=== PATIENT | male | born 1955 ===

== ENCOUNTER 2017-10-30 06:02 | Day surgery (SDC) | payer MEDICARE ==
[2017-09-18 03:47] VITALS: BMI 37.3
[2017-10-30] MEDS ORDERED: Lidocaine 2% Inj (20ml) ONE (07:19)
[2017-10-30] MEDS ORDERED: Iodixanol 320 MG/ML 200 ML BOTTLE IV ONE ×2 (07:20→08:34)
[2017-10-30] MEDS ORDERED: Propofol 10 mg/ml Inj (20 ML) ONE (08:13)
[2017-10-30] MEDS ORDERED: Midazolam 2 MG/2 ML VIAL ONE ×2 (08:13→09:40)
[2017-10-30] MEDS ORDERED: DiphenhydrAMINE 50 mg/ml Inj ONE (09:15)
[2017-10-30] MEDS ORDERED: Iodixanol 320 MG/ML 100 ML BOTTLE IV ONE (10:18)
--- NOTE | 2017-10-30 10:48 | PCM.SURG1 ---
Surgeon's Initial Post Op Note - Surgeon's Notes Surgeon: rodrigo Supervisor Rough End: 0 Type of Anesthesia: IV Sedation Anesthesia Administered By: sarahy Pre-Operative Diagnosis: sever claudication both legs left greater than right Operative Findings: r sfa occluded with reconstitution above the knee and single run off via anterior tibial. left sfa diffuse disease in sfa diseased tibial vessels. peroneal major vessel into foot with distal anterior tibial Post-Operative Diagnosis: same Operation Performed: aortofemoral angiogram via right groin with selctive catherization of left femoral artery. pathway left atherectomy/ DCB balloon angioplasty of sfa. balloon angioplasty of tibial peroneal trunk. perclose right groin Specimen/Specimens Removed: 0 Estimated Blood Loss: EBL {In ML}: 100 Blood Products Given: N/A Drains Used: No Drains Post-Op Condition: Good Date of Surgery/Procedure: 10/30/17 Time of Surgery/Procedure: 10:50
--- NOTE | 2017-10-31 11:23 | VAS ---
DATE: 10/30/2017 PREOPERATIVE DIAGNOSES: Claudication of both legs. PROCEDURE CARRIED OUT: Aortofemoral angiogram via right groin with selective catheterization of left femoral artery, pathway atherectomy of the left superficial femoral artery, balloon angioplasty using a drug-coated balloon of 5 and 6 mm of left superficial femoral artery, and balloon angioplasty using a 2.5 mm balloon of the tibioperoneal trunk on the left side, Perclose closure of right groin. IDENTIFICATION: The patient is a 62-year-old man on dialysis with severe claudication. OPERATIVE FINDINGS: The aorta and renal arteries are free of any significant occlusive disease. Both common iliac, internal iliac, external iliac, and common femoral arteries are free of any significant occlusive disease. On the right side, the arteries were heavily calcified at approximately 3 inches after its origin. The superficial femoral artery occluded and reconstituted at Steven's canal, below this is one-vessel runoff via the anterior tibial artery. In the left leg, the superficial femoral arteries are patent. There are multiple areas of high grade stenosis and atheroma appeared up and down in the leg. Below this the primary runoff has been in the peroneal artery diseased posterior tibial and diseased anterior tibial artery although the anterior tibial reconstituted as the major vessel actually in the foot below the occlusion. Subsequent to the performance of the diagnostic arteriogram, a stiff-angled guidewire was advanced over the aortic bifurcation and a 7-Citizen Of [place] sheath placed into the proximal portion of the superficial femoral artery. Heparin was given. The atherectomy device of large size was then used to atherectomize the superficial femoral artery after we placed the filter wire distally. After this had been done, we then deployed 5 and 6 mm balloon and dilated this appropriately. The final results were adequate. However distally, we saw that the tibioperoneal trunk concluded in the interim. We then removed the filter wire and then we ballooned this with the 2.5 mm balloon which was satisfactory. At the completion, films showed brisk flow down here without any evidence of residual stenosis. The procedure was then terminated. Perclose device was deployed in the right groin. The operation was carried out. Aortofemoral angiogram with selective catheterization of the left femoral artery, pathway atherectomy of the left superficial femoral artery, balloon angioplasty using a drug-coated balloon of superficial femoral artery and then a balloon angioplasty of the tibioperoneal trunk. Ryan Gooden Jr., MD cc: MD Emanuel Spicer MD
== END 2017-10-30 13:10 | disposition home or self-care (01) ==
LOC: C.SPRAD 06:02
PROVIDERS: ATTEND Surgery Vascular Surgery
DX: I70.213 Atherosclerosis of native arteries of extremities with intermittent claudication, bilateral legs (principal); Z99.2 Dependence on renal dialysis
CPT/HCPCS: 36247; 37225; 37232; 75625; 75716; 75774; C1724; C1725; C1760; C1766; C1769; C1884; C1887; C1894; C2623; J1200; J1644; J2250; J2704; J3010; Q9966; Q9967

== ENCOUNTER 2017-12-04 09:55 | Day surgery (SDC) | payer MEDICARE ==
[2017-12-03 10:08] VITALS: BMI 34.4
[2017-12-04 11:36] LABS: INR 1.1; PROTHROMBIN TIME 12.2 SECONDS (9.7-12.2)
[2017-12-04 11:58] LABS: CALCIUM 9.6 mg/dl (8.6-10.4)
[2017-12-04] MEDS ORDERED: Midazolam 2 MG/2 ML VIAL ONE ×2 (12:27→12:28)
[2017-12-04] MEDS ORDERED: Iodixanol 320 MG/ML 100 ML BOTTLE IV ONE ×3 (12:40→14:42)
[2017-12-04] MEDS ORDERED: Propofol 10 mg/ml Inj (20 ML) ONE (12:50)
--- NOTE | 2017-12-04 13:32 | PCM.SURG1 ---
Surgeon's Initial Post Op Note - Surgeon's Notes Surgeon: miri Well Cleaner: 0 Type of Anesthesia: IV Sedation Anesthesia Administered By: taylor Pre-Operative Diagnosis: pvd Operative Findings: no intervention carried oout becasue patient was not able to remain still. right side sfa occlusion with single vessel runoff via nterior tibial artery. pressure closure left groin Post-Operative Diagnosis: same Operation Performed: aortofemoral angiogram via left groin with selective catherization of right femoral artery Specimen/Specimens Removed: 0 Estimated Blood Loss: EBL {In ML}: 25 Blood Products Given: N/A Drains Used: No Drains Post-Op Condition: Good Date of Surgery/Procedure: 12/04/17 Time of Surgery/Procedure: 13:33
--- NOTE | 2017-12-04 16:34 | CP.PCM.PN ---
Subjective - Date & Time of Evaluation Date of Evaluation: 12/04/17 Time of Evaluation: 16:25 - Subjective Subjective: House doctor note: I was called down to sign this patient out against medical advice. The patient wanted to leave before the appropriate time for discharge as he just had catheterization. Patient wanted to leave before medically appropriate. Risks explained, and the patient was instructed to return to the emergency room in the case of new or worsening symptoms. Dr. Gooden was notified. Objective - Labs Labs: 12/04/17 11:19 12/04/17 11:19 PT 12.2 SECONDS (9.7-12.2) 12/04/17 11:19 INR 1.1 12/04/17 11:19 APTT 33 SECONDS (21-34) 12/04/17 11:19
--- NOTE | 2017-12-05 12:53 | OP ---
DATE: 12/04/2017 PREOPERATIVE DIAGNOSES: Pain, right foot; peripheral vascular disease; known right superficial artery occlusion. PROCEDURE CARRIED OUT: Aortofemoral angiogram via left groin with selective catheterization of the right femoral artery. SURGEON: Ryan Gooden Jr., MD WATCH REPAIRER: None. ANESTHESIOLOGIST: Dr. Forte. INDICATIONS: The patient is a 62-year-old man on dialysis with previous interventions successfully on his left leg. He had a known history of restless legs. However, he was able to have his left side treated uneventfully. He now presents with increasing pain in the right leg and for this reason he planned intervention on the right leg. OPERATIVE FINDINGS: 1. The aorta and renal arteries are free of any significant occlusive disease. 2. Common femoral, profunda femoris arteries, and iliac arteries are widely patent. On the left side, there is some minor atherosclerotic changes in the distal portion of the SFA, which was previously untreated and there was runoff via the tibial vessels. The detailed pictures of the tibial vessel was now taken on the right side. The superficial femoral artery was occluded soon after surgery and reconstituted the level just above the knee joint. Below this, there was single vessel runoff to the anterior tibial, ____ adequately in the region of the foot. Below, we advanced the catheter over the aortic bifurcation, positioned the catheter in the distal portion of the SFA. We were unable to intervene because of the patient's inability. Even though he was wide awake and cooperative, he will maintain his leg in a stable position. Because of this we abandoned the procedure, applied pressure to the groin. OPERATION CARRIED OUT: Aortofemoral angiogram with selective catheterization in the right femoral artery. Ryan Gooden Jr., MD
== END 2017-12-04 16:28 | disposition home or self-care (01) ==
LOC: C.CATHLAB 09:55 → C.SPRAD 09:55 → C.CATHLAB 16:28
PROVIDERS: ATTEND Surgery Vascular Surgery
DX: I73.9 Peripheral vascular disease, unspecified (principal); I77.1 Stricture of artery; G25.81 Restless legs syndrome; E11.22 Type 2 diabetes mellitus with diabetic chronic kidney disease; I12.0 Hypertensive chronic kidney disease with stage 5 chronic kidney disease or end stage renal disease; N18.6 End stage renal disease; Z99.2 Dependence on renal dialysis
CPT/HCPCS: 36247; 36415; 80048; 85014; 85018; 85610; 85730; J1644; J2250; J2704; Q9967

== ENCOUNTER 2018-07-02 06:16 | Day surgery (SDC) | payer MEDICARE ==
[2017-12-28 23:51] VITALS: BMI 34.4
[2018-07-02] MEDS ORDERED: Midazolam 2 MG/2 ML VIAL ONE (08:10)
[2018-07-02] MEDS ORDERED: Iodixanol 320 MG/ML 200 ML BOTTLE IV ONE ×2 (08:18→08:39)
[2018-07-02] MEDS ORDERED: DiphenhydrAMINE 50 mg/ml Inj ONE (08:22)
--- NOTE | 2018-07-02 09:40 | PCM.SURG1 ---
Surgeon's Initial Post Op Note - Surgeon's Notes Surgeon: miri Carton Stapler: 0 Type of Anesthesia: IV Sedation Anesthesia Administered By: shanique Pre-Operative Diagnosis: pvd/ rest pain Operative Findings: bilateral sfa occlusion. anterior tibial run off on right. anterior tibial and peroneal on left. perclose left Post-Operative Diagnosis: same Operation Performed: aortofemoral angio via left groin with selective catherization of right Specimen/Specimens Removed: 0 Estimated Blood Loss: EBL {In ML}: 50 Blood Products Given: N/A Drains Used: No Drains Post-Op Condition: Good Date of Surgery/Procedure: 07/02/18 Time of Surgery/Procedure: 09:40
--- NOTE | 2018-07-03 06:42 | VAS ---
DATE: 07/02/2018 PREOPERATIVE DIAGNOSES: Rest pain in right foot, peripheral vascular disease, and renal failure. PROCEDURE CARRIED OUT: Aortofemoral angiogram via left groin with selective catheterization of right femoral artery, no intervention. SURGEON: Ryan Gooden Jr., MD CORPORATE STRATEGY INTERN: None. ANESTHESIOLOGIST: Ms. Rubio. ANESTHESIA: Local with sedation. INDICATIONS: The patient is a 62-year-old man, on dialysis, previous interventions on the left leg, who presents now with increasing pain in the right side. OPERATIVE FINDINGS: The aorta and renal arteries were widely patent. There were minor degrees of atherosclerotic changes throughout the aorta and iliac arteries. Both common iliac, internal iliac, and external iliac arteries were widely patent. On the left side, the left common femoral was opened, the profunda was opened, the superficial femoral arteries were occluded in its mid segment and reconstituted at the level of the knee. There were rather reconstituted segments with the major vessel into the foot came from the knee down. The anterior tibial and peroneal are opened on the left. On the right side, the superficial femoral artery was occluded soon after its origin and reconstituted at the level of Steven's canal. Below this, there was run off femoral primarily via the anterior tibial artery which was in the segment just above the foot, but reconstituted more distally. Subsequent to the performance of diagnostic arteriogram, a stiff-angled guidewire was advanced over the aortic bifurcation. A 7-[place] sheath was positioned in the common femoral artery. Initially, we were able to engage the superficial femoral artery, and despite using a variety of techniques, wires and catheters, we are unable able to be finally cross this lesion. After attempting it quite some time with every available device, we then abandoned the procedure. Perclose device was then deployed on the left. Operation carried out was aortofemoral angiogram with selective catheterization of right femoral artery, no intervention. Ryan Gooden Jr., MD
[2018-07-03 15:32] VITALS: RESP 16; O2SAT 100
== END 2018-07-02 13:13 | disposition home or self-care (01) ==
LOC: C.SPRAD 06:16
PROVIDERS: ATTEND Surgery Vascular Surgery
DX: I73.9 Peripheral vascular disease, unspecified (principal); N19 Unspecified kidney failure
CPT/HCPCS: 36247; 75625; 75716; 75774; 76937; 82948; 94770; C1760; C1766; C1769; C1887; C1894; J1644; J2250; J3010; Q9966

== ENCOUNTER 2018-08-30 17:06 | Inpatient (IN) | payer MEDICARE ==
[2018-08-30 17:06] VITALS: BMI 34.7
--- NOTE | 2018-08-30 17:33 | C.PDOC ---
History Of Present Illness 62 year old male presents was sent to the ED by PMD Dr. Kory Matos for admission for gangrene on the feet bilaterally x2 months. The patient offers no other medical complaints. Denies fever, chills, nausea, vomiting, diarrhea, and any other associated symptoms. Time Seen by Provider: 08/30/18 17:21 Chief Complaint (Nursing): Lower Extremity Problem/Injury History Per: Patient History/Exam Limitations: no limitations Onset/Duration Of Symptoms: Other (x2 months) Current Symptoms Are (Timing): Still Present Recent travel outside of the [place]: No Past Medical History Reviewed: Historical Data, Nursing Documentation, Vital Signs Vital Signs: Last Vital Signs Temp 98 F 08/30/18 17:12 Pulse 85 08/30/18 17:12 Resp 18 08/30/18 17:12 BP 111/66 08/30/18 17:12 Pulse Ox 98 08/30/18 17:12 - Medical History PMH: Anxiety, Depression, Diabetes, Fractures, HTN, Hypercholesterolemia, Hyperlipidemia, Peripheral Edema, End Stage Renal Disease, Chronic Kidney Disease Surgical History: - [facility] Procedures (08/17/18) BYPASS LEFT BRACHIAL ARTERY TO UPPER ARM VEIN, OPEN APPROACH (06/24/16) EXCISION OF LEFT KIDNEY, PERCUTANEOUS APPROACH, DIAGNOSTIC (06/24/16) FLUOROSCOPY OF AORTA, BI LE ART USING OTH CONTRAST (08/17/18) PERFORMANCE OF URINARY FILTRATION, MULTIPLE (06/24/16) SEPTOPLASTY NEC (06/05/00) TURBINECTOMY NEC (06/05/00) Family History: States: Unknown Family Hx - Social History Hx Tobacco Use: No Hx Alcohol Use: No Hx Substance Use: No - Immunization History Hx Tetanus Toxoid Vaccination: No Review Of Systems Except As Marked, All Systems Reviewed And Found Negative. Constitutional: Negative for: Fever, Chills Gastrointestinal: Negative for: Nausea, Vomiting Musculoskeletal: Positive for: Other (gangrene on the feet bilaterally. ) Physical Exam - Physical Exam Skin: Warm, Dry, Other (skin changes bilaterally to the legs.) Head: Atraumatic, Normacephalic Eye(s): bilateral: Normal Inspection Oral Mucosa: Moist Neck: Normal ROM, Supple Chest: Symmetrical Cardiovascular: Rhythm Regular, Murmur Respiratory: Normal Breath Sounds, No Rales, No Rhonchi, No Wheezing Gastrointestinal/Abdominal: Normal Exam, Soft, No Tenderness Extremity: Normal ROM (of the lower extremities bilaterally. ), No Deformity Pulses: Left Dorsalis Pedis: Absent (no palpable distal pulses. ), Right Dorsalis Pedis: Absent (no palpable distal pulses. ) Neurological/Psych: Oriented x3, Normal Speech ED Course And Treatment - Laboratory Results Result Diagrams: 08/30/18 18:32 08/30/18 18:32 O2 Sat by Pulse Oximetry: 98 (RA) Pulse Ox Interpretation: Normal Medical Decision Making Medical Decision Making: Plan: -Blood sent. -Blood culture. Spoke to Dr. Kory Matos and made aware of patient and lab results. Disposition - Disposition Disposition Time: 18:30 Condition: GUARDED Forms: gopogo (Lithuanian) - Clinical Impression Clinical Impression: PVD (peripheral vascular disease), Renal failure, Arterial, arteriole and capillary disease - Scribe Statement The provider has reviewed the documentation as recorded by the Scribe (Renetta Ball) Provider Attestation: All medical record entries made by the Scribe were at my direction and personally dictated by me. I have reviewed the chart and agree that the record accurately reflects my personal performance of the history, physical exam, medical decision making, and the department course for this patient. I have also personally directed, reviewed, and agree with the discharge instructions and disposition.
[2018-08-30 18:36] LABS: BASO # 0.1 K/uL (0.0-0.2); BASO % 0.9 % (0.0-2.0); EOS # 0.2 K/uL (0.0-0.7); EOS % 2.2 % (0.0-4.0); HEMOGLOBIN 12.6 g/dL (12.0-18.0); LYMPH # 1.6 K/uL (1.0-4.3); LYMPH % 19.2 % (20.0-40.0); MEAN CORPUSCULAR HEMOGLOBIN 32.9 pg (27.0-31.0); MEAN CORPUSCULAR HGB CONC 33.5 g/dL (33.0-37.0); MEAN PLATELET VOLUME 8.8 fL (7.2-11.7); MONO # 0.8 K/uL (0.0-0.8); MONO % 9.2 % (0.0-10.0); NEUT # 5.6 K/uL (1.8-7.0); NEUT % 68.5 % (50.0-75.0); NRBC % 0.2 % (0.0-2.0); RBC 3.82 Mil/uL (4.40-5.90); RED CELL DISTRIBUTION WIDTH 16.1 % (11.5-14.5); WHITE BLOOD COUNT 8.2 K/uL (4.8-10.8)
[2018-08-30 18:40] LABS: MEAN CELL VOLUME 98.4 fL (80.0-94.0)
[2018-08-30 18:44] LABS: INR 1.2; PROTHROMBIN TIME 13.6 SECONDS (9.7-12.2)
[2018-08-30 18:50] LABS: ALB/GLOB RATIO 1.2 (1.0-2.1); CALCIUM 8.4 mg/dl (8.6-10.4)
--- NOTE | 2018-08-30 19:35 | CP.PCM.HP ---
Past Patient History - Infectious Disease Hx of Infectious Diseases: None - Past Medical History & Family History Past Medical History?: Yes - Past Social History Smoking Status: Never Smoked - CARDIAC Hx Hypercholesterolemia: Yes Hx Hypertension: Yes Hx Peripheral Edema: Yes - PULMONARY Hx Respiratory Disorders: No - NEUROLOGICAL Hx Neurological Disorder: No - HEENT Hx HEENT Problems: Yes Hx Cataracts: Yes (RIGHT EYE) - RENAL Hx Chronic Kidney Disease: Yes - ENDOCRINE/METABOLIC Hx Endocrine Disorders: Yes Hx Diabetes Mellitus Type 2: Yes - HEMATOLOGICAL/ONCOLOGICAL Hx Blood Disorders: No - INTEGUMENTARY Hx Dermatological Problems: No - MUSCULOSKELETAL/RHEUMATOLOGICAL Hx Fractures: Yes - GASTROINTESTINAL Hx Gastrointestinal Disorders: No - GENITOURINARY/GYNECOLOGICAL Hx Genitourinary Disorders: No - PSYCHIATRIC Hx Anxiety: Yes Hx Depression: Yes Hx Substance Use: No - SURGICAL HISTORY Hx Surgeries: Yes Hx Herniorrhaphy: Yes Other/Comment: Av shunt on the left arm - ANESTHESIA Hx Anesthesia: Yes Hx Anesthesia Reactions: No Hx Malignant Hyperthermia: No Meds Allergies/Adverse Reactions: Allergies Allergy/AdvReac Type Severity Reaction Status Date / Time shellfish derived Allergy Intermediate DIZZINESS Verified 08/17/18 10:28 Physical Exam - Constitutional Appears: Well - Head Exam Head Exam: ATRAUMATIC, NORMAL INSPECTION, NORMOCEPHALIC - Eye Exam Eye Exam: EOMI, Normal appearance, PERRL Pupil Exam: NORMAL ACCOMODATION, PERRL - ENT Exam ENT Exam: Mucous Membranes Moist, Normal Exam - Neck Exam Neck exam: Positive for: Normal Inspection - Respiratory Exam Respiratory Exam: Decreased Breath Sounds - Cardiovascular Exam Cardiovascular Exam: REGULAR RHYTHM, +S1, +S2 - GI/Abdominal Exam GI & Abdominal Exam: Diminished Bowel Sounds, Soft - Rectal Exam Rectal Exam: Deferred Results - Vital Signs Recent Vital Signs: Last Vital Signs Temp 98.5 F 08/30/18 19:02 Pulse 84 08/30/18 19:02 Resp 18 08/30/18 19:02 BP 144/77 08/30/18 19:02 Pulse Ox 95 08/30/18 19:02 - Labs Result Diagrams: 08/30/18 18:32 08/30/18 18:32 Labs: Laboratory Results - last 24 hr 08/30/18 08/30/18 08/30/18 18:32 18:32 18:32 WBC 8.2 RBC 3.82 L Hgb 12.6 Hct 37.6 MCV 98.4 H D MCH 32.9 H MCHC 33.5 RDW 16.1 H Plt Count 395 D MPV 8.8 Neut % (Auto) 68.5 Lymph % (Auto) 19.2 L [place] % (Auto) 9.2 Eos % (Auto) 2.2 Baso % (Auto) 0.9 Neut # (Auto) 5.6 Lymph # (Auto) 1.6 [place] # (Auto) 0.8 Eos # (Auto) 0.2 Baso # (Auto) 0.1 PT 13.6 H INR 1.2 APTT 34 Sodium 135 Potassium 3.3 L Chloride 90 L Carbon Dioxide 35 H Anion Gap 13 BUN 28 H Creatinine 5.4 H Est GFR ( Amer) 13 Est GFR (Non-Af Amer) 11 Random Glucose 127 H Calcium 8.4 L Total Bilirubin 0.6 AST 47 ALT 116 H D Alkaline Phosphatase 98 Total Protein 7.4 Albumin 4.0 Globulin 3.3 Albumin/Globulin Ratio 1.2 Blood Type Antibody Screen 08/30/18 18:32 WBC RBC Hgb Hct MCV MCH MCHC RDW Plt Count MPV Neut % (Auto) Lymph % (Auto) [place] % (Auto) Eos % (Auto) Baso % (Auto) Neut # (Auto) Lymph # (Auto) [place] # (Auto) Eos # (Auto) Baso # (Auto) PT INR APTT Sodium Potassium Chloride Carbon Dioxide Anion Gap BUN Creatinine Est GFR ( Amer) Est GFR (Non-Af Amer) Random Glucose Calcium Total Bilirubin AST ALT Alkaline Phosphatase Total Protein Albumin Globulin Albumin/Globulin Ratio Blood Type O POSITIVE Antibody Screen Negative
[2018-08-30] MEDS ORDERED: HYDROmorphone 0.5 mg/0.5 ml ISec IVP PRN (19:50)
[2018-08-30] MEDS ORDERED: Dextrose 50% SYRINGE Inj (50 ml) IV PRN (19:53)
[2018-08-30] MEDS ORDERED: Glucagon Recombinant 1 mg Inj IM PRN (19:53)
[2018-08-30] MEDS: HYDROmorphone 0.5 mg/0.5 ml ISec IVP PRN (20:59)
[2018-08-30] MEDS: (Novolog) Insulin Aspart, Recombinant 100 u/ml 10 ml vial SC SCH (22:02)
[2018-08-31] MEDS: HYDROmorphone 0.5 mg/0.5 ml ISec IVP PRN ×5 (00:55→17:21)
--- NOTE | 2018-08-31 01:41 | CP.PCM.CON ---
History of Present Illness - History of Present Illness History of Present Illness: Vascular Surgery Consult Re: RLE ischemia HPI: 62M recently DCed from [facility], was scheduled for surgery 09/03/18 but says he was sent back by his PMD due to severe pain in both of his feet uncontrolled by meds. No other complaints. Pt has several areas of gangrene on the feet bilaterally for 2 months. PMH: PVD, HTN, ESRD on HD, DM, Cataracts, CHF PSH: L UE AV shunt SH:No tobacco, EtOH or drug use FH: noncontributory All: shellfish Meds: See MAR Review of Systems - Review of Systems All systems: reviewed and no additional remarkable complaints except (as per HPI) Past Patient History - Infectious Disease Hx of Infectious Diseases: None - Past Medical History & Family History Past Medical History?: Yes - Past Social History Smoking Status: Never Smoked - CARDIAC Hx Circulatory Problems: Yes Hx Hypercholesterolemia: Yes Hx Hypertension: Yes Hx Peripheral Edema: Yes Hx Peripheral Vascular Disease: Yes - PULMONARY Hx Respiratory Disorders: No - NEUROLOGICAL Hx Neurological Disorder: No - HEENT Hx HEENT Problems: Yes Hx Cataracts: Yes (RIGHT EYE) - RENAL Hx Chronic Kidney Disease: Yes Hx Dialysis: Yes Type of Dialysis Access: lerft av fistula Date of Last Dialysis Treatment: 08/29/18 Hx Kidney Stones: No Hx Neurogenic Bladder: No Hx Pyelonephritis: No Hx Renal (Kidney) Cancer: No Hx Renal Failure: Yes - ENDOCRINE/METABOLIC Hx Endocrine Disorders: Yes Hx Diabetes Mellitus Type 2: Yes - HEMATOLOGICAL/ONCOLOGICAL Hx Blood Disorders: No - INTEGUMENTARY Hx Dermatological Problems: No - MUSCULOSKELETAL/RHEUMATOLOGICAL Hx Falls: No Hx Fractures: Yes - GASTROINTESTINAL Hx Gastrointestinal Disorders: No - GENITOURINARY/GYNECOLOGICAL Hx Genitourinary Disorders: No - PSYCHIATRIC Hx Anxiety: Yes Hx Depression: Yes Hx Substance Use: No - SURGICAL HISTORY Hx Surgeries: Yes Hx Herniorrhaphy: Yes Other/Comment: Av shunt on the left arm - ANESTHESIA Hx Anesthesia: Yes Hx Anesthesia Reactions: No Hx Malignant Hyperthermia: No Meds Allergies/Adverse Reactions: Allergies Allergy/AdvReac Type Severity Reaction Status Date / Time shellfish derived Allergy Intermediate DIZZINESS Verified 08/17/18 10:28 - Medications Medications: Current Medications Dextrose (Dextrose 50% Inj) 0 ml IV STAT PRN; Protocol PRN Reason: Hypoglycemia Protocol Dextrose (Glutose 15) 0 gm PO ONCE PRN; Protocol PRN Reason: Hypoglycemia Protocol Glucagon (Glucagen Diagnostic Kit) 0 mg IM STAT PRN; Protocol PRN Reason: Hypoglycemia Protocol Heparin Sodium (Porcine) (Heparin) 5,000 units SC Q12 [facility] Last Admin: 08/30/18 21:35 Dose: 5,000 units Hydromorphone HCl (Dilaudid) 0.5 mg IVP Q4H PRN PRN Reason: Pain, severe (8-10) Last Admin: 08/31/18 00:55 Dose: 0.5 mg Dextrose (Dextrose 5% In Water 1000 Ml) 1,000 mls @ 0 mls/hr IV .Q0M PRN; Protocol PRN Reason: Hypoglycemia Protocol Vancomycin HCl 500 mg/ Sodium (Chloride) 100 mls @ 100 mls/hr IVPB MWF [facility]; Protocol Insulin Aspart (Novolog) 0 unit SC ACHS [facility]; Protocol Last Admin: 08/30/18 22:02 Dose: Not Given Pregabalin (Lyrica) 100 mg PO BID [facility] Rosuvastatin Calcium (Crestor) 5 mg PO HS [facility] Last Admin: 08/30/18 21:35 Dose: 5 mg Tramadol HCl (Ultram) 50 mg PO TID PRN PRN Reason: Pain, moderate (4-7) Physical Exam - Constitutional Appears: Non-toxic, No Acute Distress - Head Exam Head Exam: ATRAUMATIC, NORMOCEPHALIC - Eye Exam Eye Exam: EOMI. absent: Scleral icterus - ENT Exam ENT Exam: Mucous Membranes Moist Additional comments: trachea midline - Neck Exam Neck exam: Positive for: Full Rom. Negative for: Tenderness - Respiratory Exam Respiratory Exam: NORMAL BREATHING PATTERN. absent: Respiratory Distress - Cardiovascular Exam Cardiovascular Exam: +S1, +S2. absent: Tachycardia - GI/Abdominal Exam GI & Abdominal Exam: Soft. absent: Distended, Tenderness - Rectal Exam Rectal Exam: Deferred - Extremities Exam Additional comments: DP/PT non palpable, 1+ pitting edema to dorsal aspect of foot bilaterally. Tenderness to palpation of heels bilaterally. No palpable pulses bilaterally. very faint doppler pulses b/l. Fissures with dried serous fluid on heels bilaterally, no purulence, no malodor, no tunneling, no tracking. Mild diffuse edema appreciated to b/l heels. - Back Exam Back exam: absent: CVA tenderness (L), CVA tenderness (R) - Neurological Exam Neurological exam: Alert, Oriented x3 - Skin Skin Exam: Dry, Warm Results - Vital Signs Recent Vital Signs: Last Vital Signs Temp 98.8 F 08/31/18 00:19 Pulse 80 08/31/18 00:19 Resp 20 08/31/18 00:19 BP 125/70 08/31/18 00:19 Pulse Ox 98 08/31/18 00:19 - Labs Result Diagrams: 08/30/18 18:32 08/30/18 18:32 Labs: Laboratory Results - last 24 hr 08/30/18 08/30/18 08/30/18 18:32 18:32 18:32 WBC 8.2 RBC 3.82 L Hgb 12.6 Hct 37.6 MCV 98.4 H D MCH 32.9 H MCHC 33.5 RDW 16.1 H Plt Count 395 D MPV 8.8 Neut % (Auto) 68.5 Lymph % (Auto) 19.2 L [place] % (Auto) 9.2 Eos % (Auto) 2.2 Baso % (Auto) 0.9 Neut # (Auto) 5.6 Lymph # (Auto) 1.6 [place] # (Auto) 0.8 Eos # (Auto) 0.2 Baso # (Auto) 0.1 PT 13.6 H INR 1.2 APTT 34 Sodium 135 Potassium 3.3 L Chloride 90 L Carbon Dioxide 35 H Anion Gap 13 BUN 28 H Creatinine 5.4 H Est GFR ( Amer) 13 Est GFR (Non-Af Amer) 11 POC Glucose (mg/dL) Random Glucose 127 H Calcium 8.4 L Total Bilirubin 0.6 AST 47 ALT 116 H D Alkaline Phosphatase 98 Total Protein 7.4 Albumin 4.0 Globulin 3.3 Albumin/Globulin Ratio 1.2 Blood Type Antibody Screen 08/30/18 08/30/18 18:32 20:55 WBC RBC Hgb Hct MCV MCH MCHC RDW Plt Count MPV Neut % (Auto) Lymph % (Auto) [place] % (Auto) Eos % (Auto) Baso % (Auto) Neut # (Auto) Lymph # (Auto) [place] # (Auto) Eos # (Auto) Baso # (Auto) PT INR APTT Sodium Potassium Chloride Carbon Dioxide Anion Gap BUN Creatinine Est GFR ( Amer) Est GFR (Non-Af Amer) POC Glucose (mg/dL) 126 H Random Glucose Calcium Total Bilirubin AST ALT Alkaline Phosphatase Total Protein Albumin Globulin Albumin/Globulin Ratio Blood Type O POSITIVE Antibody Screen Negative Assessment & Plan - Assessment and Plan (Free Text) Assessment: 62M with b/l LE gangrene and ischemia R>L Plan: Planning for Bypass 09/03 Needs HD Saturday 09/02 Pain control D/W Dr. Berkley Pozo PGY4
[2018-08-31 07:03] LABS: BASO % 0.6 % (0.0-2.0); EOS # 0.2 K/uL (0.0-0.7); HEMOGLOBIN 12.1 g/dL (12.0-18.0); LYMPH # 1.8 K/uL (1.0-4.3); LYMPH % 22.1 % (20.0-40.0); MEAN CELL VOLUME 101.4 fL (80.0-94.0); MEAN CORPUSCULAR HEMOGLOBIN 32.9 pg (27.0-31.0); MEAN CORPUSCULAR HGB CONC 32.4 g/dL (33.0-37.0); MEAN PLATELET VOLUME 8.9 fL (7.2-11.7); MONO # 0.8 K/uL (0.0-0.8); MONO % 10.4 % (0.0-10.0); NEUT # 5.2 K/uL (1.8-7.0); NEUT % 63.9 % (50.0-75.0); NRBC % 0.1 % (0.0-2.0); RBC 3.68 Mil/uL (4.40-5.90); RED CELL DISTRIBUTION WIDTH 16.3 % (11.5-14.5); WHITE BLOOD COUNT 8.1 K/uL (4.8-10.8)
[2018-08-31] MEDS: (Novolog) Insulin Aspart, Recombinant 100 u/ml 10 ml vial SC SCH ×4 (07:37→21:23)
[2018-08-31 09:34] LABS: ALB/GLOB RATIO 1.3 (1.0-2.1); ALBUMIN 3.9 g/dL (3.5-5.0); CALCIUM 8.5 mg/dl (8.6-10.4)
--- NOTE | 2018-08-31 11:08 | CP.PCM.CON ---
History of Present Illness - History of Present Illness History of Present Illness: HPI: 62M recently DCd from [facility], was scheduled for surgery 09/03/18 but says he was sent back by his PMD due to severe pain in both of his feet uncontrolled by meds. No other complaints. Pt has several areas of gangrene on the feet bilaterally for 2 months. PMH: PVD, HTN, ESRD on HD, DM, Cataracts, CHF PSH: L UE AV shunt SH:No tobacco, EtOH or drug use FH: noncontributory All: shellfish Meds: See MAR Past Patient History - Infectious Disease Hx of Infectious Diseases: None - Past Medical History & Family History Past Medical History?: Yes - Past Social History Smoking Status: Never Smoked - CARDIAC Hx Circulatory Problems: Yes Hx Hypercholesterolemia: Yes Hx Hypertension: Yes Hx Peripheral Edema: Yes Hx Peripheral Vascular Disease: Yes - PULMONARY Hx Respiratory Disorders: No - NEUROLOGICAL Hx Neurological Disorder: No - HEENT Hx HEENT Problems: Yes Hx Cataracts: Yes (RIGHT EYE) - RENAL Hx Chronic Kidney Disease: Yes Hx Dialysis: Yes Type of Dialysis Access: lerft av fistula Date of Last Dialysis Treatment: 08/29/18 Hx Kidney Stones: No Hx Neurogenic Bladder: No Hx Pyelonephritis: No Hx Renal (Kidney) Cancer: No Hx Renal Failure: Yes - ENDOCRINE/METABOLIC Hx Endocrine Disorders: Yes Hx Diabetes Mellitus Type 2: Yes - HEMATOLOGICAL/ONCOLOGICAL Hx Blood Disorders: No - INTEGUMENTARY Hx Dermatological Problems: No - MUSCULOSKELETAL/RHEUMATOLOGICAL Hx Falls: No Hx Fractures: Yes - GASTROINTESTINAL Hx Gastrointestinal Disorders: No - GENITOURINARY/GYNECOLOGICAL Hx Genitourinary Disorders: No - PSYCHIATRIC Hx Anxiety: Yes Hx Depression: Yes Hx Substance Use: No - SURGICAL HISTORY Hx Surgeries: Yes Hx Herniorrhaphy: Yes Other/Comment: Av shunt on the left arm - ANESTHESIA Hx Anesthesia: Yes Hx Anesthesia Reactions: No Hx Malignant Hyperthermia: No Meds Allergies/Adverse Reactions: Allergies Allergy/AdvReac Type Severity Reaction Status Date / Time shellfish derived Allergy Intermediate DIZZINESS Verified 08/17/18 10:28 - Medications Medications: Current Medications Dextrose (Dextrose 50% Inj) 0 ml IV STAT PRN; Protocol PRN Reason: Hypoglycemia Protocol Dextrose (Glutose 15) 0 gm PO ONCE PRN; Protocol PRN Reason: Hypoglycemia Protocol Glucagon (Glucagen Diagnostic Kit) 0 mg IM STAT PRN; Protocol PRN Reason: Hypoglycemia Protocol Heparin Sodium (Porcine) (Heparin) 5,000 units SC Q12 [facility] Last Admin: 08/31/18 09:33 Dose: 5,000 units Hydromorphone HCl (Dilaudid) 0.5 mg IVP Q4H PRN PRN Reason: Pain, severe (8-10) Last Admin: 08/31/18 09:34 Dose: 0.5 mg Dextrose (Dextrose 5% In Water 1000 Ml) 1,000 mls @ 0 mls/hr IV .Q0M PRN; Protocol PRN Reason: Hypoglycemia Protocol Vancomycin HCl 500 mg/ Sodium (Chloride) 100 mls @ 100 mls/hr IVPB MWF [facility]; Protocol Last Admin: 08/31/18 09:33 Dose: 100 mls/hr Insulin Aspart (Novolog) 0 unit SC ACHS [facility]; Protocol Last Admin: 08/31/18 07:37 Dose: Not Given Pregabalin (Lyrica) 100 mg PO BID [facility] Last Admin: 08/31/18 09:33 Dose: 100 mg Rosuvastatin Calcium (Crestor) 5 mg PO HS [facility] Last Admin: 08/30/18 21:35 Dose: 5 mg Tramadol HCl (Ultram) 50 mg PO TID PRN PRN Reason: Pain, moderate (4-7) Last Admin: 08/31/18 03:09 Dose: 50 mg Physical Exam - Head Exam Head Exam: ATRAUMATIC, NORMAL INSPECTION, NORMOCEPHALIC - Eye Exam Eye Exam: EOMI, Normal appearance. absent: Scleral icterus - ENT Exam ENT Exam: Mucous Membranes Moist, Normal Oropharynx - Neck Exam Neck exam: Positive for: Full Rom, Normal Inspection. Negative for: Tenderness, Thyromegaly - Respiratory Exam Respiratory Exam: Clear to Auscultation Bilateral, NORMAL BREATHING PATTERN. absent: Rales, Rhonchi, Wheezes - Cardiovascular Exam Cardiovascular Exam: RRR, +S1, +S2, Systolic Murmur (FABRIZIO non rad, 2/6 RUSB) - GI/Abdominal Exam GI & Abdominal Exam: Normal Bowel Sounds, Soft. absent: Tenderness - Extremities Exam Extremities exam: Negative for: calf tenderness, pedal pulses present - Neurological Exam Neurological exam: Alert, Oriented x3 - Psychiatric Exam Psychiatric exam: Normal Affect, Normal Mood - Skin Skin Exam: Cyanosis (absent pulses DP, ) Results - Vital Signs Recent Vital Signs: Last Vital Signs Temp 97.8 F 08/31/18 07:37 Pulse 74 08/31/18 07:37 Resp 20 08/31/18 07:37 BP 158/80 H 08/31/18 07:37 Pulse Ox 98 08/31/18 07:37 - Labs Result Diagrams: 09/03/18 07:36 09/03/18 07:36 Labs: Laboratory Results - last 24 hr 08/30/18 08/30/18 08/30/18 18:32 18:32 18:32 WBC 8.2 RBC 3.82 L Hgb 12.6 Hct 37.6 MCV 98.4 H D MCH 32.9 H MCHC 33.5 RDW 16.1 H Plt Count 395 D MPV 8.8 Neut % (Auto) 68.5 Lymph % (Auto) 19.2 L [place] % (Auto) 9.2 Eos % (Auto) 2.2 Baso % (Auto) 0.9 Neut # (Auto) 5.6 Lymph # (Auto) 1.6 [place] # (Auto) 0.8 Eos # (Auto) 0.2 Baso # (Auto) 0.1 PT 13.6 H INR 1.2 APTT 34 Sodium 135 Potassium 3.3 L Chloride 90 L Carbon Dioxide 35 H Anion Gap 13 BUN 28 H Creatinine 5.4 H Est GFR ( Amer) 13 Est GFR (Non-Af Amer) 11 POC Glucose (mg/dL) Random Glucose 127 H Calcium 8.4 L Phosphorus Magnesium Total Bilirubin 0.6 AST 47 ALT 116 H D Alkaline Phosphatase 98 Total Protein 7.4 Albumin 4.0 Globulin 3.3 Albumin/Globulin Ratio 1.2 Blood Type Antibody Screen 08/30/18 08/30/18 08/31/18 18:32 20:55 06:58 WBC 8.1 RBC 3.68 L Hgb 12.1 Hct 37.3 MCV 101.4 H D MCH 32.9 H MCHC 32.4 L RDW 16.3 H Plt Count 392 MPV 8.9 Neut % (Auto) 63.9 Lymph % (Auto) 22.1 [place] % (Auto) 10.4 H Eos % (Auto) 3.0 Baso % (Auto) 0.6 Neut # (Auto) 5.2 Lymph # (Auto) 1.8 [place] # (Auto) 0.8 Eos # (Auto) 0.2 Baso # (Auto) 0.0 PT INR APTT Sodium Potassium Chloride Carbon Dioxide Anion Gap BUN Creatinine Est GFR ( Amer) Est GFR (Non-Af Amer) POC Glucose (mg/dL) 126 H Random Glucose Calcium Phosphorus Magnesium Total Bilirubin AST ALT Alkaline Phosphatase Total Protein Albumin Globulin Albumin/Globulin Ratio Blood Type O POSITIVE Antibody Screen Negative 08/31/18 08/31/18 06:58 07:11 WBC RBC Hgb Hct MCV MCH MCHC RDW Plt Count MPV Neut % (Auto) Lymph % (Auto) [place] % (Auto) Eos % (Auto) Baso % (Auto) Neut # (Auto) Lymph # (Auto) [place] # (Auto) Eos # (Auto) Baso # (Auto) PT INR APTT Sodium 134 Potassium 3.6 Chloride 93 L Carbon Dioxide 28 Anion Gap 17 BUN 35 H Creatinine 6.6 H Est GFR ( Amer) 10 Est GFR (Non-Af Amer) 9 POC Glucose (mg/dL) 125 H Random Glucose 112 H Calcium 8.5 L Phosphorus 6.3 H Magnesium 2.1 Total Bilirubin 0.6 AST 49 ALT 100 H Alkaline Phosphatase 95 Total Protein 7.0 Albumin 3.9 Globulin 3.1 Albumin/Globulin Ratio 1.3 Blood Type Antibody Screen Assessment & Plan - Assessment and Plan (Free Text) Assessment: 62 y/o awaiting LE bypass surgery The following images were directly viewed by me: Echo 08/21/18: Normal LVEF, Mild LVH, Normal LV wall motion, Mild-mod aortic stenosis (Dimensionless index 0.41; Vmax 3.61 m/s, mean gradient 30mmHg); mitral annular and aortic valve calcification, Grade 1 diastolic dysfunction, LAE, Normal IVC compliance. Carotid 08/20/18: B/L <50% ICA stenosis BP is controlled A1c is 7.1% Mild-mod clinically ASX Aortic stenosis: f/u echo in 1 year Cardiac cath done 08/27/18 at [facility]: Normal LM, mild LAD, [employer] of the OM2 branch of LCX, moderate LCX and RCA disease RX: medical management: NO PCI indicated Add crestor 20 add asa 81, add plavix 75 Increase atenolol to 50 Add ranexa 500 BID Consider KVNG-I or ARB for additional BP control Cont HD as ordered. Patient is acceptable risk to proceed with LE vascular bypass with adequate control of BP, monitoring of HR and BP.
--- NOTE | 2018-08-31 11:47 | CP.PCM.CON ---
History of Present Illness - History of Present Illness History of Present Illness: 62M was admitted to for severe ischemic pain and possibly infected wounds to feet He is scheduled to have to have fem-pop bypass 09/02/18 He was referred for ID eval of antibiotics his procalcitonin level was elevated but cultures all negative this far PMH: PVD, HTN, ESRD on HD, DM, Cataracts, CHF PSH: L UE AV shunt SH:No tobacco, EtOH or drug use FH: noncontributory All: shellfish Meds: See MAR Review of Systems - Review of Systems All systems: reviewed and no additional remarkable complaints except - Constitutional Constitutional: As Per HPI - EENT Eyes: absent: As Per HPI, Blind Spots, Blurred Vision, Change in Vision, Decreased Night Vision, Diplopia, Discharge, Dry Eye, Exophthalmos, Floaters, Irritation, Itchy Eyes, Loss of Peripheral Vision, Pain, Photophobia, Requires Corrective Lenses, Sees Flashes, Spots in Vision, Tunnel Vision, Other Visual Disturbances, Loss of Vision, Other Ears: absent: As Per HPI, Decreased Hearing, Ear Discharge, Ear Pain, Tinnitus, Abnormal Hearing, Disequilibrium, Dizziness, Other Nose/Mouth/Throat: absent: As Per HPI, Epistaxis, Nasal Congestion, Nasal Discharge, Nasal Obstruction, Nasal Trauma, Nose Pain, Post Nasal Drip, Sinus Pain, Sinus Pressure, Bleeding Gums, Change in Voice, Dental Pain, Dry Mouth, Dysphagia, Halitosis, Hoarsness, Lip Swelling, Mouth Lesions, Mouth Pain, Odynophagia, Sore Throat, Throat Swelling, Tongue Swelling, Facial Pain, Neck Pain, Neck Mass, Other - Cardiovascular Cardiovascular: As Per HPI - Respiratory Respiratory: absent: As Per HPI, Cough, Dyspnea, Hemoptysis, Dyspnea on Exertion, Wheezing, Snoring, Stridor, Pain on Inspiration, Chest Congestion, Exc essive Mucous Production, Change in Mucous Color, Pain with Coughing, Other - Gastrointestinal Gastrointestinal: absent: As Per HPI, Abdominal Pain, Belching, Bloating, Change in Bowel Habits, Change in Stool Character, Coffee Ground Emesis, Constipation, Cramping, Diarrhea, Dyspepsia, Dysphagia, Early Satiety, Excessive Flatus, Fecal Incontinence, Heartburn, Hematemesis, Hematochezia, Loose Stools, Melena, Nausea, Odynophagia, Temesmus, Vomiting, Other - Genitourinary Genitourinary: absent: As Per HPI, Change in Urinary Stream, Difficulty Urinating, Dysuria, Flank Pain, Hematuria, Pyuria, Nocturia, Urinary Inconti nence, Urinary Frequency, Urinary Hesitance, Urinary Urgency, Voiding Freq/Small Amts, Freq UTI, Hx Renal/Bladder Calculi, Hx /Renal Surgery, Bladder Distension, Other - Musculoskeletal Musculoskeletal: As Per HPI - Integumentary Integumentary: As Per HPI, Skin Pain, Wounds - Neurological Neurological: As Per HPI - Psychiatric Psychiatric: absent: As Per HPI, Abnormal Sleep Pattern, Anhedonia, Anxiety, Auditory Hallucinations, Behavioral Changes, Change in Appetite, Change in Libido, Confusion, Depression, Difficulty Concentrating, Hallucinations, Homicidal Ideation, Hopelessness, Irritability, Memory Loss, Mood Swings, Panic Attacks, Paranoia, Suicidal Ideation, Visual Hallucinations, Tactile Hallucinations, Other - Endocrine Endocrine: absent: As Per HPI, Change in Body Appearance, Change in Libido, Cold Intolorance, Deepening of Voice, Excessive Sweating, Fatigue, Flushing, Heat Intolorance, Increase in Ring/Shoe/Hat Size, Palpitations, Polydipsia, Polyphagia, Polyuria, Other - Hematologic/Lymphatic Hematologic: absent: As Per HPI, Easy Bleeding, Easy Bruising, Lymphadenopathy, Other Past Patient History - Infectious Disease Hx of Infectious Diseases: None - Past Medical History & Family History Past Medical History?: Yes - Past Social History Smoking Status: Never Smoked - CARDIAC Hx Circulatory Problems: Yes Hx Hypercholesterolemia: Yes Hx Hypertension: Yes Hx Peripheral Edema: Yes Hx Peripheral Vascular Disease: Yes - PULMONARY Hx Respiratory Disorders: No - NEUROLOGICAL Hx Neurological Disorder: No - HEENT Hx HEENT Problems: Yes Hx Cataracts: Yes (RIGHT EYE) - RENAL Hx Chronic Kidney Disease: Yes Hx Dialysis: Yes Type of Dialysis Access: lerft av fistula Date of Last Dialysis Treatment: 08/29/18 Hx Kidney Stones: No Hx Neurogenic Bladder: No Hx Pyelonephritis: No Hx Renal (Kidney) Cancer: No Hx Renal Failure: Yes - ENDOCRINE/METABOLIC Hx Endocrine Disorders: Yes Hx Diabetes Mellitus Type 2: Yes - HEMATOLOGICAL/ONCOLOGICAL Hx Blood Disorders: No - INTEGUMENTARY Hx Dermatological Problems: No - MUSCULOSKELETAL/RHEUMATOLOGICAL Hx Falls: No Hx Fractures: Yes - GASTROINTESTINAL Hx Gastrointestinal Disorders: No - GENITOURINARY/GYNECOLOGICAL Hx Genitourinary Disorders: No - PSYCHIATRIC Hx Anxiety: Yes Hx Depression: Yes Hx Substance Use: No - SURGICAL HISTORY Hx Surgeries: Yes Hx Herniorrhaphy: Yes Other/Comment: Av shunt on the left arm - ANESTHESIA Hx Anesthesia: Yes Hx Anesthesia Reactions: No Hx Malignant Hyperthermia: No Meds Allergies/Adverse Reactions: Allergies Allergy/AdvReac Type Severity Reaction Status Date / Time shellfish derived Allergy Intermediate DIZZINESS Verified 08/17/18 10:28 - Medications Medications: Current Medications Dextrose (Dextrose 50% Inj) 0 ml IV STAT PRN; Protocol PRN Reason: Hypoglycemia Protocol Dextrose (Glutose 15) 0 gm PO ONCE PRN; Protocol PRN Reason: Hypoglycemia Protocol Glucagon (Glucagen Diagnostic Kit) 0 mg IM STAT PRN; Protocol PRN Reason: Hypoglycemia Protocol Heparin Sodium (Porcine) (Heparin) 5,000 units SC Q12 [facility] Last Admin: 08/31/18 09:33 Dose: 5,000 units Hydromorphone HCl (Dilaudid) 0.5 mg IVP Q4H PRN PRN Reason: Pain, severe (8-10) Last Admin: 08/31/18 09:34 Dose: 0.5 mg Dextrose (Dextrose 5% In Water 1000 Ml) 1,000 mls @ 0 mls/hr IV .Q0M PRN; Protocol PRN Reason: Hypoglycemia Protocol Vancomycin HCl 500 mg/ Sodium (Chloride) 100 mls @ 100 mls/hr IVPB MWF [facility]; Protocol Last Admin: 08/31/18 09:33 Dose: 100 mls/hr Insulin Aspart (Novolog) 0 unit SC ACHS [facility]; Protocol Last Admin: 08/31/18 07:37 Dose: Not Given Pregabalin (Lyrica) 100 mg PO BID [facility] Last Admin: 08/31/18 09:33 Dose: 100 mg Rosuvastatin Calcium (Crestor) 5 mg PO HS [facility] Last Admin: 08/30/18 21:35 Dose: 5 mg Tramadol HCl (Ultram) 50 mg PO TID PRN PRN Reason: Pain, moderate (4-7) Last Admin: 08/31/18 03:09 Dose: 50 mg Physical Exam - Constitutional Appears: Chronically Ill - Head Exam Head Exam: ATRAUMATIC, NORMOCEPHALIC - Eye Exam Eye Exam: absent: Scleral icterus - ENT Exam ENT Exam: Mucous Membranes Dry - Neck Exam Neck exam: Negative for: Lymphadenopathy - Respiratory Exam Respiratory Exam: Decreased Breath Sounds, Clear to Auscultation Bilateral - Cardiovascular Exam Cardiovascular Exam: REGULAR RHYTHM - GI/Abdominal Exam GI & Abdominal Exam: Diminished Bowel Sounds, Soft - Rectal Exam Rectal Exam: Deferred - Exam Exam: NORMAL INSPECTION - Extremities Exam Extremities exam: Positive for: pedal edema, tenderness. Negative for: calf tenderness, normal capillary refill, normal inspection, pedal pulses present Additional comments: ischemic changes to feet - Back Exam Back exam: absent: CVA tenderness (L), CVA tenderness (R), paraspinal tenderness - Neurological Exam Neurological exam: Alert, CN II-XII Intact, Oriented x3, Reflexes Normal - Psychiatric Exam Psychiatric exam: Depressed - Skin Skin Exam: Dry, Intact Results - Vital Signs Recent Vital Signs: Last Vital Signs Temp 97.8 F 08/31/18 07:37 Pulse 74 08/31/18 07:37 Resp 20 08/31/18 07:37 BP 158/80 H 08/31/18 07:37 Pulse Ox 98 08/31/18 07:37 - Labs Result Diagrams: 08/31/18 06:58 08/31/18 06:58 Labs: Laboratory Results - last 24 hr 08/30/18 08/30/18 08/30/18 18:32 18:32 18:32 WBC 8.2 RBC 3.82 L Hgb 12.6 Hct 37.6 MCV 98.4 H D MCH 32.9 H MCHC 33.5 RDW 16.1 H Plt Count 395 D MPV 8.8 Neut % (Auto) 68.5 Lymph % (Auto) 19.2 L [place] % (Auto) 9.2 Eos % (Auto) 2.2 Baso % (Auto) 0.9 Neut # (Auto) 5.6 Lymph # (Auto) 1.6 [place] # (Auto) 0.8 Eos # (Auto) 0.2 Baso # (Auto) 0.1 PT 13.6 H INR 1.2 APTT 34 Sodium 135 Potassium 3.3 L Chloride 90 L Carbon Dioxide 35 H Anion Gap 13 BUN 28 H Creatinine 5.4 H Est GFR ( Amer) 13 Est GFR (Non-Af Amer) 11 POC Glucose (mg/dL) Random Glucose 127 H Calcium 8.4 L Phosphorus Magnesium Total Bilirubin 0.6 AST 47 ALT 116 H D Alkaline Phosphatase 98 Total Protein 7.4 Albumin 4.0 Globulin 3.3 Albumin/Globulin Ratio 1.2 Blood Type Antibody Screen 08/30/18 08/30/18 08/31/18 18:32 20:55 06:58 WBC 8.1 RBC 3.68 L Hgb 12.1 Hct 37.3 MCV 101.4 H D MCH 32.9 H MCHC 32.4 L RDW 16.3 H Plt Count 392 MPV 8.9 Neut % (Auto) 63.9 Lymph % (Auto) 22.1 [place] % (Auto) 10.4 H Eos % (Auto) 3.0 Baso % (Auto) 0.6 Neut # (Auto) 5.2 Lymph # (Auto) 1.8 [place] # (Auto) 0.8 Eos # (Auto) 0.2 Baso # (Auto) 0.0 PT INR APTT Sodium Potassium Chloride Carbon Dioxide Anion Gap BUN Creatinine Est GFR ( Amer) Est GFR (Non-Af Amer) POC Glucose (mg/dL) 126 H Random Glucose Calcium Phosphorus Magnesium Total Bilirubin AST ALT Alkaline Phosphatase Total Protein Albumin Globulin Albumin/Globulin Ratio Blood Type O POSITIVE Antibody Screen Negative 08/31/18 08/31/18 08/31/18 06:58 07:11 11:12 WBC RBC Hgb Hct MCV MCH MCHC RDW Plt Count MPV Neut % (Auto) Lymph % (Auto) [place] % (Auto) Eos % (Auto) Baso % (Auto) Neut # (Auto) Lymph # (Auto) [place] # (Auto) Eos # (Auto) Baso # (Auto) PT INR APTT Sodium 134 Potassium 3.6 Chloride 93 L Carbon Dioxide 28 Anion Gap 17 BUN 35 H Creatinine 6.6 H Est GFR ( Amer) 10 Est GFR (Non-Af Amer) 9 POC Glucose (mg/dL) 125 H 132 H Random Glucose 112 H Calcium 8.5 L Phosphorus 6.3 H Magnesium 2.1 Total Bilirubin 0.6 AST 49 ALT 100 H Alkaline Phosphatase 95 Total Protein 7.0 Albumin 3.9 Globulin 3.1 Albumin/Globulin Ratio 1.3 Blood Type Antibody Screen Assessment & Plan (1) Cellulitis of both feet Status: Acute (2) PVD (peripheral vascular disease) Status: Acute (3) Renal failure Status: Acute (4) CHF (congestive heart failure) Status: Acute (5) Foot pain, bilateral Status: Acute - Assessment and Plan (Free Text) Assessment: cont iv rx as oedered discussed with DR Kai Matos
--- NOTE | 2018-08-31 12:14 | CP.PCM.PN ---
Subjective - Date & Time of Evaluation Date of Evaluation: 08/31/18 Time of Evaluation: 08:30 - Subjective Subjective: clinically same Objective - Vital Signs/Intake and Output Vital Signs (last 24 hours): Temp Pulse Resp BP Pulse Ox 97.8 F 74 20 158/80 H 98 08/31/18 07:37 08/31/18 07:37 08/31/18 07:37 08/31/18 07:37 08/31/18 07:37 Intake and Output: 08/31/18 08/31/18 06:59 18:59 Intake Total 280 Balance 280 - Medications Medications: Current Medications Dextrose (Dextrose 50% Inj) 0 ml IV STAT PRN; Protocol PRN Reason: Hypoglycemia Protocol Dextrose (Glutose 15) 0 gm PO ONCE PRN; Protocol PRN Reason: Hypoglycemia Protocol Glucagon (Glucagen Diagnostic Kit) 0 mg IM STAT PRN; Protocol PRN Reason: Hypoglycemia Protocol Heparin Sodium (Porcine) (Heparin) 5,000 units SC Q12 [facility] Last Admin: 08/31/18 09:33 Dose: 5,000 units Hydromorphone HCl (Dilaudid) 0.5 mg IVP Q4H PRN PRN Reason: Pain, severe (8-10) Last Admin: 08/31/18 09:34 Dose: 0.5 mg Dextrose (Dextrose 5% In Water 1000 Ml) 1,000 mls @ 0 mls/hr IV .Q0M PRN; Protocol PRN Reason: Hypoglycemia Protocol Vancomycin HCl 500 mg/ Sodium (Chloride) 100 mls @ 100 mls/hr IVPB MWF [facility]; Protocol Last Admin: 08/31/18 09:33 Dose: 100 mls/hr Insulin Aspart (Novolog) 0 unit SC ACHS [facility]; Protocol Last Admin: 08/31/18 11:54 Dose: Not Given Pregabalin (Lyrica) 100 mg PO BID [facility] Last Admin: 08/31/18 09:33 Dose: 100 mg Rosuvastatin Calcium (Crestor) 5 mg PO HS [facility] Last Admin: 08/30/18 21:35 Dose: 5 mg Tramadol HCl (Ultram) 50 mg PO TID PRN PRN Reason: Pain, moderate (4-7) Last Admin: 08/31/18 03:09 Dose: 50 mg - Labs Labs: 08/31/18 06:58 08/31/18 06:58 PT 13.6 SECONDS (9.7-12.2) H 08/30/18 18:32 INR 1.2 08/30/18 18:32 APTT 34 SECONDS (21-34) 08/30/18 18:32
[2018-08-31] MEDS ORDERED: HYDROmorphone 1 mg/ml ISec IVP PRN (19:07)
[2018-08-31] MEDS: HYDROmorphone 1 mg/ml ISec IVP PRN (21:06)
[2018-09-01] MEDS: HYDROmorphone 1 mg/ml ISec IVP PRN ×2 (03:01→09:19)
[2018-09-01] MEDS: (Novolog) Insulin Aspart, Recombinant 100 u/ml 10 ml vial SC SCH ×4 (07:22→22:24)
--- NOTE | 2018-09-01 08:14 | CP.PCM.PN ---
Subjective - Date & Time of Evaluation Date of Evaluation: 09/01/18 Time of Evaluation: 08:13 - Subjective Subjective: Events reviewed Objective - Vital Signs/Intake and Output Vital Signs (last 24 hours): Temp Pulse Resp BP Pulse Ox 98.5 F 81 20 146/74 95 09/01/18 00:19 09/01/18 00:19 09/01/18 00:19 09/01/18 00:19 09/01/18 00:19 Intake and Output: 09/01/18 09/01/18 06:59 18:59 Intake Total 220 Balance 220 - Medications Medications: Current Medications Dextrose (Dextrose 50% Inj) 0 ml IV STAT PRN; Protocol PRN Reason: Hypoglycemia Protocol Dextrose (Glutose 15) 0 gm PO ONCE PRN; Protocol PRN Reason: Hypoglycemia Protocol Glucagon (Glucagen Diagnostic Kit) 0 mg IM STAT PRN; Protocol PRN Reason: Hypoglycemia Protocol Heparin Sodium (Porcine) (Heparin) 5,000 units SC Q12 [facility] Last Admin: 08/31/18 21:06 Dose: 5,000 units Hydromorphone HCl (Dilaudid) 1 mg IVP Q6 PRN PRN Reason: Pain, severe (8-10) Last Admin: 09/01/18 03:01 Dose: 1 mg Dextrose (Dextrose 5% In Water 1000 Ml) 1,000 mls @ 0 mls/hr IV .Q0M PRN; Protocol PRN Reason: Hypoglycemia Protocol Vancomycin HCl 500 mg/ Sodium (Chloride) 100 mls @ 100 mls/hr IVPB MWF [facility]; Protocol Last Admin: 08/31/18 09:33 Dose: 100 mls/hr Insulin Aspart (Novolog) 0 unit SC ACHS [facility]; Protocol Last Admin: 09/01/18 07:22 Dose: Not Given Pregabalin (Lyrica) 100 mg PO BID [facility] Last Admin: 08/31/18 17:21 Dose: 100 mg Rosuvastatin Calcium (Crestor) 5 mg PO HS [facility] Last Admin: 08/31/18 21:06 Dose: 5 mg Tramadol HCl (Ultram) 50 mg PO TID PRN PRN Reason: Pain, moderate (4-7) Last Admin: 08/31/18 03:09 Dose: 50 mg - Labs Labs: 08/31/18 06:58 08/31/18 06:58 PT 13.6 SECONDS (9.7-12.2) H 08/30/18 18:32 INR 1.2 08/30/18 18:32 APTT 34 SECONDS (21-34) 08/30/18 18:32 - Constitutional Appears: Well, Non-toxic - Head Exam Head Exam: ATRAUMATIC, NORMAL INSPECTION - Eye Exam Eye Exam: PERRL, Scleral icterus - ENT Exam ENT Exam: Mucous Membranes Moist, Normal External Ear Exam - Neck Exam Neck Exam: absent: Lymphadenopathy, Thyromegaly - Respiratory Exam Respiratory Exam: Clear to Ausculation Bilateral, Respiratory Distress, NORMAL BREATHING PATTERN - Cardiovascular Exam Cardiovascular Exam: REGULAR RHYTHM, RRR, +S1, +S2. absent: JVD Additional comments: Dry Gangrene - GI/Abdominal Exam GI & Abdominal Exam: Normal Bowel Sounds. absent: Organomegaly - Neurological Exam Neurological Exam: CN II-XII Intact, Oriented x3 - Psychiatric Exam Psychiatric exam: Normal Affect, Normal Mood Assessment and Plan - Assessment and Plan (Free Text) Assessment: 62 y/o awaiting LE bypass surgery The following images were directly viewed by me: Echo 08/21/18: Normal LVEF, Mild LVH, Normal LV wall motion, Mild-mod aortic stenosis (Dimensionless index 0.41; Vmax 3.61 m/s, mean gradient 30mmHg); mitral annular and aortic valve calcification, Grade 1 diastolic dysfunction, LAE, Normal IVC compliance. Carotid 08/20/18: B/L <50% ICA stenosis BP is controlled A1c is 7.1% Mild-mod clinically ASX Aortic stenosis: f/u echo in 1 year Cardiac cath done 08/27/18 at [facility] [place]: Normal LM, mild LAD, PRODUCTION ARTIST of the OM2 branch of LCX, moderate LCX and RCA disease RX: medical management: NO PCI indicated Add crestor 20 add asa 81, add plavix 75 Increase atenolol to 50 Add ranexa 500 BID Consider KVNG-I or ARB for additional BP control Cont HD as ordered. Patient is acceptable risk to proceed with LE vascular bypass with adequate control of BP, monitoring of HR and BP.
--- NOTE | 2018-09-01 15:53 | CP.PCM.PN ---
Subjective - Date & Time of Evaluation Date of Evaluation: 09/01/18 Time of Evaluation: 08:00 - Subjective Subjective: clinically same Objective - Vital Signs/Intake and Output Vital Signs (last 24 hours): Temp Pulse Resp BP Pulse Ox 96.6 F L 81 15 139/76 99 09/01/18 12:46 09/01/18 12:46 09/01/18 12:46 09/01/18 12:46 09/01/18 12:46 Intake and Output: 09/01/18 09/01/18 06:59 18:59 Intake Total 220 360 Balance 220 360 - Medications Medications: Current Medications Aspirin (Aspirin Chewable) 81 mg PO DAILY [facility] Atenolol (Tenormin) 50 mg PO DAILY [facility] Clopidogrel Bisulfate (Plavix) 75 mg PO DAILY [facility] Dextrose (Dextrose 50% Inj) 0 ml IV STAT PRN; Protocol PRN Reason: Hypoglycemia Protocol Dextrose (Glutose 15) 0 gm PO ONCE PRN; Protocol PRN Reason: Hypoglycemia Protocol Glucagon (Glucagen Diagnostic Kit) 0 mg IM STAT PRN; Protocol PRN Reason: Hypoglycemia Protocol Heparin Sodium (Porcine) (Heparin) 5,000 units SC Q12 [facility] Last Admin: 08/31/18 21:06 Dose: 5,000 units Hydromorphone HCl (Dilaudid) 2 mg IVP Q4 PRN PRN Reason: Pain, severe (8-10) Last Admin: 09/01/18 13:18 Dose: 2 mg Dextrose (Dextrose 5% In Water 1000 Ml) 1,000 mls @ 0 mls/hr IV .Q0M PRN; Pr otocol PRN Reason: Hypoglycemia Protocol Vancomycin HCl 500 mg/ Sodium (Chloride) 100 mls @ 100 mls/hr IVPB MWF [facility]; Protocol Last Admin: 08/31/18 09:33 Dose: 100 mls/hr Insulin Aspart (Novolog) 0 unit SC ACHS [facility]; Protocol Last Admin: 09/01/18 11:34 Dose: Not Given Losartan Potassium (Cozaar) 25 mg PO BID [facility] Pregabalin (Lyrica) 100 mg PO BID [facility] Last Admin: 09/01/18 11:31 Dose: Not Given Ranolazine (Ranexa) 500 mg PO BID [facility] Rosuvastatin Calcium (Crestor) 20 mg PO HS [facility] Tramadol HCl (Ultram) 50 mg PO TID PRN PRN Reason: Pain, moderate (4-7) Last Admin: 09/01/18 12:29 Dose: 50 mg - Labs Labs: 08/31/18 06:58 08/31/18 06:58 PT 13.6 SECONDS (9.7-12.2) H 08/30/18 18:32 INR 1.2 08/30/18 18:32 APTT 34 SECONDS (21-34) 08/30/18 18:32
[2018-09-01] MEDS: Ranolazine 500 mg Extended Release Tablets PO SCH (22:30)
[2018-09-02] MEDS: (Novolog) Insulin Aspart, Recombinant 100 u/ml 10 ml vial SC SCH ×4 (07:54→22:40)
[2018-09-02] MEDS: Ranolazine 500 mg Extended Release Tablets PO SCH ×2 (10:52→17:38)
--- NOTE | 2018-09-02 10:56 | CP.PCM.PN ---
Subjective - Date & Time of Evaluation Date of Evaluation: 09/02/18 Time of Evaluation: 09:55 - Subjective Subjective: Vascular surgery Pt seen and examined. For Fem pop bypass tomorrow. No new complaints. Objective - Vital Signs/Intake and Output Vital Signs (last 24 hours): Temp Pulse Resp BP Pulse Ox 97.6 F 74 20 119/70 96 09/02/18 07:29 09/02/18 07:29 09/02/18 07:29 09/02/18 07:29 09/02/18 07:29 Intake and Output: 09/02/18 09/02/18 06:59 18:59 Intake Total 550 Balance 550 - Medications Medications: Current Medications Aspirin (Aspirin Chewable) 81 mg PO DAILY [facility] Atenolol (Tenormin) 50 mg PO DAILY [facility] Clopidogrel Bisulfate (Plavix) 75 mg PO DAILY [facility] Dextrose (Dextrose 50% Inj) 0 ml IV STAT PRN; Protocol PRN Reason: Hypoglycemia Protocol Dextrose (Glutose 15) 0 gm PO ONCE PRN; Protocol PRN Reason: Hypoglycemia Protocol Glucagon (Glucagen Diagnostic Kit) 0 mg IM STAT PRN; Protocol PRN Reason: Hypoglycemia Protocol Heparin Sodium (Porcine) (Heparin) 5,000 units SC Q12 [facility] Last Admin: 09/01/18 22:33 Dose: 5,000 units Hydromorphone HCl (Dilaudid) 2 mg IVP Q4 PRN PRN Reason: Pain, severe (8-10) Last Admin: 09/02/18 06:25 Dose: 2 mg Dextrose (Dextrose 5% In Water 1000 Ml) 1,000 mls @ 0 mls/hr IV .Q0M PRN; Protocol PRN Reason: Hypoglycemia Protocol Vancomycin HCl 500 mg/ Sodium (Chloride) 100 mls @ 100 mls/hr IVPB MWF [facility]; Protocol Last Admin: 08/31/18 09:33 Dose: 100 mls/hr Insulin Aspart (Novolog) 0 unit SC ACHS [facility]; Protocol Last Admin: 09/02/18 07:54 Dose: Not Given Losartan Potassium (Cozaar) 25 mg PO BID [facility] Last Admin: 09/01/18 17:09 Dose: 25 mg Pregabalin (Lyrica) 100 mg PO BID [facility] Last Admin: 09/01/18 22:30 Dose: 100 mg Ranolazine (Ranexa) 500 mg PO BID [facility] Last Admin: 09/01/18 22:30 Dose: 500 mg Rosuvastatin Calcium (Crestor) 20 mg PO HS [facility] Tramadol HCl (Ultram) 50 mg PO TID PRN PRN Reason: Pain, moderate (4-7) Last Admin: 09/01/18 12:29 Dose: 50 mg - Labs Labs: 08/31/18 06:58 08/31/18 06:58 PT 13.6 SECONDS (9.7-12.2) H 08/30/18 18:32 INR 1.2 08/30/18 18:32 APTT 34 SECONDS (21-34) 08/30/18 18:32 - Constitutional Appears: Non-toxic, No Acute Distress - Head Exam Head Exam: ATRAUMATIC, NORMOCEPHALIC - Eye Exam Eye Exam: EOMI. absent: Scleral icterus - Respiratory Exam Respiratory Exam: NORMAL BREATHING PATTERN. absent: Respiratory Distress - GI/Abdominal Exam GI & Abdominal Exam: Soft. absent: Distended, Tenderness - Extremities Exam Additional comments: DP/PT non palpable, 1+ pitting edema to dorsal aspect of foot bilaterally. Tenderness to palpation of heels bilaterally. No palpable pulses bilaterally. ve ry faint doppler pulses b/l. Fissures with dried serous fluid on heels bilaterally, no purulence, no malodor, no tunneling, no tracking. Mild diffuse edema appreciated to b/l heels. 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 Berkley Pozo PGY4
--- NOTE | 2018-09-02 15:23 | CP.PCM.PN ---
Subjective - Date & Time of Evaluation Date of Evaluation: 09/02/18 Time of Evaluation: 09:00 - Subjective Subjective: comfortable afebrile Objective - Vital Signs/Intake and Output Vital Signs (last 24 hours): Temp Pulse Resp BP Pulse Ox 97.6 F 74 20 119/70 96 09/02/18 07:29 09/02/18 07:29 09/02/18 07:29 09/02/18 07:29 09/02/18 07:29 Intake and Output: 09/02/18 09/02/18 06:59 18:59 Intake Total 550 Balance 550 - Medications Medications: Current Medications Aspirin (Aspirin Chewable) 81 mg PO DAILY [facility] Last Admin: 09/02/18 11:00 Dose: Not Given Atenolol (Tenormin) 50 mg PO DAILY [facility] Last Admin: 09/02/18 10:50 Dose: 50 mg Clopidogrel Bisulfate (Plavix) 75 mg PO DAILY [facility] Last Admin: 09/02/18 10:52 Dose: Not Given Dextrose (Dextrose 50% Inj) 0 ml IV STAT PRN; Protocol PRN Reason: Hypoglycemia Protocol Dextrose (Glutose 15) 0 gm PO ONCE PRN; Protocol PRN Reason: Hypoglycemia Protocol Glucagon (Glucagen Diagnostic Kit) 0 mg IM STAT PRN; Protocol PRN Reason: Hypoglycemia Protocol Heparin Sodium (Porcine) (Heparin) 5,000 units SC Q12 [facility] Last Admin: 09/02/18 10:59 Dose: Not Given Hydromorphone HCl (Dilaudid) 2 mg IVP Q4 PRN PRN Reason: Pain, severe (8-10) Last Admin: 09/02/18 15:17 Dose: 2 mg Dextrose (Dextrose 5% In Water 1000 Ml) 1,000 mls @ 0 mls/hr IV .Q0M PRN; Protocol PRN Reason: Hypoglycemia Protocol Vancomycin HCl 500 mg/ Sodium (Chloride) 100 mls @ 100 mls/hr IVPB MWF [facility]; Protocol Last Admin: 09/02/18 10:54 Dose: 100 mls/hr Insulin Aspart (Novolog) 0 unit SC ACHS [facility]; Protocol Last Admin: 09/02/18 13:37 Dose: Not Given Losartan Potassium (Cozaar) 25 mg PO BID [facility] Last Admin: 09/02/18 10:59 Dose: 25 mg Pregabalin (Lyrica) 100 mg PO BID [facility] Last Admin: 09/02/18 10:55 Dose: 100 mg Ranolazine (Ranexa) 500 mg PO BID [facility] Last Admin: 09/02/18 10:52 Dose: 500 mg Rosuvastatin Calcium (Crestor) 20 mg PO [facility] Tramadol HCl (Ultram) 50 mg PO TID PRN PRN Reason: Pain, moderate (4-7) Last Admin: 09/01/18 12:29 Dose: 50 mg - Labs Labs: 08/31/18 06:58 08/31/18 06:58 PT 13.6 SECONDS (9.7-12.2) H 08/30/18 18:32 INR 1.2 08/30/18 18:32 APTT 34 SECONDS (21-34) 08/30/18 18:32 - Constitutional Appears: Non-toxic, Chronically Ill - Head Exam Head Exam: NORMOCEPHALIC - Eye Exam Eye Exam: absent: Scleral icterus - ENT Exam ENT Exam: Mucous Membranes Dry - Neck Exam Neck Exam: absent: Lymphadenopathy - Respiratory Exam Respiratory Exam: Decreased Breath Sounds - Cardiovascular Exam Cardiovascular Exam: REGULAR RHYTHM - GI/Abdominal Exam GI & Abdominal Exam: Distended, Soft - Rectal Exam Rectal Exam: Deferred - Exam Exam: NORMAL INSPECTION - Extremities Exam Extremities Exam: Pedal Edema, Tenderness. absent: Normal Inspection - Back Exam Back Exam: absent: CVA tenderness (L), CVA tenderness (R) - Neurological Exam Neurological Exam: Alert Assessment and Plan (1) Cellulitis of both feet Status: Acute (2) PVD (peripheral vascular disease) Status: Acute (3) Renal failure Status: Acute (4) CHF (congestive heart failure) Status: Acute (5) Foot pain, bilateral Status: Acute - Assessment and Plan (Free Text) Assessment: IV rx renewed for OR in am
--- NOTE | 2018-09-02 17:48 | CP.PCM.PN ---
Subjective - Date & Time of Evaluation Date of Evaluation: 09/02/18 Time of Evaluation: 17:46 - Subjective Subjective: Events reviewed Objective - Vital Signs/Intake and Output Vital Signs (last 24 hours): Temp Pulse Resp BP Pulse Ox 97.6 F 74 20 119/70 96 09/02/18 07:29 09/02/18 07:29 09/02/18 07:29 09/02/18 07:29 09/02/18 07:29 Intake and Output: 09/02/18 09/02/18 06:59 18:59 Intake Total 550 Balance 550 - Medications Medications: Current Medications Aspirin (Aspirin Chewable) 81 mg PO DAILY [facility] Last Admin: 09/02/18 11:00 Dose: Not Given Atenolol (Tenormin) 50 mg PO DAILY [facility] Last Admin: 09/02/18 10:50 Dose: 50 mg Clopidogrel Bisulfate (Plavix) 75 mg PO DAILY [facility] Last Admin: 09/02/18 10:52 Dose: Not Given Dextrose (Dextrose 50% Inj) 0 ml IV STAT PRN; Protocol PRN Reason: Hypoglycemia Protocol Dextrose (Glutose 15) 0 gm PO ONCE PRN; Protocol PRN Reason: Hypoglycemia Protocol Glucagon (Glucagen Diagnostic Kit) 0 mg IM STAT PRN; Protocol PRN Reason: Hypoglycemia Protocol Heparin Sodium (Porcine) (Heparin) 5,000 units SC Q12 [facility] Last Admin: 09/02/18 10:59 Dose: Not Given Hydromorphone HCl (Dilaudid) 2 mg IVP Q4 PRN PRN Reason: Pain, severe (8-10) Last Admin: 09/02/18 15:17 Dose: 2 mg Dextrose (Dextrose 5% In Water 1000 Ml) 1,000 mls @ 0 mls/hr IV .Q0M PRN; Protocol PRN Reason: Hypoglycemia Protocol Vancomycin HCl 500 mg/ Sodium (Chloride) 100 mls @ 100 mls/hr IVPB MWF [facility]; Protocol Last Admin: 09/02/18 10:54 Dose: 100 mls/hr Insulin Aspart (Novolog) 0 unit SC ACHS [facility]; Protocol Last Admin: 09/02/18 17:40 Dose: 1 unit Losartan Potassium (Cozaar) 25 mg PO BID [facility] Last Admin: 09/02/18 17:37 Dose: 25 mg Pregabalin (Lyrica) 100 mg PO BID [facility] Last Admin: 09/02/18 17:37 Dose: 100 mg Ranolazine (Ranexa) 500 mg PO BID [facility] Last Admin: 09/02/18 17:38 Dose: 500 mg Rosuvastatin Calcium (Crestor) 20 mg PO HS [facility] Tramadol HCl (Ultram) 50 mg PO TID PRN PRN Reason: Pain, moderate (4-7) Last Admin: 09/01/18 12:29 Dose: 50 mg - Labs Labs: 08/31/18 06:58 08/31/18 06:58 PT 13.6 SECONDS (9.7-12.2) H 08/30/18 18:32 INR 1.2 08/30/18 18:32 APTT 34 SECONDS (21-34) 08/30/18 18:32 Assessment and Plan - Assessment and Plan (Free Text) Plan: - Constitutional Appears: Well, Non-toxic - Head Exam Head Exam: ATRAUMATIC, NORMAL INSPECTION - Eye Exam Eye Exam: PERRL, Scleral icterus - ENT Exam ENT Exam: Mucous Membranes Moist, Normal External Ear Exam - Neck Exam Neck Exam: absent: Lymphadenopathy, Thyromegaly - Respiratory Exam Respiratory Exam: Clear to Ausculation Bilateral, Respiratory Distress, NORMAL BREATHING PATTERN - Cardiovascular Exam Cardiovascular Exam: REGULAR RHYTHM, RRR, +S1, +S2. absent: JVD Additional comments: Dry Gangrene - GI/Abdominal Exam GI & Abdominal Exam: Normal Bowel Sounds. absent: Organomegaly - Neurological Exam Neurological Exam: CN II-XII Intact, Oriented x3 - Psychiatric Exam Psychiatric exam: Normal Affect, Normal Mood - Assessment and Plan (Free Text) Assessment: 62 y/o awaiting LE bypass surgery The following images were directly viewed by me: Echo 08/21/18: Normal LVEF, Mild LVH, Normal LV wall motion, Mild-mod aortic stenosis (Dimensionless index 0.41; Vmax 3.61 m/s, mean gradient 30mmHg); mitral annular and aortic valve calcification, Grade 1 diastolic dysfunction, LAE, Normal IVC compliance. Carotid 08/20/18: B/L <50% ICA stenosis BP is controlled A1c is 7.1% Mild-mod clinically ASX Aortic stenosis: f/u echo in 1 year Cardiac cath done 08/27/18 at [place]: Normal LM, mild LAD, DESOLDERER of the OM2 branch of LCX, moderate LCX and RCA disease RX: medical management: NO PCI indicated Continue crestor 20 Continue dual anti platelet asa 81 & plavix 75 HTN is chronic and stable on atenolol to 50 Continue ranexa 500 BID Cont HD as ordered. Patient is acceptable risk to proceed with LE vascular bypass with adequate control of BP, monitoring of HR and BP.
--- NOTE | 2018-09-02 20:48 | CP.PCM.PN ---
Subjective - Date & Time of Evaluation Date of Evaluation: 09/02/18 Time of Evaluation: 08:00 - Subjective Subjective: clinically same Objective - Vital Signs/Intake and Output Vital Signs (last 24 hours): Temp Pulse Resp BP Pulse Ox 97.1 F L 75 20 129/76 97 09/02/18 15:30 09/02/18 15:30 09/02/18 15:30 09/02/18 15:30 09/02/18 15:30 - Medications Medications: Current Medications Aspirin (Aspirin Chewable) 81 mg PO DAILY [facility] Last Admin: 09/02/18 11:00 Dose: Not Given Atenolol (Tenormin) 50 mg PO DAILY [facility] Last Admin: 09/02/18 10:50 Dose: 50 mg Clopidogrel Bisulfate (Plavix) 75 mg PO DAILY [facility] Last Admin: 09/02/18 10:52 Dose: Not Given Dextrose (Dextrose 50% Inj) 0 ml IV STAT PRN; Protocol PRN Reason: Hypoglycemia Protocol Dextrose (Glutose 15) 0 gm PO ONCE PRN; Protocol PRN Reason: Hypoglycemia Protocol Glucagon (Glucagen Diagnostic Kit) 0 mg IM STAT PRN; Protocol PRN Reason: Hypoglycemia Protocol Heparin Sodium (Porcine) (Heparin) 5,000 units SC Q12 [facility] Last Admin: 09/02/18 10:59 Dose: Not Given Hydromorphone HCl (Dilaudid) 2 mg IVP Q4 PRN PRN Reason: Pain, severe (8-10) Last Admin: 09/02/18 19:21 Dose: 2 mg Dextrose (Dextrose 5% In Water 1000 Ml) 1,000 mls @ 0 mls/hr IV .Q0M PRN; Protocol PRN Reason: Hypoglycemia Protocol Vancomycin HCl 500 mg/ Sodium (Chloride) 100 mls @ 100 mls/hr IVPB MWF [facility]; Protocol Last Admin: 09/02/18 10:54 Dose: 100 mls/hr Insulin Aspart (Novolog) 0 unit SC ACHS [facility]; Protocol Last Admin: 09/02/18 17:40 Dose: 1 unit Losartan Potassium (Cozaar) 25 mg PO BID [facility] Last Admin: 09/02/18 17:37 Dose: 25 mg Pregabalin (Lyrica) 100 mg PO BID [facility] Last Admin: 09/02/18 17:37 Dose: 100 mg Ranolazine (Ranexa) 500 mg PO BID [facility] Last Admin: 09/02/18 17:38 Dose: 500 mg Rosuvastatin Calcium (Crestor) 20 mg PO HS [facility] Tramadol HCl (Ultram) 50 mg PO TID PRN PRN Reason: Pain, moderate (4-7) Last Admin: 09/01/18 12:29 Dose: 50 mg - Labs Labs: 08/31/18 06:58 08/31/18 06:58 PT 13.6 SECONDS (9.7-12.2) H 08/30/18 18:32 INR 1.2 08/30/18 18:32 APTT 34 SECONDS (21-34) 08/30/18 18:32
[2018-09-03 07:55] LABS: BASO # 0.1 K/uL (0.0-0.2); BASO % 0.8 % (0.0-2.0); EOS # 0.3 K/uL (0.0-0.7); EOS % 3.4 % (0.0-4.0); HEMOGLOBIN 11.4 g/dL (12.0-18.0); LYMPH % 22.3 % (20.0-40.0); MEAN CELL VOLUME 101.6 fL (80.0-94.0); MEAN CORPUSCULAR HEMOGLOBIN 33.9 pg (27.0-31.0); MEAN CORPUSCULAR HGB CONC 33.4 g/dL (33.0-37.0); MEAN PLATELET VOLUME 9.1 fL (7.2-11.7); MONO % 11.4 % (0.0-10.0); NEUT # 5.6 K/uL (1.8-7.0); NEUT % 62.1 % (50.0-75.0); NRBC % 0.1 % (0.0-2.0); RBC 3.36 Mil/uL (4.40-5.90); RED CELL DISTRIBUTION WIDTH 16.4 % (11.5-14.5); WHITE BLOOD COUNT 9.1 K/uL (4.8-10.8)
[2018-09-03] MEDS ORDERED: Nitroglycerin 50mg in D5W 50 MG/250 ML BOTTLE IV ONE (07:59)
[2018-09-03] MEDS: (Novolog) Insulin Aspart, Recombinant 100 u/ml 10 ml vial SC SCH ×4 (08:19→22:42)
[2018-09-03] MEDS ORDERED: Vancomycin 1 gm/D5W 200 ml 0 GM/0 ML BAG IVPB ONE (08:20)
[2018-09-03] MEDS ORDERED: Thrombin Topical 20,000 Intl Units Spray Kit TOP ONE (08:21)
[2018-09-03] MEDS ORDERED: Iodixanol 320 MG/ML 200 ML BOTTLE IV ONE (08:21)
[2018-09-03] MEDS ORDERED: HEPARIN-NS 5,000 UNITS/500 ML 10,000 UNIT/1,000 ML BAG IV ONE (08:21)
[2018-09-03] MEDS ORDERED: Sodium Chloride 0.9% 0 ML IV ONE (08:22)
[2018-09-03 08:23] LABS: INR 1.2; PROTHROMBIN TIME 13.6 SECONDS (9.7-12.2)
[2018-09-03] MEDS ORDERED: Midazolam 2 MG/2 ML VIAL ONE (09:06)
[2018-09-03] MEDS ORDERED: Propofol 10 mg/ml Inj (20 ML) ONE (09:06)
[2018-09-03] MEDS ORDERED: Iohexol 240 200 ML ONE (09:26)
[2018-09-03] MEDS: Ranolazine 500 mg Extended Release Tablets PO SCH ×2 (10:07→18:18)
[2018-09-03] MEDS ORDERED: Vasopressin 20 Units/ml Inj ONE (10:26)
[2018-09-03] MEDS ORDERED: Papaverine Hydrochloride 30 mg/ml (2ml) ONE (11:37)
[2018-09-03] MEDS ORDERED: Neostigmine Methylsulfate 3mg/3ml Syringe IV ONE (13:18)
[2018-09-03] MEDS ORDERED: Sodium Chloride 0.9% 1,000 ML IV ONE (13:42)
--- NOTE | 2018-09-03 13:44 | CP.PCM.PN ---
Subjective - Date & Time of Evaluation Date of Evaluation: 09/03/18 Time of Evaluation: 08:15 - Subjective Subjective: clinically same Objective - Vital Signs/Intake and Output Vital Signs (last 24 hours): Temp Pulse Resp BP Pulse Ox 98.3 F 66 20 118/67 95 09/03/18 08:23 09/03/18 08:23 09/03/18 08:23 09/03/18 08:23 09/03/18 07:00 Intake and Output: 09/03/18 09/03/18 06:59 18:59 Intake Total 300 500 Output Total 500 Balance -200 500 - Medications Medications: Current Medications Aspirin (Aspirin Chewable) 81 mg PO DAILY [facility] Last Admin: 09/03/18 10:05 Dose: Not Given Atenolol (Tenormin) 50 mg PO DAILY [facility] Last Admin: 09/03/18 10:07 Dose: Not Given Clopidogrel Bisulfate (Plavix) 75 mg PO DAILY [facility] Last Admin: 09/03/18 10:07 Dose: Not Given Dextrose (Dextrose 50% Inj) 0 ml IV STAT PRN; Protocol PRN Reason: Hypoglycemia Protocol Dextrose (Glutose 15) 0 gm PO ONCE PRN; Protocol PRN Reason: Hypoglycemia Protocol Glucagon (Glucagen Diagnostic Kit) 0 mg IM STAT PRN; Protocol PRN Reason: Hypoglycemia Protocol Hydromorphone HCl (Dilaudid) 2 mg IVP Q4 PRN PRN Reason: Pain, severe (8-10) Last Admin: 09/03/18 07:27 Dose: 2 mg Vancomycin HCl 500 mg/ Sodium (Chloride) 100 mls @ 100 mls/hr IVPB MWF [facility]; Protocol Last Admin: 09/02/18 10:54 Dose: 100 mls/hr Insulin Aspart (Novolog) 0 unit SC ACHS [facility]; Protocol Last Admin: 09/03/18 12:09 Dose: Not Given Losartan Potassium (Cozaar) 25 mg PO BID [facility] Last Admin: 09/03/18 10:06 Dose: Not Given Pregabalin (Lyrica) 100 mg PO BID [facility] Last Admin: 09/03/18 10:05 Dose: Not Given Ranolazine (Ranexa) 500 mg PO BID [facility] Last Admin: 09/03/18 10:07 Dose: Not Given Rosuvastatin Calcium (Crestor) [address] [facility] Tramadol HCl (Ultram) 50 mg PO TID PRN PRN Reason: Pain, moderate (4-7) Last Admin: 09/01/18 12:29 Dose: 50 mg - Labs Labs: 09/03/18 07:36 09/03/18 07:36 PT 13.6 SECONDS (9.7-12.2) H 09/03/18 07:36 INR 1.2 09/03/18 07:36 APTT 34 SECONDS (21-34) 09/03/18 07:36
[2018-09-03] MEDS ORDERED: HYDROmorphone 0.5 mg/0.5 ml ISec IVP PRN (13:50)
--- NOTE | 2018-09-03 14:21 | CP.PCM.CON ---
<Eliane Tomas - Last Filed: 09/03/18 15:44> History of Present Illness - History of Present Illness History of Present Illness: ICU Consult Note for Dr. Hill HPI: 63 y/o male with PMHx of PVD, DM, ESRD on HD, CHF, HTN is currently s/p R LE arterial bypass, with prior b/l LE gangrene and ischemia R>L. POD0 of Right Common Femoral to Right Anterior Tibial Artery bypass with cadaveric graft. Patient denies chest pain, SOB, nausea, vomiting, diarrhea, abdominal pain, headache, fever, chills, night sweats. All patient can think of is his leg pain R > L. ROS: as per HPI. PMHx: as stated above PSH: L UE AV shunt SH denies x 3 FH: NC Home meds: tramadol PRN, ropinirole 1 mg TID, crestor 5 mg qhs, pregabalin 100 mg PO TID Inpatient meds: crestor 20, ASA/plavix, atenolol 50 mg, ranexa 500 mg BID, losartan 25 mg PO BID, vanco MWF 500 mg began 08/31 All: shellfish Past Patient History - Infectious Disease Hx of Infectious Diseases: None - Past Medical History & Family History Past Medical History?: Yes - Past Social History Smoking Status: Never Smoked - CARDIAC Hx Circulatory Problems: Yes Hx Hypercholesterolemia: Yes Hx Hypertension: Yes Hx Peripheral Edema: Yes Hx Peripheral Vascular Disease: Yes - PULMONARY Hx Respiratory Disorders: No - NEUROLOGICAL Hx Neurological Disorder: No - HEENT Hx HEENT Problems: Yes Hx Cataracts: Yes (RIGHT EYE) - RENAL Hx Chronic Kidney Disease: Yes Hx Dialysis: Yes Type of Dialysis Access: lerft av fistula Date of Last Dialysis Treatment: 08/29/18 Hx Kidney Stones: No Hx Neurogenic Bladder: No Hx Pyelonephritis: No Hx Renal (Kidney) Cancer: No Hx Renal Failure: Yes - ENDOCRINE/METABOLIC Hx Endocrine Disorders: Yes Hx Diabetes Mellitus Type 2: Yes - HEMATOLOGICAL/ONCOLOGICAL Hx Blood Disorders: No - INTEGUMENTARY Hx Dermatological Problems: No - MUSCULOSKELETAL/RHEUMATOLOGICAL Hx Falls: No Hx Fractures: Yes - GASTROINTESTINAL Hx Gastrointestinal Disorders: No - GENITOURINARY/GYNECOLOGICAL Hx Genitourinary Disorders: No - PSYCHIATRIC Hx Anxiety: Yes Hx Depression: Yes Hx Substance Use: No - SURGICAL HISTORY Hx Surgeries: Yes Hx Herniorrhaphy: Yes Other/Comment: Av shunt on the left arm - ANESTHESIA Hx Anesthesia: Yes Hx Anesthesia Reactions: No Hx Malignant Hyperthermia: No Meds Allergies/Adverse Reactions: Allergies Allergy/AdvReac Type Severity Reaction Status Date / Time shellfish derived Allergy Intermediate DIZZINESS Verified 08/17/18 10:28 - Medications Medications: Current Medications Aspirin (Aspirin Chewable) 81 mg PO DAILY [facility] Last Admin: 09/03/18 10:05 Dose: Not Given Atenolol (Tenormin) 50 mg PO DAILY [facility] Last Admin: 09/03/18 10:07 Dose: Not Given Clopidogrel Bisulfate (Plavix) 75 mg PO DAILY [facility] Last Admin: 09/03/18 10:07 Dose: Not Given Dextrose (Dextrose 50% Inj) 0 ml IV STAT PRN; Protocol PRN Reason: Hypoglycemia Protocol Dextrose (Glutose 15) 0 gm PO ONCE PRN; Protocol PRN Reason: Hypoglycemia Protocol Glucagon (Glucagen Diagnostic Kit) 0 mg IM STAT PRN; Protocol PRN Reason: Hypoglycemia Protocol Hydromorphone HCl (Dilaudid) 2 mg IVP Q4 PRN PRN Reason: Pain, severe (8-10) Last Admin: 09/03/18 07:27 Dose: 2 mg Hydromorphone HCl (Dilaudid) 0.5 mg IVP Q5M PRN PRN Reason: Pain, severe (8-10) Stop: 09/03/18 15:51 Vancomycin HCl 500 mg/ Sodium (Chloride) 100 mls @ 100 mls/hr IVPB [facility] [place]; Protocol Last Admin: 09/02/18 10:54 Dose: 100 mls/hr Insulin Aspart (Novolog) 0 unit SC [facility]; Protocol Last Admin: 09/03/18 12:09 Dose: Not Given Losartan Potassium (Cozaar) 25 mg PO BID [facility] Last Admin: 09/03/18 10:06 Dose: Not Given Pregabalin (Lyrica) 100 mg PO BID [facility] Last Admin: 09/03/18 10:05 Dose: Not Given Ranolazine (Ranexa) 500 mg PO BID [facility] Last Admin: 09/03/18 10:07 Dose: Not Given Rosuvastatin Calcium (Crestor) 20 mg PO [facility] Tramadol HCl (Ultram) 50 mg PO TID PRN PRN Reason: Pain, moderate (4-7) Last Admin: 09/01/18 12:29 Dose: 50 mg Physical Exam - Constitutional Appears: Well - Head Exam Head Exam: ATRAUMATIC, NORMAL INSPECTION, NORMOCEPHALIC - Eye Exam Eye Exam: EOMI, Normal appearance - Neck Exam Neck exam: Positive for: Normal Inspection - Respiratory Exam Respiratory Exam: Clear to Auscultation Bilateral, NORMAL BREATHING PATTERN - Cardiovascular Exam Cardiovascular Exam: Systolic Murmur (soft crescendo decrescendo murmur on all listening posts). absent: Bradycardia, Tachycardia, Clicks - GI/Abdominal Exam GI & Abdominal Exam: Normal Bowel Sounds, Soft. absent: Distended, Firm, Guarding, Rebound - Extremities Exam Extremities exam: Positive for: normal capillary refill (right leg with bandages, left leg with SCD.). Negative for: normal inspection - Neurological Exam Neurological exam: Oriented x3 - Skin Skin Exam: Dry, Intact, Normal Color, Warm Results - Vital Signs Recent Vital Signs: Last Vital Signs Temp 98.3 F 09/03/18 08:23 Pulse 66 09/03/18 08:23 Resp 20 09/03/18 08:23 BP 118/67 09/03/18 08:23 Pulse Ox 95 09/03/18 07:00 - Labs Result Diagrams: 09/03/18 14:51 09/03/18 14:51 Labs: Laboratory Results - last 24 hr 09/02/18 09/02/18 09/03/18 16:27 21:17 07:08 WBC RBC Hgb Hct MCV MCH MCHC RDW Plt Count MPV Neut % (Auto) Lymph % (Auto) [place] % (Auto) Eos % (Auto) Baso % (Auto) Neut # (Auto) Lymph # (Auto) [place] # (Auto) Eos # (Auto) Baso # (Auto) PT INR APTT Sodium Potassium Chloride Carbon Dioxide Anion Gap BUN Creatinine Est GFR ( Amer) Est GFR (Non-Af Amer) POC Glucose (mg/dL) 155 H 139 H 100 Random Glucose Calcium Phosphorus Magnesium Blood Type Antibody Screen 09/03/18 09/03/18 09/03/18 07:36 07:36 07:36 WBC 9.1 RBC 3.36 L Hgb 11.4 L Hct 34.1 L MCV 101.6 H MCH 33.9 H MCHC 33.4 RDW 16.4 H Plt Count 339 MPV 9.1 Neut % (Auto) 62.1 Lymph % (Auto) 22.3 [place] % (Auto) 11.4 H Eos % (Auto) 3.4 Baso % (Auto) 0.8 Neut # (Auto) 5.6 Lymph # (Auto) 2.0 [place] # (Auto) 1.0 H Eos # (Auto) 0.3 Baso # (Auto) 0.1 PT 13.6 H INR 1.2 APTT 34 Sodium 134 Potassium 4.9 Chloride 91 L Carbon Dioxide 29 Anion Gap 19 BUN 66 H Creatinine 9.9 H* D Est GFR ( Amer) 6 Est GFR (Non-Af Amer) 5 POC Glucose (mg/dL) Random Glucose 89 D Calcium 9.0 Phosphorus 10.7 H Magnesium 2.3 Blood Type Antibody Screen 09/03/18 07:36 WBC RBC Hgb Hct MCV MCH MCHC RDW Plt Count MPV Neut % (Auto) Lymph % (Auto) [place] % (Auto) Eos % (Auto) Baso % (Auto) Neut # (Auto) Lymph # (Auto) [place] # (Auto) Eos # (Auto) Baso # (Auto) PT INR APTT Sodium Potassium Chloride Carbon Dioxide Anion Gap BUN Creatinine Est GFR ( Amer) Est GFR (Non-Af Amer) POC Glucose (mg/dL) Random Glucose Calcium Phosphorus Magnesium Blood Type O POSITIVE Antibody Screen Negative Assessment & Plan - Assessment and Plan (Free Text) Assessment: 63 y/o male with PMHx of PVD, DM, ESRD on HD, CHF, HTN is currently s/p R LE arterial bypass, with prior b/l LE gangrene and ischemia R>L. Patient currently in ICU for observation. 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 Intraoperative Angiogram. -post op care: pain and antiemetic control PRN Pulm -on NC 2L -target spo2 > 92% -incentive spirometer Renal -on HD MWF, dialysis nurse aware. Pending post op dialysis -on ARB -follow CMP qAM Endo -Pt w/ DM: continue with home pregabalin 100 mg PO BID -accuchecks q6h -> change to ACHS once resume regular diet -ISS -hypoglycemia protocol ID -on vanco 500 mg MWF since 08/31 -ID, Dr. Eason, following. Appreciate recs. Heme -EBL 400 mL intraoperatively -trend CBC DVT ppx: hold GI ppx: not indicated <Michael Hill M - Last Filed: 09/03/18 18:19> Meds - Medications Medications: Current Medications Aspirin (Aspirin Chewable) 81 mg PO DAILY [facility] Last Admin: 09/03/18 10:05 Dose: Not Given Atenolol (Tenormin) 50 mg PO DAILY [facility] Last Admin: 09/03/18 10:07 Dose: Not Given Clopidogrel Bisulfate (Plavix) 75 mg PO DAILY [facility] Last Admin: 09/03/18 10:07 Dose: Not Given Dextrose (Dextrose 50% Inj) 0 ml IV STAT PRN; Protocol PRN Reason: Hypoglycemia Protocol Dextrose (Glutose 15) 0 gm PO ONCE PRN; Protocol PRN Reason: Hypoglycemia Protocol Glucagon (Glucagen Diagnostic Kit) 0 mg IM STAT PRN; Protocol PRN Reason: Hypoglycemia Protocol Hydromorphone HCl (Dilaudid) 2 mg IVP Q4 PRN PRN Reason: Pain, severe (8-10) Last Admin: 09/03/18 15:32 Dose: 2 mg Vancomycin HCl 500 mg/ Sodium (Chloride) 100 mls @ 100 mls/hr IVPB MWF [facility]; Protocol Last Admin: 09/02/18 10:54 Dose: 100 mls/hr Insulin Aspart (Novolog) 0 unit SC [facility]; Protocol Last Admin: 09/03/18 17:50 Dose: Not Given Losartan Potassium (Cozaar) 25 mg PO BID [facility] Last Admin: 09/03/18 10:06 Dose: Not Given Pregabalin (Lyrica) 75 mg PO DAILY [facility] Ranolazine (Ranexa) 500 mg PO BID [facility] Last Admin: 09/03/18 10:07 Dose: Not Given Rosuvastatin Calcium (Crestor) 10 mg PO HS [facility] Tramadol HCl (Ultram) 50 mg PO TID PRN PRN Reason: Pain, moderate (4-7) Last Admin: 09/01/18 12:29 Dose: 50 mg Results - Vital Signs Recent Vital Signs: Last Vital Signs Temp 97.7 F 09/03/18 15:05 Pulse 69 09/03/18 16:10 Resp 16 09/03/18 16:10 BP 151/57 H 09/03/18 16:10 Pulse Ox 100 09/03/18 16:10 - Labs Result Diagrams: 09/03/18 14:51 09/03/18 14:51 Labs: Laboratory Results - last 24 hr 09/02/18 09/02/18 09/03/18 16:27 21:17 07:08 WBC RBC Hgb Hct MCV MCH MCHC RDW Plt Count MPV Neut % (Auto) Lymph % (Auto) [place] % (Auto) Eos % (Auto) Baso % (Auto) Neut # (Auto) Lymph # (Auto) [place] # (Auto) Eos # (Auto) Baso # (Auto) Neutrophils % (Manual) Lymphocytes % (Manual) Monocytes % (Manual) Eosinophils % (Manual) Platelet Estimate Polychromasia Anisocytosis (manual) Macrocytosis (manual) PT INR APTT Puncture Site pCO2 pO2 HCO3 ABG pH ABG Total CO2 ABG O2 Saturation ABG Base Excess Kaushik Test ABG Potassium Glucose Lactate Liter Flow Crit Value Called To Crit Value Called By Crit Value Read Back Blood Gas Notified Time Sodium Potassium Chloride Carbon Dioxide Anion Gap BUN Creatinine Est GFR ( Amer) Est GFR (Non-Af Amer) POC Glucose (mg/dL) 155 H 139 H 100 Random Glucose Calcium Phosphorus Magnesium Total Bilirubin AST ALT Alkaline Phosphatase Total Protein Albumin Globulin Albumin/Globulin Ratio Arterial Blood Potassium Blood Type Antibody Screen 09/03/18 09/03/18 09/03/18 07:36 07:36 07:36 WBC 9.1 RBC 3.36 L Hgb 11.4 L Hct 34.1 L MCV 101.6 H MCH 33.9 H MCHC 33.4 RDW 16.4 H Plt Count 339 MPV 9.1 Neut % (Auto) 62.1 Lymph % (Auto) 22.3 [place] % (Auto) 11.4 H Eos % (Auto) 3.4 Baso % (Auto) 0.8 Neut # (Auto) 5.6 Lymph # (Auto) 2.0 [place] # (Auto) 1.0 H Eos # (Auto) 0.3 Baso # (Auto) 0.1 Neutrophils % (Manual) Lymphocytes % (Manual) Monocytes % (Manual) Eosinophils % (Manual) Platelet Estimate Polychromasia Anisocytosis (manual) Macrocytosis (manual) PT 13.6 H INR 1.2 APTT 34 Puncture Site pCO2 pO2 HCO3 ABG pH ABG Total CO2 ABG O2 Saturation ABG Base Excess Kaushik Test ABG Potassium Glucose Lactate Liter Flow Crit Value Called To Crit Value Called By Crit Value Read Back Blood Gas Notified Time Sodium 134 Potassium 4.9 Chloride 91 L Carbon Dioxide 29 Anion Gap 19 BUN 66 H Creatinine 9.9 H* D Est GFR ( Amer) 6 Est GFR (Non-Af Amer) 5 POC Glucose (mg/dL) Random Glucose 89 D Calcium 9.0 Phosphorus 10.7 H Magnesium 2.3 Total Bilirubin AST ALT Alkaline Phosphatase Total Protein Albumin Globulin Albumin/Globulin Ratio Arterial Blood Potassium Blood Type Antibody Screen 09/03/18 09/03/18 09/03/18 07:36 14:51 14:51 WBC 10.9 H RBC 3.19 L Hgb 10.7 L Hct 32.2 L MCV 101.0 H MCH 33.5 H MCHC 33.2 RDW 16.2 H Plt Count 316 MPV 8.8 Neut % (Auto) 80.0 H Lymph % (Auto) 8.6 L [place] % (Auto) 9.5 Eos % (Auto) 1.3 Baso % (Auto) 0.6 Neut # (Auto) 8.7 H Lymph # (Auto) 0.9 L [place] # (Auto) 1.0 H Eos # (Auto) 0.1 Baso # (Auto) 0.1 Neutrophils % (Manual) 86 H Lymphocytes % (Manual) 7 L Monocytes % (Manual) 6 Eosinophils % (Manual) 1 Platelet Estimate Normal Polychromasia Slight Anisocytosis (manual) Slight Macrocytosis (manual) Slight PT INR APTT Puncture Site A-line pCO2 40 pO2 130 H HCO3 16.5 L ABG pH 7.22 L ABG Total CO2 17.6 L ABG O2 Saturation 99.1 H ABG Base Excess -10.8 L Kaushik Test Na ABG Potassium 3.5 L Glucose 74 L Lactate 0.7 Liter Flow 4.0 Crit Value Called To Gage rey rn rec rm Crit Value Called By Maximilian corrigan assistant spa manager Crit Value Read Back Y Blood Gas Notified Time 1455 Sodium 141.0 Potassium Chloride 111.0 H Carbon Dioxide Anion Gap BUN Creatinine Est GFR ( Amer) Est GFR (Non-Af Amer) POC Glucose (mg/dL) Random Glucose Calcium Phosphorus Magnesium Total Bilirubin AST ALT Alkaline Phosphatase Total Protein Albumin Globulin Albumin/Globulin Ratio Arterial Blood Potassium 3.5 L Blood Type O POSITIVE Antibody Screen Negative 09/03/18 09/03/18 14:51 16:13 WBC RBC Hgb Hct MCV MCH MCHC RDW Plt Count MPV Neut % (Auto) Lymph % (Auto) [place] % (Auto) Eos % (Auto) Baso % (Auto) Neut # (Auto) Lymph # (Auto) [place] # (Auto) Eos # (Auto) Baso # (Auto) Neutrophils % (Manual) Lymphocytes % (Manual) Monocytes % (Manual) Eosinophils % (Manual) Platelet Estimate Polychromasia Anisocytosis (manual) Macrocytosis (manual) PT INR APTT Puncture Site pCO2 pO2 HCO3 ABG pH ABG Total CO2 ABG O2 Saturation ABG Base Excess Kaushik Test ABG Potassium Glucose Lactate Liter Flow Crit Value Called To Crit Value Called By Crit Value Read Back Blood Gas Notified Time Sodium 134 Potassium 5.3 H Chloride 95 L Carbon Dioxide 23 Anion Gap 21 H BUN 66 H Creatinine 10.4 H* Est GFR ( Amer) 6 Est GFR (Non-Af Amer) 5 POC Glucose (mg/dL) 94 Random Glucose 104 Calcium 8.2 L Phosphorus 11.0 H Magnesium 2.1 Total Bilirubin 0.8 AST 22 ALT 50 Alkaline Phosphatase 78 Total Protein 6.5 Albumin 3.6 Globulin 2.9 Albumin/Globulin Ratio 1.3 Arterial Blood Potassium Blood Type Antibody Screen Attending/Attestation - Attestation I have personally seen and examined this patient.: Yes I have fully participated in the care of the patient.: Yes I have reviewed all pertinent clinical information: Yes Notes (Text): 09/03/18 18:14 Today: September The Patient was seen and examined at the bedside, Medical records reviewed, and management issues were discussed and formulated with the house staff. I have reviewed all the relevant clinical, laboratory, hemodynamic, radiographic data and medications Events reviewed Pain issues, skin care, head of the bed elevation, glycemic control were addressed. Agree with above resident's assessment and treatment plans of care as transcribed in Dr. Tomas's note.
--- NOTE | 2018-09-03 14:21 | PCM.SURG1 ---
Surgeon's Initial Post Op Note - Surgeon's Notes Surgeon: Dr. Gooden Manager Of Care: Peace PGY2; Julius MS3 Type of Anesthesia: General Endo Anesthesia Administered By: Jim Tovar CRNA Pre-Operative Diagnosis: Severe Peripheral Vascular Disease Operative Findings: Severe Right Anterior tibial disease. Good distal revascularization noted on intraop angiogram. Post-Operative Diagnosis: Same Operation Performed: Right Common Femoral to Right Anterior Tibial Artery bypass with cadaveric graft. Intraoperative Angiogram. Specimen/Specimens Removed: none Estimated Blood Loss: EBL {In ML}: 400 Blood Products Given: N/A Drains Used: No Drains Post-Op Condition: Fair Date of Surgery/Procedure: 09/03/18 Time of Surgery/Procedure: 14:23
[2018-09-03 14:54] LABS: BASO # 0.1 K/uL (0.0-0.2); BASO % 0.6 % (0.0-2.0); EOS # 0.1 K/uL (0.0-0.7); EOS % 1.3 % (0.0-4.0); HEMOGLOBIN 10.7 g/dL (12.0-18.0); LYMPH # 0.9 K/uL (1.0-4.3); LYMPH % 8.6 % (20.0-40.0); MEAN CORPUSCULAR HEMOGLOBIN 33.5 pg (27.0-31.0); MEAN CORPUSCULAR HGB CONC 33.2 g/dL (33.0-37.0); MEAN PLATELET VOLUME 8.8 fL (7.2-11.7); MONO % 9.5 % (0.0-10.0); NEUT # 8.7 K/uL (1.8-7.0); PLATELET COUNT 316 K/uL (130-400); RBC 3.19 Mil/uL (4.40-5.90); RED CELL DISTRIBUTION WIDTH 16.2 % (11.5-14.5); WHITE BLOOD COUNT 10.9 K/uL (4.8-10.8)
[2018-09-03 14:56] LABS: ARTERIAL BLOOD GAS HCO3 16.5 mmol/L (21-28); ARTERIAL BLOOD GAS O2 SAT 99.1 % (95-98); ARTERIAL BLOOD GAS PCO2 40 mm/Hg (35-45); ARTERIAL BLOOD GAS PH 7.22 (7.35-7.45); ARTERIAL BLOOD GAS PO2 130 mm/Hg (80-100); ARTERIAL BLOOD GAS TCO2 17.6 mmol/L (22-28)
[2018-09-03 15:23] LABS: ALB/GLOB RATIO 1.3 (1.0-2.1); ALBUMIN 3.6 g/dL (3.5-5.0); CALCIUM 8.2 mg/dl (8.6-10.4)
[2018-09-03 15:50] LABS: ANISOCYTOSIS SLIGHT; EOSINOPHIL 1 % (0-4); LYMPHOCYTE 7 % (20-40); MONOCYTE 6 % (0-10); NEUTROPHIL 86 % (50-75); PLATELET ESTIMATE NORMAL (NORMAL); TOTAL CELLS COUNTED 100
[2018-09-03 15:51] LABS: POLYCHROMIC SLIGHT
--- NOTE | 2018-09-03 17:02 | RAD ---
PROCEDURE: HISTORY: As above COMPARISON: None TECHNIQUE: Total fluoroscopic time utilized during the procedure: 17.7 seconds ; 0.96 mGy cm 2 FINDINGS: Submitted images from the current procedure: 3 Please refer to the physician's notes performing the procedure. IMPRESSION: Less than 1 hour fluoroscopic time utilized during performance of the procedure
--- NOTE | 2018-09-04 02:19 | OP ---
PROCEDURE DATE: 09/03/2018 PREOPERATIVE DIAGNOSIS: Gangrene, right foot. PROCEDURE CARRIED OUT: Right femoral anterior tibial bypass with reverse CryoVein with intraoperative arteriogram. SURGEON: Ryan Gooden Jr., MD VERMIN EXTERMINATOR: Bobo Hand DO ANESTHESIOLOGIST: Mr. Tovar. INDICATIONS: The patient is an older middle-aged man with renal failure, on dialysis, multiple endovascular interventions, now presenting with gangrene of the foot, intractable pain. OPERATIVE FINDINGS: Preoperatively, there was a remnant of the popliteal artery; however, this had been recently attempted a retrograde puncture because went into the anterior tibial artery which is a major vessel into the foot. At the completion of the operation, we did an angiogram which was satisfactory, showing good flow distally without any donn-anastomotic stenosis. This was after the administration of papaverine. Blood loss for the procedure was 300 to 400 mL, and the vein was of adequate size, but slightly on the small size . DESCRIPTION OF PROCEDURE: The patient was given general anesthesia and intravenous antibiotics. The vein was carefully identified in the thigh with the use of ultrasound, and again, this as compared with the other measurements where there was a poor size and poor quality particularly in the mid thigh. Because of this, we elected to use the CryoVein. We dissected out the femoral artery, common femoral, external iliac artery in the groin to a nicely soft spot. We then dissected out the anterior tibial artery which was quite difficult to the venous branches around it. Nonetheless, after this had been done, we created a subcutaneous tunnel, the distal anastomosis first using tourniquet control and heparin anticoagulation and loop magnification. We then carried out the proximal anastomosis. There was excellent flow through the graft and excellent flow beyond it. The procedure was then terminated. The wounds were closed with Monocryl and Vicryl sutures. Blood loss was 400 mL. Operation carried out was right femoral anterior tibial bypass with reverse saphenous CryoVein with intraoperative arteriogram. Ryan Gooden Jr., MD cc: Eden Coleman DPM; Dr. Lopez. [facility] # [phone]
[2018-09-04 06:18] LABS: BASO % 0.6 % (0.0-2.0); EOS # 0.1 K/uL (0.0-0.7); EOS % 0.7 % (0.0-4.0); LYMPH # 0.8 K/uL (1.0-4.3); MEAN CELL VOLUME 100.6 fL (80.0-94.0); MEAN CORPUSCULAR HEMOGLOBIN 33.6 pg (27.0-31.0); MEAN CORPUSCULAR HGB CONC 33.4 g/dL (33.0-37.0); MEAN PLATELET VOLUME 9.2 fL (7.2-11.7); MONO % 11.8 % (0.0-10.0); NEUT # 6.5 K/uL (1.8-7.0); NEUT % 77.9 % (50.0-75.0); PLATELET COUNT 278 K/uL (130-400); RBC 2.97 Mil/uL (4.40-5.90); RED CELL DISTRIBUTION WIDTH 16.4 % (11.5-14.5); WHITE BLOOD COUNT 8.4 K/uL (4.8-10.8)
[2018-09-04 06:54] LABS: ALB/GLOB RATIO 1.1 (1.0-2.1); ALBUMIN 3.3 g/dL (3.5-5.0); CALCIUM 8.1 mg/dl (8.6-10.4)
[2018-09-04 08:23] LABS: LYMPHOCYTE 5 % (20-40); MONOCYTE 7 % (0-10); NEUTROPHIL 88 % (50-75); PLATELET ESTIMATE NORMAL (NORMAL); TOTAL CELLS COUNTED 100
[2018-09-04] MEDS: (Novolog) Insulin Aspart, Recombinant 100 u/ml 10 ml vial SC SCH ×4 (08:24→22:00)
--- NOTE | 2018-09-04 08:24 | CP.PCM.PN ---
Subjective - Date & Time of Evaluation Date of Evaluation: 09/04/18 Time of Evaluation: 07:10 - Subjective Subjective: Vascular Surgery Progress note. Dr. Gooden Pt seen and examined at bedside. No acute events overnight. No N/V/D. Pain well controlled. No new compliants. Dopplerable signals at RLE DP. Objective - Vital Signs/Intake and Output Vital Signs (last 24 hours): Temp Pulse Resp BP Pulse Ox 99 F 64 7 L 116/52 L 99 09/04/18 04:00 09/04/18 03:18 09/04/18 03:18 09/04/18 03:18 09/04/18 04:00 Intake and Output: 09/04/18 09/04/18 06:59 18:59 Intake Total 0 Output Total 0 Balance 0 - Medications Medications: Current Medications Aspirin (Aspirin Chewable) 81 mg PO DAILY [facility] Last Admin: 09/03/18 10:05 Dose: Not Given Atenolol (Tenormin) 50 mg PO DAILY [facility] Last Admin: 09/03/18 10:07 Dose: Not Given Clopidogrel Bisulfate (Plavix) 75 mg PO DAILY [facility] Last Admin: 09/03/18 10:07 Dose: Not Given Dextrose (Dextrose 50% Inj) 0 ml IV STAT PRN; Protocol PRN Reason: Hypoglycemia Protocol Dextrose (Glutose 15) 0 gm PO ONCE PRN; Protocol PRN Reason: Hypoglycemia Protocol Glucagon (Glucagen Diagnostic Kit) 0 mg IM STAT PRN; Protocol PRN Reason: Hypoglycemia Protocol Hydromorphone HCl (Dilaudid) 2 mg IVP Q4 PRN PRN Reason: Pain, severe (8-10) Last Admin: 09/04/18 06:12 Dose: 2 mg Vancomycin HCl 500 mg/ Sodium (Chloride) 100 mls @ 100 mls/hr IVPB MWF [facility]; Protocol Last Admin: 09/02/18 10:54 Dose: 100 mls/hr Insulin Aspart (Novolog) 0 unit SC ACHS [facility]; Protocol Last Admin: 09/03/18 22:42 Dose: Not Given Losartan Potassium (Cozaar) 25 mg PO BID [facility] Last Admin: 09/03/18 18:18 Dose: 25 mg Pregabalin (Lyrica) 75 mg PO DAILY [facility] Ranolazine (Ranexa) 500 mg PO BID [facility] Last Admin: 09/03/18 18:18 Dose: 500 mg Rosuvastatin Calcium (Crestor) 10 mg PO HS [facility] Last Admin: 09/03/18 23:03 Dose: 10 mg Tramadol HCl (Ultram) 50 mg PO TID PRN PRN Reason: Pain, moderate (4-7) Last Admin: 09/04/18 03:00 Dose: 50 mg - Labs Labs: 09/04/18 06:06 09/04/18 06:06 PT 13.6 SECONDS (9.7-12.2) H 09/03/18 07:36 INR 1.2 09/03/18 07:36 APTT 34 SECONDS (21-34) 09/03/18 07:36 - Constitutional Appears: Well, Non-toxic, No Acute Distress - Head Exam Head Exam: ATRAUMATIC, NORMAL INSPECTION, NORMOCEPHALIC - Eye Exam Eye Exam: EOMI, Normal appearance. absent: Scleral icterus - ENT Exam ENT Exam: Mucous Membranes Moist - Respiratory Exam Respiratory Exam: NORMAL BREATHING PATTERN. absent: Accessory Muscle Use, Wheezes, Respiratory Distress - GI/Abdominal Exam GI & Abdominal Exam: Soft. absent: Distended, Guarding, Rigid, Tenderness - Extremities Exam Additional comments: Dopplerable signals at Right DP. Palpable pulse over vascular graft site at lateral right knee. Dressing clean, dry and intact. - Neurological Exam Neurological Exam: Alert, Awake, Oriented x3 - Psychiatric Exam Psychiatric exam: Normal Affect, Normal Mood - Skin Skin Exam: Dry, Intact, Normal Color, Warm Assessment and Plan - Assessment and Plan (Free Text) Assessment: 63yo M s/p R fem-Tib bypass. POD1 Plan: - Encourage out of bed to chair - PT eval and treat - D/C A-line - Okay to transfer to floor - Continue vascular checks Further recs as per Dr. Berkley Hand PGY2 surgery
--- NOTE | 2018-09-04 08:53 | CP.CCUPN ---
<Eliane Tomas - Last Filed: 09/04/18 10:45> CCU Subjective - Physician Review Subjective (Free Text): 09/04/18 10:40 ICU Progress Note for Dr. Stanton Patient seen and examined at bedside this morning. Patient was eating breakfast. Per surgery team patient will not have left leg surgery; he will have it outpatient. Today's surgery cancelled. Patient had 10/10 right leg pain from surgery yesterday 09/03. Currently 4/10 pain. Otherwise 12 point ROS negative. CCU Objective - Vital Signs / Intake & Output Vital Signs (Last 4 hours): Vital Signs Temp Pulse Resp BP Pulse Ox 09/04/18 08:17 87 17 108/61 95 09/04/18 08:00 98.5 F 89 12 95 09/04/18 07:18 87 11 L 100/55 L 87 L 09/04/18 07:00 85 12 90 L 09/04/18 06:18 80 8 L 117/54 L 88 L 09/04/18 06:00 84 16 94 L 09/04/18 05:18 114/55 L 09/04/18 05:00 88 14 96 Intake and Output (Last 8hrs): Intake & Output 09/03/18 09/04/18 09/04/18 22:59 06:59 14:59 Intake Total 360 0 60 Output Total 0 0 0 Balance 360 0 60 Weight 223 lb 1.725 oz Intake: Oral 360 0 60 Output: Urine 0 0 0 Urine, Voided 0 0 0 - Physical Exam Head: Positive for: Atraumatic, Normocephalic Extroacular Muscles: Positive for: EOMI Conjunctiva: Positive for: Normal Respiratory/Chest: Positive for: Clear to Auscultation, Good Air Exchange. Negative for: Respiratory Distress, Accessory Muscle Use Cardiovascular: Positive for: Regular Rate and Rhythm Abdomen: Positive for: Normal Bowel Sounds. Negative for: Tenderness, Distention Upper Extremity: Positive for: Normal Inspection. Negative for: Edema Lower Extremity: Positive for: Other (right LE with dressing, velcro stabilizer removed. Pen carrasquillo for doppler US present by fibular head and dorsalis pedis areas). Negative for: Normal Inspection Neurological: Positive for: Speech Normal Skin: Positive for: Warm, Dry, Normal Color - Medications Active Medications: Active Medications Generic Name Dose Route Start Last Admin Trade Name Freq PRN Reason Stop Dose Admin Aspirin 81 mg 09/02/18 10:00 09/03/18 10:05 Aspirin Chewable PO Not Given DAILY [facility] Atenolol 50 mg 09/02/18 10:00 09/03/18 10:07 Tenormin PO Not Given DAILY [facility] Clopidogrel Bisulfate 75 mg 09/02/18 10:00 09/03/18 10:07 Plavix PO Not Given DAILY [facility] Dextrose 0 ml 08/30/18 19:53 Dextrose 50% Inj IV STAT PRN Hypoglycemia Protocol Protocol Dextrose 0 gm 08/30/18 19:53 Glutose 15 PO ONCE PRN Hypoglycemia Protocol Protocol Glucagon 0 mg 08/30/18 19:53 Glucagen Diagnostic Kit IM STAT PRN Hypoglycemia Protocol Protocol Hydromorphone HCl 2 mg 09/01/18 13:09 09/04/18 06:12 Dilaudid IVP 2 mg Q4 PRN Administration Pain, severe (8-10) Vancomycin HCl 500 mg/ Sodium 100 mls @ 100 mls/hr 08/31/18 09:00 09/02/18 10:54 Chloride IVPB 100 mls/hr [facility] Administration Protocol Insulin Aspart 0 unit 08/30/18 22:00 09/04/18 08:24 Novolog SC Not Given ACHS [facility] Protocol Losartan Potassium 25 mg 09/01/18 18:00 09/03/18 18:18 Cozaar PO 25 mg BID FOZIA Administration Pregabalin 75 mg 09/04/18 10:00 Lyrica PO DAILY [facility] Ranolazine 500 mg 09/01/18 18:00 09/03/18 18:18 Ranexa PO 500 mg BID FOZIA Administration Rosuvastatin Calcium 10 mg 09/03/18 22:00 09/03/18 23:03 Crestor PO 10 mg HS FOZIA Administration Tramadol HCl 50 mg 08/30/18 20:10 09/04/18 03:00 Ultram PO 50 mg TID PRN Administration Pain, moderate (4-7) - Patient Studies Lab Studies: Microbiology Studies 08/30/18 18:52 Blood Culture - Preliminary Blood NO GROWTH AFTER 4 DAYS 08/30/18 18:25 Blood Culture - Preliminary Blood NO GROWTH AFTER 4 DAYS Lab Studies 09/04/18 09/04/18 09/04/18 Range/Units 07:52 06:06 06:06 WBC 8.4 (4.8-10.8) K/uL RBC 2.97 L (4.40-5.90) Mil/uL Hgb 10.0 L (12.0-18.0) g/dL Hct 29.9 L (35.0-51.0) % MCV 100.6 H (80.0-94.0) fL MCH 33.6 H (27.0-31.0) pg MCHC 33.4 (33.0-37.0) g/dL RDW 16.4 H (11.5-14.5) % Plt Count 278 (130-400) K/uL MPV 9.2 (7.2-11.7) fL Neut % (Auto) 77.9 H (50.0-75.0) % Lymph % (Auto) 9.0 L (20.0-40.0) % [place] % (Auto) 11.8 H (0.0-10.0) % Eos % (Auto) 0.7 (0.0-4.0) % Baso % (Auto) 0.6 (0.0-2.0) % Neut # (Auto) 6.5 (1.8-7.0) K/uL Lymph # (Auto) 0.8 L (1.0-4.3) K/uL [place] # (Auto) 1.0 H (0.0-0.8) K/uL Eos # (Auto) 0.1 (0.0-0.7) K/uL Baso # (Auto) 0.0 (0.0-0.2) K/uL Neutrophils % (Manual) 88 H (50-75) % Lymphocytes % (Manual) 5 L (20-40) % Monocytes % (Manual) 7 (0-10) % Eosinophils % (Manual) (0-4) % Platelet Estimate Normal (NORMAL) RBC Morphology Normal Polychromasia Anisocytosis (manual) Macrocytosis (manual) Puncture Site pCO2 (35-45) mm/Hg pO2 (80-100) mm/Hg HCO3 (21-28) mmol/L ABG pH (7.35-7.45) ABG Total CO2 (22-28) mmol/L ABG O2 Saturation (95-98) % ABG Base Excess (-2.0-3.0) mmol/L Kaushik Test ABG Potassium (3.6-5.2) mmol/L Sodium 133 (132-148) mmol/l Chloride 96 L (98-107) mmol/L Glucose (75-110) mg/dl Lactate (0.7-2.1) mmol/L Liter Flow Crit Value Called To Crit Value Called By Crit Value Read Back Blood Gas Notified Time Potassium 4.7 (3.6-5.2) mmol/L Carbon Dioxide 24 (22-30) mmol/L Anion Gap 18 (10-20) BUN 44 H (9-20) mg/dL Creatinine 6.3 H (0.8-1.5) mg/dL Est GFR ( Amer) 11 Est GFR (Non-Af Amer) 9 POC Glucose (mg/dL) 121 H (65-110) mg/dL Random Glucose 110 (75-110) mg/dL Calcium 8.1 L (8.6-10.4) mg/dl Phosphorus 7.3 H (2.5-4.5) mg/dL Magnesium 2.0 (1.6-2.3) mg/dL Total Bilirubin 0.7 (0.2-1.3) mg/dL AST 22 (17-59) U/L ALT 47 (21-72) U/L Alkaline Phosphatase 71 (38-126) U/L Total Protein 6.3 (6.3-8.3) g/dL Albumin 3.3 L (3.5-5.0) g/dL Globulin 3.0 (2.2-3.9) gm/dL Albumin/Globulin Ratio 1.1 (1.0-2.1) Arterial Blood Potassium (3.6-5.2) mmol/L Blood Type Antibody Screen 09/03/18 09/03/18 09/03/18 Range/Units 21:06 16:13 14:51 WBC (4.8-10.8) K/uL RBC (4.40-5.90) Mil/uL Hgb (12.0-18.0) g/dL Hct (35.0-51.0) % MCV (80.0-94.0) fL MCH (27.0-31.0) pg MCHC (33.0-37.0) g/dL RDW (11.5-14.5) % Plt Count (130-400) K/uL MPV (7.2-11.7) fL Neut % (Auto) (50.0-75.0) % Lymph % (Auto) (20.0-40.0) % [place] % (Auto) (0.0-10.0) % Eos % (Auto) (0.0-4.0) % Baso % (Auto) (0.0-2.0) % Neut # (Auto) (1.8-7.0) K/uL Lymph # (Auto) (1.0-4.3) K/uL [place] # (Auto) (0.0-0.8) K/uL Eos # (Auto) (0.0-0.7) K/uL Baso # (Auto) (0.0-0.2) K/uL Neutrophils % (Manual) (50-75) % Lymphocytes % (Manual) (20-40) % Monocytes % (Manual) (0-10) % Eosinophils % (Manual) (0-4) % Platelet Estimate (NORMAL) RBC Morphology Polychromasia Anisocytosis (manual) Macrocytosis (manual) Puncture Site pCO2 (35-45) mm/Hg pO2 (80-100) mm/Hg HCO3 (21-28) mmol/L ABG pH (7.35-7.45) ABG Total CO2 (22-28) mmol/L ABG O2 Saturation (95-98) % ABG Base Excess (-2.0-3.0) mmol/L Kaushik Test ABG Potassium (3.6-5.2) mmol/L Sodium 134 (132-148) mmol/l Chloride 95 L (98-107) mmol/L Glucose (75-110) mg/dl Lactate (0.7-2.1) mmol/L Liter Flow Crit Value Called To Crit Value Called By Crit Value Read Back Blood Gas Notified Time Potassium 5.3 H (3.6-5.2) mmol/L Carbon Dioxide 23 (22-30) mmol/L Anion Gap 21 H (10-20) BUN 66 H (9-20) mg/dL Creatinine 10.4 H* (0.8-1.5) mg/dL Est GFR ( Amer) 6 Est GFR (Non-Af Amer) 5 POC Glucose (mg/dL) 129 H 94 (65-110) mg/dL Random Glucose 104 (75-110) mg/dL Calcium 8.2 L (8.6-10.4) mg/dl Phosphorus 11.0 H (2.5-4.5) mg/dL Magnesium 2.1 (1.6-2.3) mg/dL Total Bilirubin 0.8 (0.2-1.3) mg/dL AST 22 (17-59) U/L ALT 50 (21-72) U/L Alkaline Phosphatase 78 (38-126) U/L Total Protein 6.5 (6.3-8.3) g/dL Albumin 3.6 (3.5-5.0) g/dL Globulin 2.9 (2.2-3.9) gm/dL Albumin/Globulin Ratio 1.3 (1.0-2.1) Arterial Blood Potassium (3.6-5.2) mmol/L Blood Type Antibody Screen 09/03/18 09/03/18 09/03/18 Range/Units 14:51 14:51 07:36 WBC 10.9 H (4.8-10.8) K/uL RBC 3.19 L (4.40-5.90) Mil/uL Hgb 10.7 L (12.0-18.0) g/dL Hct 32.2 L (35.0-51.0) % MCV 101.0 H (80.0-94.0) fL MCH 33.5 H (27.0-31.0) pg MCHC 33.2 (33.0-37.0) g/dL RDW 16.2 H (11.5-14.5) % Plt Count 316 (130-400) K/uL MPV 8.8 (7.2-11.7) fL Neut % (Auto) 80.0 H (50.0-75.0) % Lymph % (Auto) 8.6 L (20.0-40.0) % [place] % (Auto) 9.5 (0.0-10.0) % Eos % (Auto) 1.3 (0.0-4.0) % Baso % (Auto) 0.6 (0.0-2.0) % Neut # (Auto) 8.7 H (1.8-7.0) K/uL Lymph # (Auto) 0.9 L (1.0-4.3) K/uL [place] # (Auto) 1.0 H (0.0-0.8) K/uL Eos # (Auto) 0.1 (0.0-0.7) K/uL Baso # (Auto) 0.1 (0.0-0.2) K/uL Neutrophils % (Manual) 86 H (50-75) % Lymphocytes % (Manual) 7 L (20-40) % Monocytes % (Manual) 6 (0-10) % Eosinophils % (Manual) 1 (0-4) % Platelet Estimate Normal (NORMAL) RBC Morphology Polychromasia Slight Anisocytosis (manual) Slight Macrocytosis (manual) Slight Puncture Site A-line pCO2 40 (35-45) mm/Hg pO2 130 H (80-100) mm/Hg HCO3 16.5 L (21-28) mmol/L ABG pH 7.22 L (7.35-7.45) ABG Total CO2 17.6 L (22-28) mmol/L ABG O2 Saturation 99.1 H (95-98) % ABG Base Excess -10.8 L (-2.0-3.0) mmol/L Kaushik Test Na ABG Potassium 3.5 L (3.6-5.2) mmol/L Sodium 141.0 (132-148) mmol/l Chloride 111.0 H (98-107) mmol/L Glucose 74 L (75-110) mg/dl Lactate 0.7 (0.7-2.1) mmol/L Liter Flow 4.0 Crit Value Called To Gage rey rn rec rm Crit Value Called By Maximilian corrigan manager general Crit Value Read Back Y Blood Gas Notified Time 1455 Potassium (3.6-5.2) mmol/L Carbon Dioxide (22-30) mmol/L Anion Gap (10-20) BUN (9-20) mg/dL Creatinine (0.8-1.5) mg/dL Est GFR ( Amer) Est GFR (Non-Af Amer) POC Glucose (mg/dL) (65-110) mg/dL Random Glucose (75-110) mg/dL Calcium (8.6-10.4) mg/dl Phosphorus (2.5-4.5) mg/dL Magnesium (1.6-2.3) mg/dL Total Bilirubin (0.2-1.3) mg/dL AST (17-59) U/L ALT (21-72) U/L Alkaline Phosphatase (38-126) U/L Total Protein (6.3-8.3) g/dL Albumin (3.5-5.0) g/dL Globulin (2.2-3.9) gm/dL Albumin/Globulin Ratio (1.0-2.1) Arterial Blood Potassium 3.5 L (3.6-5.2) mmol/L Blood Type O POSITIVE Antibody Screen Negative Laboratory Results - last 24 hr 09/03/18 09/03/18 09/03/18 07:36 14:51 14:51 WBC 10.9 H RBC 3.19 L Hgb 10.7 L Hct 32.2 L MCV 101.0 H MCH 33.5 H MCHC 33.2 RDW 16.2 H Plt Count 316 MPV 8.8 Neut % (Auto) 80.0 H Lymph % (Auto) 8.6 L [place] % (Auto) 9.5 Eos % (Auto) 1.3 Baso % (Auto) 0.6 Neut # (Auto) 8.7 H Lymph # (Auto) 0.9 L [place] # (Auto) 1.0 H Eos # (Auto) 0.1 Baso # (Auto) 0.1 Neutrophils % (Manual) 86 H Lymphocytes % (Manual) 7 L Monocytes % (Manual) 6 Eosinophils % (Manual) 1 Platelet Estimate Normal RBC Morphology Polychromasia Slight Anisocytosis (manual) Slight Macrocytosis (manual) Slight Puncture Site A-line pCO2 40 pO2 130 H HCO3 16.5 L ABG pH 7.22 L ABG Total CO2 17.6 L ABG O2 Saturation 99.1 H ABG Base Excess -10.8 L Kaushik Test Na ABG Potassium 3.5 L Sodium 141.0 Chloride 111.0 H Glucose 74 L Lactate 0.7 Liter Flow 4.0 Crit Value Called To Gage rey rn rec rm Crit Value Called By Maximilian corrigan manager general Crit Value Read Back Y Blood Gas Notified Time 1455 Potassium Carbon Dioxide Anion Gap BUN Creatinine Est GFR ( Amer) Est GFR (Non-Af Amer) POC Glucose (mg/dL) Random Glucose Calcium Phosphorus Magnesium Total Bilirubin AST ALT Alkaline Phosphatase Total Protein Albumin Globulin Albumin/Globulin Ratio Arterial Blood Potassium 3.5 L Blood Type O POSITIVE Antibody Screen Negative 09/03/18 09/03/18 09/03/18 14:51 16:13 21:06 WBC RBC Hgb Hct MCV MCH MCHC RDW Plt Count MPV Neut % (Auto) Lymph % (Auto) [place] % (Auto) Eos % (Auto) Baso % (Auto) Neut # (Auto) Lymph # (Auto) [place] # (Auto) Eos # (Auto) Baso # (Auto) Neutrophils % (Manual) Lymphocytes % (Manual) Monocytes % (Manual) Eosinophils % (Manual) Platelet Estimate RBC Morphology Polychromasia Anisocytosis (manual) Macrocytosis (manual) Puncture Site pCO2 pO2 HCO3 ABG pH ABG Total CO2 ABG O2 Saturation ABG Base Excess Kaushik Test ABG Potassium Sodium 134 Chloride 95 L Glucose Lactate Liter Flow Crit Value Called To Crit Value Called By Crit Value Read Back Blood Gas Notified Time Potassium 5.3 H Carbon Dioxide 23 Anion Gap 21 H BUN 66 H Creatinine 10.4 H* Est GFR ( Amer) 6 Est GFR (Non-Af Amer) 5 POC Glucose (mg/dL) 94 129 H Random Glucose 104 Calcium 8.2 L Phosphorus 11.0 H Magnesium 2.1 Total Bilirubin 0.8 AST 22 ALT 50 Alkaline Phosphatase 78 Total Protein 6.5 Albumin 3.6 Globulin 2.9 Albumin/Globulin Ratio 1.3 Arterial Blood Potassium Blood Type Antibody Screen 09/04/18 09/04/18 09/04/18 06:06 06:06 07:52 WBC 8.4 RBC 2.97 L Hgb 10.0 L Hct 29.9 L MCV 100.6 H MCH 33.6 H MCHC 33.4 RDW 16.4 H Plt Count 278 MPV 9.2 Neut % (Auto) 77.9 H Lymph % (Auto) 9.0 L [place] % (Auto) 11.8 H Eos % (Auto) 0.7 Baso % (Auto) 0.6 Neut # (Auto) 6.5 Lymph # (Auto) 0.8 L [place] # (Auto) 1.0 H Eos # (Auto) 0.1 Baso # (Auto) 0.0 Neutrophils % (Manual) 88 H Lymphocytes % (Manual) 5 L Monocytes % (Manual) 7 Eosinophils % (Manual) Platelet Estimate Normal RBC Morphology Normal Polychromasia Anisocytosis (manual) Macrocytosis (manual) Puncture Site pCO2 pO2 HCO3 ABG pH ABG Total CO2 ABG O2 Saturation ABG Base Excess Kaushik Test ABG Potassium Sodium 133 Chloride 96 L Glucose Lactate Liter Flow Crit Value Called To Crit Value Called By Crit Value Read Back Blood Gas Notified Time Potassium 4.7 Carbon Dioxide 24 Anion Gap 18 BUN 44 H Creatinine 6.3 H Est GFR ( Amer) 11 Est GFR (Non-Af Amer) 9 POC Glucose (mg/dL) 121 H Random Glucose 110 Calcium 8.1 L Phosphorus 7.3 H Magnesium 2.0 Total Bilirubin 0.7 AST 22 ALT 47 Alkaline Phosphatase 71 Total Protein 6.3 Albumin 3.3 L Globulin 3.0 Albumin/Globulin Ratio 1.1 Arterial Blood Potassium Blood Type Antibody Screen Radiology Impressions: Radiology Impressions Fluoroscopy 09/03/18 12:40 IMPRESSION: Less than 1 hour fluoroscopic time utilized during performance of the procedure Fingerstick Blood Sugar Results: 129 Critical Care Progress Note - Nutrition Nutrition: Nutrition Category Date Time Status Heart Healthy Diet [DIET] Diets 09/04/18 Breakfast Active Assessment/Plan - Assessment and Plan (Free Text) Assessment: 63 y/o male with PMHx of PVD, DM, ESRD on HD, CHF, HTN is currently s/p R LE arterial bypass, with prior b/l LE gangrene and ischemia R>L. neuro -AAO x 3 -no acute issues CV -ASCVD and for HTN: continue with crestor 20 mg qhs, ASA/plavix, atenolol 50 mg, ranexa 500 mg BID, losartan 25 mg PO BID -Cardiac cath done 08/27/18 at [facility]: Normal LM, mild LAD, DE[employer]ER of the OM2 branch of LCX, moderate LCX and RCA disease RX: medical management: NO PCI indicate -POD1 of Right Common Femoral to Right Anterior Tibial Artery bypass with cadaveric graft. Intraoperative Angiogram. -post op care: pain and antiemetic control PRN, follow surgery team recs Pulm -on NC 2L and 99-100% sat -target spo2 > 92% -incentive spirometer Renal -on HD MWF -on ARB -follow CMP qAM Endo -Pt w/ DM: continue with home pregabalin 100 mg PO BID -accuchecks ACHS -ISS -hypoglycemia protocol ID -on vanco 500 mg MWF since 08/31 -ID, Dr. Eason, following. Appreciate recs. Heme -EBL 400 mL intraoperatively -trend CBC DVT ppx: resumed POD1 heparin 5000 u q8h GI ppx: not indicated dispo: transferred to [facility] surg, continue with post-op care per surgery team case discussed with Dr. Maximino Tomas PGY1 <Rebel Stanton S - Last Filed: 09/04/18 16:28> CCU Subjective - Physician Review Critical Care Time Spent (in minutes): 30 CCU Objective - Vital Signs / Intake & Output Vital Signs (Last 4 hours): Vital Signs Temp Pulse Resp BP Pulse Ox 09/04/18 14:00 98.4 F 87 18 113/56 L 97 Intake and Output (Last 8hrs): Intake & Output 09/04/18 09/04/18 09/04/18 06:59 14:59 22:59 Intake Total 0 600 Output Total 0 0 Balance 0 600 Weight 223 lb 1.725 oz Intake: Oral 0 600 Output: Urine 0 0 Urine, Voided 0 0 - Medications Active Medications: Active Medications Generic Name Dose Route Start Last Admin Trade Name Freq PRN Reason Stop Dose Admin Aspirin 81 mg 09/02/18 10:00 09/04/18 10:05 Aspirin Chewable PO 81 mg DAILY FOZIA Administration Atenolol 50 mg 09/02/18 10:00 09/04/18 15:21 Tenormin PO 50 mg DAILY FOZIA Administration Clopidogrel Bisulfate 75 mg 09/02/18 10:00 09/04/18 10:07 Plavix PO 75 mg DAILY FOZIA Administration Dextrose 0 ml 08/30/18 19:53 Dextrose 50% Inj IV STAT PRN Hypoglycemia Protocol Protocol Dextrose 0 gm 08/30/18 19:53 Glutose 15 PO ONCE PRN Hypoglycemia Protocol Protocol Glucagon 0 mg 08/30/18 19:53 Glucagen Diagnostic Kit IM STAT PRN Hypoglycemia Protocol Protocol Heparin Sodium (Porcine) 5,000 units 09/04/18 09:45 09/04/18 15:16 Heparin SC 5,000 units Q8 FOZIA Administration Hydromorphone HCl 2 mg 09/01/18 13:09 09/04/18 15:15 Dilaudid IVP 2 mg Q4 PRN Administration Pain, severe (8-10) Vancomycin HCl 500 mg/ Sodium 100 mls @ 100 mls/hr 08/31/18 09:00 09/04/18 10:07 Chloride IVPB 100 mls/hr MWF FOZIA Administration Protocol Insulin Aspart 0 unit 08/30/18 22:00 09/04/18 11:39 Novolog SC 1 unit ACHS FOZIA Administration Protocol Losartan Potassium 25 mg 09/01/18 18:00 09/04/18 10:06 Cozaar PO 25 mg BID FOZIA Administration Pregabalin 75 mg 09/04/18 10:00 09/04/18 10:07 Lyrica PO 75 mg DAILY FOZIA Administration Ranolazine 500 mg 09/01/18 18:00 09/04/18 10:07 Ranexa PO 500 mg BID FOZIA Administration Rosuvastatin Calcium 10 mg 09/03/18 22:00 09/03/18 23:03 Crestor PO 10 mg HS FOZIA Administration Tramadol HCl 50 mg 08/30/18 20:10 09/04/18 03:00 Ultram PO 50 mg TID PRN Administration Pain, moderate (4-7) - Patient Studies Lab Studies: Microbiology Studies 09/03/18 15:35 MRSA Culture (Admit) - Final Nose MRSA NOT DETECTED 08/30/18 18:52 Blood Culture - Preliminary Blood NO GROWTH AFTER 4 DAYS 08/30/18 18:25 Blood Culture - Preliminary Blood NO GROWTH AFTER 4 DAYS Lab Studies 09/04/18 09/04/18 09/04/18 Range/Units 16:03 11:26 07:52 WBC (4.8-10.8) K/uL RBC (4.40-5.90) Mil/uL Hgb (12.0-18.0) g/dL Hct (35.0-51.0) % MCV (80.0-94.0) fL MCH (27.0-31.0) pg MCHC (33.0-37.0) g/dL RDW (11.5-14.5) % Plt Count (130-400) K/uL MPV (7.2-11.7) fL Neut % (Auto) (50.0-75.0) % Lymph % (Auto) (20.0-40.0) % [place] % (Auto) (0.0-10.0) % Eos % (Auto) (0.0-4.0) % Baso % (Auto) (0.0-2.0) % Neut # (Auto) (1.8-7.0) K/uL Lymph # (Auto) (1.0-4.3) K/uL [place] # (Auto) (0.0-0.8) K/uL Eos # (Auto) (0.0-0.7) K/uL Baso # (Auto) (0.0-0.2) K/uL Neutrophils % (Manual) (50-75) % Lymphocytes % (Manual) (20-40) % Monocytes % (Manual) (0-10) % Platelet Estimate (NORMAL) RBC Morphology Sodium (132-148) mmol/L Potassium (3.6-5.2) mmol/L Chloride (98-107) mmol/L Carbon Dioxide (22-30) mmol/L Anion Gap (10-20) BUN (9-20) mg/dL Creatinine (0.8-1.5) mg/dL Est GFR ( Amer) Est GFR (Non-Af Amer) POC Glucose (mg/dL) 131 H 171 H 121 H (65-110) mg/dL Random Glucose (75-110) mg/dL Calcium (8.6-10.4) mg/dl Phosphorus (2.5-4.5) mg/dL Magnesium (1.6-2.3) mg/dL Total Bilirubin (0.2-1.3) mg/dL AST (17-59) U/L ALT (21-72) U/L Alkaline Phosphatase (38-126) U/L Total Protein (6.3-8.3) g/dL Albumin (3.5-5.0) g/dL Globulin (2.2-3.9) gm/dL Albumin/Globulin Ratio (1.0-2.1) 09/04/18 09/04/18 09/03/18 Range/Units 06:06 06:06 21:06 WBC 8.4 (4.8-10.8) K/uL RBC 2.97 L (4.40-5.90) Mil/uL Hgb 10.0 L (12.0-18.0) g/dL Hct 29.9 L (35.0-51.0) % MCV 100.6 H (80.0-94.0) fL MCH 33.6 H (27.0-31.0) pg MCHC 33.4 (33.0-37.0) g/dL RDW 16.4 H (11.5-14.5) % Plt Count 278 (130-400) K/uL MPV 9.2 (7.2-11.7) fL Neut % (Auto) 77.9 H (50.0-75.0) % Lymph % (Auto) 9.0 L (20.0-40.0) % [place] % (Auto) 11.8 H (0.0-10.0) % Eos % (Auto) 0.7 (0.0-4.0) % Baso % (Auto) 0.6 (0.0-2.0) % Neut # (Auto) 6.5 (1.8-7.0) K/uL Lymph # (Auto) 0.8 L (1.0-4.3) K/uL [place] # (Auto) 1.0 H (0.0-0.8) K/uL Eos # (Auto) 0.1 (0.0-0.7) K/uL Baso # (Auto) 0.0 (0.0-0.2) K/uL Neutrophils % (Manual) 88 H (50-75) % Lymphocytes % (Manual) 5 L (20-40) % Monocytes % (Manual) 7 (0-10) % Platelet Estimate Normal (NORMAL) RBC Morphology Normal Sodium 133 (132-148) mmol/L Potassium 4.7 (3.6-5.2) mmol/L Chloride 96 L (98-107) mmol/L Carbon Dioxide 24 (22-30) mmol/L Anion Gap 18 (10-20) BUN 44 H (9-20) mg/dL Creatinine 6.3 H (0.8-1.5) mg/dL Est GFR ( Amer) 11 Est GFR (Non-Af Amer) 9 POC Glucose (mg/dL) 129 H (65-110) mg/dL Random Glucose 110 (75-110) mg/dL Calcium 8.1 L (8.6-10.4) mg/dl Phosphorus 7.3 H (2.5-4.5) mg/dL Magnesium 2.0 (1.6-2.3) mg/dL Total Bilirubin 0.7 (0.2-1.3) mg/dL AST 22 (17-59) U/L ALT 47 (21-72) U/L Alkaline Phosphatase 71 (38-126) U/L Total Protein 6.3 (6.3-8.3) g/dL Albumin 3.3 L (3.5-5.0) g/dL Globulin 3.0 (2.2-3.9) gm/dL Albumin/Globulin Ratio 1.1 (1.0-2.1) Laboratory Results - last 24 hr 09/03/18 09/04/18 09/04/18 21:06 06:06 06:06 WBC 8.4 RBC 2.97 L Hgb 10.0 L Hct 29.9 L MCV 100.6 H MCH 33.6 H MCHC 33.4 RDW 16.4 H Plt Count 278 MPV 9.2 Neut % (Auto) 77.9 H Lymph % (Auto) 9.0 L [place] % (Auto) 11.8 H Eos % (Auto) 0.7 Baso % (Auto) 0.6 Neut # (Auto) 6.5 Lymph # (Auto) 0.8 L [place] # (Auto) 1.0 H Eos # (Auto) 0.1 Baso # (Auto) 0.0 Neutrophils % (Manual) 88 H Lymphocytes % (Manual) 5 L Monocytes % (Manual) 7 Platelet Estimate Normal RBC Morphology Normal Sodium 133 Potassium 4.7 Chloride 96 L Carbon Dioxide 24 Anion Gap 18 BUN 44 H Creatinine 6.3 H Est GFR ( Amer) 11 Est GFR (Non-Af Amer) 9 POC Glucose (mg/dL) 129 H Random Glucose 110 Calcium 8.1 L Phosphorus 7.3 H Magnesium 2.0 Total Bilirubin 0.7 AST 22 ALT 47 Alkaline Phosphatase 71 Total Protein 6.3 Albumin 3.3 L Globulin 3.0 Albumin/Globulin Ratio 1.1 09/04/18 09/04/18 09/04/18 07:52 11:26 16:03 WBC RBC Hgb Hct MCV MCH MCHC RDW Plt Count MPV Neut % (Auto) Lymph % (Auto) [place] % (Auto) Eos % (Auto) Baso % (Auto) Neut # (Auto) Lymph # (Auto) [place] # (Auto) Eos # (Auto) Baso # (Auto) Neutrophils % (Manual) Lymphocytes % (Manual) Monocytes % (Manual) Platelet Estimate RBC Morphology Sodium Potassium Chloride Carbon Dioxide Anion Gap BUN Creatinine Est GFR ( Amer) Est GFR (Non-Af Amer) POC Glucose (mg/dL) 121 H 171 H 131 H Random Glucose Calcium Phosphorus Magnesium Total Bilirubin AST ALT Alkaline Phosphatase Total Protein Albumin Globulin Albumin/Globulin Ratio Radiology Impressions: Radiology Impressions Fluoroscopy 09/03/18 12:40 IMPRESSION: Less than 1 hour fluoroscopic time utilized during performance of the procedure Critical Care Progress Note - Nutrition Nutrition: Nutrition Category Date Time Status Heart Healthy Diet [DIET] Diets 09/04/18 Breakfast Active Attending/Attestation - Attestation I have personally seen and examined this patient.: Yes I have fully participated in the care of the patient.: Yes I have reviewed all pertinent clinical information: Yes Notes (Text): 09/04/18 16:28 Patient seen and examined Stable for transfer to floor
[2018-09-04] MEDS: Ranolazine 500 mg Extended Release Tablets PO SCH ×2 (10:07→18:02)
--- NOTE | 2018-09-04 21:16 | CP.PCM.PN ---
Subjective - Date & Time of Evaluation Date of Evaluation: 09/04/18 Time of Evaluation: 10:30 - Subjective Subjective: clinically same Objective - Vital Signs/Intake and Output Vital Signs (last 24 hours): Temp Pulse Resp BP Pulse Ox 98.4 F 87 18 113/56 L 97 09/04/18 14:00 09/04/18 14:00 09/04/18 14:00 09/04/18 14:00 09/04/18 14:00 Intake and Output: 09/04/18 09/05/18 18:59 06:59 Intake Total 1450 Output Total 0 Balance 1450 - Medications Medications: Current Medications Aspirin (Aspirin Chewable) 81 mg PO DAILY [facility] Last Admin: 09/04/18 10:05 Dose: 81 mg Atenolol (Tenormin) 50 mg PO DAILY [facility] Last Admin: 09/04/18 15:21 Dose: 50 mg Clopidogrel Bisulfate (Plavix) 75 mg PO DAILY [facility] Last Admin: 09/04/18 10:07 Dose: 75 mg Dextrose (Dextrose 50% Inj) 0 ml IV STAT PRN; Protocol PRN Reason: Hypoglycemia Protocol Dextrose (Glutose 15) 0 gm PO ONCE PRN; Protocol PRN Reason: Hypoglycemia Protocol Glucagon (Glucagen Diagnostic Kit) 0 mg IM STAT PRN; Protocol PRN Reason: Hypoglycemia Protocol Heparin Sodium (Porcine) (Heparin) 5,000 units SC Q8 [facility] Last Admin: 09/04/18 15:16 Dose: 5,000 units Hydromorphone HCl (Dilaudid) 2 mg IVP Q4 PRN PRN Reason: Pain, severe (8-10) Last Admin: 09/04/18 19:33 Dose: 2 mg Vancomycin HCl 500 mg/ Sodium (Chloride) 100 mls @ 100 mls/hr IVPB MWF [facility]; Protocol Last Admin: 09/04/18 10:07 Dose: 100 mls/hr Insulin Aspart (Novolog) 0 unit SC ACHS [facility]; Protocol Last Admin: 09/04/18 18:01 Dose: Not Given Losartan Potassium (Cozaar) 25 mg PO BID [facility] Last Admin: 09/04/18 18:02 Dose: 25 mg Pregabalin (Lyrica) 75 mg PO DAILY [facility] Last Admin: 09/04/18 10:07 Dose: 75 mg Ranolazine (Ranexa) 500 mg PO BID [facility] Last Admin: 09/04/18 18:02 Dose: 500 mg Rosuvastatin Calcium (Crestor) 10 mg PO HS [facility] Last Admin: 09/03/18 23:03 Dose: 10 mg Tramadol HCl (Ultram) 50 mg PO TID PRN PRN Reason: Pain, moderate (4-7) Last Admin: 09/04/18 03:00 Dose: 50 mg - Labs Labs: 09/04/18 06:06 09/04/18 06:06 PT 13.6 SECONDS (9.7-12.2) H 09/03/18 07:36 INR 1.2 09/03/18 07:36 APTT 34 SECONDS (21-34) 09/03/18 07:36
[2018-09-05] MEDS: (Novolog) Insulin Aspart, Recombinant 100 u/ml 10 ml vial SC SCH ×4 (08:57→21:38)
[2018-09-05] MEDS: Ranolazine 500 mg Extended Release Tablets PO SCH ×2 (09:30→17:16)
--- NOTE | 2018-09-05 11:49 | CP.PCM.PN ---
Subjective - Date & Time of Evaluation Date of Evaluation: 09/05/18 Time of Evaluation: 07:15 - Subjective Subjective: Vascular Surgery Progress note. Dr. Gooden Pt seen and examined at bedside this morning. Patient states that his right leg pain is improved post-operatively. Still c/o left leg pain. Has been up and out of bed. Denies any N/V/D. No F/C. No new complaints. Objective - Vital Signs/Intake and Output Vital Signs (last 24 hours): Temp Pulse Resp BP Pulse Ox 97.7 F 70 16 104/52 L 96 09/05/18 09:15 09/05/18 09:15 09/05/18 09:15 09/05/18 11:15 09/05/18 09:15 - Medications Medications: Current Medications Aspirin (Aspirin Chewable) 81 mg PO DAILY [facility] Last Admin: 09/05/18 09:30 Dose: Not Given Atenolol (Tenormin) 50 mg PO DAILY [facility] Last Admin: 09/05/18 09:30 Dose: Not Given Clopidogrel Bisulfate (Plavix) 75 mg PO DAILY [facility] Last Admin: 09/05/18 09:30 Dose: Not Given Dextrose (Dextrose 50% Inj) 0 ml IV STAT PRN; Protocol PRN Reason: Hypoglycemia Protocol Dextrose (Glutose 15) 0 gm PO ONCE PRN; Protocol PRN Reason: Hypoglycemia Protocol Glucagon (Glucagen Diagnostic Kit) 0 mg IM STAT PRN; Protocol PRN Reason: Hypoglycemia Protocol Heparin Sodium (Porcine) (Heparin) 5,000 units SC Q8 [facility] Last Admin: 09/05/18 06:52 Dose: 5,000 units Hydromorphone HCl (Dilaudid) 2 mg IVP Q4 PRN PRN Reason: Pain, severe (8-10) Last Admin: 09/05/18 08:29 Dose: 2 mg Vancomycin HCl 500 mg/ Sodium (Chloride) 100 mls @ 100 mls/hr IVPB MWF [facility]; Protocol Last Admin: 09/04/18 10:07 Dose: 100 mls/hr Insulin Aspart (Novolog) 0 unit SC ACHS [facility]; Protocol Last Admin: 09/05/18 08:57 Dose: Not Given Losartan Potassium (Cozaar) 25 mg PO BID [facility] Last Admin: 09/05/18 09:30 Dose: Not Given Pregabalin (Lyrica) 75 mg PO DAILY [facility] Last Admin: 09/05/18 09:30 Dose: Not Given Ranolazine (Ranexa) 500 mg PO BID [facility] Last Admin: 09/05/18 09:30 Dose: Not Given Rosuvastatin Calcium (Crestor) 10 mg PO HS [facility] Last Admin: 09/04/18 23:00 Dose: 10 mg Tramadol HCl (Ultram) 50 mg PO TID PRN PRN Reason: Pain, moderate (4-7) Last Admin: 09/04/18 03:00 Dose: 50 mg - Labs Labs: 09/04/18 06:06 09/04/18 06:06 PT 13.6 SECONDS (9.7-12.2) H 09/03/18 07:36 INR 1.2 09/03/18 07:36 APTT 34 SECONDS (21-34) 09/03/18 07:36 - Constitutional Appears: Well, Non-toxic, No Acute Distress - Head Exam Head Exam: ATRAUMATIC, NORMAL INSPECTION, NORMOCEPHALIC - Eye Exam Eye Exam: EOMI, Normal appearance - ENT Exam ENT Exam: Mucous Membranes Moist - Respiratory Exam Respiratory Exam: NORMAL BREATHING PATTERN. absent: Accessory Muscle Use, Respiratory Distress - GI/Abdominal Exam GI & Abdominal Exam: Soft. absent: Distended, Guarding, Rigid, Tenderness, Rebound - Extremities Exam Additional comments: Dressings clean dry and intact. Dopplerable signals over Right lower extremity bypass graft. Faintly dopplerable signals over Right DP - Neurological Exam Neurological Exam: Alert, Awake, Oriented x3 - Skin Skin Exam: Normal Color, Warm Assessment and Plan - Assessment and Plan (Free Text) Assessment: 63yo M s/p Right fem-anterior tibial bypass. POD 3 Plan: - PT evaluation and treatment - Encourage out of bed and ambulation - D/C planning as per Primary team - Follow up with Dr. Gooden in 10-14 days upon discharge. Call for appointment Further recs as per Dr. Berkley Hand PGY2 surgery
--- NOTE | 2018-09-05 21:31 | CP.PCM.PN ---
Subjective - Date & Time of Evaluation Date of Evaluation: 09/05/18 Time of Evaluation: 11:15 - Subjective Subjective: clinically same Objective - Vital Signs/Intake and Output Vital Signs (last 24 hours): Temp Pulse Resp BP Pulse Ox 98.4 F 88 20 131/55 L 93 L 09/05/18 15:00 09/05/18 15:00 09/05/18 15:00 09/05/18 15:00 09/05/18 15:00 Intake and Output: 09/05/18 09/06/18 18:59 06:59 Intake Total 200 Balance 200 - Medications Medications: Current Medications Aspirin (Aspirin Chewable) 81 mg PO DAILY [facility] Last Admin: 09/05/18 13:22 Dose: 81 mg Atenolol (Tenormin) 50 mg PO DAILY [facility] Last Admin: 09/05/18 09:30 Dose: Not Given Clopidogrel Bisulfate (Plavix) 75 mg PO DAILY [facility] Last Admin: 09/05/18 13:22 Dose: 75 mg Dextrose (Dextrose 50% Inj) 0 ml IV STAT PRN; Protocol PRN Reason: Hypoglycemia Protocol Dextrose (Glutose 15) 0 gm PO ONCE PRN; Protocol PRN Reason: Hypoglycemia Protocol Glucagon (Glucagen Diagnostic Kit) 0 mg IM STAT PRN; Protocol PRN Reason: Hypoglycemia Protocol Heparin Sodium (Porcine) (Heparin) 5,000 units SC Q8 [facility] Last Admin: 09/05/18 21:23 Dose: 5,000 units Hydromorphone HCl (Dilaudid) 2 mg IVP Q4 PRN PRN Reason: Pain, severe (8-10) Last Admin: 09/05/18 21:23 Dose: 2 mg Vancomycin HCl 500 mg/ Sodium (Chloride) 100 mls @ 100 mls/hr IVPB MWF [facility]; Protocol Last Admin: 09/04/18 10:07 Dose: 100 mls/hr Insulin Aspart (Novolog) 0 unit SC ACHS [facility]; Protocol Last Admin: 09/05/18 17:16 Dose: 1 unit Losartan Potassium (Cozaar) 25 mg PO BID [facility] Last Admin: 09/05/18 17:16 Dose: 25 mg Pregabalin (Lyrica) 75 mg PO DAILY [facility] Last Admin: 09/05/18 13:22 Dose: 75 mg Ranolazine (Ranexa) 500 mg PO BID [facility] Last Admin: 09/05/18 17:16 Dose: 500 mg Rosuvastatin Calcium (Crestor) 10 mg PO HS [facility] Last Admin: 09/05/18 21:23 Dose: 10 mg Tramadol HCl (Ultram) 50 mg PO TID PRN PRN Reason: Pain, moderate (4-7) Last Admin: 09/05/18 11:58 Dose: 50 mg - Labs Labs: 09/04/18 06:06 09/04/18 06:06 PT 13.6 SECONDS (9.7-12.2) H 09/03/18 07:36 INR 1.2 09/03/18 07:36 APTT 34 SECONDS (21-34) 09/03/18 07:36
[2018-09-06] MEDS: (Novolog) Insulin Aspart, Recombinant 100 u/ml 10 ml vial SC SCH ×4 (08:25→21:47)
[2018-09-06 08:38] LABS: BASO # 0.1 K/uL (0.0-0.2); BASO % 0.7 % (0.0-2.0); EOS # 0.2 K/uL (0.0-0.7); HEMOGLOBIN 9.1 g/dL (12.0-18.0); LYMPH # 1.4 K/uL (1.0-4.3); LYMPH % 18.1 % (20.0-40.0); MEAN CELL VOLUME 101.6 fL (80.0-94.0); MEAN CORPUSCULAR HEMOGLOBIN 33.4 pg (27.0-31.0); MEAN CORPUSCULAR HGB CONC 32.9 g/dL (33.0-37.0); MEAN PLATELET VOLUME 8.8 fL (7.2-11.7); NEUT # 5.3 K/uL (1.8-7.0); NEUT % 66.2 % (50.0-75.0); RBC 2.74 Mil/uL (4.40-5.90); WHITE BLOOD COUNT 7.9 K/uL (4.8-10.8)
[2018-09-06 09:08] LABS: ALB/GLOB RATIO 1.1 (1.0-2.1); ALBUMIN 3.3 g/dL (3.5-5.0); CALCIUM 8.5 mg/dl (8.6-10.4)
[2018-09-06] MEDS: Ranolazine 500 mg Extended Release Tablets PO SCH ×2 (10:01→17:30)
--- NOTE | 2018-09-06 15:02 | CP.PCM.PN ---
Subjective - Date & Time of Evaluation Date of Evaluation: 09/06/18 Time of Evaluation: 09:00 - Subjective Subjective: improving Objective - Vital Signs/Intake and Output Vital Signs (last 24 hours): Temp Pulse Resp BP Pulse Ox 97.4 F L 65 20 112/66 95 09/06/18 07:00 09/06/18 07:00 09/06/18 07:00 09/06/18 07:00 09/06/18 07:00 Intake and Output: 09/06/18 09/06/18 06:59 18:59 Intake Total 440 300 Balance 440 300 - Medications Medications: Current Medications Aspirin (Aspirin Chewable) 81 mg PO DAILY [facility] Last Admin: 09/06/18 10:01 Dose: 81 mg Atenolol (Tenormin) 50 mg PO DAILY [facility] Last Admin: 09/06/18 10:01 Dose: 50 mg Clopidogrel Bisulfate (Plavix) 75 mg PO DAILY [facility] Last Admin: 09/06/18 10:01 Dose: 75 mg Dextrose (Dextrose 50% Inj) 0 ml IV STAT PRN; Protocol PRN Reason: Hypoglycemia Protocol Dextrose (Glutose 15) 0 gm PO ONCE PRN; Protocol PRN Reason: Hypoglycemia Protocol Glucagon (Glucagen Diagnostic Kit) 0 mg IM STAT PRN; Protocol PRN Reason: Hypoglycemia Protocol Heparin Sodium (Porcine) (Heparin) 5,000 units SC Q8 [facility] Last Admin: 09/06/18 14:03 Dose: 5,000 units Hydromorphone HCl (Dilaudid) 2 mg IVP Q4 PRN PRN Reason: Pain, severe (8-10) Last Admin: 09/06/18 11:27 Dose: 2 mg Vancomycin HCl 500 mg/ Sodium (Chloride) 100 mls @ 100 mls/hr IVPB MWF [facility]; Protocol Last Admin: 09/04/18 10:07 Dose: 100 mls/hr Insulin Aspart (Novolog) 0 unit SC ACHS [facility]; Protocol Last Admin: 09/06/18 12:37 Dose: 1 unit Losartan Potassium (Cozaar) 25 mg PO BID [facility] Last Admin: 09/06/18 10:01 Dose: 25 mg Pregabalin (Lyrica) 75 mg PO DAILY [facility] Last Admin: 09/06/18 10:01 Dose: 75 mg Ranolazine (Ranexa) 500 mg PO BID [facility] Last Admin: 09/06/18 10:01 Dose: 500 mg Rosuvastatin Calcium (Crestor) 10 mg PO HS [facility] Last Admin: 09/05/18 21:23 Dose: 10 mg Tramadol HCl (Ultram) 50 mg PO TID PRN PRN Reason: Pain, moderate (4-7) Last Admin: 09/05/18 11:58 Dose: 50 mg - Labs Labs: 09/06/18 08:17 09/06/18 08:17 PT 13.6 SECONDS (9.7-12.2) H 09/03/18 07:36 INR 1.2 09/03/18 07:36 APTT 34 SECONDS (21-34) 09/03/18 07:36 - Constitutional Appears: Non-toxic, Chronically Ill - Head Exam Head Exam: NORMOCEPHALIC - Eye Exam Eye Exam: absent: Scleral icterus - ENT Exam ENT Exam: Mucous Membranes Dry - Neck Exam Neck Exam: absent: Lymphadenopathy - Respiratory Exam Respiratory Exam: Decreased Breath Sounds - Cardiovascular Exam Cardiovascular Exam: REGULAR RHYTHM - GI/Abdominal Exam GI & Abdominal Exam: Distended, Soft. absent: Tenderness - Rectal Exam Rectal Exam: Deferred - Exam Exam: NORMAL INSPECTION - Extremities Exam Extremities Exam: Pedal Edema, Tenderness. absent: Normal Capillary Refill Additional comments: necrotic right great toe left foot ischemic changes + - Back Exam Back Exam: absent: CVA tenderness (L), CVA tenderness (R), NORMAL INSPECTION - Neurological Exam Neurological Exam: Alert, Awake - Psychiatric Exam Psychiatric exam: Depressed - Skin Skin Exam: Dry, Intact Assessment and Plan (1) Cellulitis of both feet Status: Acute (2) PVD (peripheral vascular disease) Status: Acute (3) Renal failure Status: Acute (4) CHF (congestive heart failure) Status: Acute (5) Foot pain, bilateral Status: Acute - Assessment and Plan (Free Text) Assessment: cont iv antibiotics wound care vascular follow up
--- NOTE | 2018-09-06 20:44 | CP.PCM.PN ---
Subjective - Date & Time of Evaluation Date of Evaluation: 09/06/18 Time of Evaluation: 10:00 - Subjective Subjective: clinically same Objective - Vital Signs/Intake and Output Vital Signs (last 24 hours): Temp Pulse Resp BP Pulse Ox 97.5 F L 66 20 121/76 96 09/06/18 15:00 09/06/18 15:00 09/06/18 15:00 09/06/18 15:00 09/06/18 15:00 Intake and Output: 09/06/18 09/07/18 18:59 06:59 Intake Total 300 Balance 300 - Medications Medications: Current Medications Aspirin (Aspirin Chewable) 81 mg PO DAILY [facility] Last Admin: 09/06/18 10:01 Dose: 81 mg Atenolol (Tenormin) 50 mg PO DAILY [facility] Last Admin: 09/06/18 10:01 Dose: 50 mg Clopidogrel Bisulfate (Plavix) 75 mg PO DAILY [facility] Last Admin: 09/06/18 10:01 Dose: 75 mg Dextrose (Dextrose 50% Inj) 0 ml IV STAT PRN; Protocol PRN Reason: Hypoglycemia Protocol Dextrose (Glutose 15) 0 gm PO ONCE PRN; Protocol PRN Reason: Hypoglycemia Protocol Glucagon (Glucagen Diagnostic Kit) 0 mg IM STAT PRN; Protocol PRN Reason: Hypoglycemia Protocol Heparin Sodium (Porcine) (Heparin) 5,000 units SC Q8 [facility] Last Admin: 09/06/18 14:03 Dose: 5,000 units Hydromorphone HCl (Dilaudid) 2 mg IVP Q4 PRN PRN Reason: Pain, severe (8-10) Last Admin: 09/06/18 20:27 Dose: 2 mg Vancomycin HCl 500 mg/ Sodium (Chloride) 100 mls @ 100 mls/hr IVPB MWF [facility]; Protocol Last Admin: 09/04/18 10:07 Dose: 100 mls/hr Insulin Aspart (Novolog) 0 unit SC ACHS [facility]; Protocol Last Admin: 09/06/18 17:31 Dose: Not Given Losartan Potassium (Cozaar) 25 mg PO BID [facility] Last Admin: 09/06/18 17:30 Dose: 25 mg Pregabalin (Lyrica) 75 mg PO DAILY [facility] Last Admin: 09/06/18 10:01 Dose: 75 mg Ranolazine (Ranexa) 500 mg PO BID [facility] Last Admin: 09/06/18 17:30 Dose: 500 mg Rosuvastatin Calcium (Crestor) 10 mg PO HS [facility] Last Admin: 09/05/18 21:23 Dose: 10 mg Tramadol HCl (Ultram) 50 mg PO TID PRN PRN Reason: Pain, moderate (4-7) Last Admin: 09/05/18 11:58 Dose: 50 mg - Labs Labs: 09/06/18 08:17 09/06/18 08:17 PT 13.6 SECONDS (9.7-12.2) H 09/03/18 07:36 INR 1.2 09/03/18 07:36 APTT 34 SECONDS (21-34) 09/03/18 07:36
[2018-09-07] MEDS: (Novolog) Insulin Aspart, Recombinant 100 u/ml 10 ml vial SC SCH ×4 (07:54→21:31)
[2018-09-07] MEDS: Ranolazine 500 mg Extended Release Tablets PO SCH ×2 (09:19→17:32)
--- NOTE | 2018-09-07 13:03 | CP.PCM.PN ---
Subjective - Date & Time of Evaluation Date of Evaluation: 09/07/18 Time of Evaluation: 13:02 - Subjective Subjective: PAD Right Common Femoral to Right Anterior Tibial Artery bypass with cadaveric graft 09/03/18 RLE pain better No CP , fevers or chills Objective - Vital Signs/Intake and Output Vital Signs (last 24 hours): Temp Pulse Resp BP Pulse Ox 97.6 F 62 20 152/78 H 98 09/07/18 07:00 09/07/18 07:00 09/07/18 07:00 09/07/18 07:00 09/07/18 07:00 Intake and Output: 09/07/18 09/07/18 06:59 18:59 Intake Total 120 Balance 120 - Medications Medications: Current Medications Aspirin (Aspirin Chewable) 81 mg PO DAILY [facility] Last Admin: 09/07/18 09:19 Dose: 81 mg Atenolol (Tenormin) 50 mg PO DAILY [facility] Last Admin: 09/07/18 09:19 Dose: 50 mg Clopidogrel Bisulfate (Plavix) 75 mg PO DAILY [facility] Last Admin: 09/07/18 09:19 Dose: 75 mg Dextrose (Dextrose 50% Inj) 0 ml IV STAT PRN; Protocol PRN Reason: Hypoglycemia Protocol Dextrose (Glutose 15) 0 gm PO ONCE PRN; Protocol PRN Reason: Hypoglycemia Protocol Glucagon (Glucagen Diagnostic Kit) 0 mg IM STAT PRN; Protocol PRN Reason: Hypoglycemia Protocol Hydromorphone HCl (Dilaudid) 2 mg IVP Q4 PRN PRN Reason: Pain, severe (8-10) Last Admin: 09/07/18 06:04 Dose: 2 mg Vancomycin HCl 500 mg/ Sodium (Chloride) 100 mls @ 100 mls/hr IVPB MWF [facility]; Protocol Last Admin: 09/07/18 09:19 Dose: 100 mls/hr Insulin Aspart (Novolog) 0 unit SC ACHS [facility]; Protocol Last Admin: 09/07/18 12:09 Dose: Not Given Losartan Potassium (Cozaar) 25 mg PO BID [facility] Last Admin: 09/07/18 09:19 Dose: 25 mg Pregabalin (Lyrica) 75 mg PO DAILY [facility] Last Admin: 09/07/18 09:19 Dose: 75 mg Ranolazine (Ranexa) 500 mg PO BID [facility] Last Admin: 09/07/18 09:19 Dose: 500 mg Rosuvastatin Calcium (Crestor) 10 mg PO HS [facility] Last Admin: 09/06/18 21:45 Dose: 10 mg Tramadol HCl (Ultram) 50 mg PO TID PRN PRN Reason: Pain, moderate (4-7) Last Admin: 09/07/18 04:33 Dose: 50 mg - Labs Labs: 09/06/18 08:17 09/06/18 08:17 PT 13.6 SECONDS (9.7-12.2) H 09/03/18 07:36 INR 1.2 09/03/18 07:36 APTT 34 SECONDS (21-34) 09/03/18 07:36 - Constitutional Appears: No Acute Distress - Head Exam Head Exam: ATRAUMATIC, NORMAL INSPECTION, NORMOCEPHALIC - Eye Exam Eye Exam: EOMI, Normal appearance. absent: Scleral icterus - ENT Exam ENT Exam: Mucous Membranes Moist, Normal Oropharynx - Neck Exam Neck Exam: Full ROM, Normal Inspection. absent: Tenderness, Thyromegaly - Respiratory Exam Respiratory Exam: Clear to Ausculation Bilateral. absent: Rhonchi, Wheezes - Cardiovascular Exam Cardiovascular Exam: REGULAR RHYTHM, +S1, +S2, Murmur (soft 3/6 FABRIZIO normal A2 closure, no radiation) - GI/Abdominal Exam GI & Abdominal Exam: Soft, Tenderness, Normal Bowel Sounds. absent: Organomegaly - Extremities Exam Extremities Exam: absent: Calf Tenderness, Normal Inspection (R foot great toe eschar, L. foot small toe eschar) - Neurological Exam Neurological Exam: Alert, Awake, Oriented x3 - Psychiatric Exam Psychiatric exam: Normal Affect, Normal Mood - Skin Skin Exam: Cyanosis, Erythema, Rash Assessment and Plan - Assessment and Plan (Free Text) Assessment: 62 y/o severe PAD now s/p Right Common Femoral to Right Anterior Tibial Artery bypass with cadaveric graft 09/03/18 pain controlled RLE warm : The following images were directly viewed by me: Echo 08/21/18: Normal LVEF, Mild LVH, Normal LV wall motion, Mild-mod aortic stenosis (Dimensionless index 0.41; Vmax 3.61 m/s, mean gradient 30mmHg); mitral annular and aortic valve calcification, Grade 1 diastolic dysfunction, LAE, Normal IVC compliance. Carotid 08/20/18: B/L <50% ICA stenosis BP is controlled A1c is 7.1% Mild-mod clinically ASX Aortic stenosis: f/u echo in 1 year Cardiac cath done 08/27/18 at [facility] [place]: Normal LM, mild LAD, [employer] branch of LCX, moderate LCX and RCA disease RX: medical management: NO PCI indicated Continue crestor 20 Continue dual anti platelet asa 81 & plavix 75 HTN is chronic and stable on atenolol to 50 losartan Continue ranexa 500 BID Cont HD as ordered. PT D/c panning from cardiac standpoint
--- NOTE | 2018-09-07 18:41 | CP.PCM.PN ---
Subjective - Date & Time of Evaluation Date of Evaluation: 09/07/18 Time of Evaluation: 10:45 - Subjective Subjective: clinically same Objective - Vital Signs/Intake and Output Vital Signs (last 24 hours): Temp Pulse Resp BP Pulse Ox 97.6 F 61 20 130/72 98 09/07/18 15:00 09/07/18 15:00 09/07/18 15:00 09/07/18 15:00 09/07/18 15:00 Intake and Output: 09/07/18 09/07/18 06:59 18:59 Intake Total 120 Balance 120 - Medications Medications: Current Medications Aspirin (Aspirin Chewable) 81 mg PO DAILY [facility] Last Admin: 09/07/18 09:19 Dose: 81 mg Atenolol (Tenormin) 50 mg PO DAILY [facility] Last Admin: 09/07/18 09:19 Dose: 50 mg Clopidogrel Bisulfate (Plavix) 75 mg PO DAILY [facility] Last Admin: 09/07/18 09:19 Dose: 75 mg Dextrose (Dextrose 50% Inj) 0 ml IV STAT PRN; Protocol PRN Reason: Hypoglycemia Protocol Dextrose (Glutose 15) 0 gm PO ONCE PRN; Protocol PRN Reason: Hypoglycemia Protocol Glucagon (Glucagen Diagnostic Kit) 0 mg IM STAT PRN; Protocol PRN Reason: Hypoglycemia Protocol Hydromorphone HCl (Dilaudid) 2 mg IVP Q4 PRN PRN Reason: Pain, severe (8-10) Last Admin: 09/07/18 17:32 Dose: 2 mg Vancomycin HCl 500 mg/ Sodium (Chloride) 100 mls @ 100 mls/hr IVPB MWF [facility]; Protocol Last Admin: 09/07/18 09:19 Dose: 100 mls/hr Insulin Aspart (Novolog) 0 unit SC ACHS [facility]; Protocol Last Admin: 09/07/18 16:36 Dose: Not Given Losartan Potassium (Cozaar) 25 mg PO BID [facility] Last Admin: 09/07/18 17:32 Dose: 25 mg Pregabalin (Lyrica) 75 mg PO DAILY [facility] Last Admin: 09/07/18 09:19 Dose: 75 mg Ranolazine (Ranexa) 500 mg PO BID [facility] Last Admin: 09/07/18 17:32 Dose: 500 mg Rosuvastatin Calcium (Crestor) 10 mg PO [facility] Last Admin: 09/06/18 21:45 Dose: 10 mg Tramadol HCl (Ultram) 50 mg PO TID PRN PRN Reason: Pain, moderate (4-7) Last Admin: 09/07/18 04:33 Dose: 50 mg - Labs Labs: 09/06/18 08:17 09/06/18 08:17 PT 13.6 SECONDS (9.7-12.2) H 09/03/18 07:36 INR 1.2 09/03/18 07:36 APTT 34 SECONDS (21-34) 09/03/18 07:36
[2018-09-08] MEDS: (Novolog) Insulin Aspart, Recombinant 100 u/ml 10 ml vial SC SCH ×4 (07:33→21:24)
[2018-09-08] MEDS: Ranolazine 500 mg Extended Release Tablets PO SCH ×2 (09:14→18:00)
[2018-09-08] MEDS: EPOETIN ALFA 4,000 UNIT/ML ML Dialysis IV SCH (16:41)
--- NOTE | 2018-09-08 16:49 | CP.PCM.PN ---
Subjective - Date & Time of Evaluation Date of Evaluation: 09/08/18 Time of Evaluation: 16:49 Objective - Vital Signs/Intake and Output Vital Signs (last 24 hours): Temp Pulse Resp BP Pulse Ox 97.7 F 69 16 146/65 69 L 09/08/18 13:40 09/08/18 13:40 09/08/18 13:40 09/08/18 16:00 09/08/18 13:40 Intake and Output: 09/08/18 09/08/18 06:59 18:59 Intake Total 60 Balance 60 - Medications Medications: Current Medications Aspirin (Aspirin Chewable) 81 mg PO DAILY [facility] Last Admin: 09/08/18 09:13 Dose: 81 mg Atenolol (Tenormin) 50 mg PO DAILY [facility] Last Admin: 09/08/18 09:13 Dose: 50 mg Clopidogrel Bisulfate (Plavix) 75 mg PO DAILY [facility] Last Admin: 09/08/18 09:14 Dose: 75 mg Dextrose (Dextrose 50% Inj) 0 ml IV STAT PRN; Protocol PRN Reason: Hypoglycemia Protocol Dextrose (Glutose 15) 0 gm PO ONCE PRN; Protocol PRN Reason: Hypoglycemia Protocol Epoetin Danny (Procrit) 4,000 unit IV TTS [facility] Last Admin: 09/08/18 16:41 Dose: 4,000 unit Glucagon (Glucagen Diagnostic Kit) 0 mg IM STAT PRN; Protocol PRN Reason: Hypoglycemia Protocol Heparin Sodium (Porcine) (Heparin) 5,000 units SC Q12 [facility] Hydromorphone HCl (Dilaudid) 2 mg IVP Q4 PRN PRN Reason: Pain, severe (8-10) Last Admin: 09/08/18 13:14 Dose: 2 mg Vancomycin HCl 500 mg/ Sodium (Chloride) 100 mls @ 100 mls/hr IVPB MWF [facility]; Protocol Last Admin: 09/07/18 09:19 Dose: 100 mls/hr Insulin Aspart (Novolog) 0 unit SC ACHS [facility]; Protocol Last Admin: 09/08/18 12:37 Dose: Not Given Losartan Potassium (Cozaar) 25 mg PO BID [facility] Last Admin: 09/08/18 09:13 Dose: 25 mg Pregabalin (Lyrica) 75 mg PO DAILY [facility] Last Admin: 09/08/18 09:13 Dose: 75 mg Ranolazine (Ranexa) 500 mg PO BID [facility] Last Admin: 09/08/18 09:14 Dose: 500 mg Rosuvastatin Calcium (Crestor) 10 mg PO HS [facility] Last Admin: 09/07/18 22:03 Dose: 10 mg Tramadol HCl (Ultram) 50 mg PO TID PRN PRN Reason: Pain, moderate (4-7) Last Admin: 09/08/18 09:12 Dose: 50 mg - Labs Labs: 09/06/18 08:17 09/06/18 08:17 PT 13.6 SECONDS (9.7-12.2) H 09/03/18 07:36 INR 1.2 09/03/18 07:36 APTT 34 SECONDS (21-34) 09/03/18 07:36
[2018-09-08 18:30] LABS: HEPATITIS B SURFACE AG Negative (NEGATIVE)
[2018-09-08 18:36] LABS: HEPATITIS A IGM NEGATIVE (NEGATIVE); HEPATITIS B CORE AB NEGATIVE (NEGATIVE)
[2018-09-08 18:48] LABS: HEPATITIS C ANTIBODY NEGATIVE (NEGATIVE)
[2018-09-09] MEDS: Ranolazine 500 mg Extended Release Tablets PO SCH ×2 (11:00→17:50)
[2018-09-09] MEDS: (Novolog) Insulin Aspart, Recombinant 100 u/ml 10 ml vial SC SCH ×4 (11:07→22:24)
--- NOTE | 2018-09-09 14:15 | CP.PCM.PN ---
Subjective - Date & Time of Evaluation Date of Evaluation: 09/09/18 Time of Evaluation: 14:15 Objective - Vital Signs/Intake and Output Vital Signs (last 24 hours): Temp Pulse Resp BP Pulse Ox 97.6 F 65 20 135/65 98 09/09/18 07:00 09/09/18 07:00 09/09/18 07:00 09/09/18 07:00 09/09/18 07:00 - Medications Medications: Current Medications Aspirin (Aspirin Chewable) 81 mg PO DAILY [facility] Last Admin: 09/09/18 10:59 Dose: 81 mg Atenolol (Tenormin) 50 mg PO DAILY [facility] Last Admin: 09/09/18 11:00 Dose: 50 mg Clopidogrel Bisulfate (Plavix) 75 mg PO DAILY [facility] Last Admin: 09/09/18 11:01 Dose: 75 mg Dextrose (Dextrose 50% Inj) 0 ml IV STAT PRN; Protocol PRN Reason: Hypoglycemia Protocol Dextrose (Glutose 15) 0 gm PO ONCE PRN; Protocol PRN Reason: Hypoglycemia Protocol Epoetin Danny (Procrit) 4,000 unit IV TTS [facility] Last Admin: 09/08/18 16:41 Dose: 4,000 unit Glucagon (Glucagen Diagnostic Kit) 0 mg IM STAT PRN; Protocol PRN Reason: Hypoglycemia Protocol Heparin Sodium (Porcine) (Heparin) 5,000 units SC Q12 [facility] Last Admin: 09/09/18 11:56 Dose: Not Given Hydromorphone HCl (Dilaudid) 2 mg IVP Q4 PRN PRN Reason: Pain, severe (8-10) Last Admin: 09/09/18 10:56 Dose: 2 mg Vancomycin HCl 500 mg/ Sodium (Chloride) 100 mls @ 100 mls/hr IVPB MWF [facility]; Protocol Last Admin: 09/09/18 11:05 Dose: 100 mls/hr Insulin Aspart (Novolog) 0 unit SC ACHS [facility]; Protocol Last Admin: 09/09/18 11:57 Dose: Not Given Losartan Potassium (Cozaar) 25 mg PO BID [facility] Last Admin: 09/09/18 10:59 Dose: 25 mg Pregabalin (Lyrica) 75 mg PO DAILY [facility] Last Admin: 09/09/18 10:59 Dose: 75 mg Ranolazine (Ranexa) 500 mg PO BID [facility] Last Admin: 09/09/18 11:00 Dose: 500 mg Rosuvastatin Calcium (Crestor) 10 mg PO HS [facility] Last Admin: 09/08/18 21:24 Dose: 10 mg Tramadol HCl (Ultram) 50 mg PO TID PRN PRN Reason: Pain, moderate (4-7) Last Admin: 09/08/18 09:12 Dose: 50 mg - Labs Labs: 09/06/18 08:17 09/06/18 08:17 PT 13.6 SECONDS (9.7-12.2) H 09/03/18 07:36 INR 1.2 09/03/18 07:36 APTT 34 SECONDS (21-34) 09/03/18 07:36
--- NOTE | 2018-09-09 17:59 | CP.PCM.PN ---
Subjective - Date & Time of Evaluation Date of Evaluation: 09/09/18 Time of Evaluation: 08:00 - Subjective Subjective: improving afebrile nad Objective - Vital Signs/Intake and Output Vital Signs (last 24 hours): Temp Pulse Resp BP Pulse Ox 97.8 F 60 20 140/68 96 09/09/18 16:00 09/09/18 16:00 09/09/18 16:00 09/09/18 16:00 09/09/18 16:00 - Medications Medications: Current Medications Aspirin (Aspirin Chewable) 81 mg PO DAILY [facility] Last Admin: 09/09/18 10:59 Dose: 81 mg Atenolol (Tenormin) 50 mg PO DAILY [facility] Last Admin: 09/09/18 11:00 Dose: 50 mg Clopidogrel Bisulfate (Plavix) 75 mg PO DAILY [facility] Last Admin: 09/09/18 11:01 Dose: 75 mg Dextrose (Dextrose 50% Inj) 0 ml IV STAT PRN; Protocol PRN Reason: Hypoglycemia Protocol Dextrose (Glutose 15) 0 gm PO ONCE PRN; Protocol PRN Reason: Hypoglycemia Protocol Epoetin Danny (Procrit) 4,000 unit IV TTS [facility] Last Admin: 09/08/18 16:41 Dose: 4,000 unit Glucagon (Glucagen Diagnostic Kit) 0 mg IM STAT PRN; Protocol PRN Reason: Hypoglycemia Protocol Heparin Sodium (Porcine) (Heparin) 5,000 units SC Q12 [facility] Last Admin: 09/09/18 11:56 Dose: Not Given Hydromorphone HCl (Dilaudid) 2 mg IVP Q4 PRN PRN Reason: Pain, severe (8-10) Last Admin: 09/09/18 15:02 Dose: 2 mg Vancomycin HCl 500 mg/ Sodium (Chloride) 100 mls @ 100 mls/hr IVPB MWF [facility]; Protocol Last Admin: 09/09/18 11:05 Dose: 100 mls/hr Insulin Aspart (Novolog) 0 unit SC ACHS [facility]; Protocol Last Admin: 09/09/18 17:48 Dose: Not Given Losartan Potassium (Cozaar) 25 mg PO BID [facility] Last Admin: 09/09/18 17:50 Dose: 25 mg Pregabalin (Lyrica) 75 mg PO DAILY [facility] Last Admin: 09/09/18 10:59 Dose: 75 mg Ranolazine (Ranexa) 500 mg PO BID [facility] Last Admin: 09/09/18 11:00 Dose: 500 mg Rosuvastatin Calcium (Crestor) 10 mg PO HS [facility] Last Admin: 09/08/18 21:24 Dose: 10 mg Tramadol HCl (Ultram) 50 mg PO TID PRN PRN Reason: Pain, moderate (4-7) Last Admin: 09/08/18 09:12 Dose: 50 mg - Labs Labs: 09/06/18 08:17 09/06/18 08:17 PT 13.6 SECONDS (9.7-12.2) H 09/03/18 07:36 INR 1.2 09/03/18 07:36 APTT 34 SECONDS (21-34) 09/03/18 07:36 - Constitutional Appears: Non-toxic, Chronically Ill - Head Exam Head Exam: NORMOCEPHALIC - Eye Exam Eye Exam: absent: Scleral icterus - ENT Exam ENT Exam: Mucous Membranes Dry - Neck Exam Neck Exam: absent: Lymphadenopathy - Respiratory Exam Respiratory Exam: Decreased Breath Sounds - Cardiovascular Exam Cardiovascular Exam: REGULAR RHYTHM - GI/Abdominal Exam GI & Abdominal Exam: Distended, Soft. absent: Tenderness - Rectal Exam Rectal Exam: Deferred - Exam Exam: NORMAL INSPECTION - Extremities Exam Extremities Exam: absent: Pedal Edema - Back Exam Back Exam: absent: CVA tenderness (L), CVA tenderness (R) - Neurological Exam Neurological Exam: Alert, Awake - Psychiatric Exam Psychiatric exam: Depressed - Skin Skin Exam: Dry Assessment and Plan (1) Cellulitis of both feet Status: Acute (2) PVD (peripheral vascular disease) Status: Acute (3) Renal failure Status: Acute (4) CHF (congestive heart failure) Status: Acute (5) Foot pain, bilateral Status: Acute - Assessment and Plan (Free Text) Assessment: cont iv rx [ and wound care
[2018-09-10] MEDS: (Novolog) Insulin Aspart, Recombinant 100 u/ml 10 ml vial SC SCH ×2 (07:27→11:34)
[2018-09-10] MEDS: Ranolazine 500 mg Extended Release Tablets PO SCH ×2 (09:23→17:39)
--- NOTE | 2018-09-10 13:48 | CP.PCM.DIS ---
Provider - Provider Date of Admission: 08/30/18 18:52 Attending physician: Mohit Matos MD Consults: 08/30/18 19:59 Infectious Disease Consult Routine Comment: Consulting Provider: Salvador Eason Consulting Physician: Salvador Eason Reason for Consult: gangrene b/l feet 08/30/18 20:04 Vascular Surgery Routine Comment: Consulting Provider: Ryan Cooper Jr. Physician Instructions: Reason For Exam: severe pvd 08/30/18 20:58 Cardiology Consult Routine Comment: Consulting Provider: Ezekiel Craig Consulting Physician: Ezekiel Craig Reason for Consult: cad , cardiac clearance Hospital Course - Lab Results Lab Results: Micro Results 09/04/18 20:16 Nose MRSA Culture - Final MRSA NOT DETECTED 08/30/18 18:52 Blood Blood Culture - Final NO GROWTH AFTER 5 DAYS 08/30/18 18:52 Blood Gram Stain - Final TEST NOT PERFORMED 08/30/18 18:25 Blood Blood Culture - Final NO GROWTH AFTER 5 DAYS 08/30/18 18:25 Blood Gram Stain - Final TEST NOT PERFORMED 09/03/18 15:35 Nose MRSA Culture (Admit) - Final MRSA NOT DETECTED Most Recent Lab Values WBC 7.9 K/uL (4.8-10.8) 09/06/18 08:17 RBC 2.74 Mil/uL (4.40-5.90) L 09/06/18 08:17 Hgb 9.1 g/dL (12.0-18.0) L 09/06/18 08:17 Hct 27.8 % (35.0-51.0) L 09/06/18 08:17 MCV 101.6 fL (80.0-94.0) H 09/06/18 08:17 MCH 33.4 pg (27.0-31.0) H 09/06/18 08:17 MCHC 32.9 g/dL (33.0-37.0) L 09/06/18 08:17 RDW 16.0 % (11.5-14.5) H 09/06/18 08:17 Plt Count 270 K/uL (130-400) 09/06/18 08:17 MPV 8.8 fL (7.2-11.7) 09/06/18 08:17 Neut % (Auto) 66.2 % (50.0-75.0) 09/06/18 08:17 Lymph % (Auto) 18.1 % (20.0-40.0) L 09/06/18 08:17 [place] % (Auto) 12.0 % (0.0-10.0) H 09/06/18 08:17 Eos % (Auto) 3.0 % (0.0-4.0) 09/06/18 08:17 Baso % (Auto) 0.7 % (0.0-2.0) 09/06/18 08:17 Neut # (Auto) 5.3 K/uL (1.8-7.0) 09/06/18 08:17 Lymph # (Auto) 1.4 K/uL (1.0-4.3) 09/06/18 08:17 [place] # (Auto) 1.0 K/uL (0.0-0.8) H 09/06/18 08:17 Eos # (Auto) 0.2 K/uL (0.0-0.7) 09/06/18 08:17 Baso # (Auto) 0.1 K/uL (0.0-0.2) 09/06/18 08:17 Neutrophils % (Manual) 88 % (50-75) H 09/04/18 06:06 Lymphocytes % (Manual) 5 % (20-40) L 09/04/18 06:06 Monocytes % (Manual) 7 % (0-10) 09/04/18 06:06 Eosinophils % (Manual) 1 % (0-4) 09/03/18 14:51 Platelet Estimate Normal (NORMAL) 09/04/18 06:06 RBC Morphology Normal 09/04/18 06:06 Polychromasia Slight 09/03/18 14:51 Anisocytosis (manual) Slight 09/03/18 14:51 Macrocytosis (manual) Slight 09/03/18 14:51 PT 13.6 SECONDS (9.7-12.2) H 09/03/18 07:36 INR 1.2 09/03/18 07:36 APTT 34 SECONDS (21-34) 09/03/18 07:36 Puncture Site A-line 09/03/18 14:51 pCO2 40 mm/Hg (35-45) 09/03/18 14:51 pO2 130 mm/Hg (80-100) H 09/03/18 14:51 HCO3 16.5 mmol/L (21-28) L 09/03/18 14:51 ABG pH 7.22 (7.35-7.45) L 09/03/18 14:51 ABG Total CO2 17.6 mmol/L (22-28) L 09/03/18 14:51 ABG O2 Saturation 99.1 % (95-98) H 09/03/18 14:51 ABG Base Excess -10.8 mmol/L (-2.0-3.0) L 09/03/18 14:51 Kaushik Test Na 09/03/18 14:51 ABG Potassium 3.5 mmol/L (3.6-5.2) L 09/03/18 14:51 Sodium 141.0 mmol/l (132-148) 09/03/18 14:51 Chloride 111.0 mmol/L (98-107) H 09/03/18 14:51 Glucose 74 mg/dl (75-110) L 09/03/18 14:51 Lactate 0.7 mmol/L (0.7-2.1) 09/03/18 14:51 Liter Flow 4.0 09/03/18 14:51 Crit Value Called To Gage rey rn rec rm 09/03/18 14:51 Crit Value Called By Maximilian corrigan laser systems engineer 09/03/18 14:51 Crit Value Read Back Y 09/03/18 14:51 Blood Gas Notified Time 1455 09/03/18 14:51 Sodium 130 mmol/L (132-148) L 09/06/18 08:17 Potassium 4.1 mmol/L (3.6-5.2) 09/06/18 08:17 Chloride 92 mmol/L (98-107) L 09/06/18 08:17 Carbon Dioxide 28 mmol/L (22-30) 09/06/18 08:17 Anion Gap 15 (10-20) 09/06/18 08:17 BUN 49 mg/dL (9-20) H 09/06/18 08:17 Creatinine 7.4 mg/dL (0.8-1.5) H* 09/06/18 08:17 Est GFR ( Amer) 9 09/06/18 08:17 Est GFR (Non-Af Amer) 7 09/06/18 08:17 POC Glucose (mg/dL) 142 mg/dL (65-110) H 09/10/18 11:16 Random Glucose 114 mg/dL (75-110) H 09/06/18 08:17 Calcium 8.5 mg/dl (8.6-10.4) L 09/06/18 08:17 Phosphorus 7.3 mg/dL (2.5-4.5) H 09/04/18 06:06 Magnesium 2.0 mg/dL (1.6-2.3) 09/04/18 06:06 Total Bilirubin 0.5 mg/dL (0.2-1.3) 09/06/18 08:17 AST 30 U/L (17-59) 09/06/18 08:17 ALT 47 U/L (21-72) 09/06/18 08:17 Alkaline Phosphatase 94 U/L (38-126) 09/06/18 08:17 Total Protein 6.3 g/dL (6.3-8.3) 09/06/18 08:17 Albumin 3.3 g/dL (3.5-5.0) L 09/06/18 08:17 Globulin 3.0 gm/dL (2.2-3.9) 09/06/18 08:17 Albumin/Globulin Ratio 1.1 (1.0-2.1) 09/06/18 08:17 Procalcitonin 1.52 NG/ML (0.19-0.49) H 09/01/18 06:44 Arterial Blood Potassium 3.5 mmol/L (3.6-5.2) L 09/03/18 14:51 Hepatitis A IgM Ab Negative (NEGATIVE) 09/08/18 17:34 Hep Bs Antigen Negative (NEGATIVE) 09/08/18 17:34 Hep B Core IgM Ab Negative (NEGATIVE) 09/08/18 17:34 Hepatitis C Antibody Negative (NEGATIVE) 09/08/18 17:34 Blood Type O POSITIVE 09/03/18 07:36 Antibody Screen Negative 09/03/18 07:36 Discharge Exam - Head Exam Head Exam: NORMOCEPHALIC Discharge Plan - Discharge Medications Prescriptions: oxyCODONE/Acetaminophen [Percocet 5/325 mg Tab] 1 ea PO Q4 #20 tab Vancomycin [Vancomycin Inj] 500 mg IVPB MWF #6 vial - Follow Up Plan Condition: GUARDED Disposition: HOME/ ROUTINE Additional Instructions: Please admit patient under Dr. Rocha service - PATIENT NEEDS TO F/U WITH DR. COOPER OFFICE IN 7-10 DAYS , PLEASE CALL THE OFFICE AND MAKE APPOINTMENT AND ARRANGE TRANSPORTATION VERY IMPORTANT ( F/U VISIT AFTER PROCEDURE) PLEASE MONITOR RADHA LEG FOR PULS E /ANY CHANGE IN COLOR /COOLNESS/ OR GETTING WORSE AND PLEASE REPORT THE MD PLEASE CONTINUE HD SCHEDULED PLEASE CONTINUE VANCOMYCIN POST HD X 2 MORE WEEKS CONTINUE MEDICATIONS PER MED. REC. PLEASE CALL DR. VU FOR PODIATRY CONSULT
--- NOTE | 2018-09-10 15:59 | CP.PCM.PN ---
Subjective - Date & Time of Evaluation Date of Evaluation: 09/10/18 Time of Evaluation: 11:45 - Subjective Subjective: patient seen today , denies any chest pain, sob,numbness /tinglings to the b/l LE , c/o pain to B/L LE improved with pain medication vss - reviewed - stable a febrile s/p Right fem-anterior tibial bypass. POD #8 Objective - Vital Signs/Intake and Output Vital Signs (last 24 hours): Temp Pulse Resp BP Pulse Ox 97.5 F L 77 18 120/69 97 09/10/18 13:50 09/10/18 13:50 09/10/18 13:50 09/10/18 15:10 09/10/18 13:50 Intake and Output: 09/10/18 09/10/18 06:59 18:59 Intake Total 240 400 Balance 240 400 - Medications Medications: Current Medications Aspirin (Aspirin Chewable) 81 mg PO DAILY [facility] Last Admin: 09/10/18 09:23 Dose: 81 mg Atenolol (Tenormin) 50 mg PO DAILY [facility] Last Admin: 09/10/18 09:14 Dose: Not Given Clopidogrel Bisulfate (Plavix) 75 mg PO DAILY [facility] Last Admin: 09/10/18 09:23 Dose: 75 mg Dextrose (Dextrose 50% Inj) 0 ml IV STAT PRN; Protocol PRN Reason: Hypoglycemia Protocol Dextrose (Glutose 15) 0 gm PO ONCE PRN; Protocol PRN Reason: Hypoglycemia Protocol Epoetin Danny (Procrit) 4,000 unit IV TTS [facility] Last Admin: 09/08/18 16:41 Dose: 4,000 unit Glucagon (Glucagen Diagnostic Kit) 0 mg IM STAT PRN; Protocol PRN Reason: Hypoglycemia Protocol Heparin Sodium (Porcine) (Heparin) 5,000 units SC Q12 [facility] Last Admin: 09/10/18 09:24 Dose: 5,000 units Hydromorphone HCl (Dilaudid) 2 mg IVP Q4 PRN PRN Reason: Pain, severe (8-10) Last Admin: 09/10/18 12:33 Dose: 2 mg Vancomycin HCl 500 mg/ Sodium (Chloride) 100 mls @ 100 mls/hr IVPB MWF [facility]; Protocol Last Admin: 09/09/18 11:05 Dose: 100 mls/hr Insulin Aspart (Novolog) 0 unit SC ACHS [facility]; Protocol Last Admin: 09/10/18 11:34 Dose: Not Given Losartan Potassium (Cozaar) 25 mg PO BID [facility] Last Admin: 09/10/18 09:13 Dose: Not Given Pregabalin (Lyrica) 75 mg PO DAILY [facility] Last Admin: 09/10/18 09:23 Dose: 75 mg Ranolazine (Ranexa) 500 mg PO BID [facility] Last Admin: 09/10/18 09:23 Dose: 500 mg Rosuvastatin Calcium (Crestor) 10 mg PO HS [facility] Last Admin: 09/09/18 22:23 Dose: 10 mg Tramadol HCl (Ultram) 50 mg PO TID PRN PRN Reason: Pain, moderate (4-7) Last Admin: 09/08/18 09:12 Dose: 50 mg - Labs Labs: 09/06/18 08:17 09/06/18 08:17 PT 13.6 SECONDS (9.7-12.2) H 09/03/18 07:36 INR 1.2 09/03/18 07:36 APTT 34 SECONDS (21-34) 09/03/18 07:36 Assessment and Plan - Assessment and Plan (Free Text) Assessment: A/P 62M with pmhx of HTN , PVD ESRD on HD ADMITTED WITH , b/l LE gangrene and ischemia s/p Right fem-anterior tibial bypass. POD #[address] Trejo f/u wiht his office in 10 days patient agreed fro rehab and accepted at [facility] D/w Dr. mayberry continue 2 more weeks of vancomycin D/w Dr. Anderson( covering for Dr. Benjamin) cleared fro discharge to [facility] discharge plan discussed with patient who understands and agrees with plan discharge instruction sent to rehab for f/u visit and antibiotics
[2018-09-10] MEDS: EPOETIN ALFA 4,000 UNIT/ML ML Dialysis IV SCH (16:18)
[2018-09-10 17:44] VITALS: BP 168/78; PULSE 71
[2018-09-10 18:21] VITALS: RESP 20; TEMP 98.5; O2SAT 97
== END 2018-09-10 19:45 | DRG 252 ==
LOC: C.ER 17:06 → C.9E 18:52 → C.3T 19:40 → C.9S 09-03 14:45 → C.9I 09-03 14:46 → C.6T 09-04 17:44
PROVIDERS: ADMIT Internal Medicine Nephrology; ATTEND Internal Medicine Nephrology
PROC: 5A1D70Z Performance of Urinary Filtration, Intermittent, Less than 6 Hours Per Day (ICD-10-PCS; 2018-09-01)
PROC: B41FZZZ Fluoroscopy of Right Lower Extremity Arteries (ICD-10-PCS; 2018-09-03)
PROC: 5A1D70Z Performance of Urinary Filtration, Intermittent, Less than 6 Hours Per Day (ICD-10-PCS; 2018-09-03)
PROC: 041K0KN Bypass Right Femoral Artery to Posterior Tibial Artery with Nonautologous Tissue Substitute, Open Approach (ICD-10-PCS; principal; 2018-09-03 07:45)
PROC: 5A1D70Z Performance of Urinary Filtration, Intermittent, Less than 6 Hours Per Day (ICD-10-PCS; 2018-09-05)
PROC: 5A1D70Z Performance of Urinary Filtration, Intermittent, Less than 6 Hours Per Day (ICD-10-PCS; 2018-09-08)
PROC: 5A1D70Z Performance of Urinary Filtration, Intermittent, Less than 6 Hours Per Day (ICD-10-PCS; 2018-09-10)
DX: E11.52 Type 2 diabetes mellitus with diabetic peripheral angiopathy with gangrene (principal); N18.6 End stage renal disease; I13.2 Hypertensive heart and chronic kidney disease with heart failure and with stage 5 chronic kidney disease, or end stage renal disease; L03.116 Cellulitis of left lower limb; L03.115 Cellulitis of right lower limb; E11.22 Type 2 diabetes mellitus with diabetic chronic kidney disease; I35.0 Nonrheumatic aortic (valve) stenosis; I50.9 Heart failure, unspecified; I25.10 Atherosclerotic heart disease of native coronary artery without angina pectoris; E78.5 Hyperlipidemia, unspecified; E78.00 Pure hypercholesterolemia, unspecified; F41.8 Other specified anxiety disorders; Z53.9 Procedure and treatment not carried out, unspecified reason; Z99.2 Dependence on renal dialysis; Z79.899 Other long term (current) drug therapy; Z79.4 Long term (current) use of insulin; Z91.013 Allergy to seafood

== ENCOUNTER 2018-09-12 21:41 | Inpatient (IN) | payer MEDICARE ==
[2018-09-12 21:41] VITALS: BMI 34.7
--- NOTE | 2018-09-12 22:02 | C.PDOC ---
History Of Present Illness 63 year old male presents to the ED c/o severe right and left foot pain. Patient is s/p right femoral anterior tibial bypass done 12 days ago. Patient describes his pain as sharp, stabbing, burning 7/10 pain. Left foot pain is worse than right. Patient denies fever, chills, CP, SOB, He is also a t-th sat HD. He did not have dialysis today Time Seen by Provider: 09/12/18 22:01 Chief Complaint (Nursing): Lower Extremity Problem/Injury History Per: Patient History/Exam Limitations: no limitations Onset/Duration Of Symptoms: Days Current Symptoms Are (Timing): Still Present Severity: Severe Pain Scale Rating Of: 7 Recent travel outside of the [place]: No Additional History Per: Patient - Ankle/Foot Description Of Injury: Other Currently Unable To: Bear Weight Past Medical History Reviewed: Historical Data, Nursing Documentation, Vital Signs Vital Signs: Last Vital Signs Temp 97.9 F 09/12/18 21:49 Pulse 70 09/12/18 21:49 Resp 20 09/12/18 21:49 BP 153/69 H 09/12/18 21:49 Pulse Ox 97 09/12/18 21:49 - Medical History PMH: Anxiety, Depression, Diabetes, Fractures, HTN, Hypercholesterolemia, Hyperlipidemia, Peripheral Edema, End Stage Renal Disease, Chronic Kidney Disease Denies: Kidney Stones Surgical History: No Surg Hx - [facility] Procedures (08/30/18) BYPASS LEFT BRACHIAL ARTERY TO UPPER ARM VEIN, OPEN APPROACH (06/24/16) BYPASS R FEM ART TO POST TIB ART W NONAUT SUB, OPEN (08/30/18) EXCISION OF LEFT KIDNEY, PERCUTANEOUS APPROACH, DIAGNOSTIC (06/24/16) FLUOROSCOPY OF AORTA, BI LE ART USING OTH CONTRAST (08/17/18) FLUOROSCOPY OF RIGHT LOWER EXTREMITY ARTERIES (08/30/18) PERFORMANCE OF URINARY FILTRATION, MULTIPLE (06/24/16) SEPTOPLASTY NEC (06/05/00) TURBINECTOMY NEC (06/05/00) Family History: States: Unknown Family Hx - Social History Hx Tobacco Use: No Hx Alcohol Use: No Hx Substance Use: No - Immunization History Hx Tetanus Toxoid Vaccination: No Review Of Systems Constitutional: Negative for: Fever, Chills Cardiovascular: Negative for: Chest Pain, Palpitations Respiratory: Negative for: Shortness of Breath Gastrointestinal: Negative for: Nausea, Vomiting, Abdominal Pain Musculoskeletal: Positive for: Foot Pain Skin: Negative for: Rash Neurological: Negative for: Weakness, Numbness Physical Exam - Physical Exam Appears: Non-toxic, In Acute Distress Skin: Warm, Dry, Ecchymosis (diffuse) Head: Normacephalic Eye(s): bilateral: Normal Inspection Oral Mucosa: Moist Neck: Supple Chest: Symmetrical Cardiovascular: Rhythm Regular Respiratory: No Rales, No Rhonchi, No Wheezing Gastrointestinal/Abdominal: Soft, No Tenderness, No Guarding Back: Normal Inspection Male Genital: Other (right inguinal jairo in place, clean and dry. Good inguinal pulse) Extremity: Tenderness, Pedal Edema, Capillary Refill (decreased), Swelling (right foot), Other (left shunt good thrill and bruit. Good popliteal pulses 2+) Extremity: Bilateral: Painful To Bear Weight, Other (right great toe and heel gangrenous area. Left 5th toe necrotic changes) Pulses: Left Dorsalis Pedis: Decreased, Right Dorsalis Pedis: Normal Neurological/Psych: Oriented x3, Normal Speech, Normal Cognition Gait: Unable To Assess ED Course And Treatment - Laboratory Results Result Diagrams: 09/12/18 22:23 09/12/18 22:23 O2 Sat by Pulse Oximetry: 97 (ON RA) Pulse Ox Interpretation: Normal Progress Note: Plan: - VBG. - Labs. - Morphine 4 mg IVP. - Zofran 4 mg IVP. - Blood culture. - UA Disposition Discussed With : Mery Anderson Comment: accepted the pt on his service at 11:30 PM Doctor Will See Patient In The: Hospital Counseled Patient/Family Regarding: Studies Performed, Diagnosis - Disposition Disposition: HOSPITALIZED Disposition Time: 22:02 Condition: GUARDED - POA Present On Arrival: Poor Glycemic Control, Pressure Ulcer - Clinical Impression Clinical Impression: Foot pain, bilateral, Renal failure, PVD (peripheral vascular disease), Intractable pain - Scribe Statement The provider has reviewed the documentation as recorded by the Scribe Yobany Rai All medical record entries made by the Scribe were at my direction and personally dictated by me. I have reviewed the chart and agree that the record accurately reflects my personal performance of the history, physical exam, medical decision making, and the department course for this patient. I have also personally directed, reviewed, and agree with the discharge instructions and disposition.
[2018-09-12] MEDS ORDERED: Morphine 4 MG/ML VIAL ONE (22:23)
[2018-09-12 22:28] LABS: BASO # 0.1 K/uL (0.0-0.2); BASO % 1.1 % (0.0-2.0); EOS # 0.2 K/uL (0.0-0.7); HEMOGLOBIN 9.4 g/dL (12.0-18.0); LYMPH # 1.2 K/uL (1.0-4.3); LYMPH % 15.2 % (20.0-40.0); MEAN CELL VOLUME 97.9 fL (80.0-94.0); MEAN CORPUSCULAR HEMOGLOBIN 32.2 pg (27.0-31.0); MEAN CORPUSCULAR HGB CONC 32.9 g/dL (33.0-37.0); MEAN PLATELET VOLUME 8.5 fL (7.2-11.7); MONO # 0.9 K/uL (0.0-0.8); NEUT # 5.5 K/uL (1.8-7.0); NEUT % 69.7 % (50.0-75.0); RBC 2.92 Mil/uL (4.40-5.90); RED CELL DISTRIBUTION WIDTH 16.3 % (11.5-14.5); WHITE BLOOD COUNT 7.8 K/uL (4.8-10.8)
[2018-09-12 22:34] LABS: INR 1.3; PROTHROMBIN TIME 14.6 SECONDS (9.7-12.2)
[2018-09-12 22:37] LABS: ALB/GLOB RATIO 1.1 (1.0-2.1); ALBUMIN 3.5 g/dL (3.5-5.0); CALCIUM 8.5 mg/dl (8.6-10.4)
[2018-09-12 22:44] LABS: VENOUS BLOOD GAS BASE EXCESS 7.2 mmol/L (0.0-2.0); VENOUS BLOOD GAS PCO2 48 mmHg (40-60); VENOUS BLOOD GAS PO2 28 mm/Hg (30-55); VENOUS BLOOD PH 7.44 (7.32-7.43)
[2018-09-13] MEDS ORDERED: Oxycodone/Acetaminophen 5/325 mg Tab PO SCH
[2018-09-13] MEDS: Oxycodone/Acetaminophen 5/325 mg Tab PO PRN ×4 (03:09→19:23)
[2018-09-13] MEDS ORDERED: Oxycodone/Acetaminophen 5/325 mg Tab ONE ×3 (03:10→14:10)
--- NOTE | 2018-09-13 04:27 | CP.PCM.CON ---
History of Present Illness - History of Present Illness History of Present Illness: Vascular Surgery Consult note. Dr. Gooden 63yo M with PMHx of severe PVD, HTN, ESRD, DM, CHF and recent R common fem-to-ant tibial bypass on 09/03/18 here for evaluation of bilateral lower extremity pain, left greater than right. Patient states that he was recently discharged from the hospital, however, he was unable to tolerate the pain and had to return for further management. Patient denies any complaints to his recent bypass surgery for RLE revascularization. He reports pain in his left foot which is the main reason for his return to the hospital during this hospitalization. Denies any F/C. no N/V/D. no abd pain. No CP/SOB. PMHx: PVD, HTN, ESRD on HD, DM, CHF PSHx: L UE AV Shunt, R fem-to-ant tibial bypass 09/03/18 Family Hx: non-contributory Social Hx: Denies illicit drugs, denies ETOH abuse, denies tobacco use Allergy: Shellfish Review of Systems - Review of Systems All systems: reviewed and no additional remarkable complaints except - Constitutional Constitutional: As Per HPI Past Patient History - Infectious Disease Hx of Infectious Diseases: None - Past Medical History & Family History Past Medical History?: Yes Past Family History: Reviewed and not pertinent - Past Social History Smoking Status: Never Smoked - CARDIAC Hx Hypercholesterolemia: Yes Hx Hypertension: Yes Hx Peripheral Edema: Yes - PULMONARY Hx Respiratory Disorders: No - NEUROLOGICAL Hx Neurological Disorder: No - HEENT Hx HEENT Problems: Yes Hx Cataracts: Yes (RIGHT EYE) - RENAL Hx Chronic Kidney Disease: Yes Hx Kidney Stones: No - ENDOCRINE/METABOLIC Hx Diabetes Mellitus Type 2: Yes - HEMATOLOGICAL/ONCOLOGICAL Hx Blood Disorders: No - INTEGUMENTARY Hx Dermatological Problems: No - MUSCULOSKELETAL/RHEUMATOLOGICAL Hx Fractures: Yes - GASTROINTESTINAL Hx Gastrointestinal Disorders: No - GENITOURINARY/GYNECOLOGICAL Hx Genitourinary Disorders: No - PSYCHIATRIC Hx Anxiety: Yes Hx Depression: Yes Hx Substance Use: No - SURGICAL HISTORY Hx Surgeries: Yes Hx Herniorrhaphy: Yes Other/Comment: Av shunt on the left arm - ANESTHESIA Hx Anesthesia: Yes Hx Anesthesia Reactions: No Hx Malignant Hyperthermia: No Meds Allergies/Adverse Reactions: Allergies Allergy/AdvReac Type Severity Reaction Status Date / Time shellfish derived Allergy Intermediate DIZZINESS Verified 09/12/18 21:57 - Medications Medications: Current Medications Aspirin (Aspirin Chewable) 81 mg PO DAILY [facility] Atenolol (Tenormin) 50 mg PO DAILY [facility] Clopidogrel Bisulfate (Plavix) 75 mg PO DAILY [facility] Enoxaparin Sodium (Lovenox) 40 mg SC DAILY [facility] Home Med (Ropinirole [Requip]) 1 mg PO TID [facility] Insulin Aspart (Novolog) 0 unit SC ACHS [facility]; Protocol Losartan Potassium (Cozaar) 25 mg PO BID [facility] Oxycodone/Acetaminophen (Percocet 5/325 Mg Tab) 1 tab PO Q4H PRN PRN Reason: Pain, moderate (4-7) Stop: 09/16/18 01:38 Last Admin: 09/13/18 03:09 Dose: 1 tab Pregabalin (Lyrica) 75 mg PO DAILY [facility] Ranolazine (Ranexa) 500 mg PO BID [facility] Rosuvastatin Calcium (Crestor) 5 mg PO HS [facility] Vancomycin HCl (Vancomycin Inj) 500 mg IVPB MWF [facility]; Protocol Physical Exam - Constitutional Appears: Non-toxic, No Acute Distress, Older Than Stated Age - Head Exam Head Exam: ATRAUMATIC, NORMAL INSPECTION, NORMOCEPHALIC - Eye Exam Eye Exam: EOMI, Normal appearance. absent: Scleral icterus - ENT Exam ENT Exam: Mucous Membranes Moist - Respiratory Exam Respiratory Exam: NORMAL BREATHING PATTERN. absent: Accessory Muscle Use, Respiratory Distress - Cardiovascular Exam Cardiovascular Exam: absent: JVD - GI/Abdominal Exam GI & Abdominal Exam: Soft. absent: Distended, Firm, Guarding, Rigid, Tenderness - Extremities Exam Additional comments: b/l lower extremity tenderness to the foot. left worse than right Right bypass graft palpable throughout, proximal to distal. Dry, gangrenous changes to toes and heels bilaterally. No purulent discharge noted. - Neurological Exam Neurological exam: Alert, Oriented x3 Results - Vital Signs Recent Vital Signs: Last Vital Signs Temp 98.7 F 09/13/18 01:48 Pulse 67 09/13/18 01:48 Resp 18 09/13/18 01:48 BP 148/67 09/13/18 01:48 Pulse Ox 100 09/13/18 01:48 - Labs Result Diagrams: 09/12/18 22:23 09/12/18 22:23 Labs: Laboratory Results - last 24 hr 09/12/18 09/12/18 09/12/18 22:23 22:23 22:23 WBC 7.8 RBC 2.92 L Hgb 9.4 L Hct 28.6 L MCV 97.9 H D MCH 32.2 H MCHC 32.9 L RDW 16.3 H Plt Count 338 MPV 8.5 Neut % (Auto) 69.7 Lymph % (Auto) 15.2 L Craig % (Auto) 12.0 H Eos % (Auto) 2.0 Baso % (Auto) 1.1 Neut # (Auto) 5.5 Lymph # (Auto) 1.2 Craig # (Auto) 0.9 H Eos # (Auto) 0.2 Baso # (Auto) 0.1 PT 14.6 H INR 1.3 APTT 33 pO2 VBG pH VBG pCO2 VBG HCO3 VBG Total CO2 VBG O2 Sat (Calc) VBG Base Excess VBG Potassium Glucose Lactate Sodium 133 Potassium 4.1 Chloride 92 L Carbon Dioxide 32 H Anion Gap 14 BUN 46 H Creatinine 6.7 H Est GFR ( Amer) 10 Est GFR (Non-Af Amer) 8 Random Glucose 118 H Calcium 8.5 L Total Bilirubin 0.6 AST 29 ALT 41 Alkaline Phosphatase 97 Total Protein 6.7 Albumin 3.5 Globulin 3.2 Albumin/Globulin Ratio 1.1 Venous Blood Potassium 09/12/18 22:35 WBC RBC Hgb Hct MCV MCH MCHC RDW Plt Count MPV Neut % (Auto) Lymph % (Auto) Craig % (Auto) Eos % (Auto) Baso % (Auto) Neut # (Auto) Lymph # (Auto) Craig # (Auto) Eos # (Auto) Baso # (Auto) PT INR APTT pO2 28 L VBG pH 7.44 H VBG pCO2 48 VBG HCO3 29.4 VBG Total CO2 34.1 H VBG O2 Sat (Calc) 52.5 VBG Base Excess 7.2 H VBG Potassium 3.9 Glucose 105 Lactate 1.2 Sodium 135.0 Potassium Chloride 96.0 L Carbon Dioxide Anion Gap BUN Creatinine Est GFR ( Amer) Est GFR (Non-Af Amer) Random Glucose Calcium Total Bilirubin AST ALT Alkaline Phosphatase Total Protein Albumin Globulin Albumin/Globulin Ratio Venous Blood Potassium 3.9 Assessment & Plan - Assessment and Plan (Free Text) Assessment: 63yo M with b/l severe PVD. s/p Right Fem-to-ant tib bypass on 09/03/18. Plan: - Consider podiatry consult - We will monitor patient's status clinically and make recommendations as needed - medical mgmt as per primary - Pain management Further recs as per Dr. Berkley Hand PGY2 surgery
[2018-09-13] MEDS: (Novolog) Insulin Aspart, Recombinant 100 u/ml 10 ml vial SC SCH ×4 (07:59→22:05)
[2018-09-13] MEDS ORDERED: Enoxaparin 40 mg Syringe SC SCH (10:00)
[2018-09-13] MEDS: Ranolazine 500 mg Extended Release Tablets PO SCH ×2 (12:19→19:23)
[2018-09-13] MEDS: ROPINIROLE 1 MG PO SCH ×3 (12:21→18:00)
--- NOTE | 2018-09-13 13:29 | CP.PCM.CON ---
History of Present Illness - History of Present Illness History of Present Illness: Nephrology Consultation Note: Assessment: Stable PVD s/p Right common fem-to-ant tibial bypass on 09/03/18 mild hyponatremia missed HD obesity Diabetic chronic Kidney Disease (E11.22) Hypertensive Chronic Kidney Disease (I12.0) End stage renal disease (N18.6) dependence on hemodialysis (Z99.2) (MWF) via AVF Anemia (D64.9), Hyperphosphatemia (E83.39), Secondary Hyperparathyroidism (E21.1), HTN (I12.0) Plan: No acute need for dialysis today. Will plan for dialysis tomorrow. Continue with Nephrovite 1 tab/day. PRBC as needed for anemia. on JENA with dialysis as last Hb 9.4 Continue with phos binders, last phos level: check BP control with meds as ordered. Patient on RAAS francia as losartan Glycemic control, Dialysis consistent diet Further work up/management as per primary team Dose meds/antibiotics (if needed) for ESRD status. Avoid fleets enema/magnesium based laxatives. vascular surgery following Thanks for allowing me to participate in care of your patient. Will follow patient with you. Please call if any Qs Dr Sal Aguayo Office: [phone] Chief Complaint;leg pain HPI: Pt is a 63 M with hx of ESRD on hemodialysis (MWF) via AVF, last dialysis thur with Dr Quinonez (usually at [place]), chronic anemia, hyperphosphatemia, secondary hyperparathyroidism, Diabetes Mellitus, hypertension PVD s/p Right common fem-to-ant tibial bypass on 09/03/18 presented with complaints of persistent feets pain Renal consult requested for ESRD management. pt c/o feet pain. was d/c to rehab recently denies SOB ROS: Cardiovascular: No chest pain. Pulmonary: No shortness of breath Gastrointestinal: denies abdominal pain No nausea. No vomiting. Genitourinary: No pain while urinating. Denies blood in urine. All other negative except as mentioned in HPI Physical Examination: General Appearance: Comfortable, in no acute respiratory distress, co-operative . obese Vitals reviewed and noted as below Head; Atraumatic, normocephalic ENT: no ulcers no thrush. Tongue is midline. Oropharynx: no rash or ulcers. EYES: Pupils are equal, round and reactive to light accommodation. Eye muscles and extraocular movement intact. Sclera is anicteric. Neck; supple no lymphadenopathy, no thyromegaly or bruit Lungs: Normal respiratory rate/effort. Breath sounds bilateral equal and clear Heart: Normal rate. s1s2 normal. No rub or gallop. Extremities: 2+ edema. No varicose veins. s/p Rt leg vasc surgery Neurological: Patient is alert, awake and oriented to person, place and time. No focal deficit. Strength bilateral appropriate and equal Skin: Warm and dry. Normal turgor. No rash. Palpitation: Normal elasticity for age Abdomen: Abdomen is soft. Bowel sounds +. There is no abdominal tenderness, no guarding/rigidity or organomegaly Psych: normal insight and normal affect/mood MSK: no joint tenderness or swelling. toes gangrenous changes + : kidney or bladder not palpable Access: AVF Labs/imaging reviewed. Past medical history, past surgical history, family history, social history, allergy reviewed and noted as below Family Hx: no hx of CKD. Non contributory Past Patient History - Infectious Disease Hx of Infectious Diseases: None - Past Medical History & Family History Past Medical History?: Yes Past Family History: Reviewed and not pertinent - Past Social History Smoking Status: Never Smoked - CARDIAC Hx Hypercholesterolemia: Yes Hx Hypertension: Yes Hx Peripheral Edema: Yes - PULMONARY Hx Respiratory Disorders: No - NEUROLOGICAL Hx Neurological Disorder: No - HEENT Hx HEENT Problems: Yes Hx Cataracts: Yes (RIGHT EYE) - RENAL Hx Chronic Kidney Disease: Yes Hx Kidney Stones: No - ENDOCRINE/METABOLIC Hx Diabetes Mellitus Type 2: Yes - HEMATOLOGICAL/ONCOLOGICAL Hx Blood Disorders: No - INTEGUMENTARY Hx Dermatological Problems: No - MUSCULOSKELETAL/RHEUMATOLOGICAL Hx Fractures: Yes - GASTROINTESTINAL Hx Gastrointestinal Disorders: No - GENITOURINARY/GYNECOLOGICAL Hx Genitourinary Disorders: No - PSYCHIATRIC Hx Anxiety: Yes Hx Depression: Yes Hx Substance Use: No - SURGICAL HISTORY Hx Surgeries: Yes Hx Herniorrhaphy: Yes Other/Comment: Av shunt on the left arm - ANESTHESIA Hx Anesthesia: Yes Hx Anesthesia Reactions: No Hx Malignant Hyperthermia: No Meds Allergies/Adverse Reactions: Allergies Allergy/AdvReac Type Severity Reaction Status Date / Time shellfish derived Allergy Intermediate DIZZINESS Verified 09/12/18 21:57 - Medications Medications: Current Medications Aspirin (Aspirin Chewable) 81 mg PO DAILY [facility] Last Admin: 09/13/18 11:05 Dose: 81 mg Atenolol (Tenormin) 50 mg PO DAILY [facility] Last Admin: 09/13/18 11:05 Dose: 50 mg Clopidogrel Bisulfate (Plavix) 75 mg PO DAILY [facility] Last Admin: 09/13/18 11:05 Dose: 75 mg Enoxaparin Sodium (Lovenox) 40 mg SC DAILY [facility] Last Admin: 09/13/18 11:51 Dose: 40 mg Epoetin Danny (Procrit) 4,000 unit IV TTS [facility] Home Med (Ropinirole [Requip]) 1 mg PO TID [facility] Last Admin: 09/13/18 12:21 Dose: Not Given Insulin Aspart (Novolog) 0 unit SC [facility]; Protocol Last Admin: 09/13/18 12:17 Dose: Not Given Losartan Potassium (Cozaar) 50 mg PO QPM [facility] Oxycodone/Acetaminophen (Percocet 5/325 Mg Tab) 1 tab PO Q4H PRN PRN Reason: Pain, moderate (4-7) Stop: 09/16/18 01:38 Last Admin: 09/13/18 08:30 Dose: 1 tab Pregabalin (Lyrica) 75 mg PO DAILY [facility] Last Admin: 09/13/18 11:00 Dose: 75 mg Ranolazine (Ranexa) 500 mg PO BID [facility] Last Admin: 09/13/18 12:19 Dose: Not Given Rosuvastatin Calcium (Crestor) 5 mg PO HS [facility] Vancomycin HCl (Vancomycin Inj) 500 mg IVPB MWF [facility]; Protocol Vitamin B Complex/Vit C/Folic Acid (Nephro-Federica) 1 tab PO 0800 [facility] Results - Vital Signs Recent Vital Signs: Last Vital Signs Temp 98.7 F 09/13/18 01:48 Pulse 67 09/13/18 11:09 Resp 16 09/13/18 11:09 BP 157/68 H 09/13/18 11:09 Pulse Ox 96 09/13/18 11:09 - Labs Result Diagrams: 09/12/18 22:23 09/12/18 22:23 Labs: Laboratory Results - last 24 hr 09/12/18 09/12/18 09/12/18 22:23 22:23 22:23 WBC 7.8 RBC 2.92 L Hgb 9.4 L Hct 28.6 L MCV 97.9 H D MCH 32.2 H MCHC 32.9 L RDW 16.3 H Plt Count 338 MPV 8.5 Neut % (Auto) 69.7 Lymph % (Auto) 15.2 L Butts % (Auto) 12.0 H Eos % (Auto) 2.0 Baso % (Auto) 1.1 Neut # (Auto) 5.5 Lymph # (Auto) 1.2 Butts # (Auto) 0.9 H Eos # (Auto) 0.2 Baso # (Auto) 0.1 PT 14.6 H INR 1.3 APTT 33 pO2 VBG pH VBG pCO2 VBG HCO3 VBG Total CO2 VBG O2 Sat (Calc) VBG Base Excess VBG Potassium Glucose Lactate Sodium 133 Potassium 4.1 Chloride 92 L Carbon Dioxide 32 H Anion Gap 14 BUN 46 H Creatinine 6.7 H Est GFR ( Amer) 10 Est GFR (Non-Af Amer) 8 POC Glucose (mg/dL) Random Glucose 118 H Calcium 8.5 L Total Bilirubin 0.6 AST 29 ALT 41 Alkaline Phosphatase 97 Total Protein 6.7 Albumin 3.5 Globulin 3.2 Albumin/Globulin Ratio 1.1 Venous Blood Potassium 09/12/18 09/13/18 09/13/18 22:35 07:26 12:16 WBC RBC Hgb Hct MCV MCH MCHC RDW Plt Count MPV Neut % (Auto) Lymph % (Auto) Butts % (Auto) Eos % (Auto) Baso % (Auto) Neut # (Auto) Lymph # (Auto) Butts # (Auto) Eos # (Auto) Baso # (Auto) PT INR APTT pO2 28 L VBG pH 7.44 H VBG pCO2 48 VBG HCO3 29.4 VBG Total CO2 34.1 H VBG O2 Sat (Calc) 52.5 VBG Base Excess 7.2 H VBG Potassium 3.9 Glucose 105 Lactate 1.2 Sodium 135.0 Potassium Chloride 96.0 L Carbon Dioxide Anion Gap BUN Creatinine Est GFR ( Amer) Est GFR (Non-Af Amer) POC Glucose (mg/dL) 98 100 Random Glucose Calcium Total Bilirubin AST ALT Alkaline Phosphatase Total Protein Albumin Globulin Albumin/Globulin Ratio Venous Blood Potassium 3.9
--- NOTE | 2018-09-13 15:49 | CP.PCM.HP ---
History of Present Illness - History of Present Illness History of Present Illness: 63 year old male presents to the ED c/o severe right and left foot pain. Patient is s/p right femoral anterior tibial bypass done 12 days ago. Patient describes his pain as sharp, stabbing, burning 7/10 pain. Left foot pain is worse than right. Patient denies fever, chills, CP, SOB, He is also a t-th sat HD. He did not have dialysis today Present on Admission - Present on Admission Any Indicators Present on Admission: No Review of Systems - Review of Systems All systems: reviewed and no additional remarkable complaints except (As mentioned in HPI) Past Patient History - Infectious Disease Hx of Infectious Diseases: None - Past Medical History & Family History Past Medical History?: Yes Past Family History: Reviewed and not pertinent - Past Social History Smoking Status: Never Smoked - CARDIAC Hx Hypercholesterolemia: Yes Hx Hypertension: Yes Hx Peripheral Edema: Yes - PULMONARY Hx Respiratory Disorders: No - NEUROLOGICAL Hx Neurological Disorder: No - HEENT Hx HEENT Problems: Yes Hx Cataracts: Yes (RIGHT EYE) - RENAL Hx Chronic Kidney Disease: Yes Hx Kidney Stones: No - ENDOCRINE/METABOLIC Hx Diabetes Mellitus Type 2: Yes - HEMATOLOGICAL/ONCOLOGICAL Hx Blood Disorders: No - INTEGUMENTARY Hx Dermatological Problems: No - MUSCULOSKELETAL/RHEUMATOLOGICAL Hx Fractures: Yes - GASTROINTESTINAL Hx Gastrointestinal Disorders: No - GENITOURINARY/GYNECOLOGICAL Hx Genitourinary Disorders: No - PSYCHIATRIC Hx Anxiety: Yes Hx Depression: Yes Hx Substance Use: No - SURGICAL HISTORY Hx Surgeries: Yes Hx Herniorrhaphy: Yes Other/Comment: Av shunt on the left arm - ANESTHESIA Hx Anesthesia: Yes Hx Anesthesia Reactions: No Hx Malignant Hyperthermia: No Meds Allergies/Adverse Reactions: Allergies Allergy/AdvReac Type Severity Reaction Status Date / Time shellfish derived Allergy Intermediate DIZZINESS Verified 09/12/18 21:57 Physical Exam - Head Exam Head Exam: NORMAL INSPECTION - Eye Exam Eye Exam: Normal appearance - ENT Exam ENT Exam: Mucous Membranes Moist - Respiratory Exam Respiratory Exam: Clear to Auscultation Bilateral - Cardiovascular Exam Cardiovascular Exam: REGULAR RHYTHM, +S1, +S2 - GI/Abdominal Exam GI & Abdominal Exam: Normal Bowel Sounds - Exam Exam: NORMAL INSPECTION - Extremities Exam Extremities exam: Positive for: normal inspection - Neurological Exam Neurological exam: Alert, Oriented x3 Results - Vital Signs Recent Vital Signs: Last Vital Signs Temp 98.7 F 09/13/18 01:48 Pulse 68 09/13/18 13:00 Resp 18 09/13/18 13:00 BP 157/68 H 09/13/18 13:00 Pulse Ox 96 09/13/18 13:00 - Labs Result Diagrams: 09/29/18 08:19 09/25/18 14:40 Labs: Laboratory Results - last 24 hr 09/12/18 09/12/18 09/12/18 22:23 22:23 22:23 WBC 7.8 RBC 2.92 L Hgb 9.4 L Hct 28.6 L MCV 97.9 H D MCH 32.2 H MCHC 32.9 L RDW 16.3 H Plt Count 338 MPV 8.5 Neut % (Auto) 69.7 Lymph % (Auto) 15.2 L Rose[place] % (Auto) 12.0 H Eos % (Auto) 2.0 Baso % (Auto) 1.1 Neut # (Auto) 5.5 Lymph # (Auto) 1.2 [place] # (Auto) 0.9 H Eos # (Auto) 0.2 Baso # (Auto) 0.1 PT 14.6 H INR 1.3 APTT 33 pO2 VBG pH VBG pCO2 VBG HCO3 VBG Total CO2 VBG O2 Sat (Calc) VBG Base Excess VBG Potassium Glucose Lactate Sodium 133 Potassium 4.1 Chloride 92 L Carbon Dioxide 32 H Anion Gap 14 BUN 46 H Creatinine 6.7 H Est GFR ( Amer) 10 Est GFR (Non-Af Amer) 8 POC Glucose (mg/dL) Random Glucose 118 H Calcium 8.5 L Total Bilirubin 0.6 AST 29 ALT 41 Alkaline Phosphatase 97 Total Protein 6.7 Albumin 3.5 Globulin 3.2 Albumin/Globulin Ratio 1.1 Venous Blood Potassium 09/12/18 09/13/18 09/13/18 22:35 07:26 12:16 WBC RBC Hgb Hct MCV MCH MCHC RDW Plt Count MPV Neut % (Auto) Lymph % (Auto) Rosebud % (Auto) Eos % (Auto) Baso % (Auto) Neut # (Auto) Lymph # (Auto) [place] # (Auto) Eos # (Auto) Baso # (Auto) PT INR APTT pO2 28 L VBG pH 7.44 H VBG pCO2 48 VBG HCO3 29.4 VBG Total CO2 34.1 H VBG O2 Sat (Calc) 52.5 VBG Base Excess 7.2 H VBG Potassium 3.9 Glucose 105 Lactate 1.2 Sodium 135.0 Potassium Chloride 96.0 L Carbon Dioxide Anion Gap BUN Creatinine Est GFR ( Amer) Est GFR (Non-Af Amer) POC Glucose (mg/dL) 98 100 Random Glucose Calcium Total Bilirubin AST ALT Alkaline Phosphatase Total Protein Albumin Globulin Albumin/Globulin Ratio Venous Blood Potassium 3.9 Assessment & Plan (1) Dyspnea Status: Acute (2) ESRD (end stage renal disease) Status: Acute (3) CAD (coronary artery disease) Status: Acute (4) PVD (peripheral vascular disease) Status: Acute (5) CHF (congestive heart failure) Status: Acute (6) Hypertension Status: Acute - Assessment and Plan (Free Text) Plan: Vascular surgery consult Renal consult Hemodialysis per renal Blood pressure control Accu-Chek Insulin coverage DVT/GI prophylaxis
[2018-09-13] MEDS: HYDROmorphone 1 mg/ml ISec IVP PRN (22:00)
[2018-09-14] MEDS: HYDROmorphone 1 mg/ml ISec IVP PRN ×5 (01:57→22:09)
[2018-09-14] MEDS: (Novolog) Insulin Aspart, Recombinant 100 u/ml 10 ml vial SC SCH ×4 (08:00→22:06)
[2018-09-14] MEDS: Multivitamin Vitamin B Complex (Nephro-Vite) Tab PO SCH (08:09)
[2018-09-14] MEDS ORDERED: Vancomycin 500 mg Inj IVPB SCH (09:00)
[2018-09-14] MEDS: Ranolazine 500 mg Extended Release Tablets PO SCH ×2 (09:13→18:03)
[2018-09-14] MEDS ORDERED: ROPINIROLE 1 MG PO SCH (10:00)
--- NOTE | 2018-09-14 15:22 | CP.PCM.PN ---
Subjective - Date & Time of Evaluation Date of Evaluation: 09/14/18 Time of Evaluation: 15:21 - Subjective Subjective: Nephrology Consultation Note: Assessment: Stable PVD s/p Right common fem-to-ant tibial bypass on 09/03/18 mild hyponatremia missed HD obesity Diabetic chronic Kidney Disease (E11.22) Hypertensive Chronic Kidney Disease (I12.0) End stage renal disease (N18.6) dependence on hemodialysis (Z99.2) (MWF) via AVF Anemia (D64.9), Hyperphosphatemia (E83.39), Secondary Hyperparathyroidism (E21.1), HTN (I12.0) Plan: Will plan for dialysis per MW[facility] scheduleow. Continue with Nephrovite 1 tab/day. PRBC as needed for anemia. on JENA with dialysis as last Hb 9.4 Continue with phos binders, last phos level: check BP control with meds as ordered. Patient on RAAS francia as losartan Glycemic control, Dialysis consistent diet Further work up/management as per primary team Dose meds/antibiotics (if needed) for ESRD status. Avoid fleets enema/magnesium based laxatives. vascular surgery following Thanks for allowing me to participate in care of your patient. Will follow patient with you. Please call if any Qs Dr Sal Aguayo Office: [phone] Chief Complaint;leg pain HPI: Pt is a 63 M with hx of ESRD on hemodialysis (MWF) via AVF, last dialysis thur with Dr Quinonez (usually at [place]), chronic anemia, hyperphosphatemia, secondary hyperparathyroidism, Diabetes Mellitus, hypertension PVD s/p Right common fem-to-ant tibial bypass on 09/03/18 presented with complaints of persistent feets pain Renal consult requested for ESRD management. pt c/o feet pain. was d/c to rehab recently denies SOB ROS: improved leg pain Cardiovascular: No chest pain. Pulmonary: No shortness of breath Gastrointestinal: denies abdominal pain No nausea. No vomiting. Genitourinary: No pain while urinating. Denies blood in urine. All other negative except as mentioned in HPI Physical Examination: General Appearance: Comfortable, in no acute respiratory distress, co-operative . obese Vitals reviewed and noted as below Head; Atraumatic, normocephalic ENT: no ulcers no thrush. Tongue is midline. Oropharynx: no rash or ulcers. EYES: Pupils are equal, round and reactive to light accommodation. Eye muscles and extraocular movement intact. Sclera is anicteric. Neck; supple no lymphadenopathy, no thyromegaly or bruit Lungs: Normal respiratory rate/effort. Breath sounds bilateral equal and clear Heart: Normal rate. s1s2 normal. No rub or gallop. Extremities: 2+ edema. No varicose veins. s/p Rt leg vasc surgery Neurological: Patient is alert, awake and oriented to person, place and time. No focal deficit. Strength bilateral appropriate and equal Skin: Warm and dry. Normal turgor. No rash. Palpitation: Normal elasticity for age Abdomen: Abdomen is soft. Bowel sounds +. There is no abdominal tenderness, no guarding/rigidity or organomegaly Psych: normal insight and normal affect/mood MSK: no joint tenderness or swelling. toes gangrenous changes + : kidney or bladder not palpable Access: AVF Labs/imaging reviewed. Past medical history, past surgical history, family history, social history, allergy reviewed and noted as below Family Hx: no hx of CKD. Non contributory Objective - Vital Signs/Intake and Output Vital Signs (last 24 hours): Temp Pulse Resp BP Pulse Ox 97.4 F L 64 16 112/56 L 97 09/14/18 14:17 09/14/18 14:17 09/14/18 14:17 09/14/18 14:17 09/14/18 13:25 Intake and Output: 09/14/18 09/14/18 06:59 18:59 Intake Total 300 240 Output Total 300 400 Balance 0 -160 - Medications Medications: Current Medications Aspirin (Aspirin Chewable) 81 mg PO DAILY [facility] Last Admin: 09/14/18 09:12 Dose: 81 mg Atenolol (Tenormin) 50 mg PO DAILY [facility] Last Admin: 09/14/18 09:12 Dose: 50 mg Clopidogrel Bisulfate (Plavix) 75 mg PO DAILY [facility] Last Admin: 09/14/18 09:12 Dose: 75 mg Enoxaparin Sodium (Lovenox) 40 mg SC DAILY [facility] Epoetin Danny (Procrit) 4,000 unit IV MWF [facility] Home Med (Ropinirole [Requip]) 1 mg PO TID [facility] Hydralazine HCl (Apresoline) 25 mg PO QID [facility] Last Admin: 09/14/18 13:57 Dose: Not Given Hydromorphone HCl (Dilaudid) 1 mg IVP Q4H PRN PRN Reason: Pain, severe (8-10) Last Admin: 09/14/18 11:28 Dose: 1 mg Vancomycin HCl 500 mg/ Sodium (Chloride) 100 mls @ 100 mls/hr IVPB MWF [facility] Stop: 09/28/18 09:01 Last Admin: 09/14/18 10:00 Dose: 100 mls/hr Insulin Aspart (Novolog) 0 unit SC ACHS [facility]; Protocol Last Admin: 09/14/18 11:55 Dose: Not Given Losartan Potassium (Cozaar) 50 mg PO QPM [facility] Last Admin: 09/13/18 19:23 Dose: 50 mg Oxycodone/Acetaminophen (Percocet 5/325 Mg Tab) 1 tab PO Q4H PRN PRN Reason: Pain, moderate (4-7) Stop: 09/16/18 01:38 Last Admin: 09/13/18 19:23 Dose: 1 tab Pregabalin (Lyrica) 75 mg PO DAILY [facility] Last Admin: 09/14/18 09:13 Dose: 75 mg Ranolazine (Ranexa) 500 mg PO BID [facility] Last Admin: 09/14/18 09:13 Dose: 500 mg Rosuvastatin Calcium (Crestor) 5 mg PO HS [facility] Last Admin: 09/13/18 22:00 Dose: 5 mg Vitamin B Complex/Vit C/Folic Acid (Nephro-Federica) 1 tab PO 0800 [facility] Last Admin: 09/14/18 08:09 Dose: 1 tab - Labs Labs: 09/12/18 22:23 09/12/18 22:23 PT 14.6 SECONDS (9.7-12.2) H 09/12/18 22:23 INR 1.3 09/12/18 22:23 APTT 33 SECONDS (21-34) 09/12/18 22:23
[2018-09-14] MEDS: EPOETIN ALFA 4,000 UNIT/ML ML Dialysis IV SCH (16:14)
--- NOTE | 2018-09-14 17:52 | CP.PCM.PN ---
Subjective - Date & Time of Evaluation Date of Evaluation: 09/14/18 Time of Evaluation: 17:52 Objective - Vital Signs/Intake and Output Vital Signs (last 24 hours): Temp Pulse Resp BP Pulse Ox 97.4 F L 64 16 172/75 H 97 09/14/18 14:17 09/14/18 14:17 09/14/18 14:17 09/14/18 15:55 09/14/18 13:25 Intake and Output: 09/14/18 09/14/18 06:59 18:59 Intake Total 300 740 Output Total 300 700 Balance 0 40 - Medications Medications: Current Medications Aspirin (Aspirin Chewable) 81 mg PO DAILY [facility] Last Admin: 09/14/18 09:12 Dose: 81 mg Atenolol (Tenormin) 50 mg PO DAILY [facility] Last Admin: 09/14/18 09:12 Dose: 50 mg Clopidogrel Bisulfate (Plavix) 75 mg PO DAILY [facility] Last Admin: 09/14/18 09:12 Dose: 75 mg Enoxaparin Sodium (Lovenox) 40 mg SC DAILY [facility] Epoetin Danny (Procrit) 4,[address] [facility] Last Admin: 09/14/18 16:14 Dose: 4,000 unit Home Med (Ropinirole [Requip]) 1 mg PO TID [facility] Hydralazine HCl (Apresoline) 25 mg PO QID [facility] Last Admin: 09/14/18 13:57 Dose: Not Given Hydromorphone HCl (Dilaudid) 1 mg IVP Q4H PRN PRN Reason: Pain, severe (8-10) Last Admin: 09/14/18 11:28 Dose: 1 mg Vancomycin HCl 500 mg/ Sodium (Chloride) 100 mls @ 100 mls/hr IVPB [facility] Stop: 09/28/18 09:01 Last Admin: 09/14/18 10:00 Dose: 100 mls/hr Insulin Aspart (Novolog) 0 unit SC [facility]; Protocol Last Admin: 09/14/18 11:55 Dose: Not Given Losartan Potassium (Cozaar) 50 mg PO QPM [facility] Last Admin: 09/13/18 19:23 Dose: 50 mg Oxycodone/Acetaminophen (Percocet 5/325 Mg Tab) 1 tab PO Q4H PRN PRN Reason: Pain, moderate (4-7) Stop: 09/16/18 01:38 Last Admin: 09/13/18 19:23 Dose: 1 tab Pregabalin (Lyrica) 75 mg PO DAILY [facility] Last Admin: 09/14/18 09:13 Dose: 75 mg Ranolazine (Ranexa) 500 mg PO BID [facility] Last Admin: 09/14/18 09:13 Dose: 500 mg Rosuvastatin Calcium (Crestor) 5 mg PO HS [facility] Last Admin: 09/13/18 22:00 Dose: 5 mg Vitamin B Complex/Vit C/Folic Acid (Nephro-Federica) 1 tab PO 0800 [facility] Last Admin: 09/14/18 08:09 Dose: 1 tab - Labs Labs: 09/12/18 22:23 09/12/18 22:23 PT 14.6 SECONDS (9.7-12.2) H 09/12/18 22:23 INR 1.3 09/12/18 22:23 APTT 33 SECONDS (21-34) 09/12/18 22:23
[2018-09-15] MEDS: HYDROmorphone 1 mg/ml ISec IVP PRN ×2 (02:15→06:20)
[2018-09-15] MEDS: Oxycodone/Acetaminophen 5/325 mg Tab PO PRN (04:25)
[2018-09-15] MEDS: (Novolog) Insulin Aspart, Recombinant 100 u/ml 10 ml vial SC SCH ×4 (08:15→21:33)
[2018-09-15] MEDS: Multivitamin Vitamin B Complex (Nephro-Vite) Tab PO SCH (08:17)
[2018-09-15] MEDS ORDERED: EPOETIN ALFA 4,000 UNIT/ML ML Dialysis IV SCH (10:00)
[2018-09-15] MEDS: Enoxaparin 30 mg Syringe SC SCH (10:11)
[2018-09-15] MEDS: Ranolazine 500 mg Extended Release Tablets PO SCH ×2 (10:24→17:29)
--- NOTE | 2018-09-15 11:12 | CP.PCM.PN ---
Subjective - Date & Time of Evaluation Date of Evaluation: 09/15/18 Time of Evaluation: 11:12 - Subjective Subjective: Nephrology Consultation Note: Assessment: Stable PVD s/p Right common fem-to-ant tibial bypass on 09/03/18 mild hyponatremia missed HD obesity Diabetic chronic Kidney Disease (E11.22) Hypertensive Chronic Kidney Disease (I12.0) End stage renal disease (N18.6) dependence on hemodialysis (Z99.2) (MWF) via AVF Anemia (D64.9), Hyperphosphatemia (E83.39), Secondary Hyperparathyroidism (E21.1), HTN (I12.0) Plan: Will plan for dialysis per MWF schedule. Continue with Nephrovite 1 tab/day. PRBC as needed for anemia. on JENA with dialysis as last Hb 9.4 Continue with phos binders, last phos level: check BP control with meds as ordered. Patient on RAAS francia as losartan Glycemic control, Dialysis consistent diet Further work up/management as per primary team Dose meds/antibiotics (if needed) for ESRD status. Avoid fleets enema/magnesium based laxatives. vascular surgery following Thanks for allowing me to participate in care of your patient. Will follow patient with you. Please call if any Qs Dr Sal Aguayo Office: [phone] Chief Complaint;leg pain HPI: Pt is a 63 M with hx of ESRD on hemodialysis (MWF) via AVF, last dialysis thur with Dr Quinonez (usually at [place]), chronic anemia, hyperphosphatemia, secondary hyperparathyroidism, Diabetes Mellitus, hypertension PVD s/p Right common fem-to-ant tibial bypass on 09/03/18 presented with complaints of persistent feets pain Renal consult requested for ESRD management. pt c/o feet pain. was d/c to rehab recently denies SOB ROS: improved leg pain Rt side. has it on left side Cardiovascular: No chest pain. Pulmonary: No shortness of breath Gastrointestinal: denies abdominal pain No nausea. No vomiting. Genitourinary: No pain while urinating. Denies blood in urine. All other negative except as mentioned in HPI Physical Examination: General Appearance: Comfortable, in no acute respiratory distress, co-operative . obese Vitals reviewed and noted as below Head; Atraumatic, normocephalic ENT: no ulcers no thrush. Tongue is midline. Oropharynx: no rash or ulcers. EYES: Pupils are equal, round and reactive to light accommodation. Eye muscles and extraocular movement intact. Sclera is anicteric. Neck; supple no lymphadenopathy, no thyromegaly or bruit Lungs: Normal respiratory rate/effort. Breath sounds bilateral equal and clear Heart: Normal rate. s1s2 normal. No rub or gallop. Extremities: trace edema. No varicose veins. s/p Rt leg vasc surgery Neurological: Patient is alert, awake and oriented to person, place and time. No focal deficit. Strength bilateral appropriate and equal Skin: Warm and dry. Normal turgor. No rash. Palpitation: Normal elasticity for age Abdomen: Abdomen is soft. Bowel sounds +. There is no abdominal tenderness, no guarding/rigidity or organomegaly Psych: normal insight and normal affect/mood MSK: no joint tenderness or swelling. toes gangrenous changes + : kidney or bladder not palpable Access: AVF Labs/imaging reviewed. Past medical history, past surgical history, family history, social history, allergy reviewed and noted as below Family Hx: no hx of CKD. Non contributory Objective - Vital Signs/Intake and Output Vital Signs (last 24 hours): Temp Pulse Resp BP Pulse Ox 98.1 F 67 20 149/70 97 09/15/18 07:00 09/15/18 07:00 09/15/18 07:00 09/15/18 07:00 09/15/18 07:00 Intake and Output: 09/15/18 09/15/18 06:59 18:59 Intake Total 120 Balance 120 - Medications Medications: Current Medications Aspirin (Aspirin Chewable) 81 mg PO DAILY [facility] Last Admin: 09/15/18 10:20 Dose: 81 mg Atenolol (Tenormin) 50 mg PO DAILY [facility] Last Admin: 09/15/18 10:24 Dose: 50 mg Clopidogrel Bisulfate (Plavix) 75 mg PO DAILY [facility] Last Admin: 09/15/18 10:20 Dose: 75 mg Enoxaparin Sodium (Lovenox) 30 mg SC DAILY [facility] Last Admin: 09/15/18 10:11 Dose: 30 mg Epoetin Danny (Procrit) 4,000 unit IV MWF [facility] Last Admin: 09/14/18 16:14 Dose: 4,000 unit Home Med (Ropinirole [Requip]) 1 mg PO TID [facility] Hydralazine HCl (Apresoline) 25 mg PO QID [facility] Last Admin: 09/15/18 10:20 Dose: 25 mg Hydromorphone HCl (Dilaudid) 2 mg IVP Q4H PRN PRN Reason: Pain, severe (8-10) Last Admin: 09/15/18 10:14 Dose: 2 mg Vancomycin HCl 500 mg/ Sodium (Chloride) 100 mls @ 100 mls/hr IVPB MWF [facility] Stop: 09/28/18 09:01 Last Admin: 09/14/18 10:00 Dose: 100 mls/hr Insulin Aspart (Novolog) 0 unit SC ACHS [facility]; Protocol Last Admin: 09/15/18 08:15 Dose: Not Given Losartan Potassium (Cozaar) 50 mg PO QPM [facility] Last Admin: 09/14/18 18:04 Dose: 50 mg Oxycodone/Acetaminophen (Percocet 5/325 Mg Tab) 1 tab PO Q4H PRN PRN Reason: Pain, moderate (4-7) Stop: 09/16/18 01:38 Last Admin: 09/15/18 04:25 Dose: 1 tab Pregabalin (Lyrica) 75 mg PO DAILY [facility] Last Admin: 09/15/18 10:20 Dose: 75 mg Ranolazine (Ranexa) 500 mg PO BID [facility] Last Admin: 09/15/18 10:24 Dose: 500 mg Rosuvastatin Calcium (Crestor) 5 mg PO HS [facility] Last Admin: 09/14/18 22:05 Dose: 5 mg Vitamin B Complex/Vit C/Folic Acid (Nephro-Federica) 1 tab PO 0800 [facility] Last Admin: 09/15/18 08:17 Dose: 1 tab - Labs Labs: 09/12/18 22:23 09/12/18 22:23 PT 14.6 SECONDS (9.7-12.2) H 09/12/18 22:23 INR 1.3 09/12/18 22:23 APTT 33 SECONDS (21-34) 09/12/18 22:23
--- NOTE | 2018-09-15 16:00 | CP.PCM.PN ---
Subjective - Date & Time of Evaluation Date of Evaluation: 09/15/18 Time of Evaluation: 16:00 Objective - Vital Signs/Intake and Output Vital Signs (last 24 hours): Temp Pulse Resp BP Pulse Ox 98 F 72 20 117/66 97 09/15/18 15:30 09/15/18 15:30 09/15/18 15:30 09/15/18 15:30 09/15/18 15:30 Intake and Output: 09/15/18 09/15/18 06:59 18:59 Intake Total 120 Balance 120 - Medications Medications: Current Medications Aspirin (Aspirin Chewable) 81 mg PO DAILY [facility] Last Admin: 09/15/18 10:20 Dose: 81 mg Atenolol (Tenormin) 50 mg PO DAILY [facility] Last Admin: 09/15/18 10:24 Dose: 50 mg Clopidogrel Bisulfate (Plavix) 75 mg PO DAILY [facility] Last Admin: 09/15/18 10:20 Dose: 75 mg Enoxaparin Sodium (Lovenox) 30 mg SC DAILY [facility] Last Admin: 09/15/18 10:11 Dose: 30 mg Epoetin Danny (Procrit) 4,000 unit IV [facility] [place] Last Admin: 09/14/18 16:14 Dose: 4,000 unit Home Med (Ropinirole [Requip]) 1 mg PO TID [facility] Hydralazine HCl (Apresoline) 25 mg PO QID [facility] Last Admin: 09/15/18 13:59 Dose: 25 mg Hydromorphone HCl (Dilaudid) 2 mg IVP Q4H PRN PRN Reason: Pain, severe (8-10) Last Admin: 09/15/18 14:38 Dose: 2 mg Vancomycin HCl 500 mg/ Sodium (Chloride) 100 mls @ 100 mls/hr IVPB [facility] Stop: 09/28/18 09:01 Last Admin: 09/14/18 10:00 Dose: 100 mls/hr Insulin Aspart (Novolog) 0 unit SC [facility]; Protocol Last Admin: 09/15/18 12:21 Dose: Not Given Losartan Potassium (Cozaar) 50 mg PO QPM [facility] Last Admin: 09/14/18 18:04 Dose: 50 mg Oxycodone/Acetaminophen (Percocet 5/325 Mg Tab) 1 tab PO Q4H PRN PRN Reason: Pain, moderate (4-7) Stop: 09/16/18 01:38 Last Admin: 09/15/18 04:25 Dose: 1 tab Pregabalin (Lyrica) 75 mg PO DAILY [facility] Last Admin: 09/15/18 10:20 Dose: 75 mg Ranolazine (Ranexa) 500 mg PO BID [facility] Last Admin: 09/15/18 10:24 Dose: 500 mg Rosuvastatin Calcium (Crestor) 5 mg PO HS [facility] Last Admin: 09/14/18 22:05 Dose: 5 mg Vitamin B Complex/Vit C/Folic Acid (Nephro-Federica) 1 tab PO 0800 [facility] Last Admin: 09/15/18 08:17 Dose: 1 tab - Labs Labs: 09/12/18 22:23 09/12/18 22:23 PT 14.6 SECONDS (9.7-12.2) H 09/12/18 22:23 INR 1.3 09/12/18 22:23 APTT 33 SECONDS (21-34) 09/12/18 22:23
--- NOTE | 2018-09-15 18:29 | CP.PCM.CON ---
History of Present Illness - History of Present Illness History of Present Illness: Podiatry Consult Note- Dr. Youngblood 63 year old male with PMHx of DM, PVD, HTN, ESRD, CHF seen and evaluated for bilateral foot pain, left foot pain is worse than right foot. Patient reports that the discoloration to his feet started sometime in 2017. Denies of any trauma/falls. Reports the discoloration to the right foot is worse compared to the left foot. Patient underwent vascular intervention by Dr. Gooden on 09/03/18. Reports seeing an improvement in the discoloration and pain to his right foot. Today rates the pain 2/10 and describes the pain as a throbbing pain. Prior to vascular surgical intervention, the pain was 10/10 on VAS scale. Patient rates the left foot pain as a 10/10 and describes the pain as throbbing, numbing pain to all the digits. Reports has not gotten vascular intervention to the left lower extremity. Patient reports. Denies nausea, fever, shortness of breath, chest pains or chills. Past Patient History - Infectious Disease Hx of Infectious Diseases: None - Past Medical History & Family History Past Medical History?: Yes - Past Social History Smoking Status: Never Smoked - CARDIAC Hx Hypercholesterolemia: Yes Hx Hypertension: Yes - PULMONARY Hx Respiratory Disorders: No - NEUROLOGICAL Hx Neurological Disorder: No - HEENT Hx HEENT Problems: Yes Hx Cataracts: Yes (RIGHT EYE) - RENAL Hx Chronic Kidney Disease: Yes Type of Dialysis Access: left AV shunt Hx Kidney Stones: No - ENDOCRINE/METABOLIC Hx Diabetes Mellitus Type 2: Yes - HEMATOLOGICAL/ONCOLOGICAL Hx Blood Disorders: No - INTEGUMENTARY Hx Dermatological Problems: No - MUSCULOSKELETAL/RHEUMATOLOGICAL Hx Falls: No Hx Fractures: Yes - GASTROINTESTINAL Hx Gastrointestinal Disorders: No - GENITOURINARY/GYNECOLOGICAL Hx Genitourinary Disorders: No - PSYCHIATRIC Hx Anxiety: Yes Hx Depression: Yes Hx Substance Use: No - SURGICAL HISTORY Hx Surgeries: Yes Hx Herniorrhaphy: Yes Other/Comment: lEFT Av Shunt on the left arm.Post anterior tibia bypass done 12 days ago. - ANESTHESIA Hx Anesthesia: Yes Hx Anesthesia Reactions: No Hx Malignant Hyperthermia: No Meds Allergies/Adverse Reactions: Allergies Allergy/AdvReac Type Severity Reaction Status Date / Time shellfish derived Allergy Intermediate DIZZINESS Verified 09/12/18 21:57 - Medications Medications: Current Medications Aspirin (Aspirin Chewable) 81 mg PO DAILY [facility] Last Admin: 09/15/18 10:20 Dose: 81 mg Atenolol (Tenormin) 50 mg PO DAILY [facility] Last Admin: 09/15/18 10:24 Dose: 50 mg Clopidogrel Bisulfate (Plavix) 75 mg PO DAILY [facility] Last Admin: 09/15/18 10:20 Dose: 75 mg Enoxaparin Sodium (Lovenox) 30 mg SC DAILY [facility] Last Admin: 09/15/18 10:11 Dose: 30 mg Epoetin Danny (Procrit) 4,000 unit IV [facility] Last Admin: 09/14/18 16:14 Dose: 4,000 unit Home Med (Ropinirole [Requip]) 1 mg PO TID [facility] Hydralazine HCl (Apresoline) 25 mg PO QID [facility] Last Admin: 09/15/18 17:29 Dose: 25 mg Hydromorphone HCl (Dilaudid) 2 mg IVP Q4H PRN PRN Reason: Pain, severe (8-10) Last Admin: 09/15/18 14:38 Dose: 2 mg Vancomycin HCl 500 mg/ Sodium (Chloride) 100 mls @ 100 mls/hr IVPB [facility] Stop: 09/28/18 09:01 Last Admin: 09/14/18 10:00 Dose: 100 mls/hr Insulin Aspart (Novolog) 0 unit SC [facility]; Protocol Last Admin: 09/15/18 17:30 Dose: Not Given Losartan Potassium (Cozaar) 50 mg PO QPM [facility] Last Admin: 09/15/18 17:29 Dose: 50 mg Oxycodone/Acetaminophen (Percocet 5/325 Mg Tab) 1 tab PO Q4H PRN PRN Reason: Pain, moderate (4-7) Stop: 09/16/18 01:38 Last Admin: 09/15/18 04:25 Dose: 1 tab Pregabalin (Lyrica) 75 mg PO DAILY [facility] Last Admin: 09/15/18 10:20 Dose: 75 mg Ranolazine (Ranexa) 500 mg PO BID [facility] Last Admin: 09/15/18 17:29 Dose: 500 mg Rosuvastatin Calcium (Crestor) 5 mg PO [facility] Last Admin: 09/14/18 22:05 Dose: 5 mg Vitamin B Complex/Vit C/Folic Acid (Nephro-Federica) 1 tab PO 0800 [facility] Last Admin: 09/15/18 08:17 Dose: 1 tab Physical Exam - Constitutional Appears: Well, Non-toxic, No Acute Distress - Extremities Exam Extremities exam: Negative for: calf tenderness Additional comments: VASC: DP and PT unpapable, temperature gradient warm to warm to right lower extremity, temperature gradient cool to cool to left lower extremity, mild swelling noted to the forefoot B/L ORTHO: pain with palpation to the digits, able to wiggle toes, MM is 4/5 in all four compartments, no calf pain or tenderness with palpation NEURO: gross sensation intact, protective sensation diminished DERM: Right foot: 1st, 2nd, 3rd digit with necrotic distal tips, dry gangrene, no opening, no drainage, no odor or purulence, no erythema, blue-wanda purple discoloration noted to the dorsum of forefoot at the level of the MPJs. 4th digit with blue-wanda/purple discoloration. Eschar heel noted measuring approximately 2cm x 3cm, depth unstageable. No opening, no drainage, no odor or purulence. No clinical signs of infection Left foot: 4th and 5th digit with necrotic changes, dry gangrene, no opening, no drainage, no odor or purulence, no erythema, surrounding necrotic tissue was skin color blue-wanda purple. Eschar heel noted measuring approximately 2cm x 3cm, depth unstageable. No opening, no drainage, no odor or purulence. No clinical signs of infection Xerosis noted to the entire LE - Neurological Exam Neurological exam: Oriented x3 - Psychiatric Exam Psychiatric exam: Normal Affect, Normal Mood Results - Vital Signs Recent Vital Signs: Last Vital Signs Temp 98 F 09/15/18 15:30 Pulse 72 09/15/18 15:30 Resp 20 09/15/18 15:30 BP 117/66 09/15/18 15:30 Pulse Ox 97 09/15/18 15:30 - Labs Result Diagrams: 09/12/18 22:23 09/12/18 22:23 Labs: Laboratory Results - last 24 hr 09/14/18 09/15/18 09/15/18 20:49 07:07 11:20 POC Glucose (mg/dL) 125 H 107 114 H 09/15/18 16:24 POC Glucose (mg/dL) 127 H Assessment & Plan - Assessment and Plan (Free Text) Assessment: 63 year old male with PMHx of DM, PVD, HTN, ESRD, CHF seen and evaluated for stable dry gangrene B/L feet Plan: Patient seen and evaluated Discussed plan with attending Dr. Youngblood Lab, chart, vitals reviewed- WBC 7.8 on 09/12/18 No dressing needed at this time Ordered multipodus boots. To be worn at all times while in bed Discussed with patient possible amputation vs autoamputation of right dry gangrene Dr. Youngblood will see patient tomorrow and further discuss plan Thank you for allowing us to participate in patient's care
[2018-09-16] MEDS: (Novolog) Insulin Aspart, Recombinant 100 u/ml 10 ml vial SC SCH ×4 (07:29→22:15)
[2018-09-16] MEDS: Multivitamin Vitamin B Complex (Nephro-Vite) Tab PO SCH (07:31)
[2018-09-16] MEDS: Ranolazine 500 mg Extended Release Tablets PO SCH ×2 (09:11→17:26)
[2018-09-16] MEDS: Enoxaparin 30 mg Syringe SC SCH (09:11)
--- NOTE | 2018-09-16 11:26 | CP.PCM.PN ---
Subjective - Date & Time of Evaluation Date of Evaluation: 09/16/18 Time of Evaluation: 11:25 - Subjective Subjective: Nephrology Consultation Note: Assessment: Stable PVD s/p Right common fem-to-ant tibial bypass on 09/03/18 mild hyponatremia missed HD obesity Diabetic chronic Kidney Disease (E11.22) Hypertensive Chronic Kidney Disease (I12.0) End stage renal disease (N18.6) dependence on hemodialysis (Z99.2) (MWF) via AVF Anemia (D64.9), Hyperphosphatemia (E83.39), Secondary Hyperparathyroidism (E21.1), HTN (I12.0) Plan: Will plan for dialysis per MWF schedule. Continue with Nephrovite 1 tab/day. PRBC as needed for anemia. on JENA with dialysis as last Hb 9.4 Continue with phos binders, last phos level: check BP control with meds as ordered. Patient on RAAS francia as losartan Glycemic control, Dialysis consistent diet Further work up/management as per primary team Dose meds/antibiotics (if needed) for ESRD status. Avoid fleets enema/magnesium based laxatives. vascular surgery following. for intervention/bypass on left leg soon as per pt Thanks for allowing me to participate in care of your patient. Will follow patient with you. Please call if any Qs Dr Sal Aguayo Office: [phone] Chief Complaint;leg pain HPI: Pt is a 63 M with hx of ESRD on hemodialysis (MWF) via AVF, last dialysis thur with Dr Quinonez (usually at [place]), chronic anemia, hyperphosphatemia, secondary hyperparathyroidism, Diabetes Mellitus, hypertension PVD s/p Right common fem-to-ant tibial bypass on 09/03/18 presented with complaints of persistent feets pain Renal consult requested for ESRD management. pt c/o feet pain. was d/c to rehab recently denies SOB ROS: improved leg pain Rt side. has it on left side Cardiovascular: No chest pain. Pulmonary: No shortness of breath Gastrointestinal: denies abdominal pain No nausea. No vomiting. Genitourinary: No pain while urinating. Denies blood in urine. All other negative except as mentioned in HPI Physical Examination: seen on HD General Appearance: Comfortable, in no acute respiratory distress, co-operative . obese Vitals reviewed and noted as below Head; Atraumatic, normocephalic ENT: no ulcers no thrush. Tongue is midline. Oropharynx: no rash or ulcers. EYES: Pupils are equal, round and reactive to light accommodation. Eye muscles and extraocular movement intact. Sclera is anicteric. Neck; supple no lymphadenopathy, no thyromegaly or bruit Lungs: Normal respiratory rate/effort. Breath sounds bilateral equal and clear Heart: Normal rate. s1s2 normal. No rub or gallop. Extremities: trace edema. No varicose veins. s/p Rt leg vasc surgery Neurological: Patient is alert, awake and oriented to person, place and time. No focal deficit. Strength bilateral appropriate and equal Skin: Warm and dry. Normal turgor. No rash. Palpitation: Normal elasticity for age Abdomen: Abdomen is soft. Bowel sounds +. There is no abdominal tenderness, no guarding/rigidity or organomegaly Psych: normal insight and normal affect/mood MSK: no joint tenderness or swelling. toes gangrenous changes + : kidney or bladder not palpable Access: AVF Labs/imaging reviewed. Past medical history, past surgical history, family history, social history, allergy reviewed and noted as below Family Hx: no hx of CKD. Non contributory Objective - Vital Signs/Intake and Output Vital Signs (last 24 hours): Temp Pulse Resp BP Pulse Ox 98.1 F 71 16 141/77 95 09/16/18 08:50 09/16/18 08:50 09/16/18 08:50 09/16/18 09:58 09/16/18 08:42 Intake and Output: 09/16/18 09/16/18 06:59 18:59 Intake Total 350 120 Output Total 300 Balance 50 120 - Medications Medications: Current Medications Aspirin (Aspirin Chewable) 81 mg PO DAILY [facility] Last Admin: 09/16/18 09:11 Dose: Not Given Atenolol (Tenormin) 50 mg PO DAILY [facility] Last Admin: 09/16/18 09:11 Dose: Not Given Clopidogrel Bisulfate (Plavix) 75 mg PO DAILY [facility] Last Admin: 09/16/18 09:11 Dose: Not Given Enoxaparin Sodium (Lovenox) 30 mg SC DAILY [facility] Last Admin: 09/16/18 09:11 Dose: Not Given Epoetin Danny (Procrit) 4,000 [place] [facility] [place] Admin: 09/14/18 16:14 Dose: 4,000 unit Home Med (Ropinirole [Requip]) 1 mg PO TID [facility] Hydralazine HCl (Apresoline) 25 mg PO QID [facility] Last Admin: 09/16/18 09:11 Dose: Not Given Hydromorphone HCl (Dilaudid) 2 mg IVP Q4H PRN PRN Reason: Pain, severe (8-10) Last Admin: 09/16/18 09:07 Dose: 2 mg Vancomycin HCl 500 mg/ Sodium (Chloride) 100 mls @ 100 mls/hr IVPB [facility] [place] Stop: 09/28/18 09:01 Last Admin: 09/16/18 09:11 Dose: Not Given Insulin Aspart (Novolog) 0 unit SC [facility]; Protocol Last Admin: 09/16/18 07:29 Dose: Not Given Losartan Potassium (Cozaar) 50 mg PO QPM [facility] Last Admin: 09/15/18 17:29 Dose: 50 mg Pregabalin (Lyrica) 75 mg PO DAILY [facility] Last Admin: 09/16/18 09:12 Dose: Not Given Ranolazine (Ranexa) 500 mg PO BID [facility] Last Admin: 09/16/18 09:11 Dose: Not Given Rosuvastatin Calcium (Crestor) 5 mg PO HS [facility] Last Admin: 09/15/18 21:32 Dose: 5 mg Vitamin B Complex/Vit C/Folic Acid (Nephro-Federica) 1 tab PO 0800 [facility] Last Admin: 09/16/18 07:31 Dose: 1 tab - Labs Labs: 09/12/18 22:23 09/12/18 22:23 PT 14.6 SECONDS (9.7-12.2) H 09/12/18 22:23 INR 1.3 09/12/18 22:23 APTT 33 SECONDS (21-34) 09/12/18 22:23
--- NOTE | 2018-09-16 11:51 | CP.PCM.PN ---
Subjective - Date & Time of Evaluation Date of Evaluation: 09/16/18 Time of Evaluation: 08:10 - Subjective Subjective: Surgery Progress note for Dr. Gooden. Patient seen and examined at bedside. patient states his left foot is feeling much better in pain compared to last few days. patient states pain is approximately 7/10 when he walks, but only 2/10 when he is sitting. patient denies headaches, vision changes, chest pain, SOB, dysuria, hematuria, abdominal pain, fevers, chills. Objective - Vital Signs/Intake and Output Vital Signs (last 24 hours): Temp Pulse Resp BP Pulse Ox 98.1 F 71 16 141/77 95 09/16/18 08:50 09/16/18 08:50 09/16/18 08:50 09/16/18 09:58 09/16/18 08:42 Intake and Output: 09/16/18 09/16/18 06:59 18:59 Intake Total 350 120 Output Total 300 Balance 50 120 - Medications Medications: Current Medications Aspirin (Aspirin Chewable) 81 mg PO DAILY [facility] Last Admin: 09/16/18 09:11 Dose: Not Given Atenolol (Tenormin) 50 mg PO DAILY [facility] Last Admin: 09/16/18 09:11 Dose: Not Given Clopidogrel Bisulfate (Plavix) 75 mg PO DAILY [facility] Last Admin: 09/16/18 09:11 Dose: Not Given Enoxaparin Sodium (Lovenox) 30 mg SC DAILY [facility] Last Admin: 09/16/18 09:11 Dose: Not Given Epoetin Danny (Procrit) 4,000 unit IV [facility] [place] Last Admin: 09/14/18 16:14 Dose: 4,000 unit Home Med (Ropinirole [Requip]) 1 mg PO TID [facility] Hydralazine HCl (Apresoline) 25 mg PO QID [facility] Last Admin: 09/16/18 09:11 Dose: Not Given Hydromorphone HCl (Dilaudid) 2 mg IVP Q4H PRN PRN Reason: Pain, severe (8-10) Last Admin: 09/16/18 09:07 Dose: 2 mg Vancomycin HCl 500 mg/ Sodium (Chloride) 100 mls @ 100 mls/hr IVPB [facility] [place] Stop: 09/28/18 09:01 Last Admin: 09/16/18 09:11 Dose: Not Given Insulin Aspart (Novolog) 0 unit SC ACHS [facility]; Protocol Last Admin: 09/16/18 07:29 Dose: Not Given Losartan Potassium (Cozaar) 50 mg PO QPM [facility] Last Admin: 09/15/18 17:29 Dose: 50 mg Pregabalin (Lyrica) 75 mg PO DAILY [facility] Last Admin: 09/16/18 09:12 Dose: Not Given Ranolazine (Ranexa) 500 mg PO BID [facility] Last Admin: 09/16/18 09:11 Dose: Not Given Rosuvastatin Calcium (Crestor) 5 mg PO HS [facility] Last Admin: 09/15/18 21:32 Dose: 5 mg Vitamin B Complex/Vit C/Folic Acid (Nephro-Federica) 1 tab PO 0800 [facility] Last Admin: 09/16/18 07:31 Dose: 1 tab - Labs Labs: 09/12/18 22:23 09/12/18 22:23 PT 14.6 SECONDS (9.7-12.2) H 09/12/18 22:23 INR 1.3 09/12/18 22:23 APTT 33 SECONDS (21-34) 09/12/18 22:23 - Constitutional Appears: Non-toxic, No Acute Distress - Eye Exam Eye Exam: Normal appearance - ENT Exam ENT Exam: Mucous Membranes Moist - Respiratory Exam Respiratory Exam: Clear to Ausculation Bilateral, NORMAL BREATHING PATTERN. absent: Rales, Rhonchi, Wheezes - Cardiovascular Exam Cardiovascular Exam: +S1, +S2, Murmur - GI/Abdominal Exam GI & Abdominal Exam: Soft, Normal Bowel Sounds - Extremities Exam Extremities Exam: Full ROM. absent: Calf Tenderness, Pedal Edema Additional comments: b/l lower extremity tenderness to the foot. left worse than right Gangrenous changes to R toes, L 5th digit, and heels bilaterally. No discharge noted Right bypass graft palpable throughout, proximal to distal. Cherise in place - Back Exam Back Exam: absent: CVA tenderness (L), CVA tenderness (R) - Neurological Exam Neurological Exam: Alert, Awake, Oriented x3 - Psychiatric Exam Psychiatric exam: Normal Affect, Normal Mood Assessment and Plan - Assessment and Plan (Free Text) Assessment: 63yo M with b/l severe PVD. s/p Right Fem-to-ant tib bypass on 09/03/18. Plan: - We will plan for OR tomorrow AM for L fem to pop bypass - NPO past midnight - medical maximization per primary - Pain management Further recs as per Dr. Berkley Tovar, PGY1 surgery
[2018-09-16] MEDS: EPOETIN ALFA 4,000 UNIT/ML ML Dialysis IV SCH (12:23)
--- NOTE | 2018-09-16 16:29 | CP.PCM.PN ---
Subjective - Date & Time of Evaluation Date of Evaluation: 09/16/18 Time of Evaluation: 16:28 Objective - Vital Signs/Intake and Output Vital Signs (last 24 hours): Temp Pulse Resp BP Pulse Ox 98 F 71 16 140/60 97 09/16/18 12:30 09/16/18 12:30 09/16/18 12:30 09/16/18 12:30 09/16/18 12:30 Intake and Output: 09/16/18 09/16/18 06:59 18:59 Intake Total 350 120 Output Total 300 Balance 50 120 - Medications Medications: Current Medications Aspirin (Aspirin Chewable) 81 mg PO DAILY [facility] Last Admin: 09/16/18 09:11 Dose: Not Given Atenolol (Tenormin) 50 mg PO DAILY [facility] Last Admin: 09/16/18 13:20 Dose: 50 mg Clopidogrel Bisulfate (Plavix) 75 mg PO DAILY [facility] Last Admin: 09/16/18 09:11 Dose: Not Given Enoxaparin Sodium (Lovenox) 30 mg SC DAILY [facility] Last Admin: 09/16/18 09:11 Dose: Not Given Epoetin Danny (Procrit) 4,[address] [facility] [place] Last Admin: 09/16/18 12:23 Dose: 4,000 unit Home Med (Ropinirole [Requip]) 1 mg PO TID [facility] Hydralazine HCl (Apresoline) 25 mg PO QID [facility] Last Admin: 09/16/18 13:20 Dose: 25 mg Hydromorphone HCl (Dilaudid) 2 mg IVP Q4H PRN PRN Reason: Pain, severe (8-10) Last Admin: 09/16/18 13:16 Dose: 2 mg Vancomycin HCl 500 mg/ Sodium (Chloride) 100 mls @ 100 mls/hr IVPB [facility] [place] Stop: 09/28/18 09:01 Last Admin: 09/16/18 13:21 Dose: 100 mls/hr Insulin Aspart (Novolog) 0 unit SC [facility]; Protocol Last Admin: 09/16/18 12:29 Dose: Not Given Losartan Potassium (Cozaar) 50 mg PO QPM [facility] Last Admin: 09/15/18 17:29 Dose: 50 mg Pregabalin (Lyrica) 75 mg PO DAILY [facility] Last Admin: 09/16/18 13:20 Dose: 75 mg Ranolazine (Ranexa) 500 mg PO BID [facility] Last Admin: 09/16/18 09:11 Dose: Not Given Rosuvastatin Calcium (Crestor) 5 mg PO HS [facility] Last Admin: 09/15/18 21:32 Dose: 5 mg Vitamin B Complex/Vit C/Folic Acid (Nephro-Federica) 1 tab PO 0800 [facility] Last Admin: 09/16/18 07:31 Dose: 1 tab - Labs Labs: 09/12/18 22:23 09/12/18 22:23 PT 14.6 SECONDS (9.7-12.2) H 09/12/18 22:23 INR 1.3 09/12/18 22:23 APTT 33 SECONDS (21-34) 09/12/18 22:23
[2018-09-16 19:50] LABS: CALCIUM 8.6 mg/dl (8.6-10.4)
--- NOTE | 2018-09-17 00:47 | CP.PCM.PN ---
Subjective - Date & Time of Evaluation Date of Evaluation: 09/16/18 Time of Evaluation: 14:00 - Subjective Subjective: Podiatry Progress Note- Dr. Youngblood 63 year old male with PMHx of DM, PVD, HTN, ESRD, CHF seen and evaluated for dry gangrene digits B/L feet- stable with attending Dr. Youngblood. Patient seen resting comfortably in bed, in NAD, and AA0x3. Patient reports same pain to the foot, left foot is worse than right foot. Patient reports is considering surgical intervention to treat the digits. Denies nausea, fever, shortness of breath, chest pains or chills. Objective - Vital Signs/Intake and Output Vital Signs (last 24 hours): Temp Pulse Resp BP Pulse Ox 98 F 89 20 136/61 96 09/16/18 16:00 09/16/18 16:00 09/16/18 16:00 09/16/18 16:00 09/16/18 16:00 Intake and Output: 09/16/18 09/17/18 18:59 06:59 Intake Total 120 300 Output Total 200 Balance 120 100 - Medications Medications: Current Medications Aspirin (Aspirin Chewable) 81 mg PO DAILY [facility] Last Admin: 09/16/18 09:11 Dose: Not Given Atenolol (Tenormin) 50 mg PO DAILY [facility] Last Admin: 09/16/18 13:20 Dose: 50 mg Clopidogrel Bisulfate (Plavix) 75 mg PO DAILY [facility] Last Admin: 09/16/18 09:11 Dose: Not Given Enoxaparin Sodium (Lovenox) 30 mg SC DAILY [facility] Last Admin: 09/16/18 09:11 Dose: Not Given Epoetin Danny (Procrit) 4,000 unit IV MWF [facility] Last Admin: 09/16/18 12:23 Dose: 4,000 unit Home Med (Ropinirole [Requip]) 1 mg PO TID [facility] Hydralazine HCl (Apresoline) 25 mg PO QID [facility] Last Admin: 09/16/18 22:13 Dose: 25 mg Hydromorphone HCl (Dilaudid) 2 mg IVP Q4H PRN PRN Reason: Pain, severe (8-10) Last Admin: 09/16/18 22:16 Dose: 2 mg Vancomycin HCl 500 mg/ Sodium (Chloride) 100 mls @ 100 mls/hr IVPB MWF [facility] Stop: 09/28/18 09:01 Last Admin: 09/16/18 13:21 Dose: 100 mls/hr Insulin Aspart (Novolog) 0 unit SC ACHS [facility]; Protocol Last Admin: 09/16/18 22:15 Dose: Not Given Losartan Potassium (Cozaar) 50 mg PO QPM [facility] Last Admin: 09/16/18 17:26 Dose: 50 mg Pregabalin (Lyrica) 75 mg PO DAILY [facility] Last Admin: 09/16/18 13:20 Dose: 75 mg Ranolazine (Ranexa) 500 mg PO BID [facility] Last Admin: 09/16/18 17:26 Dose: 500 mg Rosuvastatin Calcium (Crestor) 5 mg PO HS [facility] Last Admin: 09/16/18 22:13 Dose: 5 mg Vitamin B Complex/Vit C/Folic Acid (Nephro-Federica) 1 tab PO 0800 [facility] Last Admin: 09/16/18 07:31 Dose: 1 tab - Labs Labs: 09/12/18 22:23 09/16/18 19:33 PT 14.6 SECONDS (9.7-12.2) H 09/12/18 22:23 INR 1.3 09/12/18 22:23 APTT 33 SECONDS (21-34) 09/12/18 22:23 - Constitutional Appears: Well, Non-toxic, No Acute Distress - Extremities Exam Extremities Exam: absent: Calf Tenderness Additional comments: VASC: DP and PT unpapable, temperature gradient warm to warm to right lower extremity, temperature gradient cool to cool to left lower extremity, mild swelling noted to the forefoot B/L ORTHO: pain with palpation to the digits, able to wiggle toes, MM is 4/5 in all four compartments, no calf pain or tenderness with palpation NEURO: gross sensation intact, protective sensation diminished DERM: Right foot: 1st, 2nd, 3rd digit with necrotic distal tips, dry gangrene, no opening, no drainage, no odor or purulence, no erythema, blue-wanda purple discoloration noted to the dorsum of forefoot at the level of the MPJs. 4th digit with blue-wanda/purple discoloration. Eschar heel noted measuring approximately 2cm x 3cm, depth unstageable. No opening, no drainage, no odor or purulence. No clinical signs of infection Left foot: 4th and 5th digit with necrotic changes, dry gangrene, no opening, no drainage, no odor or purulence, no erythema, surrounding necrotic tissue was skin color blue-wanda purple. Eschar heel noted measuring approximately 2cm x 3cm, depth unstageable. No opening, no drainage, no odor or purulence. No clinical signs of infection Xerosis noted to the entire LE - Neurological Exam Neurological Exam: Alert, Awake, Oriented x3 - Psychiatric Exam Psychiatric exam: Normal Affect, Normal Mood Assessment and Plan - Assessment and Plan (Free Text) Assessment: 63 year old male with PMHx of DM, PVD, HTN, ESRD, CHF seen and evaluated for dry gangrene digits B/L feet- stable Plan: Patient seen and evaluated with attending Dr. Youngblood Discussed plan with attending Dr. Youngblood Lab, chart, vitals reviewed- WBC 7.8 on 09/12/18 No dressing needed at this time Ordered multipodus boots. To be worn at all times while in bed Discussed with patient possible amputation vs autoamputation of right dry gangrene All questions concerns addressed Patient may possibility go for amputation or right gangrene digits Will discuss with Dr. Gooden Will continue to follow while in house
[2018-09-17 06:19] LABS: BASO % 0.6 % (0.0-2.0); EOS # 0.3 K/uL (0.0-0.7); HEMOGLOBIN 9.1 g/dL (12.0-18.0); LYMPH # 1.3 K/uL (1.0-4.3); LYMPH % 19.5 % (20.0-40.0); MEAN CELL VOLUME 98.6 fL (80.0-94.0); MEAN CORPUSCULAR HEMOGLOBIN 33.1 pg (27.0-31.0); MEAN CORPUSCULAR HGB CONC 33.6 g/dL (33.0-37.0); MEAN PLATELET VOLUME 8.5 fL (7.2-11.7); MONO # 0.9 K/uL (0.0-0.8); MONO % 13.9 % (0.0-10.0); RBC 2.75 Mil/uL (4.40-5.90); RED CELL DISTRIBUTION WIDTH 16.1 % (11.5-14.5); WHITE BLOOD COUNT 6.6 K/uL (4.8-10.8)
[2018-09-17 06:36] LABS: INR 1.4; PROTHROMBIN TIME 15.2 SECONDS (9.7-12.2)
[2018-09-17 06:39] LABS: CALCIUM 8.9 mg/dl (8.6-10.4)
[2018-09-17] MEDS ORDERED: HEPARIN-NS 5,000 UNITS/500 ML 10,000 UNIT/1,000 ML BAG IV ONE (07:00)
[2018-09-17] MEDS ORDERED: Thrombin Topical 20,000 Intl Units Spray Kit TOP ONE (07:01)
[2018-09-17] MEDS ORDERED: Iodixanol 320 MG/ML 200 ML BOTTLE IV ONE (07:01)
[2018-09-17] MEDS ORDERED: ceFAZolin 1 gm in NS 2 GM/200 ML BAG IVPB ONE (07:05)
[2018-09-17] MEDS: (Novolog) Insulin Aspart, Recombinant 100 u/ml 10 ml vial SC SCH ×3 (07:49→21:37)
[2018-09-17] MEDS: Multivitamin Vitamin B Complex (Nephro-Vite) Tab PO SCH (07:49)
[2018-09-17] MEDS ORDERED: Rocuronium 10 mg/ml (10 ml) ONE ×2 (07:56→08:57)
[2018-09-17] MEDS ORDERED: Etomidate 20 mg/10ml Inj IV ONE (07:57)
[2018-09-17] MEDS ORDERED: Lidocaine Hydrochloride 5 ML INJ ONE (08:02)
[2018-09-17] MEDS ORDERED: ePHEDrine 50 mg/ml Inj ONE ×3 (08:23→12:45)
[2018-09-17] MEDS ORDERED: Iohexol 240 200 ML ONE (08:51)
[2018-09-17] MEDS: Enoxaparin 30 mg Syringe SC SCH (09:03)
[2018-09-17] MEDS: Ranolazine 500 mg Extended Release Tablets PO SCH ×2 (11:15→18:00)
[2018-09-17] MEDS ORDERED: ceFAZolin 1 gm in NS 1 GM/100 ML BAG IVPB ONE (12:15)
--- NOTE | 2018-09-17 12:50 | RAD ---
Date of service: 09/17/2018 PROCEDURE: Intraoperative fluoroscopy HISTORY: PERIPHERAL VASCULAR DISESASE COMPARISON: Not available TECHNIQUE: Intraoperative fluoroscopy was provided for angiography total time of fluoroscopy was 19.9 sec. Cumulative dose was 2.00 mGy. FINDINGS: Multiple fluoroscopic spot films are submitted. IMPRESSION: Fluoroscopy provided
[2018-09-17] MEDS ORDERED: Neostigmine 1:1000 (1 mg/ml) Inj ONE (13:29)
[2018-09-17] MEDS: HYDROmorphone 0.5 mg/0.5 ml ISec IVP PRN ×4 (13:50→15:45)
[2018-09-17] MEDS ORDERED: HYDROmorphone 0.5 mg/0.5 ml ISec ONE (13:53)
--- NOTE | 2018-09-17 13:54 | PCM.SURG1 ---
Surgeon's Initial Post Op Note - Surgeon's Notes Surgeon: Berkley Deputy Sheriff Generalist/Bailiff: [id number] Type of Anesthesia: General Endo Pre-Operative Diagnosis: Severe PVD Operative Findings: Good flow through graft Post-Operative Diagnosis: Severe PVD Operation Performed: Left femoral-popliteal bypass with gortex graft and intraoperative arteriogram Specimen/Specimens Removed: N/A Estimated Blood Loss: EBL {In ML}: 500 Blood Products Given: N/A Drains Used: No Drains Post-Op Condition: Good Date of Surgery/Procedure: 09/17/18 Time of Surgery/Procedure: 07:45
[2018-09-17] MEDS ORDERED: Dexamethasone 4 mg/1 ml IVP PRN (14:00)
--- NOTE | 2018-09-17 17:05 | CP.PCM.PN ---
Subjective - Date & Time of Evaluation Date of Evaluation: 09/17/18 Time of Evaluation: 17:03 - Subjective Subjective: Nephrology Consultation Note: Assessment: Stable PVD s/p Right common fem-to-ant tibial bypass on 09/03/18, left fem pop bypass 09/17/18 mild hyponatremia missed HD obesity Diabetic chronic Kidney Disease (E11.22) Hypertensive Chronic Kidney Disease (I12.0) End stage renal disease (N18.6) dependence on hemodialysis (Z99.2) (MWF) via AVF Anemia (D64.9), Hyperphosphatemia (E83.39), Secondary Hyperparathyroidism (E21.1), HTN (I12.0) Plan: Will plan for dialysis per MWF schedule. Continue with Nephrovite 1 tab/day. PRBC as needed for anemia. on JENA with dialysis as last Hb 9.4 Continue with phos binders, last phos level: 6.8 BP control with meds as ordered. Patient on RAAS francia as losartan Glycemic control, Dialysis consistent diet Further work up/management as per primary team Dose meds/antibiotics (if needed) for ESRD status. Avoid fleets enema/magnesium based laxatives. vascular surgery following. s/p bypass on left leg Thanks for allowing me to participate in care of your patient. Will follow patient with you. Please call if any Qs Dr Sal Aguayo Office: [phone] Chief Complaint;leg pain HPI: Pt is a 63 M with hx of ESRD on hemodialysis (MWF) via AVF, last dialysis thur with Dr Quinonez (usually at [place]), chronic anemia, hyperphosphatemia, secondary hyperparathyroidism, Diabetes Mellitus, hypertension PVD s/p Right common fem-to-ant tibial bypass on 09/03/18 presented with complaints of persistent feets pain Renal consult requested for ESRD management. pt c/o feet pain. was d/c to rehab recently denies SOB ROS: has it on left side s/p bypass Cardiovascular: No chest pain. Pulmonary: No shortness of breath Gastrointestinal: denies abdominal pain No nausea. No vomiting. Genitourinary: No pain while urinating. Denies blood in urine. All other negative except as mentioned in HPI Physical Examination: seen in PACU General Appearance: Comfortable, in no acute respiratory distress, co-operative . obese Vitals reviewed and noted as below Head; Atraumatic, normocephalic ENT: no ulcers no thrush. Tongue is midline. Oropharynx: no rash or ulcers. EYES: Pupils are equal, round and reactive to light accommodation. Eye muscles and extraocular movement intact. Sclera is anicteric. Neck; supple no lymphadenopathy, no thyromegaly or bruit Lungs: Normal respiratory rate/effort. Breath sounds bilateral equal and clear Heart: Normal rate. s1s2 normal. No rub or gallop. Extremities: trace edema. No varicose veins. s/p Rt leg vasc surgery Neurological: Patient is alert, awake and oriented to person, place and time. No focal deficit. Strength bilateral appropriate and equal Skin: Warm and dry. Normal turgor. No rash. Palpitation: Normal elasticity for age Abdomen: Abdomen is soft. Bowel sounds +. There is no abdominal tenderness, no guarding/rigidity or organomegaly Psych: normal insight and normal affect/mood MSK: no joint tenderness or swelling. toes gangrenous changes + : kidney or bladder not palpable Access: AVF Labs/imaging reviewed. Past medical history, past surgical history, family history, social history, allergy reviewed and noted as below Family Hx: no hx of CKD. Non contributory Objective - Vital Signs/Intake and Output Vital Signs (last 24 hours): Temp Pulse Resp BP Pulse Ox 98.9 F 63 11 L 123/50 L 100 09/17/18 13:48 09/17/18 16:00 09/17/18 16:00 09/17/18 16:00 09/17/18 16:00 Intake and Output: 09/17/18 09/17/18 06:59 18:59 Intake Total 300 1375 Output Total 200 Balance 100 1375 - Medications Medications: Current Medications Aspirin (Aspirin Chewable) 81 mg PO DAILY [facility] Last Admin: 09/17/18 09:04 Dose: Not Given Atenolol (Tenormin) 50 mg PO DAILY [facility] Last Admin: 09/17/18 11:15 Dose: Not Given Clopidogrel Bisulfate (Plavix) 75 mg PO DAILY [facility] Last Admin: 09/17/18 09:04 Dose: Not Given Enoxaparin Sodium (Lovenox) 30 mg SC DAILY [facility] Last Admin: 09/17/18 09:03 Dose: Not Given Epoetin Danny (Procrit) 4,000 [place] [facility] [place] Last Admin: 09/16/18 12:23 Dose: 4,000 unit Hydralazine HCl (Apresoline) 25 mg PO QID [facility] Last Admin: 09/17/18 09:03 Dose: Not Given Hydromorphone HCl (Dilaudid) 2 mg IVP Q4H PRN PRN Reason: Pain, severe (8-10) Last Admin: 09/17/18 06:37 Dose: 2 mg Vancomycin HCl 500 mg/ Sodium (Chloride) 100 mls @ 100 mls/hr IVPB [facility] Stop: 09/28/18 09:01 Last Admin: 09/16/18 13:21 Dose: 100 mls/hr Insulin Aspart (Novolog) 0 unit SC [facility]; Protocol Last Admin: 09/17/18 11:59 Dose: Not Given Losartan Potassium (Cozaar) 50 mg PO QPM [facility] Last Admin: 09/17/18 06:37 Dose: 50 mg Pregabalin (Lyrica) 75 mg PO DAILY [facility] Last Admin: 09/17/18 09:04 Dose: Not Given Ranolazine (Ranexa) 500 mg PO BID [facility] Last Admin: 09/17/18 11:15 Dose: Not Given Rosuvastatin Calcium (Crestor) 5 mg PO HS [facility] Last Admin: 09/16/18 22:13 Dose: 5 mg Sevelamer Carbonate (Renvela) 800 mg PO TIDCC [facility] Last Admin: 09/17/18 12:24 Dose: Not Given Vitamin B Complex/Vit C/Folic Acid (Nephro-Federica) 1 tab PO 0800 [facility] Last Admin: 09/17/18 07:49 Dose: Not Given - Labs Labs: 09/17/18 06:15 09/17/18 06:15 PT 15.2 SECONDS (9.7-12.2) H 09/17/18 06:15 INR 1.4 09/17/18 06:15 APTT 36 SECONDS (21-34) H 09/17/18 06:15
[2018-09-17 17:12] LABS: HEMOGLOBIN 8.9 g/dL (12.0-18.0); MEAN CELL VOLUME 97.6 fL (80.0-94.0); MEAN CORPUSCULAR HEMOGLOBIN 31.4 pg (27.0-31.0); MEAN CORPUSCULAR HGB CONC 32.2 g/dL (33.0-37.0); MEAN PLATELET VOLUME 8.5 fL (7.2-11.7); RBC 2.82 Mil/uL (4.40-5.90); RED CELL DISTRIBUTION WIDTH 15.9 % (11.5-14.5)
[2018-09-17 17:14] LABS: WHITE BLOOD COUNT 12.1 K/uL (4.8-10.8)
--- NOTE | 2018-09-17 18:55 | CP.PCM.PN ---
Subjective - Date & Time of Evaluation Date of Evaluation: 09/17/18 Time of Evaluation: 18:55 Objective - Vital Signs/Intake and Output Vital Signs (last 24 hours): Temp Pulse Resp BP Pulse Ox 98.9 F 65 11 L 127/45 L 100 09/17/18 13:48 09/17/18 17:00 09/17/18 17:00 09/17/18 17:00 09/17/18 17:00 Intake and Output: 09/17/18 09/17/18 06:59 18:59 Intake Total 300 1375 Output Total 200 Balance 100 1375 - Medications Medications: Current Medications Aspirin (Aspirin Chewable) 81 mg PO DAILY [facility] Last Admin: 09/17/18 09:04 Dose: Not Given Atenolol (Tenormin) 50 mg PO DAILY [facility] Last Admin: 09/17/18 11:15 Dose: Not Given Clopidogrel Bisulfate (Plavix) 75 mg PO DAILY [facility] Last Admin: 09/17/18 09:04 Dose: Not Given Enoxaparin Sodium (Lovenox) 30 mg SC DAILY [facility] Last Admin: 09/17/18 09:03 Dose: Not Given Epoetin Danny (Procrit) 4,000 unit IV [facility] [place] Last Admin: 09/16/18 12:23 Dose: 4,000 unit Hydralazine HCl (Apresoline) 25 mg PO QID [facility] Last Admin: 09/17/18 09:03 Dose: Not Given Hydromorphone HCl (Dilaudid) 2 mg IVP Q4H PRN PRN Reason: Pain, severe (8-10) Last Admin: 09/17/18 17:10 Dose: 2 mg Vancomycin HCl 500 mg/ Sodium (Chloride) 100 mls @ 100 mls/hr IVPB [facility] [place] Stop: 09/28/18 09:01 Last Admin: 09/16/18 13:21 Dose: 100 mls/hr Insulin Aspart (Novolog) 0 unit SC [facility]; Protocol Last Admin: 09/17/18 11:59 Dose: Not Given Losartan Potassium (Cozaar) 50 mg PO QPM [facility] Last Admin: 09/17/18 06:37 Dose: 50 mg Pregabalin (Lyrica) 75 mg PO DAILY [facility] Last Admin: 09/17/18 09:04 Dose: Not Given Ranolazine (Ranexa) 500 mg PO BID [facility] Last Admin: 09/17/18 18:00 Dose: 500 mg Rosuvastatin Calcium (Crestor) 5 mg PO HS [facility] Last Admin: 09/16/18 22:13 Dose: 5 mg Sevelamer Carbonate (Renvela) 800 mg PO TIDCC [facility] Last Admin: 09/17/18 12:24 Dose: Not Given Vitamin B Complex/Vit C/Folic Acid (Nephro-Federica) 1 tab PO 0800 [facility] Last Admin: 09/17/18 07:49 Dose: Not Given - Labs Labs: 09/17/18 16:15 09/17/18 06:15 PT 15.2 SECONDS (9.7-12.2) H 09/17/18 06:15 INR 1.4 09/17/18 06:15 APTT 36 SECONDS (21-34) H 09/17/18 06:15
--- NOTE | 2018-09-18 01:15 | OP ---
PROCEDURE DATE: 09/17/2018 PREOPERATIVE DIAGNOSES: Gangrene, left foot and intractable rest pain. PROCEDURE CARRIED OUT: Left femoropopliteal bypass using polytetrafluoroethylene graft, 6-mm, ring graft, PROPATEN type with intraoperative arteriogram. The operations were difficult initially due to the scarring from previous interventions in the groin and general edema and woodiness of the tissue. The operation took over five hours. SURGEON: Ryan Gooden Jr., MD DESCRIPTION OF PROCEDURE: The patient was given general anesthesia and intravenous antibiotics. The vein was marked down on the skin with ultrasound guidance. Despite the mapping the vein particularly in the mid thigh which we directly inspected was inadequate for use as bypass and because of this, we abandoned our attempt to bypass using the patient's own vein. We then turned our attention to other available conduits. We did not have a bovine graft long enough, we then used a PTFE graft. The problem associated with this was two hours of oozing from the anastomosis after we had done, but eventually it was controlled and satisfactory prior to closure. The vein was harvested as I mentioned in the mid thigh and it was inadequate . We then dissected out the popliteal artery below the knee which was very difficult, and we dissected out the groin which was even more difficult. After we dissected down the vessels, we created a subcutaneous tunnel. We gave heparin. We carried out the distal anastomosis using loupe magnification, heparin anticoagulation and tourniquet control. We then brought the graft through the tunnel, carried out an intraoperative arteriogram which was satisfactory and then completed the proximal anastomosis to the origin of the superficial femoral artery. This was again adequate. Hemostasis was always a problem with the [place]-Richi graft, but eventually this was controlled and the skin was closed with skin clips and nylon sutures. Blood loss to the procedure was 500 mL, one unit given. Operation, left femoropopliteal bypass using PTFE with intraoperative arteriogram. The operation was more difficult due to the scarring and time Ryan Gooden Jr., MD [id number]
[2018-09-18 04:59] LABS: HEMOGLOBIN 9.1 g/dL (12.0-18.0); MEAN CORPUSCULAR HEMOGLOBIN 31.8 pg (27.0-31.0); MEAN CORPUSCULAR HGB CONC 32.8 g/dL (33.0-37.0); MEAN PLATELET VOLUME 8.6 fL (7.2-11.7); RBC 2.86 Mil/uL (4.40-5.90); RED CELL DISTRIBUTION WIDTH 16.2 % (11.5-14.5); WHITE BLOOD COUNT 8.6 K/uL (4.8-10.8)
[2018-09-18 05:59] LABS: CALCIUM 8.1 mg/dl (8.6-10.4)
[2018-09-18] MEDS: (Novolog) Insulin Aspart, Recombinant 100 u/ml 10 ml vial SC SCH ×4 (07:30→21:55)
--- NOTE | 2018-09-18 07:39 | CP.PCM.CON ---
History of Present Illness - History of Present Illness History of Present Illness: 63yo M with PMHx of severe PVD, HTN, ESRD, DM, CHF and recent R common fem-to-ant tibial bypass on 09/03/18 here for evaluation of bilateral lower extremity pain, left greater than right, he is s/p left fem-pop bypass with graft, lost about 500ml of blood, he has lateral 2 toes gangrenous on the left side. Patient was given 1 unit prbc post op. Hemodynamically stable, alert, oriented, pain in control started to have feeling in the left foot post op. PMHx: PVD, HTN, ESRD on HD, DM, CHF PSHx: L UE AV Shunt, R fem-to-ant tibial bypass 09/03/18 Family Hx: non-contributory Social Hx: Denies illicit drugs, denies ETOH abuse, denies tobacco use Allergy: Shellfish Review of Systems - Review of Systems All systems: reviewed and no additional remarkable complaints except (HPI) Past Patient History - Infectious Disease Hx of Infectious Diseases: None - Past Medical History & Family History Past Medical History?: Yes - Past Social History Smoking Status: Never Smoked - CARDIAC Hx Hypercholesterolemia: Yes Hx Hypertension: Yes - PULMONARY Hx Respiratory Disorders: No - NEUROLOGICAL Hx Neurological Disorder: No - HEENT Hx HEENT Problems: Yes Hx Cataracts: Yes (RIGHT EYE) - RENAL Hx Chronic Kidney Disease: Yes Type of Dialysis Access: left AV shunt Hx Kidney Stones: No - ENDOCRINE/METABOLIC Hx Diabetes Mellitus Type 2: Yes - HEMATOLOGICAL/ONCOLOGICAL Hx Blood Disorders: No - INTEGUMENTARY Hx Dermatological Problems: No - MUSCULOSKELETAL/RHEUMATOLOGICAL Hx Falls: No Hx Fractures: Yes - GASTROINTESTINAL Hx Gastrointestinal Disorders: No - GENITOURINARY/GYNECOLOGICAL Hx Genitourinary Disorders: No - PSYCHIATRIC Hx Anxiety: Yes Hx Depression: Yes Hx Substance Use: No - SURGICAL HISTORY Hx Surgeries: Yes Hx Herniorrhaphy: Yes Other/Comment: lEFT Av Shunt on the left arm.Post anterior tibia bypass done 12 days ago. - ANESTHESIA Hx Anesthesia: Yes Hx Anesthesia Reactions: No Hx Malignant Hyperthermia: No Meds Allergies/Adverse Reactions: Allergies Allergy/AdvReac Type Severity Reaction Status Date / Time shellfish derived Allergy Intermediate DIZZINESS Verified 09/12/18 21:57 - Medications Medications: Current Medications Aspirin (Aspirin Chewable) 81 mg PO DAILY [facility] Last Admin: 09/17/18 09:04 Dose: Not Given Atenolol (Tenormin) 50 mg PO DAILY [facility] Last Admin: 09/17/18 11:15 Dose: Not Given Clopidogrel Bisulfate (Plavix) 75 mg PO DAILY [facility] Last Admin: 09/17/18 09:04 Dose: Not Given Enoxaparin Sodium (Lovenox) 30 mg SC DAILY [facility] Last Admin: 09/17/18 09:03 Dose: Not Given Epoetin Danny (Procrit) 4,000 unit [place] [facility] [place] Admin: 09/16/18 12:23 Dose: 4,000 unit Hydralazine HCl (Apresoline) 25 mg PO QID [facility] Last Admin: 09/17/18 21:16 Dose: 25 mg Hydromorphone HCl (Dilaudid) 2 mg IVP Q4H PRN PRN Reason: Pain, severe (8-10) Last Admin: 09/18/18 05:00 Dose: 2 mg Vancomycin HCl 500 mg/ Sodium (Chloride) 100 mls @ 100 mls/hr IVPB [facility] [place] Stop: 09/28/18 09:01 Last Admin: 09/16/18 13:21 Dose: 100 mls/hr Insulin Aspart (Novolog) 0 unit SC [facility]; Protocol Last Admin: 09/17/18 21:37 Dose: Not Given Losartan Potassium (Cozaar) 50 mg PO QPM [facility] Last Admin: 09/17/18 06:37 Dose: 50 mg Pregabalin (Lyrica) 75 mg PO DAILY [facility] Last Admin: 09/17/18 09:04 Dose: Not Given Ranolazine (Ranexa) 500 mg PO BID [facility] Last Admin: 09/17/18 18:00 Dose: 500 mg Rosuvastatin Calcium (Crestor) 5 mg PO HS [facility] Last Admin: 09/17/18 21:16 Dose: 5 mg Sevelamer Carbonate (Renvela) 800 mg PO TIDCC [facility] Last Admin: 09/17/18 12:24 Dose: Not Given Vitamin B Complex/Vit C/Folic Acid (Nephro-Federica) 1 tab PO 0800 [facility] Last Admin: 09/17/18 07:49 Dose: Not Given Physical Exam - Additional Findings Additional findings: * HEENT MEGHANN * Neck Supple * Chest Clear * CVS Regular, systolic murmur in aortic area * PA soft, nt bs present * Ext right medial 3 toes gangrenous, prior surgery stable intact in the wiley area, left leg in dressing, left lateral 2 toes gangrenous in the tips, both legs PT and DP only doppler pulses * WASHER MACHINE awake, oriented x3 * Skin normal turgor Results - Vital Signs Recent Vital Signs: Last Vital Signs Temp 98.5 F 09/18/18 06:00 Pulse 77 09/18/18 06:01 Resp 13 09/18/18 06:01 BP 114/56 L 09/18/18 06:01 Pulse Ox 100 09/18/18 06:01 - Labs Result Diagrams: 09/18/18 04:57 09/18/18 04:57 Labs: Laboratory Results - last 24 hr 09/17/18 09/17/18 09/17/18 06:15 13:52 16:15 WBC 12.1 H D RBC 2.82 L Hgb 8.9 L Hct 27.6 L MCV 97.6 H MCH 31.4 H MCHC 32.2 L RDW 15.9 H Plt Count 338 MPV 8.5 Sodium Potassium Chloride Carbon Dioxide Anion Gap BUN Creatinine Est GFR ( Amer) Est GFR (Non-Af Amer) POC Glucose (mg/dL) 110 Random Glucose Calcium Blood Type O POSITIVE Antibody Screen Negative 09/17/18 09/17/18 09/18/18 17:11 21:30 04:57 WBC 8.6 RBC 2.86 L Hgb 9.1 L Hct 27.8 L MCV 97.0 H MCH 31.8 H MCHC 32.8 L RDW 16.2 H Plt Count 295 MPV 8.6 Sodium Potassium Chloride Carbon Dioxide Anion Gap BUN Creatinine Est GFR ( Amer) Est GFR (Non-Af Amer) POC Glucose (mg/dL) 99 127 H Random Glucose Calcium Blood Type Antibody Screen 09/18/18 04:57 WBC RBC Hgb Hct MCV MCH MCHC RDW Plt Count MPV Sodium 129 L Potassium 4.6 Chloride 93 L Carbon Dioxide 24 Anion Gap 17 BUN 47 H Creatinine 7.6 H* D Est GFR ( Amer) 9 Est GFR (Non-Af Amer) 7 POC Glucose (mg/dL) Random Glucose 111 H Calcium 8.1 L Blood Type Antibody Screen Assessment & Plan - Assessment and Plan (Free Text) Assessment: s/p left fem-pop bypass Post of prbc Recent right fem-ant tibial bypass Possible amputation of the gangrenous toes after optimizing the circulation ESRD on hd DM diet control HTN stable Supportive care see orders for detail.
[2018-09-18] MEDS ORDERED: HYDROmorphone 1 mg/ml ISec IVP ONE (08:00)
[2018-09-18] MEDS: Multivitamin Vitamin B Complex (Nephro-Vite) Tab PO SCH (08:33)
--- NOTE | 2018-09-18 09:00 | CP.PCM.PN ---
Subjective - Date & Time of Evaluation Date of Evaluation: 09/18/18 Time of Evaluation: 07:05 - Subjective Subjective: Vascular Surgery Pt seen and examined. Reports LLE pain, helped by meds. No other complaints. Refused second unit of blood but received 1 U PRBCs overnight Objective - Vital Signs/Intake and Output Vital Signs (last 24 hours): Temp Pulse Resp BP Pulse Ox 98.1 F 68 14 129/44 L 100 09/18/18 08:00 09/18/18 08:01 09/18/18 08:01 09/18/18 08:47 09/18/18 08:01 Intake and Output: 09/18/18 09/18/18 06:59 18:59 Intake Total 1100 50 Output Total 0 Balance 1100 50 - Medications Medications: Current Medications Aspirin (Aspirin Chewable) 81 mg PO DAILY [facility] Last Admin: 09/17/18 09:04 Dose: Not Given Atenolol (Tenormin) 50 mg PO DAILY [facility] Last Admin: 09/17/18 11:15 Dose: Not Given Clopidogrel Bisulfate (Plavix) 75 mg PO DAILY [facility] Last Admin: 09/17/18 09:04 Dose: Not Given Enoxaparin Sodium (Lovenox) 30 mg SC DAILY [facility] Last Admin: 09/17/18 09:03 Dose: Not Given Epoetin Danny (Procrit) 4,[address] [facility] [place] Last Admin: 09/16/18 12:23 Dose: 4,000 unit Hydralazine HCl (Apresoline) 25 mg PO QID [facility] Last Admin: 09/17/18 21:16 Dose: 25 mg Hydromorphone HCl (Dilaudid) 2 mg IVP Q4H PRN PRN Reason: Pain, severe (8-10) Last Admin: 09/18/18 05:00 Dose: 2 mg Vancomycin HCl 500 mg/ Sodium (Chloride) 100 mls @ 100 mls/hr IVPB [facility] [place] Stop: 09/28/18 09:01 Last Admin: 09/16/18 13:21 Dose: 100 mls/hr Insulin Aspart (Novolog) 0 unit SC [facility]; Protocol Last Admin: 09/18/18 07:30 Dose: Not Given Losartan Potassium (Cozaar) 50 mg PO QPM [facility] Last Admin: 09/17/18 06:37 Dose: 50 mg Pregabalin (Lyrica) 75 mg PO DAILY [facility] Last Admin: 09/17/18 09:04 Dose: Not Given Ranolazine (Ranexa) 500 mg PO BID [facility] Last Admin: 09/17/18 18:00 Dose: 500 mg Rosuvastatin Calcium (Crestor) 5 mg PO HS [facility] Last Admin: 09/17/18 21:16 Dose: 5 mg Sevelamer Carbonate (Renvela) 800 mg PO TIDCC [facility] Last Admin: 09/18/18 08:32 Dose: 800 mg Vitamin B Complex/Vit C/Folic Acid (Nephro-Federica) 1 tab PO 0800 [facility] Last Admin: 09/18/18 08:33 Dose: 1 tab - Labs Labs: 09/18/18 04:57 09/18/18 04:57 PT 15.2 SECONDS (9.7-12.2) H 09/17/18 06:15 INR 1.4 09/17/18 06:15 APTT 36 SECONDS (21-34) H 09/17/18 06:15 - Constitutional Appears: Non-toxic, No Acute Distress - Head Exam Head Exam: ATRAUMATIC, NORMOCEPHALIC - Eye Exam Eye Exam: EOMI. absent: Scleral icterus - Respiratory Exam Respiratory Exam: NORMAL BREATHING PATTERN. absent: Respiratory Distress - GI/Abdominal Exam GI & Abdominal Exam: Soft. absent: Distended, Tenderness - Extremities Exam Extremities Exam: Tenderness ( at incisions and along foot.). absent: Pedal Edema Additional comments: Dopplerable signals at AT and PT Dressings C/D/I - Neurological Exam Neurological Exam: Alert, Awake, Oriented x3 - Skin Skin Exam: Dry, Warm Assessment and Plan - Assessment and Plan (Free Text) Assessment: 63M S/P L Fem-pop bypass POD#1 Plan: Pain control PT, Out of bed to chair Vascular checks D/W Dr. Berkley Pozo PGY4
[2018-09-18] MEDS: Ranolazine 500 mg Extended Release Tablets PO SCH ×2 (10:40→17:56)
--- NOTE | 2018-09-18 13:11 | CP.PCM.PN ---
Subjective - Date & Time of Evaluation Date of Evaluation: 09/18/18 Time of Evaluation: 13:10 - Subjective Subjective: Nephrology Consultation Note: Assessment: Stable PVD s/p Right common fem-to-ant tibial bypass on 09/03/18, left fem pop bypass 09/17/18 mild hyponatremia missed HD obesity hyponatremia Diabetic chronic Kidney Disease (E11.22) Hypertensive Chronic Kidney Disease (I12.0) End stage renal disease (N18.6) dependence on hemodialysis (Z99.2) (MWF) via AVF Anemia (D64.9), Hyperphosphatemia (E83.39), Secondary Hyperparathyroidism (E21.1), HTN (I12.0) Plan: Will plan for dialysis per MWF schedule. Continue with Nephrovite 1 tab/day. PRBC as needed for anemia. on JENA with dialysis as last Hb 9.1 Continue with phos binders, last phos level: 6.8 BP control with meds as ordered. Patient on RAAS francia as losartan Glycemic control, Dialysis consistent diet Further work up/management as per primary team Dose meds/antibiotics (if needed) for ESRD status. Avoid fleets enema/magnesium based laxatives. vascular surgery following. s/p bypass on left leg Thanks for allowing me to participate in care of your patient. Will follow patient with you. Please call if any Qs Dr Sal Aguayo Office: [phone] Chief Complaint;leg pain HPI: Pt is a 63 M with hx of ESRD on hemodialysis (MWF) via AVF, last dialysis thur with Dr Quinonez (usually at [facility]), chronic anemia, hyperphosphatemia, secondary hyperparathyroidism, Diabetes Mellitus, hypertension PVD s/p Right common fem-to-ant tibial bypass on 09/03/18 presented with complaints of persistent feets pain Renal consult requested for ESRD management. pt c/o feet pain. was d/c to rehab recently denies SOB ROS: has pain on left side s/p bypass but better Cardiovascular: No chest pain. Pulmonary: No shortness of breath Gastrointestinal: denies abdominal pain No nausea. No vomiting. Genitourinary: No pain while urinating. Denies blood in urine. All other negative except as mentioned in HPI Physical Examination: General Appearance: Comfortable, in no acute respiratory distress, co-operative . obese Vitals reviewed and noted as below Head; Atraumatic, normocephalic ENT: no ulcers no thrush. Tongue is midline. Oropharynx: no rash or ulcers. EYES: Pupils are equal, round and reactive to light accommodation. Eye muscles and extraocular movement intact. Sclera is anicteric. Neck; supple no lymphadenopathy, no thyromegaly or bruit Lungs: Normal respiratory rate/effort. Breath sounds bilateral equal and clear Heart: Normal rate. s1s2 normal. No rub or gallop. Extremities: trace edema. No varicose veins. s/p Rt leg vasc surgery Neurological: Patient is alert, awake and oriented to person, place and time. No focal deficit. Strength bilateral appropriate and equal Skin: Warm and dry. Normal turgor. No rash. Palpitation: Normal elasticity for age Abdomen: Abdomen is soft. Bowel sounds +. There is no abdominal tenderness, no guarding/rigidity or organomegaly Psych: normal insight and normal affect/mood MSK: no joint tenderness or swelling. toes gangrenous changes + : kidney or bladder not palpable Access: AVF Labs/imaging reviewed. Past medical history, past surgical history, family history, social history, allergy reviewed and noted as below Family Hx: no hx of CKD. Non contributory Objective - Vital Signs/Intake and Output Vital Signs (last 24 hours): Temp Pulse Resp BP Pulse Ox 97.9 F 76 18 120/50 L 100 09/18/18 12:00 09/18/18 12:00 09/18/18 12:00 09/18/18 12:00 09/18/18 10:01 Intake and Output: 09/18/18 09/18/18 06:59 18:59 Intake Total 1100 330 Output Total 0 Balance 1100 330 - Medications Medications: Current Medications Aspirin (Aspirin Chewable) 81 mg PO DAILY [facility] Last Admin: 09/18/18 10:05 Dose: 81 mg Atenolol (Tenormin) 50 mg PO DAILY [facility] Last Admin: 09/18/18 10:04 Dose: 50 mg Clopidogrel Bisulfate (Plavix) 75 mg PO DAILY [facility] Last Admin: 09/18/18 10:04 Dose: 75 mg Epoetin Danny (Procrit) 8,000 unit IV MWF [facility] Heparin Sodium (Porcine) (Heparin) 5,000 units SC Q12H [facility] Last Admin: 09/18/18 11:54 Dose: 5,000 units Hydralazine HCl (Apresoline) 25 mg PO QID [facility] Last Admin: 09/18/18 10:04 Dose: 25 mg Hydromorphone HCl (Dilaudid) 2 mg IVP Q4H PRN PRN Reason: Pain, severe (8-10) Last Admin: 09/18/18 11:54 Dose: 2 mg Vancomycin HCl 500 mg/ Sodium (Chloride) 100 mls @ 100 mls/hr IVPB MWF [facility] Stop: 09/28/18 09:01 Last Admin: 09/16/18 13:21 Dose: 100 mls/hr Insulin Aspart (Novolog) 0 unit SC [facility]; Protocol Last Admin: 09/18/18 12:00 Dose: Not Given Losartan Potassium (Cozaar) 50 mg PO QPM [facility] Last Admin: 09/17/18 06:37 Dose: 50 mg Pregabalin (Lyrica) 75 mg PO DAILY [facility] Last Admin: 09/18/18 10:05 Dose: 75 mg Ranolazine (Ranexa) 500 mg PO BID [facility] Last Admin: 09/18/18 10:40 Dose: 500 mg Rosuvastatin Calcium (Crestor) 5 mg PO HS [facility] Last Admin: 09/17/18 21:16 Dose: 5 mg Sevelamer Carbonate (Renvela) 800 mg PO TIDCC [facility] Last Admin: 09/18/18 12:01 Dose: 800 mg Vitamin B Complex/Vit C/Folic Acid (Nephro-Federica) 1 tab PO 0800 [facility] Last Admin: 09/18/18 08:33 Dose: 1 tab - Labs Labs: 09/18/18 04:57 09/18/18 04:57 PT 15.2 SECONDS (9.7-12.2) H 09/17/18 06:15 INR 1.4 09/17/18 06:15 APTT 36 SECONDS (21-34) H 09/17/18 06:15
--- NOTE | 2018-09-18 14:18 | CP.PCM.PN ---
Subjective - Date & Time of Evaluation Date of Evaluation: 09/18/18 Time of Evaluation: 14:18 Objective - Vital Signs/Intake and Output Vital Signs (last 24 hours): Temp Pulse Resp BP Pulse Ox 97.9 F 65 10 L 105/38 L 100 09/18/18 12:00 09/18/18 13:01 09/18/18 13:01 09/18/18 13:01 09/18/18 13:00 Intake and Output: 09/18/18 09/18/18 06:59 18:59 Intake Total 1100 330 Output Total 0 Balance 1100 330 - Medications Medications: Current Medications Aspirin (Aspirin Chewable) 81 mg PO DAILY [facility] Last Admin: 09/18/18 10:05 Dose: 81 mg Atenolol (Tenormin) 50 mg PO DAILY [facility] Last Admin: 09/18/18 10:04 Dose: 50 mg Clopidogrel Bisulfate (Plavix) 75 mg PO DAILY [facility] Last Admin: 09/18/18 10:04 Dose: 75 mg Epoetin Danny (Procrit) 8,000 unit IV [facility] [place] Heparin Sodium (Porcine) (Heparin) 5,000 units SC Q12H [facility] Last Admin: 09/18/18 11:54 Dose: 5,000 units Hydralazine HCl (Apresoline) 25 mg PO QID [facility] Last Admin: 09/18/18 10:04 Dose: 25 mg Hydromorphone HCl (Dilaudid) 2 mg IVP Q4H PRN PRN Reason: Pain, severe (8-10) Last Admin: 09/18/18 11:54 Dose: 2 mg Vancomycin HCl 500 mg/ Sodium (Chloride) 100 mls @ 100 mls/hr IVPB [facility] [place] Stop: 09/28/18 09:01 Last Admin: 09/16/18 13:21 Dose: 100 mls/hr Insulin Aspart (Novolog) 0 unit SC [facility]; Protocol Last Admin: 09/18/18 12:00 Dose: Not Given Losartan Potassium (Cozaar) 50 mg PO QPM [facility] Last Admin: 09/17/18 06:37 Dose: 50 mg Pregabalin (Lyrica) 75 mg PO DAILY [facility] Last Admin: 09/18/18 10:05 Dose: 75 mg Ranolazine (Ranexa) 500 mg PO BID [facility] Last Admin: 09/18/18 10:40 Dose: 500 mg Rosuvastatin Calcium (Crestor) 5 mg PO HS [facility] Last Admin: 09/17/18 21:16 Dose: 5 mg Sevelamer Carbonate (Renvela) 800 mg PO TIDCC [facility] Last Admin: 09/18/18 12:01 Dose: 800 mg Vitamin B Complex/Vit C/Folic Acid (Nephro-Federica) 1 tab PO 0800 [facility] Last Admin: 09/18/18 08:33 Dose: 1 tab - Labs Labs: 09/18/18 04:57 09/18/18 04:57 PT 15.2 SECONDS (9.7-12.2) H 09/17/18 06:15 INR 1.4 09/17/18 06:15 APTT 36 SECONDS (21-34) H 09/17/18 06:15
--- NOTE | 2018-09-18 15:26 | CP.PCM.PN ---
Subjective - Date & Time of Evaluation Date of Evaluation: 09/18/18 Time of Evaluation: 14:00 - Subjective Subjective: Podiatry Progress Note- Dr. Youngblood 63 year old male with PMHx of DM, PVD, HTN, ESRD, CHF seen and evaluated for dry gangrene digits B/L feet- stable with attending Dr. Youngblood. Patient is s/p left femoral-popliteal bypass with gorex graft and intraoperative arteriogram (DOS: 09/17/18) and s/o left vascular intervention on 09/03/18. Patient seen resting comfortably in bed, in NAD, and AA0x3. Patient reports improved pain to the left foot. Reports improved color changes to left and right foot s/p vascular intervention. Denies nausea, fever, shortness of breath, chest pains or chills. Objective - Vital Signs/Intake and Output Vital Signs (last 24 hours): Temp Pulse Resp BP Pulse Ox 97.9 F 67 12 123/40 L 100 09/18/18 12:00 09/18/18 15:00 09/18/18 15:00 09/18/18 14:50 09/18/18 15:00 Intake and Output: 09/18/18 09/18/18 06:59 18:59 Intake Total 1100 330 Output Total 0 Balance 1100 330 - Medications Medications: Current Medications Aspirin (Aspirin Chewable) 81 mg PO DAILY [facility] Last Admin: 09/18/18 10:05 Dose: 81 mg Atenolol (Tenormin) 50 mg PO DAILY [facility] Last Admin: 09/18/18 10:04 Dose: 50 mg Clopidogrel Bisulfate (Plavix) 75 mg PO DAILY [facility] Last Admin: 09/18/18 10:04 Dose: 75 mg Epoetin Danny (Procrit) 8,000 unit IV MWF [facility] Heparin Sodium (Porcine) (Heparin) 5,000 units SC Q12H [facility] Last Admin: 09/18/18 11:54 Dose: 5,000 units Hydralazine HCl (Apresoline) 25 mg PO QID [facility] Last Admin: 09/18/18 14:32 Dose: 25 mg Hydromorphone HCl (Dilaudid) 2 mg IVP Q4H PRN PRN Reason: Pain, severe (8-10) Last Admin: 09/18/18 11:54 Dose: 2 mg Vancomycin HCl 500 mg/ Sodium (Chloride) 100 mls @ 100 mls/hr IVPB MWF [facility] Stop: 09/28/18 09:01 Last Admin: 09/16/18 13:21 Dose: 100 mls/hr Insulin Aspart (Novolog) 0 unit SC ACHS [facility]; Protocol Last Admin: 09/18/18 12:00 Dose: Not Given Losartan Potassium (Cozaar) 50 mg PO QPM [facility] Last Admin: 09/17/18 06:37 Dose: 50 mg Pregabalin (Lyrica) 75 mg PO DAILY [facility] Last Admin: 09/18/18 10:05 Dose: 75 mg Ranolazine (Ranexa) 500 mg PO BID [facility] Last Admin: 09/18/18 10:40 Dose: 500 mg Rosuvastatin Calcium (Crestor) 5 mg PO HS [facility] Last Admin: 09/17/18 21:16 Dose: 5 mg Sevelamer Carbonate (Renvela) 800 mg PO TIDCC [facility] Last Admin: 09/18/18 12:01 Dose: 800 mg Vitamin B Complex/Vit C/Folic Acid (Nephro-Federica) 1 tab PO 0800 [facility] Last Admin: 09/18/18 08:33 Dose: 1 tab - Labs Labs: 09/18/18 04:57 09/18/18 04:57 PT 15.2 SECONDS (9.7-12.2) H 09/17/18 06:15 INR 1.4 09/17/18 06:15 APTT 36 SECONDS (21-34) H 09/17/18 06:15 - Constitutional Appears: Well, Non-toxic, No Acute Distress - Extremities Exam Extremities Exam: absent: Calf Tenderness Additional comments: VASC: DP and PT unpapable, temperature gradient warm to warm to right lower extremity, temperature gradient cool to cool to left lower extremity, mild swelling noted to the forefoot B/L ORTHO: pain with palpation to the digits, able to wiggle toes, MM is 4/5 in all four compartments, no calf pain or tenderness with palpation NEURO: gross sensation intact, protective sensation diminished DERM: Right foot: 1st, 2nd, 3rd digit with necrotic distal tips, dry gangrene, no opening, no drainage, no odor or purulence, no erythema, blue-wanda purple discoloration noted to the dorsum of forefoot at the level of the MPJs. 4th digit with blue-wanda/purple discoloration- improved. Eschar heel noted measuring approximately 2cm x 3cm, depth unstageable. No opening, no drainage, no odor or purulence. No clinical signs of infection Left foot: 4th and 5th digit with necrotic changes, dry gangrene, no opening, no drainage, no odor or purulence, no erythema, surrounding necrotic tissue was skin color blue-wanda purple. Eschar heel noted measuring approximately 2cm x 3cm, depth unstageable. No opening, no drainage, no odor or purulence. No clinical signs of infection Xerosis noted to the entire LE - Neurological Exam Neurological Exam: Alert, Awake, Oriented x3 - Psychiatric Exam Psychiatric exam: Normal Affect, Normal Mood Assessment and Plan - Assessment and Plan (Free Text) Assessment: 63 year old male with PMHx of DM, PVD, HTN, ESRD, CHF seen and evaluated for stable dry gangrene B/L feet Plan: Patient seen and evaluated Discussed plan with attending Dr. Youngblood Lab, chart, vitals reviewed- WBC 8.6 on 09/18/18 No dressing needed at this time Ordered multipodus boots. To be worn at all times while in bed Will continue to follow while in house Further recommendations per Dr. Youngblood
[2018-09-18] MEDS: EPOETIN ALFA 4,000 UNIT/ML ML Dialysis IV SCH (20:38)
[2018-09-18] MEDS ORDERED: HYDROmorphone 1 mg/ml ISec IVP STA (23:43)
[2018-09-19] MEDS: Multivitamin Vitamin B Complex (Nephro-Vite) Tab PO SCH (08:23)
[2018-09-19] MEDS: (Novolog) Insulin Aspart, Recombinant 100 u/ml 10 ml vial SC SCH ×5 (08:25→22:00)
--- NOTE | 2018-09-19 08:48 | CP.PCM.PN ---
Subjective - Date & Time of Evaluation Date of Evaluation: 09/19/18 Time of Evaluation: 08:45 - Subjective Subjective: Podiatry Progress Note: Dr. Youngblood 63 year old male seen and evaluated in the ICU for dry gangrene digits to b/l feet; stable. Patient is resting comfortably and in NAD. Patient reports mild pain to b/l feet, however pain has improved following his left fem-pop bypass with gorex graft (DOS: 09/17/18). Denies N/V/F/SOB/CP. Objective - Vital Signs/Intake and Output Vital Signs (last 24 hours): Temp Pulse Resp BP Pulse Ox 98.4 F 90 20 134/71 96 09/19/18 04:00 09/19/18 04:00 09/19/18 04:00 09/19/18 04:00 09/19/18 04:00 Intake and Output: 09/19/18 09/19/18 06:59 18:59 Intake Total 350 Output Total 3000 Balance -2650 - Medications Medications: Current Medications Aspirin (Aspirin Chewable) 81 mg PO DAILY [facility] Last Admin: 09/18/18 10:05 Dose: 81 mg Atenolol (Tenormin) 50 mg PO DAILY [facility] Last Admin: 09/18/18 10:04 Dose: 50 mg Clopidogrel Bisulfate (Plavix) 75 mg PO DAILY [facility] Last Admin: 09/18/18 10:04 Dose: 75 mg Epoetin Danny (Procrit) 8,000 unit IV MWF [facility] Last Admin: 09/18/18 20:38 Dose: 8,000 unit Heparin Sodium (Porcine) (Heparin) 5,000 units SC Q12H [facility] Hydralazine HCl (Apresoline) 25 mg PO QID [facility] Last Admin: 09/18/18 22:50 Dose: 25 mg Hydromorphone HCl (Dilaudid) 2 mg IVP Q4H PRN PRN Reason: Pain, severe (8-10) Last Admin: 09/19/18 08:23 Dose: 2 mg Insulin Aspart (Novolog) 0 unit SC ACHS [facility]; Protocol Last Admin: 09/19/18 08:25 Dose: Not Given Losartan Potassium (Cozaar) 50 mg PO QPM [facility] Last Admin: 09/18/18 18:01 Dose: 50 mg Pregabalin (Lyrica) 75 mg PO DAILY [facility] Last Admin: 09/18/18 10:05 Dose: 75 mg Ranolazine (Ranexa) 500 mg PO BID [facility] Last Admin: 09/18/18 17:56 Dose: 500 mg Rosuvastatin Calcium (Crestor) 5 mg PO HS [facility] Last Admin: 09/18/18 22:44 Dose: 5 mg Sevelamer Carbonate (Renvela) 800 mg PO TIDCC [facility] Last Admin: 09/19/18 08:23 Dose: 800 mg Vitamin B Complex/Vit C/Folic Acid (Nephro-Federica) 1 tab PO 0800 [facility] Last Admin: 09/19/18 08:23 Dose: 1 tab - Labs Labs: 09/18/18 04:57 09/18/18 04:57 PT 15.2 SECONDS (9.7-12.2) H 09/17/18 06:15 INR 1.4 09/17/18 06:15 APTT 36 SECONDS (21-34) H 09/17/18 06:15 - Constitutional Appears: Well, Non-toxic, No Acute Distress - Head Exam Head Exam: ATRAUMATIC, NORMOCEPHALIC - Extremities Exam Additional comments: B/L LE focused exam: Vasc: DP/PT nonpapable, temperature gradient warm to warm to right lower extremity, temperature gradient cool to cool to left lower extremity, mild edema noted to the forefoot B/L Ortho: pain with palpation of the digits, patient able to wiggle toes, MMT is 4/5 in all four compartments, no pain with calf compression bilaterally NEURO: gross sensation intact, protective sensation diminished DERM: Right foot: 1st, 2nd, 3rd digit with necrotic distal tips, dry gangrene, no opening, no drainage, no malodor, no purulence, no erythema, blue-wanda purple discoloration noted to the dorsum of forefoot at the level of the MPJs. 4th digit with blue-wanda/purple discoloration; improved. Eschar heel noted measuring approximately 2cm x 3cm, depth unstageable. No opening, no drainage, no odor or purulence. No clinical signs of infection at this time. Left foot: 4th and 5th digit with necrotic changes, dry gangrene, no opening, no drainage, no odor or purulence, no erythema. Eschar heel noted measuring approximately 2cm x 3cm, depth unstageable. No opening, no drainage, no odor or purulence. No clinical signs of infection at this time. Xerosis noted to the entire LE - Neurological Exam Neurological Exam: Alert, Awake, Oriented x3 - Psychiatric Exam Psychiatric exam: Normal Affect, Normal Mood Assessment and Plan - Assessment and Plan (Free Text) Assessment: 63 year old male with dry gangrene of digits bilaterally; stable Plan: Patient seen and evaluated with attending Dr. Youngblood Lab, chart, vitals reviewed- WBC 8.6 (09/18/18), VSS No dressing needed at this time, will continue to monitor progression Plan for surgical intervention to gangrenous digits once patient is medically stable and digits have demarcated Multipodus boots to be worn at all times while in bed Will continue to follow while in house
[2018-09-19] MEDS: Ranolazine 500 mg Extended Release Tablets PO SCH ×2 (09:38→18:02)
--- NOTE | 2018-09-19 09:50 | CP.PCM.PN ---
Subjective - Date & Time of Evaluation Date of Evaluation: 09/19/18 Time of Evaluation: 08:00 - Subjective Subjective: Vascular Surgery Pt seen and examined. had pain control issues after HD. Redosed pain meds. no other complaints. Objective - Vital Signs/Intake and Output Vital Signs (last 24 hours): Temp Pulse Resp BP Pulse Ox 98.7 F 82 20 120/57 L 97 09/19/18 08:00 09/19/18 08:00 09/19/18 08:00 09/19/18 08:00 09/19/18 08:00 Intake and Output: 09/19/18 09/19/18 06:59 18:59 Intake Total 350 Output Total 3000 Balance -2650 - Medications Medications: Current Medications Aspirin (Aspirin Chewable) 81 mg PO DAILY [facility] Last Admin: 09/19/18 09:37 Dose: 81 mg Atenolol (Tenormin) 50 mg PO DAILY [facility] Last Admin: 09/19/18 09:37 Dose: 50 mg Clopidogrel Bisulfate (Plavix) 75 mg PO DAILY [facility] Last Admin: 09/19/18 09:37 Dose: 75 mg Epoetin Danny (Procrit) 8,000 unit IV MWF [facility] Last Admin: 09/18/18 20:38 Dose: 8,000 unit Heparin Sodium (Porcine) (Heparin) 5,000 units SC Q12H [facility] Last Admin: 09/19/18 09:37 Dose: 5,000 units Hydralazine HCl (Apresoline) 25 mg PO QID [facility] Last Admin: 09/19/18 09:38 Dose: 25 mg Hydromorphone HCl (Dilaudid) 2 mg IVP Q4H PRN PRN Reason: Pain, severe (8-10) Last Admin: 09/19/18 08:23 Dose: 2 mg Insulin Aspart (Novolog) 0 unit SC ACHS [facility]; Protocol Last Admin: 09/19/18 08:25 Dose: Not Given Losartan Potassium (Cozaar) 50 mg PO QPM [facility] Last Admin: 09/18/18 18:01 Dose: 50 mg Pregabalin (Lyrica) 75 mg PO DAILY [facility] Last Admin: 09/19/18 09:37 Dose: 75 mg Ranolazine (Ranexa) 500 mg PO BID [facility] Last Admin: 09/19/18 09:38 Dose: 500 mg Rosuvastatin Calcium (Crestor) 5 mg PO HS [facility] Last Admin: 09/18/18 22:44 Dose: 5 mg Sevelamer Carbonate (Renvela) 800 mg PO TIDCC [facility] Last Admin: 09/19/18 08:23 Dose: 800 mg Vitamin B Complex/Vit C/Folic Acid (Nephro-Federica) 1 tab PO 0800 [facility] Last Admin: 09/19/18 08:23 Dose: 1 tab - Labs Labs: 09/18/18 04:57 09/18/18 04:57 PT 15.2 SECONDS (9.7-12.2) H 09/17/18 06:15 INR 1.4 09/17/18 06:15 APTT 36 SECONDS (21-34) H 09/17/18 06:15 - Constitutional Appears: Non-toxic, No Acute Distress - Head Exam Head Exam: ATRAUMATIC, NORMOCEPHALIC - Eye Exam Eye Exam: EOMI. absent: Scleral icterus - Respiratory Exam Respiratory Exam: NORMAL BREATHING PATTERN. absent: Respiratory Distress - GI/Abdominal Exam GI & Abdominal Exam: Soft. absent: Distended, Tenderness - Extremities Exam Extremities Exam: Tenderness (near incisions on L) Additional comments: Dopplerable signals at AT and PT Dressings C/D/I - Neurological Exam Neurological Exam: Alert, Awake, Oriented x3 - Skin Skin Exam: Dry, Warm Assessment and Plan - Assessment and Plan (Free Text) Assessment: 63M S/P L Fem-pop bypass POD#2 Plan: Pain control PT, Out of bed to chair Vascular checks D/W Dr. Berkley Pozo PGY4
[2018-09-19] MEDS ORDERED: Oxycodone/Acetaminophen 5/325 mg Tab PO PRN (12:53)
[2018-09-19] MEDS ORDERED: POLYETHYLENE GLYCOL 3350 17 GM/Dose PACKET PO ONE (12:55)
--- NOTE | 2018-09-19 13:09 | CP.PCM.PN ---
Subjective - Date & Time of Evaluation Date of Evaluation: 09/19/18 Time of Evaluation: 13:08 - Subjective Subjective: Nephrology Consultation Note: Assessment: Stable PVD s/p Right common fem-to-ant tibial bypass on 09/03/18, left fem pop bypass 09/17/18 mild hyponatremia missed HD obesity hyponatremia Diabetic chronic Kidney Disease (E11.22) Hypertensive Chronic Kidney Disease (I12.0) End stage renal disease (N18.6) dependence on hemodialysis (Z99.2) (MWF) via AVF Anemia (D64.9), Hyperphosphatemia (E83.39), Secondary Hyperparathyroidism (E21.1), HTN (I12.0) Plan: HD MWF schedule. Continue with Nephrovite 1 tab/day. PRBC as needed for anemia. on JENA with dialysis Continue with phos binders bp stable Glycemic control, Dialysis consistent diet Further work up/management as per primary team Dose meds/antibiotics (if needed) for ESRD status. Avoid fleets enema/magnesium based laxatives. vascular surgery following. s/p bypass on left leg s: seen and examined feels ok no pain Physical Examination: General Appearance: Comfortable, in no acute respiratory distress, co-operative . obese Vitals reviewed and noted as below Head; Atraumatic, normocephalic ENT: no ulcers no thrush. Tongue is midline. Oropharynx: no rash or ulcers. EYES: Pupils are equal, round and reactive to light accommodation. Eye muscles and extraocular movement intact. Sclera is anicteric. Neck; supple no lymphadenopathy, no thyromegaly or bruit Lungs: Normal respiratory rate/effort. Breath sounds bilateral equal and clear Heart: Normal rate. s1s2 normal. No rub or gallop. Extremities: trace edema. No varicose veins. s/p Rt leg vasc surgery dresing on L leg and gangenous appearing toes Neurological: Patient is alert, awake and oriented to person, place and time. No focal deficit. Strength bilateral appropriate and equal Skin: Warm and dry. Normal turgor. No rash. Palpitation: Normal elasticity for age Abdomen: Abdomen is soft. Bowel sounds +. There is no abdominal tenderness, no guarding/rigidity or organomegaly Psych: normal insight and normal affect/mood MSK: no joint tenderness or swelling. toes gangrenous changes + : kidney or bladder not palpable Access: AVF Labs/imaging reviewed. Past medical history, past surgical history, family history, social history, allergy reviewed and noted as below Family Hx: no hx of CKD. Non contributory Objective - Vital Signs/Intake and Output Vital Signs (last 24 hours): Temp Pulse Resp BP Pulse Ox 98.7 F 82 22 120/65 98 09/19/18 08:00 09/19/18 12:00 09/19/18 12:00 09/19/18 12:00 09/19/18 10:00 Intake and Output: 09/19/18 09/19/18 06:59 18:59 Intake Total 350 Output Total 3000 Balance -2650 - Medications Medications: Current Medications Aspirin (Aspirin Chewable) 81 mg PO DAILY [facility] Last Admin: 09/19/18 09:37 Dose: 81 mg Atenolol (Tenormin) 50 mg PO DAILY [facility] Last Admin: 09/19/18 09:37 Dose: 50 mg Clopidogrel Bisulfate (Plavix) 75 mg PO DAILY [facility] Last Admin: 09/19/18 09:37 Dose: 75 mg Docusate Sodium (Colace) 100 mg PO DAILY [facility] Epoetin Danny (Procrit) 8,000 unit IV MWF [facility] Last Admin: 09/18/18 20:38 Dose: 8,000 unit Heparin Sodium (Porcine) (Heparin) 5,000 units SC Q12H [facility] Last Admin: 09/19/18 09:37 Dose: 5,000 units Hydralazine HCl (Apresoline) 25 mg PO QID [facility] Last Admin: 09/19/18 09:38 Dose: 25 mg Hydromorphone HCl (Dilaudid) 2 mg IVP Q4H PRN PRN Reason: Pain, severe (8-10) Last Admin: 09/19/18 12:16 Dose: 2 mg Insulin Aspart (Novolog) 0 unit SC ACHS [facility]; Protocol Last Admin: 09/19/18 12:01 Dose: 2 u Losartan Potassium (Cozaar) 50 mg PO QPM [facility] Last Admin: 09/18/18 18:01 Dose: 50 mg Oxycodone/Acetaminophen (Percocet 5/325 Mg Tab) 1 tab PO Q4H PRN PRN Reason: Pain, moderate (4-7) Stop: 09/22/18 12:54 Pregabalin (Lyrica) 75 mg PO DAILY [facility] Last Admin: 09/19/18 09:37 Dose: 75 mg Ranolazine (Ranexa) 500 mg PO BID [facility] Last Admin: 09/19/18 09:38 Dose: 500 mg Rosuvastatin Calcium (Crestor) 5 mg PO HS [facility] Last Admin: 09/18/18 22:44 Dose: 5 mg Sevelamer Carbonate (Renvela) 800 mg PO TIDCC [facility] Last Admin: 09/19/18 12:00 Dose: 800 mg Vitamin B Complex/Vit C/Folic Acid (Nephro-Federica) 1 tab PO 0800 [facility] Last Admin: 09/19/18 08:23 Dose: 1 tab - Labs Labs: 09/18/18 04:57 09/18/18 04:57 PT 15.2 SECONDS (9.7-12.2) H 09/17/18 06:15 INR 1.4 09/17/18 06:15 APTT 36 SECONDS (21-34) H 09/17/18 06:15
--- NOTE | 2018-09-19 16:48 | CP.PCM.PN ---
Subjective - Date & Time of Evaluation Date of Evaluation: 09/19/18 Time of Evaluation: 16:48 Objective - Vital Signs/Intake and Output Vital Signs (last 24 hours): Temp Pulse Resp BP Pulse Ox 98.7 F 82 22 120/65 98 09/19/18 08:00 09/19/18 12:00 09/19/18 12:00 09/19/18 12:00 09/19/18 10:00 Intake and Output: 09/19/18 09/19/18 06:59 18:59 Intake Total 350 Output Total 3000 Balance -2650 - Medications Medications: Current Medications Aspirin (Aspirin Chewable) 81 mg PO DAILY [facility] Last Admin: 09/19/18 09:37 Dose: 81 mg Atenolol (Tenormin) 50 mg PO DAILY [facility] Last Admin: 09/19/18 09:37 Dose: 50 mg Clopidogrel Bisulfate (Plavix) 75 mg PO DAILY [facility] Last Admin: 09/19/18 09:37 Dose: 75 mg Docusate Sodium (Colace) 100 mg PO DAILY [facility] Last Admin: 09/19/18 13:39 Dose: 100 mg Epoetin Danny (Procrit) 8,000 unit IV MWF [facility] Last Admin: 09/18/18 20:38 Dose: 8,000 unit Heparin Sodium (Porcine) (Heparin) 5,000 units SC Q12H [facility] Last Admin: 09/19/18 09:37 Dose: 5,000 units Hydralazine HCl (Apresoline) 25 mg PO QID [facility] Last Admin: 09/19/18 09:38 Dose: 25 mg Hydromorphone HCl (Dilaudid) 2 mg IVP Q4H PRN PRN Reason: Pain, severe (8-10) Last Admin: 09/19/18 12:16 Dose: 2 mg Insulin Aspart (Novolog) 0 unit SC ACHS [facility]; Protocol Last Admin: 09/19/18 12:01 Dose: 2 u Losartan Potassium (Cozaar) 50 mg PO QPM [facility] Last Admin: 09/18/18 18:01 Dose: 50 mg Oxycodone/Acetaminophen (Percocet 5/325 Mg Tab) 1 tab PO Q4H PRN PRN Reason: Pain, moderate (4-7) Stop: 09/22/18 12:54 Pregabalin (Lyrica) 75 mg PO DAILY [facility] Last Admin: 09/19/18 09:37 Dose: 75 mg Ranolazine (Ranexa) 500 mg PO BID [facility] Last Admin: 09/19/18 09:38 Dose: 500 mg Rosuvastatin Calcium (Crestor) 5 mg PO HS [facility] Last Admin: 09/18/18 22:44 Dose: 5 mg Sevelamer Carbonate (Renvela) 800 mg PO TIDCC [facility] Last Admin: 09/19/18 12:00 Dose: 800 mg Vitamin B Complex/Vit C/Folic Acid (Nephro-Federica) 1 tab PO 0800 [facility] Last Admin: 09/19/18 08:23 Dose: 1 tab - Labs Labs: 09/18/18 04:57 09/18/18 04:57 PT 15.2 SECONDS (9.7-12.2) H 09/17/18 06:15 INR 1.4 09/17/18 06:15 APTT 36 SECONDS (21-34) H 09/17/18 06:15
[2018-09-20 06:25] LABS: URINE BACTERIA RARE (<OCC); URINE BILIRUBIN NEGATIVE (NEGATIVE); URINE CLARITY Hazy (Clear); URINE COLOR Yellow (YELLOW); URINE GLUCOSE (UA) 1+ mg/dL (Normal); URINE LEUKOCYTE ESTERASE NEG Leu/uL (Negative); URINE PROTEIN 2+ mg/dL (NEGATIVE); URINE UROBILINOGEN NORMAL mg/dL (0.2-1.0)
[2018-09-20 06:28] LABS: URINE BLOOD NEGATIVE (NEGATIVE)
[2018-09-20] MEDS: (Novolog) Insulin Aspart, Recombinant 100 u/ml 10 ml vial SC SCH ×4 (07:30→22:02)
[2018-09-20] MEDS: Multivitamin Vitamin B Complex (Nephro-Vite) Tab PO SCH (08:34)
[2018-09-20] MEDS: Ranolazine 500 mg Extended Release Tablets PO SCH ×2 (09:30→18:04)
--- NOTE | 2018-09-20 12:46 | CP.PCM.PN ---
Subjective - Date & Time of Evaluation Date of Evaluation: 09/20/18 Time of Evaluation: 12:45 - Subjective Subjective: Nephrology Consultation Note: Assessment: Stable PVD s/p Right common fem-to-ant tibial bypass on 09/03/18, left fem pop bypass 09/17/18 mild hyponatremia missed HD obesity hyponatremia Diabetic chronic Kidney Disease (E11.22) Hypertensive Chronic Kidney Disease (I12.0) End stage renal disease (N18.6) dependence on hemodialysis (Z99.2) (MWF) via AVF Anemia (D64.9), Hyperphosphatemia (E83.39), Secondary Hyperparathyroidism (E21.1), HTN (I12.0) Plan: HD MWF schedule. Continue with Nephrovite 1 tab/day. PRBC as needed for anemia. on JENA with dialysis Continue with phos binders bp stable Glycemic control, Dialysis consistent diet Further work up/management as per primary team Dose meds/antibiotics (if needed) for ESRD status. Avoid fleets enema/magnesium based laxatives. f/u vascular s: seen and examined no complaints Physical Examination: General Appearance: Comfortable, in no acute respiratory distress, co-operative . obese Vitals reviewed and noted as below Head; Atraumatic, normocephalic ENT: no ulcers no thrush. Tongue is midline. Oropharynx: no rash or ulcers. EYES: Pupils are equal, round and reactive to light accommodation. Eye muscles and extraocular movement intact. Sclera is anicteric. Neck; supple no lymphadenopathy, no thyromegaly or bruit Lungs: Normal respiratory rate/effort. Breath sounds bilateral equal and clear Heart: Normal rate. s1s2 normal. No rub or gallop. Extremities: trace edema. No varicose veins. s/p Rt leg vasc surgery dresing on L leg and gangenous appearing toes Neurological: Patient is alert, awake and oriented to person, place and time. No focal deficit. Strength bilateral appropriate and equal Skin: Warm and dry. Normal turgor. No rash. Palpitation: Normal elasticity for age Abdomen: Abdomen is soft. Bowel sounds +. There is no abdominal tenderness, no guarding/rigidity or organomegaly Psych: normal insight and normal affect/mood MSK: no joint tenderness or swelling. toes gangrenous changes + : kidney or bladder not palpable Access: AVF Labs/imaging reviewed. Past medical history, past surgical history, family history, social history, allergy reviewed and noted as below Family Hx: no hx of CKD. Non contributory Objective Objective - Vital Signs/Intake and Output Vital Signs (last 24 hours): Temp Pulse Resp BP Pulse Ox 98.1 F 72 18 132/55 L 98 09/20/18 08:00 09/20/18 08:00 09/20/18 08:00 09/20/18 08:00 09/20/18 08:00 Intake and Output: 09/20/18 09/20/18 06:59 18:59 Intake Total 240 Balance 240 - Medications Medications: Current Medications Aspirin (Aspirin Chewable) 81 mg PO DAILY [facility] Last Admin: 09/20/18 09:29 Dose: 81 mg Atenolol (Tenormin) 50 mg PO DAILY [facility] Last Admin: 09/20/18 09:29 Dose: 50 mg Clopidogrel Bisulfate (Plavix) 75 mg PO DAILY [facility] Last Admin: 09/20/18 09:29 Dose: 75 mg Docusate Sodium (Colace) 100 mg PO DAILY [facility] Last Admin: 09/20/18 09:29 Dose: 100 mg Epoetin Danny (Procrit) 8,000 unit IV MWF [facility] Last Admin: 09/18/18 20:38 Dose: 8,000 unit Heparin Sodium (Porcine) (Heparin) 5,000 units SC Q12H [facility] Last Admin: 09/20/18 09:29 Dose: 5,000 units Hydralazine HCl (Apresoline) 25 mg PO QID [facility] Last Admin: 09/20/18 09:29 Dose: 25 mg Hydromorphone HCl (Dilaudid) 2 mg IVP Q4H PRN PRN Reason: Pain, severe (8-10) Last Admin: 09/20/18 11:42 Dose: 2 mg Insulin Aspart (Novolog) 0 unit SC ACHS [facility]; Protocol Last Admin: 09/20/18 11:40 Dose: 2 u Losartan Potassium (Cozaar) 50 mg PO QPM [facility] Last Admin: 09/19/18 18:02 Dose: 50 mg Oxycodone/Acetaminophen (Percocet 5/325 Mg Tab) 1 tab PO Q4H PRN PRN Reason: Pain, moderate (4-7) Stop: 09/22/18 12:54 Last Admin: 09/19/18 19:08 Dose: 1 tab Pregabalin (Lyrica) 75 mg PO DAILY [facility] Last Admin: 09/20/18 09:29 Dose: 75 mg Ranolazine (Ranexa) 500 mg PO BID [facility] Last Admin: 09/20/18 09:30 Dose: 500 mg Rosuvastatin Calcium (Crestor) 5 mg PO HS [facility] Last Admin: 09/19/18 22:25 Dose: 5 mg Sevelamer Carbonate (Renvela) 800 mg PO TIDCC [facility] Last Admin: 09/20/18 11:38 Dose: 800 mg Vitamin B Complex/Vit C/Folic Acid (Nephro-Federica) 1 tab PO 0800 [facility] Last Admin: 09/20/18 08:34 Dose: 1 tab - Labs Labs: 09/18/18 04:57 09/18/18 04:57 PT 15.2 SECONDS (9.7-12.2) H 09/17/18 06:15 INR 1.4 09/17/18 06:15 APTT 36 SECONDS (21-34) H 09/17/18 06:15
--- NOTE | 2018-09-20 13:01 | CP.PCM.PN ---
Subjective - Date & Time of Evaluation Date of Evaluation: 09/20/18 Time of Evaluation: 13:01 Objective - Vital Signs/Intake and Output Vital Signs (last 24 hours): Temp Pulse Resp BP Pulse Ox 98.1 F 72 18 132/55 L 98 09/20/18 08:00 09/20/18 08:00 09/20/18 08:00 09/20/18 08:00 09/20/18 08:00 Intake and Output: 09/20/18 09/20/18 06:59 18:59 Intake Total 240 Balance 240 - Medications Medications: Current Medications Aspirin (Aspirin Chewable) 81 mg PO DAILY [facility] Last Admin: 09/20/18 09:29 Dose: 81 mg Atenolol (Tenormin) 50 mg PO DAILY [facility] Last Admin: 09/20/18 09:29 Dose: 50 mg Clopidogrel Bisulfate (Plavix) 75 mg PO DAILY [facility] Last Admin: 09/20/18 09:29 Dose: 75 mg Docusate Sodium (Colace) 100 mg PO DAILY [facility] Last Admin: 09/20/18 09:29 Dose: 100 mg Epoetin Danny (Procrit) 8,000 unit IV MWF [facility] Last Admin: 09/18/18 20:38 Dose: 8,000 unit Heparin Sodium (Porcine) (Heparin) 5,000 units SC Q12H [facility] Last Admin: 09/20/18 09:29 Dose: 5,000 units Hydralazine HCl (Apresoline) 25 mg PO QID [facility] Last Admin: 09/20/18 09:29 Dose: 25 mg Hydromorphone HCl (Dilaudid) 2 mg IVP Q4H PRN PRN Reason: Pain, severe (8-10) Last Admin: 09/20/18 11:42 Dose: 2 mg Insulin Aspart (Novolog) 0 unit SC ACHS [facility]; Protocol Last Admin: 09/20/18 11:40 Dose: 2 u Losartan Potassium (Cozaar) 50 mg PO QPM [facility] Last Admin: 09/19/18 18:02 Dose: 50 mg Oxycodone/Acetaminophen (Percocet 5/325 Mg Tab) 1 tab PO Q4H PRN PRN Reason: Pain, moderate (4-7) Stop: 09/22/18 12:54 Last Admin: 09/19/18 19:08 Dose: 1 tab Pregabalin (Lyrica) 75 mg PO DAILY [facility] Last Admin: 09/20/18 09:29 Dose: 75 mg Ranolazine (Ranexa) 500 mg PO BID [facility] Last Admin: 09/20/18 09:30 Dose: 500 mg Rosuvastatin Calcium (Crestor) 5 mg PO HS [facility] Last Admin: 09/19/18 22:25 Dose: 5 mg Sevelamer Carbonate (Renvela) 800 mg PO TIDCC [facility] Last Admin: 09/20/18 11:38 Dose: 800 mg Vitamin B Complex/Vit C/Folic Acid (Nephro-Federica) 1 tab PO 0800 [facility] Last Admin: 09/20/18 08:34 Dose: 1 tab - Labs Labs: 09/18/18 04:57 09/18/18 04:57 PT 15.2 SECONDS (9.7-12.2) H 09/17/18 06:15 INR 1.4 09/17/18 06:15 APTT 36 SECONDS (21-34) H 09/17/18 06:15
[2018-09-21] MEDS: (Novolog) Insulin Aspart, Recombinant 100 u/ml 10 ml vial SC SCH ×4 (08:00→21:37)
[2018-09-21] MEDS: Multivitamin Vitamin B Complex (Nephro-Vite) Tab PO SCH (08:19)
--- NOTE | 2018-09-21 10:15 | CP.PCM.PN ---
Subjective - Date & Time of Evaluation Date of Evaluation: 09/21/18 Time of Evaluation: 10:15 - Subjective Subjective: Podiatry Progress Note: Dr. Youngblood 63 year old male seen and evaluated this morning with attending Dr. Youngblood for dry gangrene digits to both feet. Patient is resting comfortably and in NAD. Patient reports mild pain to both of his feet, mostly the left leg after his bypass. States it is improving and well controlled with medication but occasionally brings him a lot of pain. Denies N/V/F/SOB/CP. Objective - Vital Signs/Intake and Output Vital Signs (last 24 hours): Temp Pulse Resp BP Pulse Ox 98.1 F 68 20 106/52 L 95 09/21/18 00:42 09/21/18 00:42 09/21/18 00:42 09/21/18 00:42 09/21/18 00:00 Intake and Output: 09/21/18 09/21/18 06:59 18:59 Intake Total 250 Balance 250 - Medications Medications: Current Medications Aspirin (Aspirin Chewable) 81 mg PO DAILY [facility] Last Admin: 09/20/18 09:29 Dose: 81 mg Atenolol (Tenormin) 50 mg PO DAILY [facility] Last Admin: 09/20/18 09:29 Dose: 50 mg Clopidogrel Bisulfate (Plavix) 75 mg PO DAILY [facility] Last Admin: 09/20/18 09:29 Dose: 75 mg Docusate Sodium (Colace) 100 mg PO DAILY [facility] Last Admin: 09/20/18 09:29 Dose: 100 mg Epoetin Danny (Procrit) 8,000 unit IV MWF [facility] Last Admin: 09/18/18 20:38 Dose: 8,000 unit Heparin Sodium (Porcine) (Heparin) 5,000 units SC Q12H [facility] Last Admin: 09/20/18 22:01 Dose: 5,000 units Hydralazine HCl (Apresoline) 25 mg PO QID [facility] Last Admin: 09/20/18 22:01 Dose: 25 mg Hydromorphone HCl (Dilaudid) 2 mg IVP Q4H PRN PRN Reason: Pain, severe (8-10) Last Admin: 09/21/18 08:21 Dose: 2 mg Insulin Aspart (Novolog) 0 unit SC ACHS [facility]; Protocol Last Admin: 09/20/18 22:02 Dose: Not Given Losartan Potassium (Cozaar) 50 mg PO QPM [facility] Last Admin: 09/20/18 17:52 Dose: 50 mg Oxycodone/Acetaminophen (Percocet 5/325 Mg Tab) 1 tab PO Q4H PRN PRN Reason: Pain, moderate (4-7) Stop: 09/22/18 12:54 Last Admin: 09/19/18 19:08 Dose: 1 tab Pregabalin (Lyrica) 75 mg PO DAILY [facility] Last Admin: 09/20/18 09:29 Dose: 75 mg Ranolazine (Ranexa) 500 mg PO BID [facility] Last Admin: 09/20/18 18:04 Dose: 500 mg Rosuvastatin Calcium (Crestor) 5 mg PO HS [facility] Last Admin: 09/20/18 22:01 Dose: 5 mg Sevelamer Carbonate (Renvela) 800 mg PO TIDCC [facility] Last Admin: 09/21/18 08:19 Dose: 800 mg Vitamin B Complex/Vit C/Folic Acid (Nephro-Federica) 1 tab PO 0800 [facility] Last Admin: 09/21/18 08:19 Dose: 1 tab - Labs Labs: 09/18/18 04:57 09/18/18 04:57 PT 15.2 SECONDS (9.7-12.2) H 09/17/18 06:15 INR 1.4 09/17/18 06:15 APTT 36 SECONDS (21-34) H 09/17/18 06:15 - Constitutional Appears: Well, Non-toxic, No Acute Distress - Extremities Exam Additional comments: B/L LE focused exam: Vasc: DP/PT nonpapable, temperature gradient warm to warm to right lower extre mity, temperature gradient cool to cool to left lower extremity, mild edema noted to the forefoot B/L Ortho: pain with palpation of the digits, patient able to wiggle toes, MMT is 4/5 in all four compartments, no pain with calf compression bilaterally NEURO: gross sensation intact, protective sensation diminished DERM: Right foot: 1st, 2nd, 3rd digit with necrotic distal tips, dry gangrene, no opening, no drainage, no malodor, no purulence, no erythema, bluish purple d iscoloration noted to the dorsum of forefoot at the level of the MPJs. 4th digit with blue-wanda/purple discoloration; improved. Eschar heel noted measuring approximately 2cm x 3cm, depth unstageable. No opening, no drainage, no odor or purulence. No clinical signs of infection at this time. Left foot: 4th and 5th digit with necrotic changes, dry gangrene, no opening, no drainage, no odor or purulence, no erythema. Eschar heel noted measuring approximately 2cm x 3cm, depth unstageable. No opening, no drainage, no odor or purulence. No clinical signs of infection at this time. Diffuse xerosis noted to the entire LE - Neurological Exam Neurological Exam: Alert, Awake, Oriented x3 - Psychiatric Exam Psychiatric exam: Normal Affect, Normal Mood Assessment and Plan - Assessment and Plan (Free Text) Assessment: Assessment: 63 year old male with dry gangrene of digits to bilateral feet Plan: Patient seen and evaluated with attending Dr. Youngblood Patient s/p LLE bypass - await resolution of pain and clear demarcation of digital ischemia prior to surgical intervention No dressing needed at this time, will continue to monitor progression Multipodus boots to be worn at all times while in bed Will continue to follow while in house
[2018-09-21] MEDS: Ranolazine 500 mg Extended Release Tablets PO SCH ×2 (11:09→18:57)
--- NOTE | 2018-09-21 12:58 | CP.PCM.PN ---
Subjective - Date & Time of Evaluation Date of Evaluation: 09/21/18 Time of Evaluation: 12:57 - Subjective Subjective: Nephrology Consultation Note: Assessment: Stable PVD s/p Right common fem-to-ant tibial bypass on 09/03/18, left fem pop bypass 09/17/18 mild hyponatremia missed HD obesity hyponatremia Diabetic chronic Kidney Disease (E11.22) Hypertensive Chronic Kidney Disease (I12.0) End stage renal disease (N18.6) dependence on hemodialysis (Z99.2) (MWF) via AVF Anemia (D64.9), Hyperphosphatemia (E83.39), Secondary Hyperparathyroidism (E21.1), HTN (I12.0) Plan: Will plan for dialysis per MWF schedule. Continue with Nephrovite 1 tab/day. PRBC as needed for anemia. on JENA with dialysis as last Hb 9.1 Continue with phos binders, last phos level: 6.8 BP control with meds as ordered. Patient on RAAS francia as losartan. hold hydralazine as BP low side Glycemic control, Dialysis consistent diet Further work up/management as per primary team Dose meds/antibiotics (if needed) for ESRD status. Avoid fleets enema/magnesium based laxatives. vascular surgery following. s/p bypass on left leg Thanks for allowing me to participate in care of your patient. Will follow patient with you. Please call if any Qs. had d/w team Dr Sal Aguayo Office: [phone] Chief Complaint;leg pain HPI: Pt is a 63 M with hx of ESRD on hemodialysis (MWF) via AVF, last dialysis thur with Dr Quinonez (usually at [facility]), chronic anemia, hyperphosphatemia, secondary hyperparathyroidism, Diabetes Mellitus, hypertension PVD s/p Right common fem-to-ant tibial bypass on 09/03/18 presented with complaints of persistent feets pain Renal consult requested for ESRD management. pt c/o feet pain. was d/c to rehab recently denies SOB ROS: has pain on left side foot s/p bypass but better Cardiovascular: No chest pain. Pulmonary: No shortness of breath Gastrointestinal: denies abdominal pain No nausea. No vomiting. Genitourinary: No pain while urinating. Denies blood in urine. All other negative except as mentioned in HPI Physical Examination: General Appearance: Comfortable, in no acute respiratory distress, co-operative . obese Vitals reviewed and noted as below Head; Atraumatic, normocephalic ENT: no ulcers no thrush. Tongue is midline. Oropharynx: no rash or ulcers. EYES: Pupils are equal, round and reactive to light accommodation. Eye muscles and extraocular movement intact. Sclera is anicteric. Neck; supple no lymphadenopathy, no thyromegaly or bruit Lungs: Normal respiratory rate/effort. Breath sounds bilateral equal and clear Heart: Normal rate. s1s2 normal. No rub or gallop. Extremities: ankle edema. No varicose veins. s/p Rt leg vasc surgery Neurological: Patient is alert, awake and oriented to person, place and time. No focal deficit. Strength bilateral appropriate and equal Skin: Warm and dry. Normal turgor. No rash. Palpitation: Normal elasticity for age Abdomen: Abdomen is soft. Bowel sounds +. There is no abdominal tenderness, no guarding/rigidity or organomegaly Psych: normal insight and normal affect/mood MSK: no joint tenderness or swelling. toes gangrenous changes + : kidney or bladder not palpable Access: AVF Labs/imaging reviewed. Past medical history, past surgical history, family history, social history, allergy reviewed and noted as below Family Hx: no hx of CKD. Non contributory Objective - Vital Signs/Intake and Output Vital Signs (last 24 hours): Temp Pulse Resp BP Pulse Ox 98.1 F 68 20 106/52 L 95 09/21/18 00:42 09/21/18 00:42 09/21/18 00:42 09/21/18 00:42 09/21/18 00:00 Intake and Output: 09/21/18 09/21/18 06:59 18:59 Intake Total 250 Balance 250 - Medications Medications: Current Medications Aspirin (Aspirin Chewable) 81 mg PO DAILY [facility] Last Admin: 09/21/18 11:08 Dose: Not Given Atenolol (Tenormin) 50 mg PO DAILY [facility] Last Admin: 09/21/18 11:09 Dose: Not Given Clopidogrel Bisulfate (Plavix) 75 mg PO DAILY [facility] Last Admin: 09/21/18 11:09 Dose: Not Given Docusate Sodium (Colace) 100 mg PO DAILY [facility] Last Admin: 09/21/18 11:08 Dose: Not Given Epoetin Danny (Procrit) 8,000 unit IV MWF [facility] Last Admin: 09/18/18 20:38 Dose: 8,000 unit Heparin Sodium (Porcine) (Heparin) 5,000 units SC Q12H [facility] Last Admin: 09/21/18 11:13 Dose: 5,000 units Hydromorphone HCl (Dilaudid) 2 mg IVP Q4H PRN PRN Reason: Pain, severe (8-10) Last Admin: 09/21/18 12:15 Dose: 2 mg Insulin Aspart (Novolog) 0 unit SC [facility]; Protocol Last Admin: 09/21/18 12:12 Dose: Not Given Losartan Potassium (Cozaar) 50 mg PO QPM [facility] Last Admin: 09/20/18 17:52 Dose: 50 mg Oxycodone/Acetaminophen (Percocet 5/325 Mg Tab) 1 tab PO Q4H PRN PRN Reason: Pain, moderate (4-7) Stop: 09/22/18 12:54 Last Admin: 09/19/18 19:08 Dose: 1 tab Pregabalin (Lyrica) 75 mg PO DAILY [facility] Last Admin: 09/21/18 11:09 Dose: Not Given Ranolazine (Ranexa) 500 mg PO BID [facility] Last Admin: 09/21/18 11:09 Dose: Not Given Rosuvastatin Calcium (Crestor) 5 mg PO HS [facility] Last Admin: 09/20/18 22:01 Dose: 5 mg Sevelamer Carbonate (Renvela) 800 mg PO TIDCC [facility] Last Admin: 09/21/18 12:15 Dose: 800 mg Vitamin B Complex/Vit C/Folic Acid (Nephro-Federica) 1 tab PO 0800 [facility] Last Admin: 09/21/18 08:19 Dose: 1 tab - Labs Labs: 09/18/18 04:57 09/18/18 04:57 PT 15.2 SECONDS (9.7-12.2) H 09/17/18 06:15 INR 1.4 09/17/18 06:15 APTT 36 SECONDS (21-34) H 09/17/18 06:15
[2018-09-21] MEDS: EPOETIN ALFA 4,000 UNIT/ML ML Dialysis IV SCH (16:09)
[2018-09-21] MEDS: HYDROmorphone 1 mg/ml ISec IVP PRN ×2 (17:42→21:45)
--- NOTE | 2018-09-21 19:01 | CP.PCM.PN ---
Subjective - Date & Time of Evaluation Date of Evaluation: 09/21/18 Time of Evaluation: 19:01 Objective - Vital Signs/Intake and Output Vital Signs (last 24 hours): Temp Pulse Resp BP Pulse Ox 97.7 F 83 17 144/47 L 98 09/21/18 17:45 09/21/18 17:45 09/21/18 17:45 09/21/18 17:45 09/21/18 17:45 Intake and Output: 09/21/18 09/22/18 18:59 06:59 Intake Total 240 Balance 240 - Medications Medications: Current Medications Aspirin (Aspirin Chewable) 81 mg PO DAILY [facility] Last Admin: 09/21/18 11:08 Dose: Not Given Atenolol (Tenormin) 50 mg PO DAILY [facility] Last Admin: 09/21/18 11:09 Dose: Not Given Clopidogrel Bisulfate (Plavix) 75 mg PO DAILY [facility] Last Admin: 09/21/18 11:09 Dose: Not Given Docusate Sodium (Colace) 100 mg PO DAILY [facility] Last Admin: 09/21/18 11:08 Dose: Not Given Epoetin Danny (Procrit) 8,000 unit IV MWF [facility] Last Admin: 09/21/18 16:09 Dose: 8,000 unit Heparin Sodium (Porcine) (Heparin) 5,000 units SC Q12H [facility] Last Admin: 09/21/18 11:13 Dose: 5,000 units Hydromorphone HCl (Dilaudid) 1 mg IVP Q4H PRN PRN Reason: Pain, severe (8-10) Last Admin: 09/21/18 17:42 Dose: 1 mg Insulin Aspart (Novolog) 0 unit SC [facility]; Protocol Last Admin: 09/21/18 17:10 Dose: Not Given Losartan Potassium (Cozaar) 50 mg PO QPM [facility] Last Admin: 09/21/18 18:40 Dose: 50 mg Oxycodone/Acetaminophen (Percocet 5/325 Mg Tab) 1 tab PO Q4H PRN PRN Reason: Pain, moderate (4-7) Stop: 09/22/18 12:54 Last Admin: 09/19/18 19:08 Dose: 1 tab Pregabalin (Lyrica) 75 mg PO DAILY [facility] Last Admin: 09/21/18 11:09 Dose: Not Given Ranolazine (Ranexa) 500 mg PO BID [facility] Last Admin: 09/21/18 18:57 Dose: 500 mg Rosuvastatin Calcium (Crestor) 5 mg PO HS [facility] Last Admin: 09/20/18 22:01 Dose: 5 mg Sevelamer Carbonate (Renvela) 800 mg PO TIDCC [facility] Last Admin: 09/21/18 17:50 Dose: 800 mg Vitamin B Complex/Vit C/Folic Acid (Nephro-Federica) 1 tab PO 0800 [facility] Last Admin: 09/21/18 08:19 Dose: 1 tab - Labs Labs: 09/18/18 04:57 09/18/18 04:57 PT 15.2 SECONDS (9.7-12.2) H 09/17/18 06:15 INR 1.4 09/17/18 06:15 APTT 36 SECONDS (21-34) H 09/17/18 06:15
[2018-09-22] MEDS: HYDROmorphone 1 mg/ml ISec IVP PRN ×6 (01:51→22:42)
[2018-09-22] MEDS: (Novolog) Insulin Aspart, Recombinant 100 u/ml 10 ml vial SC SCH ×5 (08:17→21:31)
--- NOTE | 2018-09-22 08:22 | CP.PCM.PN ---
Subjective - Date & Time of Evaluation Date of Evaluation: 09/22/18 Time of Evaluation: 08:21 - Subjective Subjective: right groin clips removed nothing unusual sutures out in office Objective - Vital Signs/Intake and Output Vital Signs (last 24 hours): Temp Pulse Resp BP Pulse Ox 98.2 F 80 20 111/67 95 09/21/18 23:19 09/21/18 23:19 09/21/18 23:19 09/21/18 23:19 09/21/18 23:19 Intake and Output: 09/22/18 09/22/18 06:59 18:59 Intake Total 450 Balance 450 - Medications Medications: Current Medications Aspirin (Aspirin Chewable) 81 mg PO DAILY [facility] Last Admin: 09/21/18 11:08 Dose: Not Given Atenolol (Tenormin) 50 mg PO DAILY [facility] Last Admin: 09/21/18 11:09 Dose: Not Given Clopidogrel Bisulfate (Plavix) 75 mg PO DAILY [facility] Last Admin: 09/21/18 11:09 Dose: Not Given Docusate Sodium (Colace) 100 mg PO DAILY [facility] Last Admin: 09/21/18 11:08 Dose: Not Given Epoetin Danny (Procrit) 8,000 unit IV MWF [facility] Last Admin: 09/21/18 16:09 Dose: 8,000 unit Heparin Sodium (Porcine) (Heparin) 5,000 units SC Q12H [facility] Last Admin: 09/21/18 21:36 Dose: 5,000 units Hydromorphone HCl (Dilaudid) 1 mg IVP Q4H PRN PRN Reason: Pain, severe (8-10) Last Admin: 09/22/18 05:54 Dose: 1 mg Insulin Aspart (Novolog) 0 unit SC [facility]; Protocol Last Admin: 09/22/18 08:17 Dose: Not Given Losartan Potassium (Cozaar) 50 mg PO QPM [facility] Last Admin: 09/21/18 18:40 Dose: 50 mg Oxycodone/Acetaminophen (Percocet 5/325 Mg Tab) 1 tab PO Q4H PRN PRN Reason: Pain, moderate (4-7) Stop: 09/22/18 12:54 Last Admin: 09/19/18 19:08 Dose: 1 tab Pregabalin (Lyrica) 75 mg PO DAILY [facility] Last Admin: 09/21/18 11:09 Dose: Not Given Ranolazine (Ranexa) 500 mg PO BID [facility] Last Admin: 09/21/18 18:57 Dose: 500 mg Rosuvastatin Calcium (Crestor) 5 mg PO HS [facility] Last Admin: 09/21/18 21:36 Dose: 5 mg Sevelamer Carbonate (Renvela) 800 mg PO TIDCC [facility] Last Admin: 09/21/18 17:50 Dose: 800 mg Vitamin B Complex/Vit C/Folic Acid (Nephro-Federica) 1 tab PO 0800 [facility] Last Admin: 09/21/18 08:19 Dose: 1 tab - Labs Labs: 09/18/18 04:57 09/18/18 04:57 PT 15.2 SECONDS (9.7-12.2) H 09/17/18 06:15 INR 1.4 09/17/18 06:15 APTT 36 SECONDS (21-34) H 09/17/18 06:15
[2018-09-22] MEDS: Multivitamin Vitamin B Complex (Nephro-Vite) Tab PO SCH (08:32)
--- NOTE | 2018-09-22 08:39 | CP.PCM.PN ---
<Giuseppe Youngblood - Last Filed: 09/22/18 08:39> Subjective - Date & Time of Evaluation Date of Evaluation: 09/22/18 Time of Evaluation: 08:39 Objective - Vital Signs/Intake and Output Vital Signs (last 24 hours): Temp Pulse Resp BP Pulse Ox 98.2 F 83 20 120/70 97 09/22/18 08:00 09/22/18 08:00 09/22/18 08:00 09/22/18 08:00 09/22/18 08:00 Intake and Output: 09/22/18 09/22/18 06:59 18:59 Intake Total 450 Balance 450 - Medications Medications: Current Medications Aspirin (Aspirin Chewable) 81 mg PO DAILY [facility] Last Admin: 09/21/18 11:08 Dose: Not Given Atenolol (Tenormin) 50 mg PO DAILY [facility] Last Admin: 09/21/18 11:09 Dose: Not Given Clopidogrel Bisulfate (Plavix) 75 mg PO DAILY [facility] Last Admin: 09/21/18 11:09 Dose: Not Given Docusate Sodium (Colace) 100 mg PO DAILY [facility] Last Admin: 09/21/18 11:08 Dose: Not Given Epoetin Danny (Procrit) 8,000 unit IV MWF [facility] Last Admin: 09/21/18 16:09 Dose: 8,000 unit Heparin Sodium (Porcine) (Heparin) 5,000 units SC Q12H [facility] Last Admin: 09/21/18 21:36 Dose: 5,000 units Hydromorphone HCl (Dilaudid) 1 mg IVP Q4H PRN PRN Reason: Pain, severe (8-10) Last Admin: 09/22/18 05:54 Dose: 1 mg Insulin Aspart (Novolog) 0 unit SC [facility]; Protocol Last Admin: 09/22/18 08:17 Dose: Not Given Losartan Potassium (Cozaar) 50 mg PO QPM [facility] Last Admin: 09/21/18 18:40 Dose: 50 mg Oxycodone/Acetaminophen (Percocet 5/325 Mg Tab) 1 tab PO Q4H PRN PRN Reason: Pain, moderate (4-7) Stop: 09/22/18 12:54 Last Admin: 09/19/18 19:08 Dose: 1 tab Pregabalin (Lyrica) 75 mg PO DAILY [facility] Last Admin: 09/21/18 11:09 Dose: Not Given Ranolazine (Ranexa) 500 mg PO BID [facility] Last Admin: 09/21/18 18:57 Dose: 500 mg Rosuvastatin Calcium (Crestor) 5 mg PO HS [facility] Last Admin: 09/21/18 21:36 Dose: 5 mg Sevelamer Carbonate (Renvela) 800 mg PO TIDCC [facility] Last Admin: 09/22/18 08:32 Dose: 800 mg Vitamin B Complex/Vit C/Folic Acid (Nephro-Federica) 1 tab PO 0800 [facility] Last Admin: 09/22/18 08:32 Dose: 1 tab - Labs Labs: 09/18/18 04:57 09/18/18 04:57 PT 15.2 SECONDS (9.7-12.2) H 09/17/18 06:15 INR 1.4 09/17/18 06:15 APTT 36 SECONDS (21-34) H 09/17/18 06:15 <Mindy Wilson - Last Filed: 09/22/18 11:06> Subjective - Subjective Subjective: Podiatry Progress Note: 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 Youngblood for dry gangrenous digits of both feet. Patient resting in bed at time of visit, elevating legs on pillows. He states the elevation helps with pain. Also says his pain is well controlled with medications at present, reporting mild pain here and there. He offers no new pedal complaints today. Denies N/V/F/SOB/CP. Objective - Vital Signs/Intake and Output Vital Signs (last 24 hours): Temp Pulse Resp BP Pulse Ox 98.2 F 83 20 120/70 97 09/22/18 08:00 09/22/18 08:00 09/22/18 08:00 09/22/18 08:00 09/22/18 08:00 Intake and Output: 09/22/18 09/22/18 06:59 18:59 Intake Total 450 Balance 450 - Medications Medications: Current Medications Aspirin (Aspirin Chewable) 81 mg PO DAILY [facility] Last Admin: 09/22/18 10:04 Dose: 81 mg Atenolol (Tenormin) 50 mg PO DAILY [facility] Last Admin: 09/22/18 10:04 Dose: 50 mg Clopidogrel Bisulfate (Plavix) 75 mg PO DAILY [facility] Last Admin: 09/22/18 10:04 Dose: 75 mg Docusate Sodium (Colace) 100 mg PO DAILY [facility] Last Admin: 09/22/18 10:04 Dose: 100 mg Epoetin Danny (Procrit) 8,000 unit IV MWF [facility] Last Admin: 09/21/18 16:09 Dose: 8,000 unit Heparin Sodium (Porcine) (Heparin) 5,000 units SC Q12H [facility] Last Admin: 09/22/18 10:12 Dose: 5,000 units Hydromorphone HCl (Dilaudid) 1 mg IVP Q4H PRN PRN Reason: Pain, severe (8-10) Last Admin: 09/22/18 10:02 Dose: 1 mg Insulin Aspart (Novolog) 0 unit SC ACHS [facility]; Protocol Last Admin: 09/22/18 08:17 Dose: Not Given Losartan Potassium (Cozaar) 50 mg PO QPM [facility] Last Admin: 09/21/18 18:40 Dose: 50 mg Oxycodone/Acetaminophen (Percocet 5/325 Mg Tab) 1 tab PO Q4H PRN PRN Reason: Pain, moderate (4-7) Stop: 09/22/18 12:54 Last Admin: 09/19/18 19:08 Dose: 1 tab Pregabalin (Lyrica) 75 mg PO DAILY [facility] Last Admin: 09/22/18 10:04 Dose: 75 mg Ranolazine (Ranexa) 500 mg PO BID [facility] Last Admin: 09/22/18 10:13 Dose: 500 mg Rosuvastatin Calcium (Crestor) 5 mg PO HS [facility] Last Admin: 09/21/18 21:36 Dose: 5 mg Sevelamer Carbonate (Renvela) 800 mg PO TIDCC [facility] Last Admin: 09/22/18 08:32 Dose: 800 mg Vitamin B Complex/Vit C/Folic Acid (Nephro-Federica) 1 tab PO 0800 [facility] Last Admin: 09/22/18 08:32 Dose: 1 tab - Labs Labs: 09/18/18 04:57 09/18/18 04:57 PT 15.2 SECONDS (9.7-12.2) H 09/17/18 06:15 INR 1.4 09/17/18 06:15 APTT 36 SECONDS (21-34) H 09/17/18 06:15 - Constitutional Appears: Well, Non-toxic, No Acute Distress - Extremities Exam Additional comments: B/L LE focused exam: Vasc: DP/PT nonpapable, temperature gradient warm to warm to right lower extremity, temperature gradient cool to cool to left lower extremity, mild edema noted to the forefoot B/L Ortho: pain with palpation of the digits, patient able to wiggle toes, MMT is 4/5 in all four compartments, no pain with calf compression bilaterally NEURO: gross sensation intact, protective sensation diminished DERM: Right foot: 1st, 2nd, 3rd digit with necrotic distal tips, dry gangrene, no opening, no drainage, no malodor, no purulence, no erythema, bluish purple discoloration noted to the dorsum of forefoot at the level of the MPJs. 4th digit with blue-wanda/purple discoloration; improved. Eschar heel noted measuring approximately 2cm x 3cm, depth unstageable. No opening, no drainage, no odor or purulence. No clinical signs of infection at this time. Left foot: 4th and 5th digit with necrotic changes, dry gangrene, no opening, no drainage, no odor or purulence, no erythema. Eschar heel noted measuring approximately 2cm x 3cm, depth unstageable. No opening, no drainage, no odor or purulence. No clinical signs of infection at this time. Diffuse xerosis noted to the entire LE - Neurological Exam Neurological Exam: Alert, Awake, Oriented x3 - Psychiatric Exam Psychiatric exam: Normal Affect, Normal Mood Assessment and Plan - Assessment and Plan (Free Text) Assessment: 63 year old male with dry gangrene of digits to bilateral feet Plan: Patient seen and evaluated with attending Dr. Youngblood Patient s/p LLE bypass - await resolution of pain and clear demarcation of digital ischemia prior to surgical intervention No dressing needed at this time, will continue to monitor progression Multipodus boots to be worn at all times while in bed Will continue to follow while in house
[2018-09-22] MEDS: Ranolazine 500 mg Extended Release Tablets PO SCH ×2 (10:13→17:52)
--- NOTE | 2018-09-22 11:12 | CP.PCM.PN ---
Subjective - Date & Time of Evaluation Date of Evaluation: 09/22/18 Time of Evaluation: 11:12 - Subjective Subjective: Nephrology Consultation Note: Assessment: Stable PVD s/p Right common fem-to-ant tibial bypass on 09/03/18, left fem pop bypass 09/17/18 mild hyponatremia missed HD obesity hyponatremia Diabetic chronic Kidney Disease (E11.22) Hypertensive Chronic Kidney Disease (I12.0) End stage renal disease (N18.6) dependence on hemodialysis (Z99.2) (MWF) via AVF Anemia (D64.9), Hyperphosphatemia (E83.39), Secondary Hyperparathyroidism (E21.1), HTN (I12.0) Plan: Will plan for dialysis per MWF schedule. Continue with Nephrovite 1 tab/day. PRBC as needed for anemia. on JENA with dialysis as last Hb 9.1 Continue with phos binders, last phos level: 6.8 BP control with meds as ordered. Patient on RAAS francia as losartan. hold hydralazine as BP low side Glycemic control, Dialysis consistent diet Further work up/management as per primary team Dose meds/antibiotics (if needed) for ESRD status. Avoid fleets enema/magnesium based laxatives. vascular surgery following. s/p bypass on left leg Thanks for allowing me to participate in care of your patient. Will follow patient with you. Please call if any Qs. had d/w team Dr Sal Aguayo Office: [phone] Chief Complaint;leg pain HPI: Pt is a 63 M with hx of ESRD on hemodialysis (MWF) via AVF, last dialysis thur with Dr Quinonez (usually at [place]), chronic anemia, hyperphosphatemia, secondary hyperparathyroidism, Diabetes Mellitus, hypertension PVD s/p Right common fem-to-ant tibial bypass on 09/03/18 presented with complaints of persistent feets pain Renal consult requested for ESRD management. pt c/o feet pain. was d/c to rehab recently denies SOB ROS: has pain on left side foot s/p bypass but better Cardiovascular: No chest pain. Pulmonary: No shortness of breath Gastrointestinal: denies abdominal pain No nausea. No vomiting. Genitourinary: No pain while urinating. Denies blood in urine. All other negative except as mentioned in HPI Physical Examination: General Appearance: Comfortable, in no acute respiratory distress, co-operative . obese Vitals reviewed and noted as below Head; Atraumatic, normocephalic ENT: no ulcers no thrush. Tongue is midline. Oropharynx: no rash or ulcers. EYES: Pupils are equal, round and reactive to light accommodation. Eye muscles and extraocular movement intact. Sclera is anicteric. Neck; supple no lymphadenopathy, no thyromegaly or bruit Lungs: Normal respiratory rate/effort. Breath sounds bilateral equal and clear Heart: Normal rate. s1s2 normal. No rub or gallop. Extremities: ankle edema. No varicose veins. s/p Rt leg vasc surgery Neurological: Patient is alert, awake and oriented to person, place and time. No focal deficit. Strength bilateral appropriate and equal Skin: Warm and dry. Normal turgor. No rash. Palpitation: Normal elasticity for age Abdomen: Abdomen is soft. Bowel sounds +. There is no abdominal tenderness, no guarding/rigidity or organomegaly Psych: normal insight and normal affect/mood MSK: no joint tenderness or swelling. toes gangrenous changes + : kidney or bladder not palpable Access: AVF Labs/imaging reviewed. Past medical history, past surgical history, family history, social history, allergy reviewed and noted as below Family Hx: no hx of CKD. Non contributory Objective - Vital Signs/Intake and Output Vital Signs (last 24 hours): Temp Pulse Resp BP Pulse Ox 98.2 F 83 20 120/70 97 09/22/18 08:00 09/22/18 08:00 09/22/18 08:00 09/22/18 08:00 09/22/18 08:00 Intake and Output: 09/22/18 09/22/18 06:59 18:59 Intake Total 450 Balance 450 - Medications Medications: Current Medications Aspirin (Aspirin Chewable) 81 mg PO DAILY [facility] Last Admin: 09/22/18 10:04 Dose: 81 mg Atenolol (Tenormin) 50 mg PO DAILY [facility] Last Admin: 09/22/18 10:04 Dose: 50 mg Clopidogrel Bisulfate (Plavix) 75 mg PO DAILY [facility] Last Admin: 09/22/18 10:04 Dose: 75 mg Docusate Sodium (Colace) 100 mg PO DAILY [facility] Last Admin: 09/22/18 10:04 Dose: 100 mg Epoetin Danny (Procrit) 8,000 unit IV MWF [facility] Last Admin: 09/21/18 16:09 Dose: 8,000 unit Heparin Sodium (Porcine) (Heparin) 5,000 units SC Q12H [facility] Last Admin: 09/22/18 10:12 Dose: 5,000 units Hydromorphone HCl (Dilaudid) 1 mg IVP Q4H PRN PRN Reason: Pain, severe (8-10) Last Admin: 09/22/18 10:02 Dose: 1 mg Insulin Aspart (Novolog) 0 unit SC ACHS [facility]; Protocol Last Admin: 09/22/18 08:17 Dose: Not Given Losartan Potassium (Cozaar) 50 mg PO QPM [facility] Last Admin: 09/21/18 18:40 Dose: 50 mg Oxycodone/Acetaminophen (Percocet 5/325 Mg Tab) 1 tab PO Q4H PRN PRN Reason: Pain, moderate (4-7) Stop: 09/22/18 12:54 Last Admin: 09/19/18 19:08 Dose: 1 tab Pregabalin (Lyrica) 75 mg PO DAILY [facility] Last Admin: 09/22/18 10:04 Dose: 75 mg Ranolazine (Ranexa) 500 mg PO BID [facility] Last Admin: 09/22/18 10:13 Dose: 500 mg Rosuvastatin Calcium (Crestor) 5 mg PO HS [facility] Last Admin: 09/21/18 21:36 Dose: 5 mg Sevelamer Carbonate (Renvela) 800 mg PO TIDCC [facility] Last Admin: 09/22/18 08:32 Dose: 800 mg Vitamin B Complex/Vit C/Folic Acid (Nephro-Federica) 1 tab PO 0800 [facility] Last Admin: 09/22/18 08:32 Dose: 1 tab - Labs Labs: 09/18/18 04:57 09/18/18 04:57 PT 15.2 SECONDS (9.7-12.2) H 09/17/18 06:15 INR 1.4 09/17/18 06:15 APTT 36 SECONDS (21-34) H 09/17/18 06:15
--- NOTE | 2018-09-22 15:44 | CP.PCM.PN ---
Subjective - Date & Time of Evaluation Date of Evaluation: 09/22/18 Time of Evaluation: 15:44 Objective - Vital Signs/Intake and Output Vital Signs (last 24 hours): Temp Pulse Resp BP Pulse Ox 98.2 F 83 20 120/70 97 09/22/18 08:00 09/22/18 08:00 09/22/18 08:00 09/22/18 08:00 09/22/18 08:00 Intake and Output: 09/22/18 09/22/18 06:59 18:59 Intake Total 450 400 Balance 450 400 - Medications Medications: Current Medications Aspirin (Aspirin Chewable) 81 mg PO DAILY [facility] Last Admin: 09/22/18 10:04 Dose: 81 mg Atenolol (Tenormin) 50 mg PO DAILY [facility] Last Admin: 09/22/18 10:04 Dose: 50 mg Clopidogrel Bisulfate (Plavix) 75 mg PO DAILY [facility] Last Admin: 09/22/18 10:04 Dose: 75 mg Docusate Sodium (Colace) 100 mg PO DAILY [facility] Last Admin: 09/22/18 10:04 Dose: 100 mg Epoetin Danny (Procrit) 8,000 unit IV MWF [facility] Last Admin: 09/21/18 16:09 Dose: 8,000 unit Heparin Sodium (Porcine) (Heparin) 5,000 units SC Q12H [facility] Last Admin: 09/22/18 10:12 Dose: 5,000 units Hydromorphone HCl (Dilaudid) 1 mg IVP Q4H PRN PRN Reason: Pain, severe (8-10) Last Admin: 09/22/18 14:41 Dose: 1 mg Insulin Aspart (Novolog) 0 unit SC ACHS [facility]; Protocol Last Admin: 09/22/18 12:00 Dose: 2 u Losartan Potassium (Cozaar) 50 mg PO QPM [facility] Last Admin: 09/21/18 18:40 Dose: 50 mg Pregabalin (Lyrica) 75 mg PO DAILY [facility] Last Admin: 09/22/18 10:04 Dose: 75 mg Ranolazine (Ranexa) 500 mg PO BID [facility] Last Admin: 09/22/18 10:13 Dose: 500 mg Rosuvastatin Calcium (Crestor) 5 mg PO HS [facility] Last Admin: 09/21/18 21:36 Dose: 5 mg Sevelamer Carbonate (Renvela) 800 mg PO TIDCC [facility] Last Admin: 09/22/18 11:59 Dose: 800 mg Vitamin B Complex/Vit C/Folic Acid (Nephro-Federica) 1 tab PO 0800 [facility] Last Admin: 09/22/18 08:32 Dose: 1 tab - Labs Labs: 09/18/18 04:57 09/18/18 04:57 PT 15.2 SECONDS (9.7-12.2) H 09/17/18 06:15 INR 1.4 09/17/18 06:15 APTT 36 SECONDS (21-34) H 09/17/18 06:15
--- NOTE | 2018-09-22 18:38 | CP.PCM.PN ---
Subjective - Date & Time of Evaluation Date of Evaluation: 09/22/18 Time of Evaluation: 07:30 - Subjective Subjective: clinically same Objective - Vital Signs/Intake and Output Vital Signs (last 24 hours): Temp Pulse Resp BP Pulse Ox 97.7 F 72 20 125/72 100 09/22/18 16:00 09/22/18 17:53 09/22/18 16:00 09/22/18 17:53 09/22/18 16:00 Intake and Output: 09/22/18 09/22/18 06:59 18:59 Intake Total 450 400 Balance 450 400 - Medications Medications: Current Medications Aspirin (Aspirin Chewable) 81 mg PO DAILY [facility] Last Admin: 09/22/18 10:04 Dose: 81 mg Atenolol (Tenormin) 50 mg PO DAILY [facility] Last Admin: 09/22/18 10:04 Dose: 50 mg Clopidogrel Bisulfate (Plavix) 75 mg PO DAILY [facility] Last Admin: 09/22/18 10:04 Dose: 75 mg Docusate Sodium (Colace) 100 mg PO DAILY [facility] Last Admin: 09/22/18 10:04 Dose: 100 mg Epoetin Danny (Procrit) 8,000 unit IV MWF [facility] Last Admin: 09/21/18 16:09 Dose: 8,000 unit Heparin Sodium (Porcine) (Heparin) 5,000 units SC Q12H [facility] Last Admin: 09/22/18 10:12 Dose: 5,000 units Hydromorphone HCl (Dilaudid) 1 mg IVP Q4H PRN PRN Reason: Pain, severe (8-10) Last Admin: 09/22/18 14:41 Dose: 1 mg Insulin Aspart (Novolog) 0 unit SC ACHS [facility]; Protocol Last Admin: 09/22/18 16:58 Dose: Not Given Losartan Potassium (Cozaar) 50 mg PO QPM [facility] Last Admin: 09/22/18 17:52 Dose: 50 mg Pregabalin (Lyrica) 75 mg PO DAILY [facility] Last Admin: 09/22/18 10:04 Dose: 75 mg Ranolazine (Ranexa) 500 mg PO BID [facility] Last Admin: 09/22/18 17:52 Dose: 500 mg Rosuvastatin Calcium (Crestor) 5 mg PO HS [facility] Last Admin: 09/21/18 21:36 Dose: 5 mg Sevelamer Carbonate (Renvela) 800 mg PO TIDCC [facility] Last Admin: 09/22/18 17:52 Dose: 800 mg Vitamin B Complex/Vit C/Folic Acid (Nephro-Federica) 1 tab PO 0800 [facility] Last Admin: 09/22/18 08:32 Dose: 1 tab - Labs Labs: 09/18/18 04:57 09/18/18 04:57 PT 15.2 SECONDS (9.7-12.2) H 09/17/18 06:15 INR 1.4 09/17/18 06:15 APTT 36 SECONDS (21-34) H 09/17/18 06:15 - Constitutional Appears: Well - Head Exam Head Exam: ATRAUMATIC, NORMAL INSPECTION, NORMOCEPHALIC - Eye Exam Eye Exam: EOMI, Normal appearance, PERRL Pupil Exam: NORMAL ACCOMODATION, PERRL - ENT Exam ENT Exam: Mucous Membranes Moist, Normal Exam - Neck Exam Neck Exam: Full ROM, Normal Inspection. absent: Lymphadenopathy - Respiratory Exam Respiratory Exam: Decreased Breath Sounds - Cardiovascular Exam Cardiovascular Exam: REGULAR RHYTHM, +S1, +S2 - GI/Abdominal Exam GI & Abdominal Exam: Soft, Diminished Bowel Sounds - Rectal Exam Rectal Exam: Deferred Assessment and Plan - Assessment and Plan (Free Text) Plan: Hemodialysis Aspirin Plavix Blood pressure medications GI DVT prophylaxis Status post cardio Status post vascular surgery Status post brachii As ordered off antibiotic
[2018-09-23] MEDS: HYDROmorphone 1 mg/ml ISec IVP PRN ×4 (03:35→17:00)
[2018-09-23] MEDS: (Novolog) Insulin Aspart, Recombinant 100 u/ml 10 ml vial SC SCH ×4 (08:14→21:53)
[2018-09-23] MEDS: Multivitamin Vitamin B Complex (Nephro-Vite) Tab PO SCH (08:31)
--- NOTE | 2018-09-23 10:14 | CP.PCM.PN ---
Subjective - Date & Time of Evaluation Date of Evaluation: 09/23/18 Time of Evaluation: 10:13 - Subjective Subjective: Podiatry Progress Note: Dr. Youngblood 63 year old male seen and evaluated at bedside today for dry gangrenous digits of both feet. Patient resting in bed, seen in dialysis today. He offers no new pedal complaints today. He is aware he is going for surgery tomorrow. Denies N/V/F/SOB/CP. Objective - Vital Signs/Intake and Output Vital Signs (last 24 hours): Temp Pulse Resp BP Pulse Ox 98.2 F 75 16 135/74 98 09/23/18 08:55 09/23/18 08:55 09/23/18 08:55 09/23/18 09:55 09/23/18 08:55 Intake and Output: 09/23/18 09/23/18 06:59 18:59 Intake Total 540 Balance 540 - Medications Medications: Current Medications Aspirin (Aspirin Chewable) 81 mg PO DAILY [facility] Last Admin: 09/22/18 10:04 Dose: 81 mg Atenolol (Tenormin) 50 mg PO DAILY [facility] Last Admin: 09/22/18 10:04 Dose: 50 mg Clopidogrel Bisulfate (Plavix) 75 mg PO DAILY [facility] Last Admin: 09/22/18 10:04 Dose: 75 mg Docusate Sodium (Colace) 100 mg PO DAILY [facility] Last Admin: 09/22/18 10:04 Dose: 100 mg Epoetin Danny (Procrit) 8,000 unit IV MWF [facility] Last Admin: 09/21/18 16:09 Dose: 8,000 unit Heparin Sodium (Porcine) (Heparin) 5,000 units SC Q12H [facility] Last Admin: 09/22/18 21:42 Dose: 5,000 units Hydromorphone HCl (Dilaudid) 1 mg IVP Q4H PRN PRN Reason: Pain, severe (8-10) Last Admin: 09/23/18 07:45 Dose: 1 mg Insulin Aspart (Novolog) 0 unit SC ACHS [facility]; Protocol Last Admin: 09/23/18 08:14 Dose: Not Given Losartan Potassium (Cozaar) 50 mg PO QPM [facility] Last Admin: 09/22/18 17:52 Dose: 50 mg Pregabalin (Lyrica) 75 mg PO DAILY [facility] Last Admin: 09/22/18 10:04 Dose: 75 mg Ranolazine (Ranexa) 500 mg PO BID [facility] Last Admin: 09/22/18 17:52 Dose: 500 mg Rosuvastatin Calcium (Crestor) 5 mg PO HS [facility] Last Admin: 09/22/18 21:42 Dose: 5 mg Sevelamer Carbonate (Renvela) 800 mg PO TIDCC [facility] Last Admin: 09/23/18 08:31 Dose: 800 mg Vitamin B Complex/Vit C/Folic Acid (Nephro-Federica) 1 tab PO 0800 [facility] Last Admin: 09/23/18 08:31 Dose: 1 tab - Labs Labs: 09/18/18 04:57 09/18/18 04:57 PT 15.2 SECONDS (9.7-12.2) H 09/17/18 06:15 INR 1.4 09/17/18 06:15 APTT 36 SECONDS (21-34) H 09/17/18 06:15 - Constitutional Appears: Well, Non-toxic, No Acute Distress - Extremities Exam Additional comments: B/L LE focused exam: Vasc: DP/PT nonpapable, temperature gradient warm to warm to right lower extremity, temperature gradient cool to cool to left lower extremity, mild edema noted to the forefoot B/L Ortho: pain with palpation of the digits, patient able to wiggle toes, MMT is 4/5 in all four compartments, no pain with calf compression bilaterally NEURO: gross sensation intact, protective sensation diminished DERM: Right foot: 1st, 2nd, 3rd digit with necrotic distal tips, dry gangrene, no opening, no drainage, no malodor, no purulence, no erythema, bluish purple discoloration noted to the dorsum of forefoot at the level of the MPJs. 4th digit with blue-wanda/purple discoloration; improved. Eschar heel noted measuring approximately 2cm x 3cm, depth unstageable. No opening, no drainage, no odor or purulence. No clinical signs of infection at this time. Left foot: 4th and 5th digit with necrotic changes, dry gangrene, no opening, no drainage, no odor or purulence, no erythema. Eschar heel noted measuring approximately 2cm x 3cm, depth unstageable. No opening, no drainage, no odor or purulence. No clinical signs of infection at this time. Diffuse xerosis noted to the entire LE - Neurological Exam Neurological Exam: Alert, Awake, Oriented x3 - Psychiatric Exam Psychiatric exam: Normal Affect, Normal Mood Assessment and Plan - Assessment and Plan (Free Text) Assessment: 63 year old male with dry gangrene of digits to bilateral feet Plan: Patient seen and evaluated at bedside Discussed plan with attending Dr. Youngblood Patient s/p LLE bypass - await resolution of pain and clear demarcation of di gital ischemia prior to surgical intervention No dressing needed at this time, will continue to monitor progression Multipodus boots to be worn at all times while in bed Pt to go to OR tomorrow at 9am for digital amputations 1-3 on right foot and 4&[address] Luciano consulted for cardiac evaluation prior to surgical intervention Per Dr. Gooden's surgical team, Plavix to remain on board NPO order placed after midnight Will continue to follow while in house
[2018-09-23] MEDS: Ranolazine 500 mg Extended Release Tablets PO SCH ×2 (10:35→17:53)
[2018-09-23] MEDS: EPOETIN ALFA 4,000 UNIT/ML ML Dialysis IV SCH (10:37)
[2018-09-23 13:55] LABS: HEMOGLOBIN 9.7 g/dL (12.0-18.0)
[2018-09-23 14:20] LABS: INR 2.2; PROTHROMBIN TIME 24.4 SECONDS (9.7-12.2)
--- NOTE | 2018-09-23 15:12 | CP.PCM.PN ---
Objective - Vital Signs/Intake and Output Vital Signs (last 24 hours): Temp Pulse Resp BP Pulse Ox 97.2 F L 75 18 158/79 H 97 09/23/18 12:25 09/23/18 12:25 09/23/18 12:25 09/23/18 12:25 09/23/18 12:25 Intake and Output: 09/23/18 09/23/18 06:59 18:59 Intake Total 540 Balance 540 - Medications Medications: Current Medications Aspirin (Aspirin Chewable) 81 mg PO DAILY [facility] Last Admin: 09/23/18 10:34 Dose: Not Given Atenolol (Tenormin) 50 mg PO DAILY [facility] Last Admin: 09/23/18 10:35 Dose: Not Given Clopidogrel Bisulfate (Plavix) 75 mg PO DAILY [facility] Last Admin: 09/23/18 10:34 Dose: Not Given Docusate Sodium (Colace) 100 mg PO DAILY [facility] Last Admin: 09/23/18 10:34 Dose: Not Given Epoetin Danny (Procrit) 8,000 unit IV MWF [facility] Last Admin: 09/23/18 10:37 Dose: 8,000 unit Heparin Sodium (Porcine) (Heparin) 5,000 units SC Q12H [facility] Last Admin: 09/23/18 10:34 Dose: Not Given Hydromorphone HCl (Dilaudid) 1 mg IVP Q4H PRN PRN Reason: Pain, severe (8-10) Last Admin: 09/23/18 13:23 Dose: 1 mg Insulin Aspart (Novolog) 0 unit SC ACHS [facility]; Protocol Last Admin: 09/23/18 13:18 Dose: Not Given Losartan Potassium (Cozaar) 50 mg PO QPM [facility] Last Admin: 09/22/18 17:52 Dose: 50 mg Pregabalin (Lyrica) 75 mg PO DAILY [facility] Last Admin: 09/23/18 10:34 Dose: Not Given Ranolazine (Ranexa) 500 mg PO BID [facility] Last Admin: 09/23/18 10:35 Dose: Not Given Rosuvastatin Calcium (Crestor) 5 mg PO HS [facility] Last Admin: 09/22/18 21:42 Dose: 5 mg Sevelamer Carbonate (Renvela) 800 mg PO TIDCC [facility] Last Admin: 09/23/18 13:19 Dose: Not Given Vitamin B Complex/Vit C/Folic Acid (Nephro-Federica) 1 tab PO 0800 [facility] Last Admin: 09/23/18 08:31 Dose: 1 tab - Labs Labs: 09/23/18 13:51 09/18/18 04:57 PT 24.4 SECONDS (9.7-12.2) H 09/23/18 13:51 INR 2.2 09/23/18 13:51 APTT 41 SECONDS (21-34) H 09/23/18 13:51
--- NOTE | 2018-09-23 16:40 | CP.PCM.PN ---
Subjective - Date & Time of Evaluation Date of Evaluation: 09/23/18 Time of Evaluation: 16:40 - Subjective Subjective: Nephrology Consultation Note: Assessment: Stable PVD s/p Right common fem-to-ant tibial bypass on 09/03/18, left fem pop bypass 09/17/18 mild hyponatremia missed HD obesity hyponatremia Diabetic chronic Kidney Disease (E11.22) Hypertensive Chronic Kidney Disease (I12.0) End stage renal disease (N18.6) dependence on hemodialysis (Z99.2) (MWF) via AVF Anemia (D64.9), Hyperphosphatemia (E83.39), Secondary Hyperparathyroidism (E21.1), HTN (I12.0) Plan: Will plan for dialysis per MWF schedule. Continue with Nephrovite 1 tab/day. PRBC as needed for anemia. on JENA with dialysis as last Hb 9.7 Continue with phos binders, last phos level: 6.8 BP control with meds as ordered. Patient on RAAS francia as losartan. Glycemic control, Dialysis consistent diet Further work up/management as per primary team Dose meds/antibiotics (if needed) for ESRD status. Avoid fleets enema/magnesium based laxatives. vascular surgery following. s/p bypass on left leg podiatry planning interventions on toes soon Thanks for allowing me to participate in care of your patient. Will follow patient with you. Please call if any Qs. had d/w team Dr Sal Aguayo Office: [phone] Chief Complaint;leg pain HPI: Pt is a 63 M with hx of ESRD on hemodialysis (MWF) via AVF, last dialysis thur with Dr Quinonez (usually at [facility]), chronic anemia, hyperphosphatemia, secondary hyperparathyroidism, Diabetes Mellitus, hypertension PVD s/p Right common fem-to-ant tibial bypass on 09/03/18 presented with complaints of persistent feets pain Renal consult requested for ESRD management. pt c/o feet pain. was d/c to rehab recently denies SOB ROS: has pain on foot s/p bypass Cardiovascular: No chest pain. Pulmonary: No shortness of breath Gastrointestinal: denies abdominal pain No nausea. No vomiting. Genitourinary: No pain while urinating. Denies blood in urine. All other negative except as mentioned in HPI Physical Examination: General Appearance: umcomfortable, in no acute respiratory distress, co- operative . obese Vitals reviewed and noted as below Head; Atraumatic, normocephalic ENT: no ulcers no thrush. Tongue is midline. Oropharynx: no rash or ulcers. EYES: Pupils are equal, round and reactive to light accommodation. Eye muscles and extraocular movement intact. Sclera is anicteric. Neck; supple no lymphadenopathy, no thyromegaly or bruit Lungs: Normal respiratory rate/effort. Breath sounds bilateral equal and clear Heart: Normal rate. s1s2 normal. No rub or gallop. Extremities: ankle edema. No varicose veins. s/p Rt leg vasc surgery Neurological: Patient is alert, awake and oriented to person, place and time. No focal deficit. Strength bilateral appropriate and equal Skin: Warm and dry. Normal turgor. No rash. Palpitation: Normal elasticity for age Abdomen: Abdomen is soft. Bowel sounds +. There is no abdominal tenderness, no guarding/rigidity or organomegaly Psych: normal insight and normal affect/mood MSK: no joint tenderness or swelling. toes gangrenous changes + : kidney or bladder not palpable Access: AVF Labs/imaging reviewed. Past medical history, past surgical history, family history, social history, allergy reviewed and noted as below Family Hx: no hx of CKD. Non contributory Objective - Vital Signs/Intake and Output Vital Signs (last 24 hours): Temp Pulse Resp BP Pulse Ox 97.2 F L 75 18 158/79 H 97 09/23/18 12:25 09/23/18 12:25 09/23/18 12:25 09/23/18 12:25 09/23/18 12:25 Intake and Output: 09/23/18 09/23/18 06:59 18:59 Intake Total 540 240 Balance 540 240 - Medications Medications: Current Medications Aspirin (Aspirin Chewable) 81 mg PO DAILY [facility] Last Admin: 09/23/18 10:34 Dose: Not Given Atenolol (Tenormin) 50 mg PO DAILY [facility] Last Admin: 09/23/18 10:35 Dose: Not Given Clopidogrel Bisulfate (Plavix) 75 mg PO DAILY [facility] Last Admin: 09/23/18 10:34 Dose: Not Given Docusate Sodium (Colace) 100 mg PO DAILY [facility] Last Admin: 09/23/18 10:34 Dose: Not Given Epoetin Danny (Procrit) 8,000 unit IV MWF [facility] Last Admin: 09/23/18 10:37 Dose: 8,000 unit Heparin Sodium (Porcine) (Heparin) 5,000 units SC Q12H [facility] Last Admin: 09/23/18 10:34 Dose: Not Given Hydromorphone HCl (Dilaudid) 1 mg IVP Q4H PRN PRN Reason: Pain, severe (8-10) Last Admin: 09/23/18 13:23 Dose: 1 mg Insulin Aspart (Novolog) 0 unit SC ACHS [facility]; Protocol Last Admin: 09/23/18 13:18 Dose: Not Given Losartan Potassium (Cozaar) 50 mg PO QPM [facility] Last Admin: 09/22/18 17:52 Dose: 50 mg Pregabalin (Lyrica) 75 mg PO DAILY [facility] Last Admin: 09/23/18 10:34 Dose: Not Given Ranolazine (Ranexa) 500 mg PO BID [facility] Last Admin: 09/23/18 10:35 Dose: Not Given Rosuvastatin Calcium (Crestor) 5 mg PO HS [facility] Last Admin: 09/22/18 21:42 Dose: 5 mg Sevelamer Carbonate (Renvela) 800 mg PO TIDCC [facility] Last Admin: 09/23/18 13:19 Dose: Not Given Vitamin B Complex/Vit C/Folic Acid (Nephro-Federica) 1 tab PO 0800 [facility] Last Admin: 09/23/18 08:31 Dose: 1 tab - Labs Labs: 09/23/18 13:51 09/18/18 04:57 PT 24.4 SECONDS (9.7-12.2) H 09/23/18 13:51 INR 2.2 09/23/18 13:51 APTT 41 SECONDS (21-34) H 09/23/18 13:51
--- NOTE | 2018-09-23 20:12 | CP.PCM.PN ---
Subjective - Date & Time of Evaluation Date of Evaluation: 09/23/18 Time of Evaluation: 07:30 - Subjective Subjective: clinically same Objective - Vital Signs/Intake and Output Vital Signs (last 24 hours): Temp Pulse Resp BP Pulse Ox 98.5 F 75 20 116/61 95 09/23/18 16:00 09/23/18 16:00 09/23/18 16:00 09/23/18 16:00 09/23/18 16:00 Intake and Output: 09/23/18 09/24/18 18:59 06:59 Intake Total 240 Balance 240 - Medications Medications: Current Medications Aspirin (Aspirin Chewable) 81 mg PO DAILY [facility] Last Admin: 09/23/18 10:34 Dose: Not Given Atenolol (Tenormin) 50 mg PO DAILY [facility] Last Admin: 09/23/18 10:35 Dose: Not Given Clopidogrel Bisulfate (Plavix) 75 mg PO DAILY [facility] Last Admin: 09/23/18 10:34 Dose: Not Given Docusate Sodium (Colace) 100 mg PO DAILY [facility] Last Admin: 09/23/18 10:34 Dose: Not Given Epoetin Danny (Procrit) 8,000 unit IV MWF [facility] Last Admin: 09/23/18 10:37 Dose: 8,000 unit Heparin Sodium (Porcine) (Heparin) 5,000 units SC Q12H [facility] Last Admin: 09/23/18 10:34 Dose: Not Given Hydromorphone HCl (Dilaudid) 2 mg IVP Q4H PRN PRN Reason: Pain, severe (8-10) Insulin Aspart (Novolog) 0 unit SC ACHS [facility]; Protocol Last Admin: 09/23/18 16:30 Dose: 2 u Losartan Potassium (Cozaar) 50 mg PO QPM [facility] Last Admin: 09/23/18 17:31 Dose: 50 mg Pregabalin (Lyrica) 75 mg PO DAILY [facility] Last Admin: 09/23/18 10:34 Dose: Not Given Ranolazine (Ranexa) 500 mg PO BID [facility] Last Admin: 09/23/18 17:53 Dose: 500 mg Rosuvastatin Calcium (Crestor) 5 mg PO HS [facility] Last Admin: 09/22/18 21:42 Dose: 5 mg Sevelamer Carbonate (Renvela) 800 mg PO TIDCC [facility] Last Admin: 09/23/18 17:53 Dose: 800 mg Vitamin B Complex/Vit C/Folic Acid (Nephro-Federica) 1 tab PO 0800 [facility] Last Admin: 09/23/18 08:31 Dose: 1 tab - Labs Labs: 09/23/18 13:51 09/18/18 04:57 PT 24.4 SECONDS (9.7-12.2) H 09/23/18 13:51 INR 2.2 09/23/18 13:51 APTT 41 SECONDS (21-34) H 09/23/18 13:51 - Constitutional Appears: Well - Head Exam Head Exam: ATRAUMATIC, NORMAL INSPECTION, NORMOCEPHALIC - Eye Exam Eye Exam: EOMI, Normal appearance, PERRL Pupil Exam: NORMAL ACCOMODATION, PERRL - ENT Exam ENT Exam: Mucous Membranes Moist, Normal Exam - Neck Exam Neck Exam: Full ROM, Normal Inspection. absent: Lymphadenopathy - Respiratory Exam Respiratory Exam: Decreased Breath Sounds - Cardiovascular Exam Cardiovascular Exam: REGULAR RHYTHM, +S1, +S2 - GI/Abdominal Exam GI & Abdominal Exam: Soft - Rectal Exam Rectal Exam: Deferred Assessment and Plan (1) CAD (coronary artery disease) Status: Acute (2) Foot pain, bilateral Status: Acute (3) Intractable pain Status: Acute (4) PVD (peripheral vascular disease) Status: Acute (5) Preop cardiovascular exam Status: Acute (6) Renal failure Status: Acute (7) Arterial, arteriole and capillary disease Status: Acute (8) CHF (congestive heart failure) Status: Acute (9) Cellulitis of both feet Status: Acute (10) Hypertension Status: Acute (11) Renal insufficiency Status: Acute - Assessment and Plan (Free Text) Plan: Cardiology clearance Continue aspirin heparin Plavix For surgery tomorrow Off antibiotic Monitor for the fever As ordered Follow-up with the eco industrial development consultant
--- NOTE | 2018-09-23 20:32 | CP.PCM.CON ---
History of Present Illness - History of Present Illness History of Present Illness: Consultation for preoperative cardiovascular risk stratification HPI: Mr. Jonathon Beth is a 63-year-old male with past medical history significant for end-stage renal disease on hemodialysis coronary artery disease status post cardiac catheterization done at [facility] which showed [employer] DES[employer] ENGINE[employer] of [place] obtuse marginal branch moderate left circumflex and RCA disease as documented in consultation by Dr. Craig who had evaluated the patient in the past patient apparently had peripheral vascular revascularization procedures attempted by Dr. Jean Dawson in the [facility] late August which were unsuccessful secondary to severe calcific disease. Patient was subsequently underwent a FemHRT bypass by Dr. Gooden and then progressively started having bilateral gangrenous toes. He is being evaluated for preoperative cardiovascular risk stratification prior to amputation of the gangrenous toes and we have been called in consultation for history stratification at baseline he is activity is somewhat limited secondary to advanced gangrenous diseases of the bilateral lower extremity and peripheral vascular occlusive disease he does have multiple high risk cardiovascular status factors along with advanced CAD as documented on cardiac catheterization done at [facility] by Dr. Craig Review of Systems - Review of Systems Systems not reviewed;Unavailable: Acuity of Condition - Constitutional Constitutional: As Per HPI - EENT Eyes: As Per HPI Ears: As Per HPI Nose/Mouth/Throat: As Per HPI - Cardiovascular Cardiovascular: As Per HPI - Respiratory Respiratory: As Per HPI - Gastrointestinal Gastrointestinal: As Per HPI - Genitourinary Genitourinary: As Per HPI - Reproductive: Male Reproductive:Male: As Per HPI - Musculoskeletal Musculoskeletal: As Per HPI - Integumentary Integumentary: As Per HPI - Neurological Neurological: As Per HPI - Psychiatric Psychiatric: As Per HPI - Endocrine Endocrine: As Per HPI - Hematologic/Lymphatic Hematologic: As Per HPI Past Patient History - Infectious Disease Hx of Infectious Diseases: None - Past Medical History & Family History Past Medical History?: Yes - Past Social History Smoking Status: Never Smoked - CARDIAC Hx Hypercholesterolemia: Yes Hx Hypertension: Yes - PULMONARY Hx Respiratory Disorders: No - NEUROLOGICAL Hx Neurological Disorder: No - HEENT Hx HEENT Problems: Yes Hx Cataracts: Yes (RIGHT EYE) - RENAL Hx Chronic Kidney Disease: Yes Type of Dialysis Access: left AV shunt Hx Kidney Stones: No - ENDOCRINE/METABOLIC Hx Diabetes Mellitus Type 2: Yes - HEMATOLOGICAL/ONCOLOGICAL Hx Blood Disorders: No - INTEGUMENTARY Hx Dermatological Problems: No - MUSCULOSKELETAL/RHEUMATOLOGICAL Hx Falls: No Hx Fractures: Yes - GASTROINTESTINAL Hx Gastrointestinal Disorders: No - GENITOURINARY/GYNECOLOGICAL Hx Genitourinary Disorders: No - PSYCHIATRIC Hx Anxiety: Yes Hx Depression: Yes Hx Substance Use: No - SURGICAL HISTORY Hx Surgeries: Yes Hx Herniorrhaphy: Yes Other/Comment: lEFT Av Shunt on the left arm.Post anterior tibia bypass done 12 days ago. - ANESTHESIA Hx Anesthesia: Yes Hx Anesthesia Reactions: No Hx Malignant Hyperthermia: No Meds Allergies/Adverse Reactions: Allergies Allergy/AdvReac Type Severity Reaction Status Date / Time shellfish derived Allergy Intermediate DIZZINESS Verified 09/12/18 21:57 - Medications Medications: Current Medications Aspirin (Aspirin Chewable) 81 mg PO DAILY [facility] Last Admin: 09/23/18 10:34 Dose: Not Given Atenolol (Tenormin) 50 mg PO DAILY [facility] Last Admin: 09/23/18 10:35 Dose: Not Given Clopidogrel Bisulfate (Plavix) 75 mg PO DAILY [facility] Last Admin: 09/23/18 10:34 Dose: Not Given Docusate Sodium (Colace) 100 mg PO DAILY [facility] Last Admin: 09/23/18 10:34 Dose: Not Given Epoetin Dnany (Procrit) 8,000 unit IV MWF [facility] Last Admin: 09/23/18 10:37 Dose: 8,000 unit Heparin Sodium (Porcine) (Heparin) 5,000 units SC Q12H [facility] Last Admin: 09/23/18 10:34 Dose: Not Given Hydromorphone HCl (Dilaudid) 2 mg IVP Q4H PRN PRN Reason: Pain, severe (8-10) Insulin Aspart (Novolog) 0 unit SC [facility]; Protocol Last Admin: 09/23/18 16:30 Dose: 2 u Losartan Potassium (Cozaar) 50 mg PO QPM [facility] Last Admin: 09/23/18 17:31 Dose: 50 mg Pregabalin (Lyrica) 75 mg PO DAILY [facility] Last Admin: 09/23/18 10:34 Dose: Not Given Ranolazine (Ranexa) 500 mg PO BID [facility] Last Admin: 09/23/18 17:53 Dose: 500 mg Rosuvastatin Calcium (Crestor) 5 mg PO HS [facility] Last Admin: 09/22/18 21:42 Dose: 5 mg Sevelamer Carbonate (Renvela) 800 mg PO TIDCC [facility] Last Admin: 09/23/18 17:53 Dose: 800 mg Vitamin B Complex/Vit C/Folic Acid (Nephro-Federica) 1 tab PO 0800 [facility] Last Admin: 09/23/18 08:31 Dose: 1 tab Physical Exam - Constitutional Appears: Well - Head Exam Head Exam: ATRAUMATIC, NORMAL INSPECTION, NORMOCEPHALIC - Eye Exam Eye Exam: EOMI, Normal appearance, PERRL Pupil Exam: NORMAL ACCOMODATION, PERRL - ENT Exam ENT Exam: Mucous Membranes Moist, Normal Exam - Neck Exam Neck exam: Positive for: Normal Inspection - Respiratory Exam Respiratory Exam: Clear to Auscultation Bilateral, NORMAL BREATHING PATTERN - Cardiovascular Exam Cardiovascular Exam: REGULAR RHYTHM, +S1, +S2, Systolic Murmur - GI/Abdominal Exam GI & Abdominal Exam: Normal Bowel Sounds, Soft. absent: Tenderness - Extremities Exam Additional comments: gangrenous toes , absent pulses - Back Exam Back exam: NORMAL INSPECTION - Neurological Exam Neurological exam: Alert, CN II-XII Intact, Normal Gait, Oriented x3, Reflexes Normal - Psychiatric Exam Psychiatric exam: Normal Affect, Normal Mood - Skin Skin Exam: Dry, Intact, Normal Color, Warm Results - Vital Signs Recent Vital Signs: Last Vital Signs Temp 98.5 F 09/23/18 16:00 Pulse 75 09/23/18 16:00 Resp 20 09/23/18 16:00 BP 116/61 09/23/18 16:00 Pulse Ox 95 09/23/18 16:00 - Labs Result Diagrams: 09/23/18 13:51 09/18/18 04:57 Labs: Laboratory Results - last 24 hr 09/22/18 09/23/18 09/23/18 21:04 07:12 11:06 Hgb Hct PT INR APTT POC Glucose (mg/dL) 154 H 133 H 141 H 09/23/18 09/23/18 13:51 13:51 Hgb 9.7 L Hct 30.2 L PT 24.4 H INR 2.2 APTT 41 H POC Glucose (mg/dL) Assessment & Plan (1) Preop cardiovascular exam Assessment and Plan: Patient had moderate RCA and LCx disease on cardiac cath done at [facility] along with limited activity which as per ACC/AHA guidelines puts him at intermediate to high risk for perioperative cardiac event Status: Acute (2) CAD (coronary artery disease) Assessment and Plan: Cont dapt cont bb add statins , zetia, vascepa cont losartan Status: Acute (3) PVD (peripheral vascular disease) Assessment and Plan: dapt statins bb arbs Status: Acute (4) Renal failure Status: Acute (5) Hypertension Status: Acute
[2018-09-24] MEDS: (Novolog) Insulin Aspart, Recombinant 100 u/ml 10 ml vial SC SCH ×4 (07:43→21:43)
--- NOTE | 2018-09-24 07:58 | CP.PCM.PN ---
<Patel Matos - Last Filed: 09/24/18 20:28> Subjective - Date & Time of Evaluation Date of Evaluation: 09/24/18 Time of Evaluation: 09:00 - Subjective Subjective: Patel Matos DO PGY1 - Internal Medicine [place] [employer] - Cardiology Note for Dr. Luciano Chart reviewed; HD stable overnight; No acute events reported by nursing. Objective - Vital Signs/Intake and Output Vital Signs (last 24 hours): Temp Pulse Resp BP Pulse Ox 97.9 F 81 20 122/67 95 09/24/18 00:00 09/24/18 00:00 09/24/18 00:00 09/24/18 00:00 09/24/18 00:00 Intake and Output: 09/24/18 09/24/18 06:59 18:59 Intake Total 0 Balance 0 - Medications Medications: Current Medications Aspirin (Aspirin Chewable) 81 mg PO DAILY [facility] Last Admin: 09/23/18 10:34 Dose: Not Given Atenolol (Tenormin) 50 mg PO DAILY [facility] Last Admin: 09/23/18 10:35 Dose: Not Given Clopidogrel Bisulfate (Plavix) 75 mg PO DAILY [facility] Last Admin: 09/23/18 10:34 Dose: Not Given Docusate Sodium (Colace) 100 mg PO DAILY [facility] Last Admin: 09/23/18 10:34 Dose: Not Given Epoetin Danny (Procrit) 8,000 unit IV MWF [facility] Last Admin: 09/23/18 10:37 Dose: 8,000 unit Heparin Sodium (Porcine) (Heparin) 5,000 units SC Q12H [facility] Last Admin: 09/23/18 21:52 Dose: Not Given Hydromorphone HCl (Dilaudid) 2 mg IVP Q4H PRN PRN Reason: Pain, severe (8-10) Last Admin: 09/24/18 07:09 Dose: 2 mg Insulin Aspart (Novolog) 0 unit SC ACHS [facility]; Protocol Last Admin: 09/24/18 07:43 Dose: Not Given Losartan Potassium (Cozaar) 50 mg PO QPM [facility] Last Admin: 09/23/18 17:31 Dose: 50 mg Pregabalin (Lyrica) 75 mg PO DAILY [facility] Last Admin: 09/23/18 10:34 Dose: Not Given Ranolazine (Ranexa) 500 mg PO BID [facility] Last Admin: 09/23/18 17:53 Dose: 500 mg Rosuvastatin Calcium (Crestor) 5 mg PO HS [facility] Last Admin: 09/23/18 22:10 Dose: 5 mg Sevelamer Carbonate (Renvela) 800 mg PO TIDCC [facility] Last Admin: 09/23/18 17:53 Dose: 800 mg Vitamin B Complex/Vit C/Folic Acid (Nephro-Federica) 1 tab PO 0800 [facility] Last Admin: 09/23/18 08:31 Dose: 1 tab - Labs Labs: 09/23/18 13:51 09/18/18 04:57 PT 24.4 SECONDS (9.7-12.2) H 09/23/18 13:51 INR 2.2 09/23/18 13:51 APTT 41 SECONDS (21-34) H 09/23/18 13:51 - Constitutional Appears: Well - Head Exam Head Exam: ATRAUMATIC, NORMAL INSPECTION, NORMOCEPHALIC - Eye Exam Eye Exam: EOMI, Normal appearance, PERRL Pupil Exam: NORMAL ACCOMODATION, PERRL - ENT Exam ENT Exam: Mucous Membranes Moist, Normal Exam - Neck Exam Neck exam: Positive for: Normal Inspection - Respiratory Exam Respiratory Exam: Clear to Auscultation Bilateral, NORMAL BREATHING PATTERN - Cardiovascular Exam Cardiovascular Exam: REGULAR RHYTHM, +S1, +S2, Systolic Murmur - GI/Abdominal Exam GI & Abdominal Exam: Normal Bowel Sounds, Soft. absent: Tenderness - Extremities Exam Additional comments: gangrenous toes , absent pulses - Back Exam Back exam: NORMAL INSPECTION - Neurological Exam Neurological exam: Alert, CN II-XII Intact, Normal Gait, Oriented x3, Reflexes Normal - Psychiatric Exam Psychiatric exam: Normal Affect, Normal Mood - Skin Skin Exam: Dry, Intact, Normal Color, Warm Assessment and Plan (1) Renal failure Status: Acute (2) Hypertension Status: Acute - Assessment and Plan (Free Text) Plan: Discussed w/ Dr Youngblood. Because of significant PAD, high risk, proceed with local anesthesia, one leg at a time, places him at moderate riskmoderate risk for perioperative cardiovascular event. Patient can cont on DAPT, BB, Statin, Zetia, Vascepa, Losartan <Juan R Luciano - Last Filed: 09/25/18 22:00> Objective - Vital Signs/Intake and Output Vital Signs (last 24 hours): Temp Pulse Resp BP Pulse Ox 98 F 73 20 122/67 98 09/25/18 17:50 09/25/18 17:50 09/25/18 17:50 09/25/18 17:50 09/25/18 17:50 Intake and Output: 09/25/18 09/26/18 18:59 06:59 Intake Total 300 Balance 300 - Medications Medications: Current Medications Acetaminophen (Tylenol 325mg Tab) 650 mg PO Q6 PRN PRN Reason: Pain, Mild (1-3) Aspirin (Aspirin Chewable) 81 mg PO DAILY [facility] Last Admin: 09/23/18 10:34 Dose: Not Given Atenolol (Tenormin) 50 mg PO DAILY [facility] Last Admin: 09/25/18 09:57 Dose: 50 mg Clopidogrel Bisulfate (Plavix) 75 mg PO DAILY [facility] Last Admin: 09/23/18 10:34 Dose: Not Given Docusate Sodium (Colace) 100 mg PO BID [facility] Last Admin: 09/25/18 17:42 Dose: 100 mg Ezetimibe (Zetia) 10 mg PO DAILY [facility] Last Admin: 09/25/18 09:57 Dose: 10 mg Epoetin Danny (Procrit) 8,000 unit IV MWF [facility] Last Admin: 09/25/18 17:27 Dose: 8,000 unit Heparin Sodium (Porcine) (Heparin) 5,000 units SC Q12H [facility] Last Admin: 09/25/18 21:54 Dose: 5,000 units Hydromorphone HCl (Dilaudid) 2 mg IVP Q4H PRN PRN Reason: Pain, severe (8-10) Last Admin: 09/25/18 18:15 Dose: 2 mg Ceftriaxone Sodium 1 gm/ (Sodium Chloride) 100 mls @ 100 mls/hr IVPB Q12H [facility]; Protocol Last Admin: 09/25/18 13:53 Dose: 100 mls/hr Insulin Aspart (Novolog) 0 unit SC ACHS [facility]; Protocol Last Admin: 09/25/18 16:30 Dose: Not Given Losartan Potassium (Cozaar) 50 mg PO QPM [facility] Last Admin: 09/25/18 17:43 Dose: 50 mg [id number] Ethyl Esters (Lovaza) 1 gm PO BID [facility] Last Admin: 01/25/19 17:43 Dose: 1 gm Oxycodone HCl (Oxycodone Immediate Release Tab) 5 mg PO Q6 PRN PRN Reason: Pain, moderate (4-7) Pregabalin (Lyrica) 75 mg PO DAILY [facility] Last Admin: 09/25/18 09:56 Dose: 75 mg Ranolazine (Ranexa) 500 mg PO BID [facility] Last Admin: 09/25/18 17:43 Dose: 500 mg Rosuvastatin Calcium (Crestor) 5 mg PO HS [facility] Last Admin: 09/25/18 21:54 Dose: 5 mg Sevelamer Carbonate (Renvela) 800 mg PO TIDCC [facility] Last Admin: 09/25/18 17:48 Dose: 800 mg Vitamin B Complex/Vit C/Folic Acid (Nephro-Federica) 1 tab PO 0800 [facility] Last Admin: 09/25/18 08:09 Dose: 1 tab - Labs Labs: 09/25/18 14:40 09/25/18 14:40 PT 24.4 SECONDS (9.7-12.2) H 09/23/18 13:51 INR 2.2 09/23/18 13:51 APTT 41 SECONDS (21-34) H 09/23/18 13:51 Assessment and Plan (1) Preop cardiovascular exam Status: Acute (2) CAD (coronary artery disease) Status: Acute (3) PVD (peripheral vascular disease) Status: Acute (4) Renal failure Status: Acute (5) Hypertension Status: Acute Attending/Attestation - Attestation I have personally seen and examined this patient.: Yes I have fully participated in the care of the patient.: Yes I have reviewed all pertinent clinical information, including history, physical exam and plan: Yes
[2018-09-24] MEDS: Multivitamin Vitamin B Complex (Nephro-Vite) Tab PO SCH (08:22)
--- NOTE | 2018-09-24 09:03 | PCM.SURG1 ---
Surgeon's Initial Post Op Note - Surgeon's Notes Surgeon: beck gatica dpm Base Filler: janneth hayden, pgy1 Type of Anesthesia: General LMA, IV Sedation, Local Anesthesia Administered By: Polo Pre-Operative Diagnosis: Gangrenous changes to the right 1/2/3rd toes and left 4/5th toe. Nonhealing wound of bilateral heel Operative Findings: see dictation. materials: 3-0 vicryl, 3-0 nylon. injectibles: 30 cc of 1:1 mixture of .25% marcaine plain and 1% lidocaine plain Post-Operative Diagnosis: same Operation Performed: Amputation of right partial first ray, second digit and second metatarsal head resection and third digit. Amputation of left partial fifth ray and fourth ray Specimen/Specimens Removed: right 1,2,3rd toe. left 4,5th toe Estimated Blood Loss: EBL {In ML}: 50 Blood Products Given: N/A Drains Used: No Drains Post-Op Condition: Good (t) Date of Surgery/Procedure: 09/24/18 Time of Surgery/Procedure: 12:05
[2018-09-24] MEDS ORDERED: ceFAZolin 1 gm in NS 1 GM/100 ML BAG IVPB ONE ×2 (09:29→10:08)
[2018-09-24] MEDS ORDERED: Lidocaine Hydrochloride 10 ML INJ ONE (09:29)
[2018-09-24] MEDS ORDERED: Bupivacaine 0.25% 20 ML INJ IJ ONE (09:29)
[2018-09-24] MEDS: Ranolazine 500 mg Extended Release Tablets PO SCH ×2 (09:37→17:14)
[2018-09-24] MEDS ORDERED: Midazolam 2 MG/2 ML VIAL ONE (09:37)
[2018-09-24] MEDS ORDERED: Lidocaine Hydrochloride 5 ML INJ ONE (09:43)
[2018-09-24] MEDS ORDERED: Propofol 10 mg/ml Inj (20 ML) ONE (09:45)
[2018-09-24] MEDS ORDERED: Etomidate 20 mg/10ml Inj IV ONE (09:45)
[2018-09-24] MEDS ORDERED: HYDROmorphone 0.5 mg/0.5 ml ISec IVP PRN (12:03)
[2018-09-24] MEDS ORDERED: Oxycodone/Acetaminophen 5/325 mg Tab PO PRN ×2 (12:09)
--- NOTE | 2018-09-24 12:14 | CP.PCM.PN ---
Subjective - Date & Time of Evaluation Date of Evaluation: 09/24/18 Time of Evaluation: 12:12 - Subjective Subjective: Nephrology Consultation Note: Assessment: Stable s/p Amputation of right partial first ray, second digit and second metatarsal head resection and third digit. Amputation of left partial fifth ray and fourth ray 09/24/18 PVD s/p Right common fem-to-ant tibial bypass on 09/03/18, left fem pop bypass 09/17/18 mild hyponatremia missed HD obesity hyponatremia Diabetic chronic Kidney Disease (E11.22) Hypertensive Chronic Kidney Disease (I12.0) End stage renal disease (N18.6) dependence on hemodialysis (Z99.2) (MWF) via AVF Anemia (D64.9), Hyperphosphatemia (E83.39), Secondary Hyperparathyroidism (E21.1), HTN (I12.0) Plan: Will plan for dialysis per MWF schedule. Continue with Nephrovite 1 tab/day. PRBC as needed for anemia. on JENA with dialysis as last Hb 9.7 Continue with phos binders, last phos level: 6.8 BP control with meds as ordered. Patient on RAAS francia as losartan. Glycemic control, Dialysis consistent diet Further work up/management as per primary team Dose meds/antibiotics (if needed) for ESRD status. Avoid fleets enema/magnesium based laxatives. Thanks for allowing me to participate in care of your patient. Will follow patient with you. Please call if any Qs. had d/w team Dr Sal Aguayo Office: [phone] Chief Complaint;leg pain HPI: Pt is a 63 M with hx of ESRD on hemodialysis (MWF) via AVF, last dialysis thur with Dr Quinonez (usually at [place]), chronic anemia, hyperphosphatemia, secondary hyperparathyroidism, Diabetes Mellitus, hypertension PVD s/p Right common fem-to-ant tibial bypass on 09/03/18 presented with complaints of persistent feets pain Renal consult requested for ESRD management. pt c/o feet pain. was d/c to rehab recently denies SOB ROS: seen in PACU no new complaints. no CP/SOB Physical Examination: General Appearance: umcomfortable, in no acute respiratory distress, co- operative . obese Vitals reviewed and noted as below Head; Atraumatic, normocephalic ENT: no ulcers no thrush. Tongue is midline. Oropharynx: no rash or ulcers. EYES: Pupils are equal, round and reactive to light accommodation. Eye muscles and extraocular movement intact. Sclera is anicteric. Neck; supple no lymphadenopathy, no thyromegaly or bruit Lungs: Normal respiratory rate/effort. Breath sounds bilateral equal and clear Heart: Normal rate. s1s2 normal. No rub or gallop. Extremities: no edema. No varicose veins. s/p Rt leg vasc surgery Neurological: Patient is sleepy due to sedation and oriented to person, place and time. No focal deficit. Strength bilateral appropriate and equal Skin: Warm and dry. Normal turgor. No rash. Palpitation: Normal elasticity for age Abdomen: Abdomen is soft. Bowel sounds +. There is no abdominal tenderness, no guarding/rigidity or organomegaly Psych: normal insight and normal affect/mood MSK: no joint tenderness or swelling. feets dressing + : kidney or bladder not palpable Access: AVF Labs/imaging reviewed. Past medical history, past surgical history, family history, social history, allergy reviewed and noted as below Family Hx: no hx of CKD. Non contributory Objective - Vital Signs/Intake and Output Vital Signs (last 24 hours): Temp Pulse Resp BP Pulse Ox 97.9 F 81 20 122/67 95 09/24/18 00:00 09/24/18 00:00 09/24/18 00:00 09/24/18 00:00 09/24/18 00:00 Intake and Output: 09/24/18 09/24/18 06:59 18:59 Intake Total 0 100 Balance 0 100 - Medications Medications: Current Medications Aspirin (Aspirin Chewable) 81 mg PO DAILY [facility] Last Admin: 09/23/18 10:34 Dose: Not Given Atenolol (Tenormin) 50 mg PO DAILY [facility] Last Admin: 09/24/18 09:38 Dose: Not Given Clopidogrel Bisulfate (Plavix) 75 mg PO DAILY [facility] Last Admin: 09/23/18 10:34 Dose: Not Given Docusate Sodium (Colace) 100 mg PO DAILY [facility] Last Admin: 09/24/18 09:37 Dose: Not Given Epoetin Danny (Procrit) 8,000 unit IV [facility] Last Admin: 09/23/18 10:37 Dose: 8,000 unit Heparin Sodium (Porcine) (Heparin) 5,000 units SC Q12H [facility] Last Admin: 09/24/18 09:37 Dose: Not Given Hydromorphone HCl (Dilaudid) 2 mg IVP Q4H PRN PRN Reason: Pain, severe (8-10) Last Admin: 09/24/18 07:09 Dose: 2 mg Hydromorphone HCl (Dilaudid) 0.25 mg IVP Q10M PRN PRN Reason: Pain, moderate (4-7) Stop: 09/24/18 14:03 Insulin Aspart (Novolog) 0 unit SC [facility]; Protocol Last Admin: 09/24/18 11:41 Dose: Not Given Losartan Potassium (Cozaar) 50 mg PO QPM [facility] Last Admin: 09/23/18 17:31 Dose: 50 mg Ondansetron HCl (Zofran Inj) 4 mg IVP ONCE PRN PRN Reason: Nausea/Vomiting Stop: 09/24/18 14:03 Pregabalin (Lyrica) 75 mg PO DAILY [facility] Last Admin: 09/24/18 09:37 Dose: Not Given Ranolazine (Ranexa) 500 mg PO BID [facility] Last Admin: 09/24/18 09:37 Dose: Not Given Rosuvastatin Calcium (Crestor) 5 mg PO HS [facility] Last Admin: 09/23/18 22:10 Dose: 5 mg Sevelamer Carbonate (Renvela) 800 mg PO TIDCC [facility] Last Admin: 09/24/18 11:41 Dose: Not Given Vitamin B Complex/Vit C/Folic Acid (Nephro-Federica) 1 tab PO 0800 [facility] Last Admin: 09/24/18 08:22 Dose: Not Given - Labs Labs: 09/23/18 13:51 09/18/18 04:57 PT 24.4 SECONDS (9.7-12.2) H 09/23/18 13:51 INR 2.2 09/23/18 13:51 APTT 41 SECONDS (21-34) H 09/23/18 13:51
[2018-09-24] MEDS: HYDROmorphone 0.5 mg/0.5 ml ISec IVP PRN ×3 (12:20→12:48)
--- NOTE | 2018-09-24 14:19 | RAD ---
Date of service: 09/24/2018 PROCEDURE: Bilateral Feet Radiographs. HISTORY: s/p bilateral toe amputations COMPARISON: None. FINDINGS: BONES: Right Foot: Plantar and Achilles Tendon insertion calcaneal spurs. No fractures identified. Postoperative findings related to resection 2nd and 3rd digits as well as resection of the 1st ray including distal 1st metatarsal. Air identified within soft tissues particularly at the site of the metatarsal resection. These are presumed to be postoperative changes. Left Foot: Plantar and Achilles Tendon insertion calcaneal spurs. No fractures identified. Postoperative findings related to metatarsal ectomy 4th and 5th digits. No appreciable soft tissue abnormalities. JOINTS: Right Foot: Normal. No osteoarthritis. Left Foot: Normal. No osteoarthritis. SOFT TISSUES: Right Foot: Postoperative soft tissue swelling. Left Foot: Normal. OTHER FINDINGS: None. IMPRESSION: Satisfactory postoperative status.
--- NOTE | 2018-09-24 15:00 | CP.PCM.PN ---
Subjective - Date & Time of Evaluation Date of Evaluation: 09/24/18 Time of Evaluation: 15:00 Objective - Vital Signs/Intake and Output Vital Signs (last 24 hours): Temp Pulse Resp BP Pulse Ox 97.9 F 81 20 122/67 95 09/24/18 00:00 09/24/18 00:00 09/24/18 00:00 09/24/18 00:00 09/24/18 00:00 Intake and Output: 09/24/18 09/24/18 06:59 18:59 Intake Total 0 710 Balance 0 710 - Medications Medications: Current Medications Acetaminophen (Tylenol 325mg Tab) 650 mg PO Q6 PRN PRN Reason: Pain, moderate (4-7) Aspirin (Aspirin Chewable) 81 mg PO DAILY [facility] Last Admin: 09/23/18 10:34 Dose: Not Given Atenolol (Tenormin) 50 mg PO DAILY [facility] Last Admin: 09/24/18 09:38 Dose: Not Given Clopidogrel Bisulfate (Plavix) 75 mg PO DAILY [facility] Last Admin: 09/23/18 10:34 Dose: Not Given Docusate Sodium (Colace) 100 mg PO DAILY [facility] Last Admin: 09/24/18 09:37 Dose: Not Given Epoetin Danny (Procrit) 8,000 unit IV MWF [facility] Last Admin: 09/23/18 10:37 Dose: 8,000 unit Heparin Sodium (Porcine) (Heparin) 5,000 units SC Q12H [facility] Last Admin: 09/24/18 09:37 Dose: Not Given Hydromorphone HCl (Dilaudid) 2 mg IVP Q4H PRN PRN Reason: Pain, severe (8-10) Last Admin: 09/24/18 14:21 Dose: 2 mg Insulin Aspart (Novolog) 0 unit SC [facility]; Protocol Last Admin: 09/24/18 11:41 Dose: Not Given Losartan Potassium (Cozaar) 50 mg PO QPM [facility] Last Admin: 09/23/18 17:31 Dose: 50 mg Oxycodone/Acetaminophen (Percocet 5/325 Mg Tab) 1 tab PO Q6H PRN PRN Reason: Pain, moderate (4-7) Stop: 09/27/18 12:10 Oxycodone/Acetaminophen (Percocet 5/325 Mg Tab) 2 tab PO Q6H PRN PRN Reason: Pain, severe (8-10) Stop: 09/27/18 12:10 Pregabalin (Lyrica) 75 mg PO DAILY [facility] Last Admin: 09/24/18 09:37 Dose: Not Given Ranolazine (Ranexa) 500 mg PO BID [facility] Last Admin: 09/24/18 09:37 Dose: Not Given Rosuvastatin Calcium (Crestor) 5 mg PO HS [facility] Last Admin: 09/23/18 22:10 Dose: 5 mg Sevelamer Carbonate (Renvela) 800 mg PO TIDCC [facility] Last Admin: 09/24/18 11:41 Dose: Not Given Vitamin B Complex/Vit C/Folic Acid (Nephro-Federica) 1 tab PO 0800 [facility] Last Admin: 09/24/18 08:22 Dose: Not Given - Labs Labs: 09/23/18 13:51 09/18/18 04:57 PT 24.4 SECONDS (9.7-12.2) H 09/23/18 13:51 INR 2.2 09/23/18 13:51 APTT 41 SECONDS (21-34) H 09/23/18 13:51
[2018-09-24] MEDS ORDERED: Bisacodyl 5mg EC Tab PO ONE (16:22)
--- NOTE | 2018-09-24 17:14 | CP.PCM.PN ---
Subjective - Date & Time of Evaluation Date of Evaluation: 09/24/18 Time of Evaluation: 07:30 - Subjective Subjective: clinically same Objective - Vital Signs/Intake and Output Vital Signs (last 24 hours): Temp Pulse Resp BP Pulse Ox 97.6 F 68 20 110/67 96 09/24/18 16:32 09/24/18 16:32 09/24/18 16:32 09/24/18 16:32 09/24/18 15:20 Intake and Output: 09/24/18 09/24/18 06:59 18:59 Intake Total 0 710 Balance 0 710 - Medications Medications: Current Medications Acetaminophen (Tylenol 325mg Tab) 650 mg PO Q6 PRN PRN Reason: Pain, moderate (4-7) Aspirin (Aspirin Chewable) 81 mg PO DAILY [facility] Last Admin: 09/23/18 10:34 Dose: Not Given Atenolol (Tenormin) 50 mg PO DAILY [facility] Last Admin: 09/24/18 09:38 Dose: Not Given Clopidogrel Bisulfate (Plavix) 75 mg PO DAILY [facility] Last Admin: 09/23/18 10:34 Dose: Not Given Docusate Sodium (Colace) 100 mg PO BID [facility] Epoetin Danny (Procrit) 8,000 unit IV MWF [facility] Last Admin: 09/23/18 10:37 Dose: 8,000 unit Heparin Sodium (Porcine) (Heparin) 5,000 units SC Q12H [facility] Last Admin: 09/24/18 09:37 Dose: Not Given Hydromorphone HCl (Dilaudid) 2 mg IVP Q4H PRN PRN Reason: Pain, severe (8-10) Last Admin: 09/24/18 14:21 Dose: 2 mg Insulin Aspart (Novolog) 0 unit SC [facility]; Protocol Last Admin: 09/24/18 16:30 Dose: Not Given Losartan Potassium (Cozaar) 50 mg PO QPM [facility] Last Admin: 09/24/18 17:13 Dose: 50 mg Oxycodone/Acetaminophen (Percocet 5/325 Mg Tab) 1 tab PO Q6H PRN PRN Reason: Pain, moderate (4-7) Stop: 09/27/18 12:10 Oxycodone/Acetaminophen (Percocet 5/325 Mg Tab) 2 tab PO Q6H PRN PRN Reason: Pain, severe (8-10) Stop: 09/27/18 12:10 Last Admin: 09/24/18 16:50 Dose: 2 tab Pregabalin (Lyrica) 75 mg PO DAILY [facility] Last Admin: 09/24/18 09:37 Dose: Not Given Ranolazine (Ranexa) 500 mg PO BID [facility] Last Admin: 09/24/18 09:37 Dose: Not Given Rosuvastatin Calcium (Crestor) 5 mg PO HS [facility] Last Admin: 09/23/18 22:10 Dose: 5 mg Sevelamer Carbonate (Renvela) 800 mg PO TIDCC [facility] Last Admin: 09/24/18 11:41 Dose: Not Given Vitamin B Complex/Vit C/Folic Acid (Nephro-Federica) 1 tab PO 0800 [facility] Last Admin: 09/24/18 08:22 Dose: Not Given - Labs Labs: 09/23/18 13:51 09/18/18 04:57 PT 24.4 SECONDS (9.7-12.2) H 09/23/18 13:51 INR 2.2 09/23/18 13:51 APTT 41 SECONDS (21-34) H 09/23/18 13:51 - Constitutional Appears: Well - Head Exam Head Exam: ATRAUMATIC, NORMAL INSPECTION, NORMOCEPHALIC - Eye Exam Eye Exam: EOMI, Normal appearance, PERRL Pupil Exam: NORMAL ACCOMODATION, PERRL - ENT Exam ENT Exam: Mucous Membranes Moist, Normal Exam - Neck Exam Neck Exam: Full ROM, Normal Inspection. absent: Lymphadenopathy - Respiratory Exam Respiratory Exam: Decreased Breath Sounds - Cardiovascular Exam Cardiovascular Exam: REGULAR RHYTHM, +S1, +S2 - GI/Abdominal Exam GI & Abdominal Exam: Soft, Diminished Bowel Sounds - Rectal Exam Rectal Exam: Deferred Assessment and Plan (1) CAD (coronary artery disease) Status: Acute (2) Foot pain, bilateral Status: Acute (3) Intractable pain Status: Acute (4) PVD (peripheral vascular disease) Status: Acute (5) Preop cardiovascular exam Status: Acute (6) Renal failure Status: Acute (7) Arterial, arteriole and capillary disease Status: Acute (8) CHF (congestive heart failure) Status: Acute (9) Cellulitis of both feet Status: Acute (10) Hypertension Status: Acute (11) Renal insufficiency Status: Acute - Assessment and Plan (Free Text) Plan: Status post surgery with amputation of the right first second digit and second metatarsal head resection antibiotic amputation of the left partial fifth ray and fourth ray Follow-up with the hemodialysis Follow-up with cardiology Follow-up with renal Follow-up with pulmonary Heparin subcu Dilaudid as ordered
[2018-09-24] MEDS ORDERED: HYDROmorphone 0.5 mg/0.5 ml ISec IVP STA (17:33)
--- NOTE | 2018-09-25 02:51 | OP ---
PROCEDURE DATE: 09/24/2018 SURGEON: Giuseppe Youngblood DPM [employer] SU[employer] SPECIALIST: Dayana Tovar, PGY-1 ANESTHESIOLOGIST: Dr. Lopez. ANESTHESIA: General with local anesthesia. PREOPERATIVE DIAGNOSES: Right foot first, second, and third digit gangrene, left foot fourth and fifth digit gangrene, right and left heel non-healing necrotic ulcer. POSTOPERATIVE DIAGNOSES: Right foot first, second, and third digit gangrene, left foot fourth and fifth digit gangrene, right and left heel non-healing necrotic ulcer. PROCEDURE: Right foot partial first ray amputation, second digit amputation, third digit amputation. Left foot fourth partial ray amputation and left foot partial fifth ray amputation, debridement of left foot nonhealing heel ulcer, right foot nonhealing heel ulcer. INDICATION: The patient is a 63-year-old male with the above diagnosis. The patient has exhausted all conservative treatments at this time and now requires surgical intervention. The patient signed the consent after careful explanation of risks, benefits, complications, and alternatives for the surgical procedure. No guarantees were given nor implied. NPO status was confirmed prior to taking the patient to the OR. PREPARATION: The patient was brought into the operating room and placed on the operating room table in a supine position. A time-out was performed for identification of the correct patient and procedure. After induction of general anesthesia, the patient received a total of 30 mL of 1% lidocaine plain and 0.25% Marcaine plain in a digital block type fashion to each digit. Both feet were then prepped and draped in normal sterile manner and the procedure began. No tourniquet was utilized in this procedure. DESCRIPTION OF PROCEDURE: PROCEDURE #1: Attention was drawn to the right foot where first, second, and third digits were noted to be gangrenous. An incision was made from the first MPJ to the sulcus of the third digit with using a #15 blade. The incision was then extended down through the subcutaneous layers down to the level of the bone extending into the first metatarsophalangeal joint and second and third proximal interphalangeal joint. Using a bone clamp to stabilize the first, second and third digits, the first, second and third digits were then disarticulated from the foot at the level of the MPJ. Using a sagittal saw, the head of the first metatarsal was resected and passed from the operative field and sent to pathology. First, second and third digits were also sent to pathology. Using a fresh #15 blade, all necrotic and nonviable tissue was then excisionally debrided from the surgical site with additional soft tissue removed to allow for adequate skin closure without tension. All tendons in the surgical site were then excised using a fresh #15 blade. The wounds were then copiously flushed with normal sterile saline. The surgical site was then sutured close using 3-0 Vicryl and the skin was reapproximated using 3-0 nylon using simple sutures. PROCEDURE #2: Attention was then directed to the medial aspect of the heel where a necrotic ulcer was noted, measuring approximately 4 cm x 3.5 cm. It also was excisionally debrided using a #15 blade until healthy granular tissue was noted. The heel ulcer and the forefoot surgical site were both dressed with Xeroform, 4 x 4 gauze, Kerlix, and Nicholas with no compression. Attention was now directed to the left foot where gangrenous changes were noted to the fourth and fifth digits. Incision was made using a #15 blade distally at the level of the metatarsophalangeal joint. Incision was then extended down through the subcutaneous layers down to the level of the bone extending into the metatarsophalangeal joint. Using a bone clamp to stabilize the fourth and fifth digits, the fourth and fifth digits were then disarticulated at the level of the MPJ. Using a sagittal saw, the head of the metatarsal 4 and head of metatarsal 5 were resected and passed from the operative field and sent to pathology. Fourth and fifth digits were also sent out to pathology. Using a fresh #15 blade, all necrotic and nonviable tissue was then excisionally debrided from surgical site with additional soft tissue removed to allow for adequate skin closure without tension. The wound was then copiously flushed with normal sterile saline. Tendons were then excised from the surgical site using a fresh #15 blade. The surgical site was then reapproximated closed using 3-0 Vicryl and the skin was reapproximated using 3-0 nylon in simple sutures. Attention was now directed to the lateral aspect of the left heel where a necrotic ulceration was noted measuring approximately 3.5 cm x 3 cm. Using a fresh #15 blade, the ulcer was excisionally debrided until fresh healthy granular tissue was noted. Both surgical sites on the left foot were then dressed with Xeroform, 4 x 4 gauze, Kerlix, and Nicholas to hold the dressing together without any compression. POSTOPERATIVE CONDITION: The patient tolerated the anesthesia and procedure well and was escorted to the recovery room with vital signs stable and neurovascular status intact to both feet. The patient is to remain nonweightbearing to bilateral lower extremities and remain in-house. The patient is to return to the floors and podiatry will continue to follow the patient. Upon discharge, the patient will follow up with Dr. Youngblood in the office. Dayana Tovar Giuseppe Youngblood DPM [facility]
[2018-09-25] MEDS: (Novolog) Insulin Aspart, Recombinant 100 u/ml 10 ml vial SC SCH ×4 (07:51→22:40)
[2018-09-25] MEDS: Multivitamin Vitamin B Complex (Nephro-Vite) Tab PO SCH (08:09)
[2018-09-25] MEDS: Omega-3-Acid Ethyl Esters 1 GM Cap PO SCH ×2 (09:57→17:43)
[2018-09-25] MEDS: Ranolazine 500 mg Extended Release Tablets PO SCH ×2 (09:57→17:43)
[2018-09-25] MEDS: EPOETIN ALFA 4,000 UNIT/ML ML Dialysis IV SCH ×2 (09:57→17:27)
--- NOTE | 2018-09-25 12:36 | CP.PCM.PN ---
Subjective - Date & Time of Evaluation Date of Evaluation: 09/25/18 Time of Evaluation: 12:33 - Subjective Subjective: Podiatry Progress Note - Dr. Youngblood 63 y/o male seen at bedside this morning, 1 day s/p right foot 1st-3rd digit amps and left foot 4th and 5th digit amps as well as heel debridement to B/L lower extremities. Patient says his pain is better today but it was very painful overnight. At present he rates it a 5/10. States he does not want to take Percocet for the breakthrough pain because it upsets his stomach. Says the Dilaudid helps with pain control. Has no new pedal complaints. Denies F/C/N/V/CP/SOB Objective - Vital Signs/Intake and Output Vital Signs (last 24 hours): Temp Pulse Resp BP Pulse Ox 97.9 F 76 20 137/78 97 09/25/18 07:58 09/25/18 07:58 09/25/18 07:58 09/25/18 07:58 09/25/18 07:58 Intake and Output: 09/25/18 09/25/18 06:59 18:59 Intake Total 200 Balance 200 - Medications Medications: Current Medications Acetaminophen (Tylenol 325mg Tab) 650 mg PO Q6 PRN PRN Reason: Pain, moderate (4-7) Aspirin (Aspirin Chewable) 81 mg PO DAILY [facility] Last Admin: 09/23/18 10:34 Dose: Not Given Atenolol (Tenormin) 50 mg PO DAILY [facility] Last Admin: 09/25/18 09:57 Dose: 50 mg Clopidogrel Bisulfate (Plavix) 75 mg PO DAILY [facility] Last Admin: 09/23/18 10:34 Dose: Not Given Docusate Sodium (Colace) 100 mg PO BID [facility] Last Admin: 09/25/18 09:57 Dose: 100 mg Ezetimibe (Zetia) 10 mg PO DAILY [facility] Last Admin: 09/25/18 09:57 Dose: 10 mg Epoetin Danny (Procrit) 8,000 unit IV MWF [facility] Last Admin: 09/25/18 09:57 Dose: Not Given Heparin Sodium (Porcine) (Heparin) 5,000 units SC Q12H [facility] Last Admin: 09/25/18 09:56 Dose: 5,000 units Hydromorphone HCl (Dilaudid) 2 mg IVP Q4H PRN PRN Reason: Pain, severe (8-10) Last Admin: 09/25/18 11:03 Dose: 2 mg Insulin Aspart (Novolog) 0 unit SC ACHS [facility]; Protocol Last Admin: 09/25/18 12:08 Dose: Not Given Losartan Potassium (Cozaar) 50 mg PO QPM [facility] Last Admin: 09/24/18 17:13 Dose: 50 mg Yzpia-0-Huvo Ethyl Esters (Lovaza) 1 gm PO BID [facility] Last Admin: 09/25/18 09:57 Dose: 1 gm Oxycodone/Acetaminophen (Percocet 5/325 Mg Tab) 1 tab PO Q6H PRN PRN Reason: Pain, moderate (4-7) Stop: 09/27/18 12:10 Oxycodone/Acetaminophen (Percocet 5/325 Mg Tab) 2 tab PO Q6H PRN PRN Reason: Pain, severe (8-10) Stop: 09/27/18 12:10 Last Admin: 09/24/18 16:50 Dose: 2 tab Pregabalin (Lyrica) 75 mg PO DAILY [facility] Last Admin: 09/25/18 09:56 Dose: 75 mg Ranolazine (Ranexa) 500 mg PO BID [facility] Last Admin: 09/25/18 09:57 Dose: 500 mg Rosuvastatin Calcium (Crestor) 5 mg PO HS [facility] Last Admin: 09/24/18 21:41 Dose: 5 mg Sevelamer Carbonate (Renvela) 800 mg PO TIDCC [facility] Last Admin: 09/25/18 11:34 Dose: 800 mg Vitamin B Complex/Vit C/Folic Acid (Nephro-Federica) 1 tab PO 0800 [facility] Last Admin: 09/25/18 08:09 Dose: 1 tab - Labs Labs: 09/23/18 13:51 09/18/18 04:57 PT 24.4 SECONDS (9.7-12.2) H 09/23/18 13:51 INR 2.2 09/23/18 13:51 APTT 41 SECONDS (21-34) H 09/23/18 13:51 - Constitutional Appears: Well, Non-toxic, No Acute Distress - Extremities Exam Additional comments: Post-op surgical dressings left in place to bilateral lower extremities No strikethrough noted on bandage Pt able to wiggle remaining toes Cap refill time present to remaining digits - Neurological Exam Neurological Exam: Alert, Awake, Oriented x3 - Psychiatric Exam Psychiatric exam: Normal Affect, Normal Mood Assessment and Plan - Assessment and Plan (Free Text) Assessment: 63 y/o male who is 1 day s/p right foot 1st-3rd digit amputations and 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 Gooden Plan Patient seen and evaluated at bedside Discussed plan with Dr. Youngblood Pt afebrile overnight Continue Dilaudid and Oxycodone for pain control Started Ceftriaxone 1g IV Q12 Await better pain control prior to patient discharge Dr. Youngblood to round on patient tomorrow Recommend MAXI for patient recovery as he had bilateral LE bypass and surgery and is unstable Pt to be NWB at this time Will continue to follow patient in house
[2018-09-25] MEDS ORDERED: oxyCODONE 5 mg Immediate Release Tab PO PRN (12:38)
--- NOTE | 2018-09-25 14:14 | CP.PCM.PN ---
Subjective - Date & Time of Evaluation Date of Evaluation: 09/25/18 Time of Evaluation: 14:13 - Subjective Subjective: Nephrology Consultation Note: Assessment: Stable s/p Amputation of right partial first ray, second digit and second metatarsal head resection and third digit. Amputation of left partial fifth ray and fourth ray 09/24/18 PVD s/p Right common fem-to-ant tibial bypass on 09/03/18, left fem pop bypass 09/17/18 mild hyponatremia missed HD obesity hyponatremia Diabetic chronic Kidney Disease (E11.22) Hypertensive Chronic Kidney Disease (I12.0) End stage renal disease (N18.6) dependence on hemodialysis (Z99.2) (MWF) via AVF Anemia (D64.9), Hyperphosphatemia (E83.39), Secondary Hyperparathyroidism (E21.1), HTN (I12.0) Plan: Will plan for dialysis per MWF schedule. Continue with Nephrovite 1 tab/day. pt refusing to go for HD today PRBC as needed for anemia. on JENA with dialysis as last Hb 9.7 Continue with phos binders, last phos level: 6.8 BP control with meds as ordered. Patient on RAAS francia as losartan. Glycemic control, Dialysis consistent diet Further work up/management as per primary team Dose meds/antibiotics (if needed) for ESRD status. Avoid fleets enema/magnesium based laxatives. Thanks for allowing me to participate in care of your patient. Will follow patient with you. Please call if any Qs. had d/w team Dr Sal Aguayo Office: [phone] Chief Complaint;leg pain HPI: Pt is a 63 M with hx of ESRD on hemodialysis (MWF) via AVF, last dialysis thur with Dr Quinonez (usually at [place]), chronic anemia, hyperphosphatemia, secondary hyperparathyroidism, Diabetes Mellitus, hypertension PVD s/p Right common fem-to-ant tibial bypass on 09/03/18 presented with complaints of persistent feets pain Renal consult requested for ESRD management. pt c/o feet pain. was d/c to rehab recently denies SOB ROS: no new complaints. no CP/SOB. c/o foot pain s/p surgery all other neg Physical Examination: General Appearance: umcomfortable, in no acute respiratory distress, co- operative . obese Vitals reviewed and noted as below Head; Atraumatic, normocephalic ENT: no ulcers no thrush. Tongue is midline. Oropharynx: no rash or ulcers. EYES: Pupils are equal, round and reactive to light accommodation. Eye muscles and extraocular movement intact. Sclera is anicteric. Neck; supple no lymphadenopathy, no thyromegaly or bruit Lungs: Normal respiratory rate/effort. Breath sounds bilateral equal and clear Heart: Normal rate. s1s2 normal. No rub or gallop. Extremities: no edema. No varicose veins. s/p Rt leg vasc surgery Neurological: Patient isalert awake oriented to person, place and time. No focal deficit. Strength bilateral appropriate and equal Skin: Warm and dry. Normal turgor. No rash. Palpitation: Normal elasticity for age Abdomen: Abdomen is soft. Bowel sounds +. There is no abdominal tenderness, no guarding/rigidity or organomegaly Psych: normal insight and normal affect/mood MSK: no joint tenderness or swelling. feets dressing + : kidney or bladder not palpable Access: AVF Labs/imaging reviewed. Past medical history, past surgical history, family history, social history, allergy reviewed and noted as below Family Hx: no hx of CKD. Non contributory Objective - Vital Signs/Intake and Output Vital Signs (last 24 hours): Temp Pulse Resp BP Pulse Ox 97.9 F 76 20 137/78 97 09/25/18 07:58 09/25/18 07:58 09/25/18 07:58 09/25/18 07:58 09/25/18 07:58 Intake and Output: 09/25/18 09/25/18 06:59 18:59 Intake Total 200 Balance 200 - Medications Medications: Current Medications Acetaminophen (Tylenol 325mg Tab) 650 mg PO Q6 PRN PRN Reason: Pain, Mild (1-3) Aspirin (Aspirin Chewable) 81 mg PO DAILY [facility] Last Admin: 09/23/18 10:34 Dose: Not Given Atenolol (Tenormin) 50 mg PO DAILY [facility] Last Admin: 09/25/18 09:57 Dose: 50 mg Clopidogrel Bisulfate (Plavix) 75 mg PO DAILY [facility] Last Admin: 09/23/18 10:34 Dose: Not Given Docusate Sodium (Colace) 100 mg PO BID [facility] Last Admin: 09/25/18 09:57 Dose: 100 mg Ezetimibe (Zetia) 10 mg PO DAILY [facility] Last Admin: 09/25/18 09:57 Dose: 10 mg Epoetin Danny (Procrit) 8,000 unit IV MWF [facility] Last Admin: 09/25/18 09:57 Dose: Not Given Heparin Sodium (Porcine) (Heparin) 5,000 units SC Q12H [facility] Last Admin: 09/25/18 09:56 Dose: 5,000 units Hydromorphone HCl (Dilaudid) 2 mg IVP Q4H PRN PRN Reason: Pain, severe (8-10) Last Admin: 09/25/18 11:03 Dose: 2 mg Ceftriaxone Sodium 1 gm/ (Sodium Chloride) 100 mls @ 100 mls/hr IVPB Q12H [facility]; Protocol Last Admin: 09/25/18 13:53 Dose: 100 mls/hr Insulin Aspart (Novolog) 0 unit SC ACHS [facility]; Protocol Last Admin: 09/25/18 12:08 Dose: Not Given Losartan Potassium (Cozaar) 50 mg PO QPM [facility] Last Admin: 09/24/18 17:13 Dose: 50 mg [id number] Ethyl Esters (Lovaza) 1 gm PO BID [facility] Last Admin: 09/25/18 09:57 Dose: 1 gm Oxycodone HCl (Oxycodone Immediate Release Tab) 5 mg PO Q6 PRN PRN Reason: Pain, moderate (4-7) Pregabalin (Lyrica) 75 mg PO DAILY [facility] Last Admin: 09/25/18 09:56 Dose: 75 mg Ranolazine (Ranexa) 500 mg PO BID [facility] Last Admin: 09/25/18 09:57 Dose: 500 mg Rosuvastatin Calcium (Crestor) 5 mg PO HS [facility] Last Admin: 09/24/18 21:41 Dose: 5 mg Sevelamer Carbonate (Renvela) 800 mg PO TIDCC [facility] Last Admin: 09/25/18 11:34 Dose: 800 mg Vitamin B Complex/Vit C/Folic Acid (Nephro-Federica) 1 tab PO 0800 [facility] Last Admin: 09/25/18 08:09 Dose: 1 tab - Labs Labs: 09/23/18 13:51 09/18/18 04:57 PT 24.4 SECONDS (9.7-12.2) H 09/23/18 13:51 INR 2.2 09/23/18 13:51 APTT 41 SECONDS (21-34) H 09/23/18 13:51
[2018-09-25 14:44] LABS: BASO # 0.1 K/uL (0.0-0.2); BASO % 1.6 % (0.0-2.0); EOS # 0.2 K/uL (0.0-0.7); HEMOGLOBIN 8.1 g/dL (12.0-18.0); LYMPH # 1.1 K/uL (1.0-4.3); LYMPH % 14.3 % (20.0-40.0); MEAN CORPUSCULAR HEMOGLOBIN 31.1 pg (27.0-31.0); MEAN CORPUSCULAR HGB CONC 32.4 g/dL (33.0-37.0); MEAN PLATELET VOLUME 8.6 fL (7.2-11.7); MONO # 0.7 K/uL (0.0-0.8); MONO % 9.4 % (0.0-10.0); NEUT # 5.7 K/uL (1.8-7.0); NEUT % 72.7 % (50.0-75.0); NRBC % 0.1 % (0.0-2.0); RBC 2.61 Mil/uL (4.40-5.90); RED CELL DISTRIBUTION WIDTH 16.5 % (11.5-14.5); WHITE BLOOD COUNT 7.9 K/uL (4.8-10.8)
[2018-09-25 15:07] LABS: CALCIUM 8.6 mg/dl (8.6-10.4)
--- NOTE | 2018-09-25 17:44 | CP.PCM.PN ---
Subjective - Date & Time of Evaluation Date of Evaluation: 09/25/18 Time of Evaluation: 17:44 Objective - Vital Signs/Intake and Output Vital Signs (last 24 hours): Temp Pulse Resp BP Pulse Ox 97.8 F 66 16 135/67 97 09/25/18 14:20 09/25/18 14:20 09/25/18 14:20 09/25/18 17:20 09/25/18 14:20 Intake and Output: 09/25/18 09/25/18 06:59 18:59 Intake Total 200 300 Balance 200 300 - Medications Medications: Current Medications Acetaminophen (Tylenol 325mg Tab) 650 mg PO Q6 PRN PRN Reason: Pain, Mild (1-3) Aspirin (Aspirin Chewable) 81 mg PO DAILY [facility] Last Admin: 09/23/18 10:34 Dose: Not Given Atenolol (Tenormin) 50 mg PO DAILY [facility] Last Admin: 09/25/18 09:57 Dose: 50 mg Clopidogrel Bisulfate (Plavix) 75 mg PO DAILY [facility] Last Admin: 09/23/18 10:34 Dose: Not Given Docusate Sodium (Colace) 100 mg PO BID [facility] Last Admin: 09/25/18 17:42 Dose: 100 mg Ezetimibe (Zetia) 10 mg PO DAILY [facility] Last Admin: 09/25/18 09:57 Dose: 10 mg Epoetin Danny (Procrit) 8,000 unit IV MWF [facility] Last Admin: 09/25/18 17:27 Dose: 8,000 unit Heparin Sodium (Porcine) (Heparin) 5,000 units SC Q12H [facility] Last Admin: 09/25/18 09:56 Dose: 5,000 units Hydromorphone HCl (Dilaudid) 2 mg IVP Q4H PRN PRN Reason: Pain, severe (8-10) Last Admin: 09/25/18 11:03 Dose: 2 mg Ceftriaxone Sodium 1 gm/ (Sodium Chloride) 100 mls @ 100 mls/hr IVPB Q12H [facility]; Protocol Last Admin: 09/25/18 13:53 Dose: 100 mls/hr Insulin Aspart (Novolog) 0 unit SC ACHS [facility]; Protocol Last Admin: 09/25/18 12:08 Dose: Not Given Losartan Potassium (Cozaar) 50 mg PO QPM [facility] Last Admin: 09/25/18 17:43 Dose: 50 mg [id number] Ethyl Esters (Lovaza) 1 gm PO BID [facility] Last Admin: 09/25/18 17:43 Dose: 1 gm Oxycodone HCl (Oxycodone Immediate Release Tab) 5 mg PO Q6 PRN PRN Reason: Pain, moderate (4-7) Pregabalin (Lyrica) 75 mg PO DAILY [facility] Last Admin: 09/25/18 09:56 Dose: 75 mg Ranolazine (Ranexa) 500 mg PO BID [facility] Last Admin: 09/25/18 17:43 Dose: 500 mg Rosuvastatin Calcium (Crestor) 5 mg PO HS [facility] Last Admin: 09/24/18 21:41 Dose: 5 mg Sevelamer Carbonate (Renvela) 800 mg PO TIDCC [facility] Last Admin: 09/25/18 11:34 Dose: 800 mg Vitamin B Complex/Vit C/Folic Acid (Nephro-Federica) 1 tab PO 0800 [facility] Last Admin: 09/25/18 08:09 Dose: 1 tab - Labs Labs: 09/25/18 14:40 09/25/18 14:40 PT 24.4 SECONDS (9.7-12.2) H 09/23/18 13:51 INR 2.2 09/23/18 13:51 APTT 41 SECONDS (21-34) H 09/23/18 13:51
--- NOTE | 2018-09-25 19:55 | CP.PCM.PN ---
Subjective - Date & Time of Evaluation Date of Evaluation: 09/25/18 Time of Evaluation: 07:30 - Subjective Subjective: clinically same Objective - Vital Signs/Intake and Output Vital Signs (last 24 hours): Temp Pulse Resp BP Pulse Ox 98 F 73 20 122/67 98 09/25/18 17:50 09/25/18 17:50 09/25/18 17:50 09/25/18 17:50 09/25/18 17:50 Intake and Output: 09/25/18 09/26/18 18:59 06:59 Intake Total 300 Balance 300 - Medications Medications: Current Medications Acetaminophen (Tylenol 325mg Tab) 650 mg PO Q6 PRN PRN Reason: Pain, Mild (1-3) Aspirin (Aspirin Chewable) 81 mg PO DAILY [facility] Last Admin: 09/23/18 10:34 Dose: Not Given Atenolol (Tenormin) 50 mg PO DAILY [facility] Last Admin: 09/25/18 09:57 Dose: 50 mg Clopidogrel Bisulfate (Plavix) 75 mg PO DAILY [facility] Last Admin: 09/23/18 10:34 Dose: Not Given Docusate Sodium (Colace) 100 mg PO BID [facility] Last Admin: 09/25/18 17:42 Dose: 100 mg Ezetimibe (Zetia) 10 mg PO DAILY [facility] Last Admin: 09/25/18 09:57 Dose: 10 mg Epoetin Danny (Procrit) 8,000 unit IV MWF [facility] Last Admin: 09/25/18 17:27 Dose: 8,000 unit Heparin Sodium (Porcine) (Heparin) 5,000 units SC Q12H [facility] Last Admin: 09/25/18 09:56 Dose: 5,000 units Hydromorphone HCl (Dilaudid) 2 mg IVP Q4H PRN PRN Reason: Pain, severe (8-10) Last Admin: 09/25/18 18:15 Dose: 2 mg Ceftriaxone Sodium 1 gm/ (Sodium Chloride) 100 mls @ 100 mls/hr IVPB Q12H [facility]; Protocol Last Admin: 09/25/18 13:53 Dose: 100 mls/hr Insulin Aspart (Novolog) 0 unit SC ACHS [facility]; Protocol Last Admin: 09/25/18 16:30 Dose: Not Given Losartan Potassium (Cozaar) 50 mg PO QPM [facility] Last Admin: 09/25/18 17:43 Dose: 50 mg Ehbeu-5-Fgwd Ethyl Esters (Lovaza) 1 gm PO BID [facility] Last Admin: 09/25/18 17:43 Dose: 1 gm Oxycodone HCl (Oxycodone Immediate Release Tab) 5 mg PO Q6 PRN PRN Reason: Pain, moderate (4-7) Pregabalin (Lyrica) 75 mg PO DAILY [facility] Last Admin: 09/25/18 09:56 Dose: 75 mg Ranolazine (Ranexa) 500 mg PO BID [facility] Last Admin: 09/25/18 17:43 Dose: 500 mg Rosuvastatin Calcium (Crestor) 5 mg PO HS [facility] Last Admin: 09/24/18 21:41 Dose: 5 mg Sevelamer Carbonate (Renvela) 800 mg PO TIDCC [facility] Last Admin: 09/25/18 17:48 Dose: 800 mg Vitamin B Complex/Vit C/Folic Acid (Nephro-Federica) 1 tab PO 0800 [facility] Last Admin: 09/25/18 08:09 Dose: 1 tab - Labs Labs: 09/25/18 14:40 09/25/18 14:40 PT 24.4 SECONDS (9.7-12.2) H 09/23/18 13:51 INR 2.2 09/23/18 13:51 APTT 41 SECONDS (21-34) H 09/23/18 13:51 - Constitutional Appears: Well - Head Exam Head Exam: ATRAUMATIC, NORMAL INSPECTION, NORMOCEPHALIC - Eye Exam Eye Exam: EOMI, Normal appearance, PERRL Pupil Exam: NORMAL ACCOMODATION, PERRL - ENT Exam ENT Exam: Mucous Membranes Moist, Normal Exam - Neck Exam Neck Exam: Full ROM, Normal Inspection. absent: Lymphadenopathy - Respiratory Exam Respiratory Exam: Decreased Breath Sounds - Cardiovascular Exam Cardiovascular Exam: REGULAR RHYTHM, +S1, +S2 - GI/Abdominal Exam GI & Abdominal Exam: Soft, Diminished Bowel Sounds - Rectal Exam Rectal Exam: Deferred
--- NOTE | 2018-09-25 22:02 | CP.PCM.PN ---
Subjective - Date & Time of Evaluation Date of Evaluation: 09/25/18 Time of Evaluation: 17:00 - Subjective Subjective: tolerated procedure well seen during HD feeling fine Objective - Vital Signs/Intake and Output Vital Signs (last 24 hours): Temp Pulse Resp BP Pulse Ox 98 F 73 20 122/67 98 09/25/18 17:50 09/25/18 17:50 09/25/18 17:50 09/25/18 17:50 09/25/18 17:50 Intake and Output: 09/25/18 09/26/18 18:59 06:59 Intake Total 300 Balance 300 - Medications Medications: Current Medications Acetaminophen (Tylenol 325mg Tab) 650 mg PO Q6 PRN PRN Reason: Pain, Mild (1-3) Aspirin (Aspirin Chewable) 81 mg PO DAILY [facility] Last Admin: 09/23/18 10:34 Dose: Not Given Atenolol (Tenormin) 50 mg PO DAILY [facility] Last Admin: 09/25/18 09:57 Dose: 50 mg Clopidogrel Bisulfate (Plavix) 75 mg PO DAILY [facility] Last Admin: 09/23/18 10:34 Dose: Not Given Docusate Sodium (Colace) 100 mg PO BID [facility] Last Admin: 09/25/18 17:42 Dose: 100 mg Ezetimibe (Zetia) 10 mg PO DAILY [facility] Last Admin: 09/25/18 09:57 Dose: 10 mg Epoetin Danny (Procrit) 8,000 unit IV MWF [facility] Last Admin: 09/25/18 17:27 Dose: 8,000 unit Heparin Sodium (Porcine) (Heparin) 5,000 units SC Q12H [facility] Last Admin: 09/25/18 21:54 Dose: 5,000 units Hydromorphone HCl (Dilaudid) 2 mg IVP Q4H PRN PRN Reason: Pain, severe (8-10) Last Admin: 09/25/18 18:15 Dose: 2 mg Ceftriaxone Sodium 1 gm/ (Sodium Chloride) 100 mls @ 100 mls/hr IVPB Q12H [facility]; Protocol Last Admin: 09/25/18 13:53 Dose: 100 mls/hr Insulin Aspart (Novolog) 0 unit SC ACHS [facility]; Protocol Last Admin: 09/25/18 16:30 Dose: Not Given Losartan Potassium (Cozaar) 50 mg PO QPM [facility] Last Admin: 09/25/18 17:43 Dose: 50 mg Whwxp-0-Rpwu Ethyl Esters (Lovaza) 1 gm PO BID [facility] Last Admin: 09/25/18 17:43 Dose: 1 gm Oxycodone HCl (Oxycodone Immediate Release Tab) 5 mg PO Q6 PRN PRN Reason: Pain, moderate (4-7) Pregabalin (Lyrica) 75 mg PO DAILY [facility] Last Admin: 09/25/18 09:56 Dose: 75 mg Ranolazine (Ranexa) 500 mg PO BID [facility] Last Admin: 09/25/18 17:43 Dose: 500 mg Rosuvastatin Calcium (Crestor) 5 mg PO HS [facility] Last Admin: 09/25/18 21:54 Dose: 5 mg Sevelamer Carbonate (Renvela) 800 mg PO TIDCC [facility] Last Admin: 09/25/18 17:48 Dose: 800 mg Vitamin B Complex/Vit C/Folic Acid (Nephro-Federica) 1 tab PO 0800 [facility] Last Admin: 09/25/18 08:09 Dose: 1 tab - Labs Labs: 09/25/18 14:40 09/25/18 14:40 PT 24.4 SECONDS (9.7-12.2) H 09/23/18 13:51 INR 2.2 09/23/18 13:51 APTT 41 SECONDS (21-34) H 09/23/18 13:51 - Constitutional Appears: Well - Head Exam Head Exam: ATRAUMATIC, NORMAL INSPECTION, NORMOCEPHALIC - Eye Exam Eye Exam: EOMI, Normal appearance, PERRL Pupil Exam: NORMAL ACCOMODATION, PERRL - ENT Exam ENT Exam: Mucous Membranes Moist, Normal Exam - Neck Exam Neck Exam: Full ROM, Normal Inspection. absent: Lymphadenopathy - Respiratory Exam Respiratory Exam: Clear to Ausculation Bilateral, NORMAL BREATHING PATTERN - Cardiovascular Exam Cardiovascular Exam: REGULAR RHYTHM, +S1, +S2. absent: Murmur - GI/Abdominal Exam GI & Abdominal Exam: Soft, Normal Bowel Sounds. absent: Tenderness - Extremities Exam Extremities Exam: Full ROM, Normal Capillary Refill, Normal Inspection. absent: Joint Swelling, Pedal Edema - Back Exam Back Exam: NORMAL INSPECTION - Neurological Exam Neurological Exam: Alert, Awake, CN II-XII Intact, Normal Gait, Oriented x3 - Psychiatric Exam Psychiatric exam: Normal Affect, Normal Mood - Skin Skin Exam: Dry, Intact, Normal Color, Warm Assessment and Plan (1) Preop cardiovascular exam Assessment & Plan: tolerated procedure well Status: Acute (2) CAD (coronary artery disease) Assessment & Plan: cont dapt cont bb,arb cont ranexa cont statins, zetia, vascepa Status: Acute (3) PVD (peripheral vascular disease) Assessment & Plan: med rx Status: Acute (4) Renal failure Status: Acute (5) Hypertension Assessment & Plan: cont losartan, atenolol Status: Acute
[2018-09-26] MEDS: (Novolog) Insulin Aspart, Recombinant 100 u/ml 10 ml vial SC SCH ×4 (08:47→22:51)
[2018-09-26] MEDS: Multivitamin Vitamin B Complex (Nephro-Vite) Tab PO SCH (09:03)
[2018-09-26] MEDS: Ranolazine 500 mg Extended Release Tablets PO SCH ×2 (09:52→17:42)
[2018-09-26] MEDS: Omega-3-Acid Ethyl Esters 1 GM Cap PO SCH ×2 (09:52→17:42)
--- NOTE | 2018-09-26 10:22 | CP.PCM.PN ---
<Giuseppe Youngblood - Last Filed: 09/26/18 10:22> Subjective - Date & Time of Evaluation Date of Evaluation: 09/26/18 Time of Evaluation: 10:22 Objective - Vital Signs/Intake and Output Vital Signs (last 24 hours): Temp Pulse Resp BP Pulse Ox 98.3 F 75 20 132/70 90 L 09/26/18 08:36 09/26/18 08:36 09/26/18 08:36 09/26/18 08:36 09/26/18 08:36 Intake and Output: 09/26/18 09/26/18 06:59 18:59 Intake Total 350 Balance 350 - Medications Medications: Current Medications Acetaminophen (Tylenol 325mg Tab) 650 mg PO Q6 PRN PRN Reason: Pain, Mild (1-3) Aspirin (Aspirin Chewable) 81 mg PO DAILY [facility] Last Admin: 09/23/18 10:34 Dose: Not Given Atenolol (Tenormin) 50 mg PO DAILY [facility] Last Admin: 09/26/18 09:52 Dose: 50 mg Clopidogrel Bisulfate (Plavix) 75 mg PO DAILY [facility] Last Admin: 09/23/18 10:34 Dose: Not Given Docusate Sodium (Colace) 100 mg PO BID [facility] Last Admin: 09/26/18 09:52 Dose: 100 mg Ezetimibe (Zetia) 10 mg PO DAILY [facility] Last Admin: 09/26/18 09:52 Dose: 10 mg Epoetin Danny (Procrit) 8,000 unit IV MWF [facility] Last Admin: 09/25/18 17:27 Dose: 8,000 unit Heparin Sodium (Porcine) (Heparin) 5,000 units SC Q12H [facility] Last Admin: 09/26/18 09:56 Dose: 5,000 units Hydromorphone HCl (Dilaudid) 2 mg IVP Q4H PRN PRN Reason: Pain, severe (8-10) Last Admin: 09/26/18 07:44 Dose: 2 mg Ceftriaxone Sodium 1 gm/ (Sodium Chloride) 100 mls @ 100 mls/hr IVPB Q12H [facility]; Protocol Last Admin: 09/26/18 01:12 Dose: 100 mls/hr Insulin Aspart (Novolog) 0 unit SC ACHS [facility]; Protocol Last Admin: 09/26/18 08:47 Dose: Not Given Losartan Potassium (Cozaar) 50 mg PO QPM [facility] Last Admin: 09/25/18 17:43 Dose: 50 mg Lkmgv-4-Ewgm Ethyl Esters (Lovaza) 1 gm PO BID [facility] Last Admin: 09/26/18 09:52 Dose: 1 gm Oxycodone HCl (Oxycodone Immediate Release Tab) 5 mg PO Q6 PRN PRN Reason: Pain, moderate (4-7) Pregabalin (Lyrica) 75 mg PO DAILY [facility] Last Admin: 09/26/18 09:56 Dose: 75 mg Ranolazine (Ranexa) 500 mg PO BID [facility] Last Admin: 09/26/18 09:52 Dose: 500 mg Rosuvastatin Calcium (Crestor) 5 mg PO HS [facility] Last Admin: 09/25/18 21:54 Dose: 5 mg Sevelamer Carbonate (Renvela) 800 mg PO TIDCC [facility] Last Admin: 09/26/18 09:03 Dose: 800 mg Vitamin B Complex/Vit C/Folic Acid (Nephro-Federica) 1 tab PO 0800 [facility] Last Admin: 09/26/18 09:03 Dose: 1 tab - Labs Labs: 09/25/18 14:40 09/25/18 14:40 PT 24.4 SECONDS (9.7-12.2) H 09/23/18 13:51 INR 2.2 09/23/18 13:51 APTT 41 SECONDS (21-34) H 09/23/18 13:51 <Blanca James - Last Filed: 09/26/18 11:16> Subjective - Subjective Subjective: Podiatry Progress Note - Dr. Youngblood 63 y/o male seen at bedside this morning, 2 days s/p right foot 1st-3rd digit amps and left foot 4th and 5th digit amps as well as heel debridement to B/L lower extremities. Patient says his pain is better today. States he does not want to take Percocet for the breakthrough pain because it upsets his stomach. Says the Dilaudid helps with pain control. Has no new pedal complaints. Denies F/C/N/V/CP/SOB Objective - Vital Signs/Intake and Output Vital Signs (last 24 hours): Temp Pulse Resp BP Pulse Ox 98.3 F 75 20 132/70 90 L 09/26/18 08:36 09/26/18 08:36 09/26/18 08:36 09/26/18 08:36 09/26/18 08:36 Intake and Output: 09/26/18 09/26/18 06:59 18:59 Intake Total 350 Balance 350 - Medications Medications: Current Medications Acetaminophen (Tylenol 325mg Tab) 650 mg PO Q6 PRN PRN Reason: Pain, Mild (1-3) Aspirin (Aspirin Chewable) 81 mg PO DAILY [facility] Last Admin: 09/23/18 10:34 Dose: Not Given Atenolol (Tenormin) 50 mg PO DAILY [facility] Last Admin: 09/26/18 09:52 Dose: 50 mg Clopidogrel Bisulfate (Plavix) 75 mg PO DAILY [facility] Last Admin: 09/23/18 10:34 Dose: Not Given Docusate Sodium (Colace) 100 mg PO BID [facility] Last Admin: 09/26/18 09:52 Dose: 100 mg Ezetimibe (Zetia) 10 mg PO DAILY [facility] Last Admin: 09/26/18 09:52 Dose: 10 mg Epoetin Danny (Procrit) 8,000 unit IV MWF [facility] Last Admin: 09/25/18 17:27 Dose: 8,000 unit Heparin Sodium (Porcine) (Heparin) 5,000 units SC Q12H [facility] Last Admin: 09/26/18 09:56 Dose: 5,000 units Hydromorphone HCl (Dilaudid) 2 mg IVP Q4H PRN PRN Reason: Pain, severe (8-10) Last Admin: 09/26/18 07:44 Dose: 2 mg Ceftriaxone Sodium 1 gm/ (Sodium Chloride) 100 mls @ 100 mls/hr IVPB Q12H [facility]; Protocol Last Admin: 09/26/18 01:12 Dose: 100 mls/hr Insulin Aspart (Novolog) 0 unit SC ACHS [facility]; Protocol Last Admin: 09/26/18 08:47 Dose: Not Given Losartan Potassium (Cozaar) 50 mg PO QPM [facility] Last Admin: 09/25/18 17:43 Dose: 50 mg Mwofl-9-Vooq Ethyl Esters (Lovaza) 1 gm PO BID [facility] Last Admin: 09/26/18 09:52 Dose: 1 gm Oxycodone HCl (Oxycodone Immediate Release Tab) 5 mg PO Q6 PRN PRN Reason: Pain, moderate (4-7) Pregabalin (Lyrica) 75 mg PO DAILY [facility] Last Admin: 09/26/18 09:56 Dose: 75 mg Ranolazine (Ranexa) 500 mg PO BID [facility] Last Admin: 09/26/18 09:52 Dose: 500 mg Rosuvastatin Calcium (Crestor) 5 mg PO HS [facility] Last Admin: 09/25/18 21:54 Dose: 5 mg Sevelamer Carbonate (Renvela) 800 mg PO TIDCC [facility] Last Admin: 09/26/18 09:03 Dose: 800 mg Vitamin B Complex/Vit C/Folic Acid (Nephro-Federica) 1 tab PO 0800 [facility] Last Admin: 09/26/18 09:03 Dose: 1 tab - Labs Labs: 09/25/18 14:40 09/25/18 14:40 PT 24.4 SECONDS (9.7-12.2) H 09/23/18 13:51 INR 2.2 09/23/18 13:51 APTT 41 SECONDS (21-34) H 09/23/18 13:51 - Constitutional Appears: Well, Non-toxic, No Acute Distress - Head Exam Head Exam: ATRAUMATIC, NORMOCEPHALIC - Eye Exam Eye Exam: Normal appearance - ENT Exam ENT Exam: Mucous Membranes Moist - Extremities Exam Additional comments: VASC: DP and PT palpable. 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 Gooden Plan: Patient seen and evaluated at bedside with Dr. Youngblood Discussed plan with Dr. Youngblood Chart, labs and vitals reviewed Pt afebrile overnight Continue Dilaudid and Oxycodone for pain control Started Ceftriaxone 1g IV Q12 Recommend [facility] for patient recovery as he had bilateral LE bypass and surgery and is unstable Pt to be NWB at this time Keep dressing intact until Friday09/28/18 Will continue to follow patient in house
--- NOTE | 2018-09-26 11:41 | CP.PCM.PN ---
Subjective - Date & Time of Evaluation Date of Evaluation: 09/26/18 Time of Evaluation: 07:30 - Subjective Subjective: clinically same Objective - Vital Signs/Intake and Output Vital Signs (last 24 hours): Temp Pulse Resp BP Pulse Ox 98.3 F 75 20 132/70 90 L 09/26/18 08:36 09/26/18 08:36 09/26/18 08:36 09/26/18 08:36 09/26/18 08:36 Intake and Output: 09/26/18 09/26/18 06:59 18:59 Intake Total 350 Balance 350 - Medications Medications: Current Medications Acetaminophen (Tylenol 325mg Tab) 650 mg PO Q6 PRN PRN Reason: Pain, Mild (1-3) Aspirin (Aspirin Chewable) 81 mg PO DAILY [facility] Last Admin: 09/23/18 10:34 Dose: Not Given Atenolol (Tenormin) 50 mg PO DAILY [facility] Last Admin: 09/26/18 09:52 Dose: 50 mg Clopidogrel Bisulfate (Plavix) 75 mg PO DAILY [facility] Last Admin: 09/23/18 10:34 Dose: Not Given Docusate Sodium (Colace) 100 mg PO BID [facility] Last Admin: 09/26/18 09:52 Dose: 100 mg Ezetimibe (Zetia) 10 mg PO DAILY [facility] Last Admin: 09/26/18 09:52 Dose: 10 mg Epoetin Danny (Procrit) 8,000 unit IV MWF [facility] Last Admin: 09/25/18 17:27 Dose: 8,000 unit Heparin Sodium (Porcine) (Heparin) 5,000 units SC Q12H [facility] Last Admin: 09/26/18 09:56 Dose: 5,000 units Hydromorphone HCl (Dilaudid) 2 mg IVP Q4H PRN PRN Reason: Pain, severe (8-10) Last Admin: 09/26/18 07:44 Dose: 2 mg Ceftriaxone Sodium 1 gm/ (Sodium Chloride) 100 mls @ 100 mls/hr IVPB Q12H [facility]; Protocol Last Admin: 09/26/18 01:12 Dose: 100 mls/hr Insulin Aspart (Novolog) 0 unit SC ACHS [facility]; Protocol Last Admin: 09/26/18 08:47 Dose: Not Given Losartan Potassium (Cozaar) 50 mg PO QPM [facility] Last Admin: 09/25/18 17:43 Dose: 50 mg Mtvig-9-Tvkt Ethyl Esters (Lovaza) 1 gm PO BID [facility] Last Admin: 09/26/18 09:52 Dose: 1 gm Oxycodone HCl (Oxycodone Immediate Release Tab) 5 mg PO Q6 PRN PRN Reason: Pain, moderate (4-7) Pregabalin (Lyrica) 75 mg PO DAILY [facility] Last Admin: 09/26/18 09:56 Dose: 75 mg Ranolazine (Ranexa) 500 mg PO BID [facility] Last Admin: 09/26/18 09:52 Dose: 500 mg Rosuvastatin Calcium (Crestor) 5 mg PO HS [facility] Last Admin: 09/25/18 21:54 Dose: 5 mg Sevelamer Carbonate (Renvela) 800 mg PO TIDCC [facility] Last Admin: 09/26/18 09:03 Dose: 800 mg Vitamin B Complex/Vit C/Folic Acid (Nephro-Federica) 1 tab PO 0800 [facility] Last Admin: 09/26/18 09:03 Dose: 1 tab - Labs Labs: 09/25/18 14:40 09/25/18 14:40 PT 24.4 SECONDS (9.7-12.2) H 09/23/18 13:51 INR 2.2 09/23/18 13:51 APTT 41 SECONDS (21-34) H 09/23/18 13:51 - Constitutional Appears: Well - Head Exam Head Exam: ATRAUMATIC, NORMAL INSPECTION, NORMOCEPHALIC - Eye Exam Eye Exam: EOMI, Normal appearance, PERRL Pupil Exam: NORMAL ACCOMODATION, PERRL - ENT Exam ENT Exam: Mucous Membranes Moist, Normal Exam - Neck Exam Neck Exam: Full ROM, Normal Inspection. absent: Lymphadenopathy - Respiratory Exam Respiratory Exam: Decreased Breath Sounds - GI/Abdominal Exam GI & Abdominal Exam: Soft, Diminished Bowel Sounds - Rectal Exam Rectal Exam: Deferred
--- NOTE | 2018-09-26 19:32 | CP.PCM.PN ---
Subjective - Date & Time of Evaluation Date of Evaluation: 09/26/18 Time of Evaluation: 19:32 Objective - Vital Signs/Intake and Output Vital Signs (last 24 hours): Temp Pulse Resp BP Pulse Ox 98.3 F 77 20 132/65 98 09/26/18 15:00 09/26/18 15:00 09/26/18 15:00 09/26/18 15:00 09/26/18 15:00 Intake and Output: 09/26/18 09/27/18 18:59 06:59 Intake Total 690 Balance 690 - Medications Medications: Current Medications Acetaminophen (Tylenol 325mg Tab) 650 mg PO Q6 PRN PRN Reason: Pain, Mild (1-3) Aspirin (Aspirin Chewable) 81 mg PO DAILY [facility] Last Admin: 09/23/18 10:34 Dose: Not Given Atenolol (Tenormin) 50 mg PO DAILY [facility] Last Admin: 09/26/18 09:52 Dose: 50 mg Clopidogrel Bisulfate (Plavix) 75 mg PO DAILY [facility] Last Admin: 09/23/18 10:34 Dose: Not Given Docusate Sodium (Colace) 100 mg PO BID [facility] Last Admin: 09/26/18 17:42 Dose: 100 mg Ezetimibe (Zetia) 10 mg PO DAILY [facility] Last Admin: 09/26/18 09:52 Dose: 10 mg Epoetin Danny (Procrit) 8,000 unit IV MWF [facility] Last Admin: 09/25/18 17:27 Dose: 8,000 unit Hydromorphone HCl (Dilaudid) 2 mg IVP Q4H PRN PRN Reason: Pain, severe (8-10) Last Admin: 09/26/18 15:53 Dose: 2 mg Insulin Aspart (Novolog) 0 unit SC [facility]; Protocol Last Admin: 09/26/18 16:30 Dose: Not Given Losartan Potassium (Cozaar) 50 mg PO QPM [facility] Last Admin: 09/26/18 17:42 Dose: 50 mg Ewpov-4-Urfx Ethyl Esters (Lovaza) 1 gm PO BID [facility] Last Admin: 09/26/18 17:42 Dose: 1 gm Oxycodone HCl (Oxycodone Immediate Release Tab) 5 mg PO Q6 PRN PRN Reason: Pain, moderate (4-7) Pregabalin (Lyrica) 75 mg PO DAILY [facility] Last Admin: 09/26/18 09:56 Dose: 75 mg Ranolazine (Ranexa) 500 mg PO BID [facility] Last Admin: 09/26/18 17:42 Dose: 500 mg Rosuvastatin Calcium (Crestor) 5 mg PO HS [facility] Last Admin: 09/25/18 21:54 Dose: 5 mg Sevelamer Carbonate (Renvela) 800 mg PO TIDCC [facility] Last Admin: 09/26/18 17:52 Dose: 800 mg Vitamin B Complex/Vit C/Folic Acid (Nephro-Federica) 1 tab PO 0800 [facility] Last Admin: 09/26/18 09:03 Dose: 1 tab - Labs Labs: 09/25/18 14:40 09/25/18 14:40 PT 24.4 SECONDS (9.7-12.2) H 09/23/18 13:51 INR 2.2 09/23/18 13:51 APTT 41 SECONDS (21-34) H 09/23/18 13:51
[2018-09-27] MEDS: (Novolog) Insulin Aspart, Recombinant 100 u/ml 10 ml vial SC SCH ×4 (08:13→21:56)
[2018-09-27] MEDS: Multivitamin Vitamin B Complex (Nephro-Vite) Tab PO SCH (08:33)
--- NOTE | 2018-09-27 08:33 | CP.PCM.PN ---
Subjective - Date & Time of Evaluation Date of Evaluation: 09/27/18 Time of Evaluation: 08:31 - Subjective Subjective: Podiatry Progress Note - Dr. Youngblood 63 y/o male seen at bedside this morning, 3 days s/p right foot 1st-3rd digit amps and left foot 4th and 5th digit amps as well as heel debridement to B/L lower extremities. Patient says his pain is slightly worse today. States he does not want to take Percocet for pain because it upsets his stomach. Says the Dilaudid helps with pain control. Has no new pedal complaints. Denies F/C/N/V/CP/SOB Objective - Vital Signs/Intake and Output Vital Signs (last 24 hours): Temp Pulse Resp BP Pulse Ox 98.1 F 69 20 131/68 97 09/27/18 08:00 09/27/18 08:00 09/27/18 08:00 09/27/18 08:00 09/27/18 08:00 Intake and Output: 09/27/18 09/27/18 06:59 18:59 Intake Total 540 Balance 540 - Medications Medications: Current Medications Acetaminophen (Tylenol 325mg Tab) 650 mg PO Q6 PRN PRN Reason: Pain, Mild (1-3) Aspirin (Aspirin Chewable) 81 mg PO DAILY [facility] Last Admin: 09/23/18 10:34 Dose: Not Given Atenolol (Tenormin) 50 mg PO DAILY [facility] Last Admin: 09/26/18 09:52 Dose: 50 mg Clopidogrel Bisulfate (Plavix) 75 mg PO DAILY [facility] Last Admin: 09/23/18 10:34 Dose: Not Given Docusate Sodium (Colace) 100 mg PO BID [facility] Last Admin: 09/26/18 17:42 Dose: 100 mg Ezetimibe (Zetia) 10 mg PO DAILY [facility] Last Admin: 09/26/18 09:52 Dose: 10 mg Epoetin Danny (Procrit) 8,000 unit IV MWF [facility] Last Admin: 09/25/18 17:27 Dose: 8,000 unit Heparin Sodium (Porcine) (Heparin) 5,000 units SC Q12 [facility] Hydromorphone HCl (Dilaudid) 2 mg IVP Q4H PRN PRN Reason: Pain, severe (8-10) Last Admin: 09/27/18 03:57 Dose: 2 mg Insulin Aspart (Novolog) 0 unit SC ACHS [facility]; Protocol Last Admin: 09/27/18 08:13 Dose: Not Given Losartan Potassium (Cozaar) 50 mg PO QPM [facility] Last Admin: 09/26/18 17:42 Dose: 50 mg Mrnsl-2-Slxc Ethyl Esters (Lovaza) 1 gm PO BID [facility] Last Admin: 09/26/18 17:42 Dose: 1 gm Oxycodone HCl (Oxycodone Immediate Release Tab) 5 mg PO Q6 PRN PRN Reason: Pain, moderate (4-7) Pregabalin (Lyrica) 75 mg PO DAILY [facility] Last Admin: 09/26/18 09:56 Dose: 75 mg Ranolazine (Ranexa) 500 mg PO BID [facility] Last Admin: 09/26/18 17:42 Dose: 500 mg Rosuvastatin Calcium (Crestor) 5 mg PO HS [facility] Last Admin: 09/26/18 22:24 Dose: 5 mg Sevelamer Carbonate (Renvela) 800 mg PO TIDCC [facility] Last Admin: 09/26/18 17:52 Dose: 800 mg Vitamin B Complex/Vit C/Folic Acid (Nephro-Federica) 1 tab PO 0800 [facility] Last Admin: 09/26/18 09:03 Dose: 1 tab - Labs Labs: 09/25/18 14:40 09/25/18 14:40 PT 24.4 SECONDS (9.7-12.2) H 09/23/18 13:51 INR 2.2 09/23/18 13:51 APTT 41 SECONDS (21-34) H 09/23/18 13:51 - Constitutional Appears: Well, Non-toxic, No Acute Distress - Head Exam Head Exam: ATRAUMATIC, NORMOCEPHALIC - Extremities Exam Additional comments: Sensation intact Dressing C/D/I Patient able to wiggle digits - Neurological Exam Neurological Exam: Alert, Awake, Oriented x3 - Psychiatric Exam Psychiatric exam: Normal Affect, Normal Mood Assessment and Plan - Assessment and Plan (Free Text) Assessment: 63 y/o male who is 3 days s/p right foot 1st-3rd digit amputations and 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 Gooden Plan: Patient seen and evaluated at bedside Discussed plan with Dr. Youngblood Chart, labs and vitals reviewed Pt afebrile overnight Continue Dilaudid for pain control Recommend [facility] for patient recovery as he had bilateral LE bypass and surgery and is unstable Pt to be NWB at this time Dressing C/D/I at this time, Next dressing change Friday09/28/18 Will continue to follow patient in house
[2018-09-27] MEDS: Omega-3-Acid Ethyl Esters 1 GM Cap PO SCH ×2 (10:31→21:52)
[2018-09-27] MEDS: Ranolazine 500 mg Extended Release Tablets PO SCH ×2 (10:31→21:53)
--- NOTE | 2018-09-27 14:11 | CP.PCM.PN ---
Subjective - Date & Time of Evaluation Date of Evaluation: 09/27/18 Time of Evaluation: 07:30 - Subjective Subjective: clinically same Objective - Vital Signs/Intake and Output Vital Signs (last 24 hours): Temp Pulse Resp BP Pulse Ox 98.1 F 69 20 131/68 97 09/27/18 08:00 09/27/18 08:00 09/27/18 08:00 09/27/18 08:00 09/27/18 08:00 Intake and Output: 09/27/18 09/27/18 06:59 18:59 Intake Total 540 Balance 540 - Medications Medications: Current Medications Acetaminophen (Tylenol 325mg Tab) 650 mg PO Q6 PRN PRN Reason: Pain, Mild (1-3) Aspirin (Aspirin Chewable) 81 mg PO DAILY [facility] Last Admin: 09/27/18 10:34 Dose: 81 mg Atenolol (Tenormin) 50 mg PO DAILY [facility] Last Admin: 09/27/18 10:31 Dose: 50 mg Clopidogrel Bisulfate (Plavix) 75 mg PO DAILY [facility] Last Admin: 09/23/18 10:34 Dose: Not Given Docusate Sodium (Colace) 100 mg PO BID [facility] Last Admin: 09/27/18 10:31 Dose: 100 mg Ezetimibe (Zetia) 10 mg PO DAILY [facility] Last Admin: 09/27/18 10:31 Dose: 10 mg Epoetin Danny (Procrit) 8,000 unit IV MWF [facility] Last Admin: 09/25/18 17:27 Dose: 8,000 unit Heparin Sodium (Porcine) (Heparin) 5,000 units SC Q12 [facility] Last Admin: 09/27/18 10:31 Dose: 5,000 units Hydromorphone HCl (Dilaudid) 2 mg IVP Q4H PRN PRN Reason: Pain, severe (8-10) Last Admin: 09/27/18 12:39 Dose: 2 mg Insulin Aspart (Novolog) 0 unit SC ACHS [facility]; Protocol Last Admin: 09/27/18 12:04 Dose: Not Given Losartan Potassium (Cozaar) 50 mg PO QPM [facility] Last Admin: 09/26/18 17:42 Dose: 50 mg Cejop-2-Tplt Ethyl Esters (Lovaza) 1 gm PO BID [facility] Last Admin: 09/27/18 10:31 Dose: 1 gm Oxycodone HCl (Oxycodone Immediate Release Tab) 5 mg PO Q6 PRN PRN Reason: Pain, moderate (4-7) Pregabalin (Lyrica) 75 mg PO DAILY [facility] Last Admin: 09/27/18 10:34 Dose: 75 mg Ranolazine (Ranexa) 500 mg PO BID [facility] Last Admin: 09/27/18 10:31 Dose: 500 mg Rosuvastatin Calcium (Crestor) 5 mg PO HS [facility] Last Admin: 09/26/18 22:24 Dose: 5 mg Sevelamer Carbonate (Renvela) 800 mg PO TIDCC [facility] Last Admin: 09/27/18 12:13 Dose: 800 mg Vitamin B Complex/Vit C/Folic Acid (Nephro-Federica) 1 tab PO 0800 [facility] Last Admin: 09/27/18 08:33 Dose: 1 tab - Labs Labs: 09/25/18 14:40 09/25/18 14:40 PT 24.4 SECONDS (9.7-12.2) H 09/23/18 13:51 INR 2.2 09/23/18 13:51 APTT 41 SECONDS (21-34) H 09/23/18 13:51 - Constitutional Appears: Well - Head Exam Head Exam: ATRAUMATIC, NORMAL INSPECTION, NORMOCEPHALIC - Eye Exam Eye Exam: EOMI, Normal appearance, PERRL Pupil Exam: NORMAL ACCOMODATION, PERRL - ENT Exam ENT Exam: Mucous Membranes Moist, Normal Exam - Neck Exam Neck Exam: Full ROM, Normal Inspection. absent: Lymphadenopathy - Respiratory Exam Respiratory Exam: Decreased Breath Sounds - Cardiovascular Exam Cardiovascular Exam: REGULAR RHYTHM, +S1, +S2 - GI/Abdominal Exam GI & Abdominal Exam: Soft, Diminished Bowel Sounds - Rectal Exam Rectal Exam: Deferred
--- NOTE | 2018-09-27 17:14 | CP.PCM.PN ---
Subjective - Date & Time of Evaluation Date of Evaluation: 09/27/18 Time of Evaluation: 17:13 - Subjective Subjective: Nephrology Consultation Note: Assessment: Stable s/p Amputation of right partial first ray, second digit and second metatarsal head resection and third digit. Amputation of left partial fifth ray and fourth ray 09/24/18 PVD s/p Right common fem-to-ant tibial bypass on 09/03/18, left fem pop bypass 09/17/18 mild hyponatremia missed HD obesity hyponatremia Diabetic chronic Kidney Disease (E11.22) Hypertensive Chronic Kidney Disease (I12.0) End stage renal disease (N18.6) dependence on hemodialysis (Z99.2) (MWF) via AVF Anemia (D64.9), Hyperphosphatemia (E83.39), Secondary Hyperparathyroidism (E21.1), HTN (I12.0) Plan: Will plan for dialysis per MWF schedule. Continue with Nephrovite 1 tab/day PRBC as needed for anemia. on JENA with dialysis Continue with phos binders BP control with meds as ordered. Patient on RAAS francia as losartan. Physical Examination: General Appearance: umcomfortable, in no acute respiratory distress, co- operative . obese Vitals reviewed and noted as below Head; Atraumatic, normocephalic ENT: no ulcers EYES: Eye muscles and extraocular movement intact. Sclera is anicteric. Neck; supple Lungs: Normal respiratory rate/effort. Breath sounds bilateral equal and clear Heart: Normal rate. s1s2 normal. No rub or gallop. Extremities: no edema. No varicose veins. s/p Rt leg vasc surgery Neurological: Patient isalert awake oriented to person, place and time. No focal deficit. Strength bilateral appropriate and equal Skin: Warm and dry. Abdomen: Abdomen is soft. Bowel sounds +. There is no abdominal tenderness, no guarding/rigidity or organomegaly Psych: normal insight and normal affect/mood MSK: no joint tenderness Access: AVF Objective - Vital Signs/Intake and Output Vital Signs (last 24 hours): Temp Pulse Resp BP Pulse Ox 97.2 F L 66 20 109/57 L 95 09/27/18 15:30 09/27/18 15:30 09/27/18 15:30 09/27/18 15:30 09/27/18 15:30 Intake and Output: 09/27/18 09/27/18 06:59 18:59 Intake Total 540 240 Balance 540 240 - Medications Medications: Current Medications Acetaminophen (Tylenol 325mg Tab) 650 mg PO Q6 PRN PRN Reason: Pain, Mild (1-3) Aspirin (Aspirin Chewable) 81 mg PO DAILY [facility] Last Admin: 09/27/18 10:34 Dose: 81 mg Atenolol (Tenormin) 50 mg PO DAILY [facility] Last Admin: 09/27/18 10:31 Dose: 50 mg Clopidogrel Bisulfate (Plavix) 75 mg PO DAILY [facility] Last Admin: 09/23/18 10:34 Dose: Not Given Docusate Sodium (Colace) 100 mg PO BID [facility] Last Admin: 09/27/18 10:31 Dose: 100 mg Ezetimibe (Zetia) 10 mg PO DAILY [facility] Last Admin: 09/27/18 10:31 Dose: 10 mg Epoetin Danny (Procrit) 8,000 unit IV MWF [facility] Last Admin: 09/25/18 17:27 Dose: 8,000 unit Heparin Sodium (Porcine) (Heparin) 5,000 units SC Q12 [facility] Last Admin: 09/27/18 10:31 Dose: 5,000 units Hydromorphone HCl (Dilaudid) 2 mg IVP Q4H PRN PRN Reason: Pain, severe (8-10) Last Admin: 09/27/18 16:41 Dose: 2 mg Insulin Aspart (Novolog) 0 unit SC ACHS [facility]; Protocol Last Admin: 09/27/18 12:04 Dose: Not Given Losartan Potassium (Cozaar) 50 mg PO QPM [facility] Last Admin: 09/26/18 17:42 Dose: 50 mg Tdblh-5-Pexr Ethyl Esters (Lovaza) 1 gm PO BID [facility] Last Admin: 09/27/18 10:31 Dose: 1 gm Oxycodone HCl (Oxycodone Immediate Release Tab) 5 mg PO Q6 PRN PRN Reason: Pain, moderate (4-7) Pregabalin (Lyrica) 75 mg PO DAILY [facility] Last Admin: 09/27/18 10:34 Dose: 75 mg Ranolazine (Ranexa) 500 mg PO BID [facility] Last Admin: 09/27/18 10:31 Dose: 500 mg Rosuvastatin Calcium (Crestor) 5 mg PO HS [facility] Last Admin: 09/26/18 22:24 Dose: 5 mg Sevelamer Carbonate (Renvela) 800 mg PO TIDCC [facility] Last Admin: 09/27/18 12:13 Dose: 800 mg Vitamin B Complex/Vit C/Folic Acid (Nephro-Federica) 1 tab PO 0800 [facility] Last Admin: 09/27/18 08:33 Dose: 1 tab - Labs Labs: 09/25/18 14:40 09/25/18 14:40 PT 24.4 SECONDS (9.7-12.2) H 09/23/18 13:51 INR 2.2 09/23/18 13:51 APTT 41 SECONDS (21-34) H 09/23/18 13:51
[2018-09-28] MEDS: (Novolog) Insulin Aspart, Recombinant 100 u/ml 10 ml vial SC SCH ×4 (07:58→21:28)
[2018-09-28] MEDS: Multivitamin Vitamin B Complex (Nephro-Vite) Tab PO SCH (08:22)
[2018-09-28] MEDS: Ranolazine 500 mg Extended Release Tablets PO SCH ×2 (09:48→17:13)
[2018-09-28] MEDS: Omega-3-Acid Ethyl Esters 1 GM Cap PO SCH ×2 (09:48→17:15)
[2018-09-28] MEDS: EPOETIN ALFA 4,000 UNIT/ML ML Dialysis IV SCH (10:27)
--- NOTE | 2018-09-28 10:58 | CP.PCM.PN ---
<Patel Matos - Last Filed: 09/28/18 22:17> Subjective - Date & Time of Evaluation Date of Evaluation: 09/28/18 Time of Evaluation: 10:56 - Subjective Subjective: Patel Matos DO PGY1 - Internal Medicine Ecologist Technician - Cardiology Note for Dr. Luciano Patient was seen and examined at bedside this morning in dialysis unit. No acute events reported overnight. He denies any chest pain shortness of breath or palpitations. He does report complaints of as throbbing sensation in his left lower extremity. He also reports bilateral lower extremity edema. Objective - Vital Signs/Intake and Output Vital Signs (last 24 hours): Temp Pulse Resp BP Pulse Ox 97.9 F 62 20 112/71 96 09/28/18 09:55 09/28/18 09:55 09/28/18 09:55 09/28/18 09:55 09/28/18 07:00 Intake and Output: 09/28/18 09/28/18 06:59 18:59 Intake Total 240 Balance 240 - Medications Medications: Current Medications Acetaminophen (Tylenol 325mg Tab) 650 mg PO Q6 PRN PRN Reason: Pain, Mild (1-3) Aspirin (Aspirin Chewable) 81 mg PO DAILY [facility] Last Admin: 09/28/18 09:47 Dose: Not Given Clopidogrel Bisulfate (Plavix) 75 mg PO DAILY [facility] Last Admin: 09/23/18 10:34 Dose: Not Given Docusate Sodium (Colace) 100 mg PO BID [facility] Last Admin: 09/28/18 09:47 Dose: Not Given Ezetimibe (Zetia) 10 mg PO DAILY [facility] Last Admin: 09/28/18 09:48 Dose: Not Given Epoetin Danny (Procrit) 8,000 unit IV MWF [facility] Last Admin: 09/28/18 10:27 Dose: 8,000 unit Heparin Sodium (Porcine) (Heparin) 5,000 units SC Q12 [facility] Last Admin: 09/28/18 09:47 Dose: Not Given Hydromorphone HCl (Dilaudid) 2 mg IVP Q4H PRN PRN Reason: Pain, severe (8-10) Last Admin: 09/28/18 06:09 Dose: 2 mg Insulin Aspart (Novolog) 0 unit SC [facility]; Protocol Last Admin: 09/28/18 07:58 Dose: Not Given Losartan Potassium (Cozaar) 50 mg PO QPM [facility] Last Admin: 09/27/18 17:37 Dose: 50 mg Jrwov-0-Xyha Ethyl Esters (Lovaza) 1 gm PO BID [facility] Last Admin: 09/28/18 09:48 Dose: Not Given Oxycodone HCl (Oxycodone Immediate Release Tab) 5 mg PO Q6 PRN PRN Reason: Pain, moderate (4-7) Rosuvastatin Calcium (Crestor) 5 mg PO HS [facility] Last Admin: 09/27/18 21:46 Dose: 5 mg Sevelamer Carbonate (Renvela) 800 mg PO TIDCC [facility] Last Admin: 09/28/18 08:22 Dose: 800 mg Vitamin B Complex/Vit C/Folic Acid (Nephro-Federica) 1 tab PO 0800 [facility] Last Admin: 09/28/18 08:22 Dose: 1 tab - Labs Labs: 09/25/18 14:40 09/25/18 14:40 PT 24.4 SECONDS (9.7-12.2) H 09/23/18 13:51 INR 2.2 09/23/18 13:51 APTT 41 SECONDS (21-34) H 09/23/18 13:51 - Constitutional Appears: Well - Head Exam Head Exam: ATRAUMATIC, NORMAL INSPECTION, NORMOCEPHALIC - Eye Exam Eye Exam: EOMI, Normal appearance, PERRL Pupil Exam: NORMAL ACCOMODATION, PERRL - ENT Exam ENT Exam: Mucous Membranes Moist, Normal Exam - Neck Exam Neck exam: Positive for: Normal Inspection - Respiratory Exam Respiratory Exam: Clear to Auscultation Bilateral, NORMAL BREATHING PATTERN - Cardiovascular Exam Cardiovascular Exam: REGULAR RHYTHM, +S1, +S2, Systolic Murmur - GI/Abdominal Exam GI & Abdominal Exam: Normal Bowel Sounds, Soft. absent: Tenderness - Extremities Exam Additional comments: BL LE w/ dressing in place; Diffuse 2+ pitting edema appreciated in BL LE Dressings over Feet CDI - Back Exam Back exam: NORMAL INSPECTION - Neurological Exam Neurological exam: Alert, CN II-XII Intact, Normal Gait, Oriented x3, Reflexes Normal - Psychiatric Exam Psychiatric exam: Normal Affect, Normal Mood - Skin Skin Exam: Dry, Intact, Normal Color, Warm Assessment and Plan (1) Renal failure Status: Acute (2) Hypertension Status: Acute (3) CAD (coronary artery disease) Status: Acute (4) PVD (peripheral vascular disease) Status: Acute - Assessment and Plan (Free Text) Plan: Patient is status post amputation of BL LE digits DC Atenolol Start Toprol XL 25 QD Start Cilostazol 100 Daily Recommend starting Cozaar Contintue: Asa 81 Daily Plavix 75 Daily Ranexa 500 BID Crestor 5 Daily Zetia 10 Daily Lovaza 1gm BID Further reccs per Dr. Luciano <Juan R Luciano - Last Filed: 09/29/18 18:59> Objective - Vital Signs/Intake and Output Vital Signs (last 24 hours): Temp Pulse Resp BP Pulse Ox 98.3 F 79 20 103/61 96 09/29/18 15:00 09/29/18 15:00 09/29/18 15:00 09/29/18 15:00 09/29/18 15:00 Intake and Output: 09/29/18 09/29/18 06:59 18:59 Intake Total 180 480 Balance 180 480 - Medications Medications: Current Medications Acetaminophen (Tylenol 325mg Tab) 650 mg PO Q6 PRN PRN Reason: Pain, Mild (1-3) Albumin Human (Albumin Human 25% (12.5 Gm/50 Ml)) 25 gm IV MWF PRN PRN Reason: Other Aspirin (Aspirin Chewable) 81 mg PO DAILY [facility] Last Admin: 09/29/18 09:24 Dose: 81 mg Cilostazol (Pletal) 100 mg PO DAILY [facility] Last Admin: 09/29/18 09:24 Dose: 100 mg Clopidogrel Bisulfate (Plavix) 75 mg PO DAILY [facility] Last Admin: 09/23/18 10:34 Dose: Not Given Docusate Sodium (Colace) 100 mg PO BID [facility] Last Admin: 09/29/18 17:19 Dose: 100 mg Ezetimibe (Zetia) 10 mg PO DAILY [facility] Last Admin: 09/29/18 09:23 Dose: 10 mg Epoetin Danny (Procrit) 10,000 unit IV MWF [facility] Heparin Sodium (Porcine) (Heparin) 5,000 units SC Q12 [facility] Last Admin: 09/29/18 09:24 Dose: 5,000 units Hydromorphone HCl (Dilaudid) 2 mg IVP Q4H PRN PRN Reason: Pain, severe (8-10) Last Admin: 09/29/18 15:21 Dose: 2 mg Insulin Aspart (Novolog) 0 unit SC ACHS [facility]; Protocol Last Admin: 09/29/18 17:21 Dose: 2 u Metoprolol Succinate (Toprol Xl) 25 mg PO DAILY [facility] Last Admin: 09/29/18 09:24 Dose: 25 mg Giles-2-Zodm Ethyl Esters (Lovaza) 1 gm PO BID [facility] Last Admin: 09/29/18 17:20 Dose: 1 gm Oxycodone HCl (Oxycodone Immediate Release Tab) 5 mg PO Q6 PRN PRN Reason: Pain, moderate (4-7) Pregabalin (Lyrica) 75 mg PO DAILY [facility] Last Admin: 09/29/18 09:23 Dose: 75 mg Ranolazine (Ranexa) 500 mg PO BID [facility] Last Admin: 09/29/18 17:19 Dose: 500 mg Rosuvastatin Calcium (Crestor) 5 mg PO HS [facility] Last Admin: 09/28/18 21:27 Dose: 5 mg Sevelamer Carbonate (Renvela) 800 mg PO TIDCC [facility] Last Admin: 09/29/18 17:20 Dose: 800 mg Vitamin B Complex/Vit C/Folic Acid (Nephro-Federica) 1 tab PO 0800 [facility] Last Admin: 09/29/18 08:24 Dose: 1 tab - Labs Labs: 09/29/18 08:19 09/25/18 14:40 PT 24.4 SECONDS (9.7-12.2) H 09/23/18 13:51 INR 2.2 09/23/18 13:51 APTT 41 SECONDS (21-34) H 09/23/18 13:51 Assessment and Plan (1) Preop cardiovascular exam Status: Acute (2) CAD (coronary artery disease) Status: Acute (3) PVD (peripheral vascular disease) Status: Acute (4) Renal failure Status: Acute (5) Hypertension Status: Acute Attending/Attestation - Attestation I have personally seen and examined this patient.: Yes I have fully participated in the care of the patient.: Yes I have reviewed all pertinent clinical information, including history, physical exam and plan: Yes Notes (Text): 09/29/18 18:58 BP meds titrated as stated in resident note
--- NOTE | 2018-09-28 12:48 | CP.PCM.PN ---
Subjective - Date & Time of Evaluation Date of Evaluation: 09/28/18 Time of Evaluation: 12:47 - Subjective Subjective: Nephrology Consultation Note: Assessment: Stable s/p Amputation of right partial first ray, second digit and second metatarsal head resection and third digit. Amputation of left partial fifth ray and fourth ray 09/24/18 PVD s/p Right common fem-to-ant tibial bypass on 09/03/18, left fem pop bypass 09/17/18 mild hyponatremia missed HD obesity hyponatremia Diabetic chronic Kidney Disease (E11.22) Hypertensive Chronic Kidney Disease (I12.0) End stage renal disease (N18.6) dependence on hemodialysis (Z99.2) (MWF) via AVF Anemia (D64.9), Hyperphosphatemia (E83.39), Secondary Hyperparathyroidism (E21.1), HTN (I12.0) Plan: Will plan for dialysis per MWF schedule. Continue with Nephrovite 1 tab/day. pt refusing to go for HD today PRBC as needed for anemia. on JENA with dialysis as last Hb 8.1 Continue with phos binders, last phos level: 6.8 BP control with meds as ordered. Patient on RAAS francia as losartan--will d/c as BP low side. also lower atenolol dose 25 mg/d Glycemic control, Dialysis consistent diet Further work up/management as per primary team Dose meds/antibiotics (if needed) for ESRD status. Avoid fleets enema/magnesium based laxatives. podiatry and vascular following up Thanks for allowing me to participate in care of your patient. Will follow patient with you. Please call if any Qs. had d/w team Dr Sal Aguayo Office: [phone] Chief Complaint;leg pain HPI: Pt is a 63 M with hx of ESRD on hemodialysis (MWF) via AVF, last dialysis thur with Dr Quinonez (usually at [place]), chronic anemia, hyperphosphatemia, secondary hyperparathyroidism, Diabetes Mellitus, hypertension PVD s/p Right common fem-to-ant tibial bypass on 09/03/18 presented with complaints of pers istent feets pain Renal consult requested for ESRD management. pt c/o feet pain. was d/c to rehab recently denies SOB ROS: no new complaints. no CP/SOB. c/o foot pain s/p surgery all other neg Physical Examination: seen on HD General Appearance: comfortable, in no acute respiratory distress, co-operative . obese Vitals reviewed and noted as below Head; Atraumatic, normocephalic ENT: no ulcers no thrush. Tongue is midline. Oropharynx: no rash or ulcers. EYES: Pupils are equal, round and reactive to light accommodation. Eye muscles and extraocular movement intact. Sclera is anicteric. Neck; supple no lymphadenopathy, no thyromegaly or bruit Lungs: Normal respiratory rate/effort. Breath sounds bilateral equal and clear Heart: Normal rate. s1s2 normal. No rub or gallop. Extremities: no edema. No varicose veins. s/p Rt leg vasc surgery Neurological: Patient isalert awake oriented to person, place and time. No focal deficit. Strength bilateral appropriate and equal Skin: Warm and dry. Normal turgor. No rash. Palpitation: Normal elasticity for age Abdomen: Abdomen is soft. Bowel sounds +. There is no abdominal tenderness, no guarding/rigidity or organomegaly Psych: normal insight and normal affect/mood MSK: no joint tenderness or swelling. feets dressing + : kidney or bladder not palpable Access: AVF Labs/imaging reviewed. Past medical history, past surgical history, family history, social history, allergy reviewed and noted as below Family Hx: no hx of CKD. Non contributory Objective - Vital Signs/Intake and Output Vital Signs (last 24 hours): Temp Pulse Resp BP Pulse Ox 97.9 F 62 19 97/50 L 99 09/28/18 10:00 09/28/18 10:00 09/28/18 10:00 09/28/18 12:00 09/28/18 10:00 Intake and Output: 09/28/18 09/28/18 06:59 18:59 Intake Total 240 Balance 240 - Medications Medications: Current Medications Acetaminophen (Tylenol 325mg Tab) 650 mg PO Q6 PRN PRN Reason: Pain, Mild (1-3) Aspirin (Aspirin Chewable) 81 mg PO DAILY [facility] Last Admin: 09/28/18 09:47 Dose: Not Given Cilostazol (Pletal) 100 mg PO DAILY [facility] Clopidogrel Bisulfate (Plavix) 75 mg PO DAILY [facility] Last Admin: 09/23/18 10:34 Dose: Not Given Docusate Sodium (Colace) 100 mg PO BID [facility] Last Admin: 09/28/18 09:47 Dose: Not Given Ezetimibe (Zetia) 10 mg PO DAILY [facility] Last Admin: 09/28/18 09:48 Dose: Not Given Epoetin Danny (Procrit) 10,000 unit IV MWF [facility] Heparin Sodium (Porcine) (Heparin) 5,000 units SC Q12 [facility] Last Admin: 09/28/18 09:47 Dose: Not Given Hydromorphone HCl (Dilaudid) 2 mg IVP Q4H PRN PRN Reason: Pain, severe (8-10) Last Admin: 09/28/18 10:58 Dose: 2 mg Insulin Aspart (Novolog) 0 unit SC [facility]; Protocol Last Admin: 09/28/18 11:31 Dose: Not Given Losartan Potassium (Cozaar) 25 mg PO QPM [facility] Metoprolol Succinate (Toprol Xl) 25 mg PO DAILY [facility] Ocqmi-2-Kgbk Ethyl Esters (Lovaza) 1 gm PO BID [facility] Last Admin: 09/28/18 09:48 Dose: Not Given Oxycodone HCl (Oxycodone Immediate Release Tab) 5 mg PO Q6 PRN PRN Reason: Pain, moderate (4-7) Pregabalin (Lyrica) 75 mg PO DAILY [facility] Ranolazine (Ranexa) 500 mg PO BID [facility] Rosuvastatin Calcium (Crestor) 5 mg PO HS [facility] Last Admin: 09/27/18 21:46 Dose: 5 mg Sevelamer Carbonate (Renvela) 800 mg PO TIDCC [facility] Last Admin: 09/28/18 08:22 Dose: 800 mg Vitamin B Complex/Vit C/Folic Acid (Nephro-Federica) 1 tab PO 0800 [facility] Last Admin: 09/28/18 08:22 Dose: 1 tab - Labs Labs: 09/25/18 14:40 09/25/18 14:40 PT 24.4 SECONDS (9.7-12.2) H 09/23/18 13:51 INR 2.2 09/23/18 13:51 APTT 41 SECONDS (21-34) H 09/23/18 13:51
[2018-09-28] MEDS: Cilostazol 100 mg Tab UD PO SCH (14:11)
--- NOTE | 2018-09-28 15:41 | CP.PCM.PN ---
Subjective - Date & Time of Evaluation Date of Evaluation: 09/28/18 Time of Evaluation: 07:30 - Subjective Subjective: clinically same Objective - Vital Signs/Intake and Output Vital Signs (last 24 hours): Temp Pulse Resp BP Pulse Ox 97.9 F 76 20 135/78 99 09/28/18 10:00 09/28/18 14:15 09/28/18 14:15 09/28/18 14:15 09/28/18 10:00 Intake and Output: 09/28/18 09/28/18 06:59 18:59 Intake Total 240 480 Balance 240 480 - Medications Medications: Current Medications Acetaminophen (Tylenol 325mg Tab) 650 mg PO Q6 PRN PRN Reason: Pain, Mild (1-3) Aspirin (Aspirin Chewable) 81 mg PO DAILY [facility] Last Admin: 09/28/18 09:47 Dose: Not Given Cilostazol (Pletal) 100 mg PO DAILY [facility] Last Admin: 09/28/18 14:11 Dose: 100 mg Clopidogrel Bisulfate (Plavix) 75 mg PO DAILY [facility] Last Admin: 09/23/18 10:34 Dose: Not Given Docusate Sodium (Colace) 100 mg PO BID [facility] Last Admin: 09/28/18 09:47 Dose: Not Given Ezetimibe (Zetia) 10 mg PO DAILY [facility] Last Admin: 09/28/18 09:48 Dose: Not Given Epoetin Danny (Procrit) 10,000 unit IV F [facility] Heparin Sodium (Porcine) (Heparin) 5,000 units SC Q12 [facility] Last Admin: 09/28/18 09:47 Dose: Not Given Hydromorphone HCl (Dilaudid) 2 mg IVP Q4H PRN PRN Reason: Pain, severe (8-10) Last Admin: 09/28/18 15:01 Dose: 2 mg Insulin Aspart (Novolog) 0 unit SC [facility]; Protocol Last Admin: 09/28/18 11:31 Dose: Not Given Metoprolol Succinate (Toprol Xl) 25 mg PO DAILY [facility] Htocr-0-Ngut Ethyl Esters (Lovaza) 1 gm PO BID [facility] Last Admin: 09/28/18 09:48 Dose: Not Given Oxycodone HCl (Oxycodone Immediate Release Tab) 5 mg PO Q6 PRN PRN Reason: Pain, moderate (4-7) Pregabalin (Lyrica) 75 mg PO DAILY [facility] Ranolazine (Ranexa) 500 mg PO BID [facility] Rosuvastatin Calcium (Crestor) 5 mg PO HS [facility] Last Admin: 09/27/18 21:46 Dose: 5 mg Sevelamer Carbonate (Renvela) 800 mg PO TIDCC [facility] Last Admin: 09/28/18 14:10 Dose: 800 mg Vitamin B Complex/Vit C/Folic Acid (Nephro-Federica) 1 tab PO 0800 [facility] Last Admin: 09/28/18 08:22 Dose: 1 tab - Labs Labs: 09/25/18 14:40 09/25/18 14:40 PT 24.4 SECONDS (9.7-12.2) H 09/23/18 13:51 INR 2.2 09/23/18 13:51 APTT 41 SECONDS (21-34) H 09/23/18 13:51 - Constitutional Appears: Well - Head Exam Head Exam: ATRAUMATIC, NORMAL INSPECTION, NORMOCEPHALIC - Eye Exam Eye Exam: EOMI, Normal appearance, PERRL Pupil Exam: NORMAL ACCOMODATION, PERRL - ENT Exam ENT Exam: Mucous Membranes Moist, Normal Exam - Neck Exam Neck Exam: Full ROM, Normal Inspection. absent: Lymphadenopathy - Respiratory Exam Respiratory Exam: Decreased Breath Sounds - Cardiovascular Exam Cardiovascular Exam: REGULAR RHYTHM, +S1, +S2 - GI/Abdominal Exam GI & Abdominal Exam: Soft, Diminished Bowel Sounds - Rectal Exam Rectal Exam: Deferred
--- NOTE | 2018-09-28 18:30 | CP.PCM.PN ---
Subjective - Date & Time of Evaluation Date of Evaluation: 09/28/18 Time of Evaluation: 18:30 Objective - Vital Signs/Intake and Output Vital Signs (last 24 hours): Temp Pulse Resp BP Pulse Ox 97.8 F 86 20 129/75 95 09/28/18 16:27 09/28/18 16:27 09/28/18 16:27 09/28/18 16:27 09/28/18 16:27 Intake and Output: 09/28/18 09/28/18 06:59 18:59 Intake Total 240 480 Balance 240 480 - Medications Medications: Current Medications Acetaminophen (Tylenol 325mg Tab) 650 mg PO Q6 PRN PRN Reason: Pain, Mild (1-3) Aspirin (Aspirin Chewable) 81 mg PO DAILY [facility] Last Admin: 09/28/18 09:47 Dose: Not Given Cilostazol (Pletal) 100 mg PO DAILY [facility] Last Admin: 09/28/18 14:11 Dose: 100 mg Clopidogrel Bisulfate (Plavix) 75 mg PO DAILY [facility] Last Admin: 09/23/18 10:34 Dose: Not Given Docusate Sodium (Colace) 100 mg PO BID [facility] Last Admin: 09/28/18 17:15 Dose: 100 mg Ezetimibe (Zetia) 10 mg PO DAILY [facility] Last Admin: 09/28/18 09:48 Dose: Not Given Epoetin Danny (Procrit) 10,000 unit IV MWF [facility] Heparin Sodium (Porcine) (Heparin) 5,000 units SC Q12 [facility] Last Admin: 09/28/18 09:47 Dose: Not Given Hydromorphone HCl (Dilaudid) 2 mg IVP Q4H PRN PRN Reason: Pain, severe (8-10) Last Admin: 09/28/18 15:01 Dose: 2 mg Insulin Aspart (Novolog) 0 unit SC [facility]; Protocol Last Admin: 09/28/18 17:17 Dose: 2 u Metoprolol Succinate (Toprol Xl) 25 mg PO DAILY [facility] Fxedj-5-[id number] Ethyl Esters (Lovaza) 1 gm PO BID [facility] Last Admin: 09/28/18 17:15 Dose: 1 gm Oxycodone HCl (Oxycodone Immediate Release Tab) 5 mg PO Q6 PRN PRN Reason: Pain, moderate (4-7) Pregabalin (Lyrica) 75 mg PO DAILY [facility] Ranolazine (Ranexa) 500 mg PO BID [facility] Last Admin: 09/28/18 17:13 Dose: 500 mg Rosuvastatin Calcium (Crestor) 5 mg PO HS [facility] Last Admin: 09/27/18 21:46 Dose: 5 mg Sevelamer Carbonate (Renvela) 800 mg PO TIDCC [facility] Last Admin: 09/28/18 17:15 Dose: 800 mg Vitamin B Complex/Vit C/Folic Acid (Nephro-Federica) 1 tab PO 0800 [facility] Last Admin: 09/28/18 08:22 Dose: 1 tab - Labs Labs: 09/25/18 14:40 09/25/18 14:40 PT 24.4 SECONDS (9.7-12.2) H 09/23/18 13:51 INR 2.2 09/23/18 13:51 APTT 41 SECONDS (21-34) H 09/23/18 13:51
--- NOTE | 2018-09-28 18:53 | CP.PCM.PN ---
Subjective - Date & Time of Evaluation Date of Evaluation: 09/28/18 Time of Evaluation: 12:40 - Subjective Subjective: Podiatry Progress Note - Dr. Youngblood 63 y/o male seen at bedside this morning with Dr. Youngblood 4 days s/p right foot 1st-3rd digit amps and left foot 4th and 5th digit amps as well as heel debridement to B/L lower extremities. Patient is AAO x 3 and NAD at time of visit. States that his pain is slightly improved at this time. Denies any new pedal complaints at this time. Denies any recent N/V/F/C/CP/SOB/D Objective - Vital Signs/Intake and Output Vital Signs (last 24 hours): Temp Pulse Resp BP Pulse Ox 97.8 F 86 20 129/75 95 09/28/18 16:27 09/28/18 16:27 09/28/18 16:27 09/28/18 16:27 09/28/18 16:27 Intake and Output: 09/28/18 09/28/18 06:59 18:59 Intake Total 240 480 Balance 240 480 - Medications Medications: Current Medications Acetaminophen (Tylenol 325mg Tab) 650 mg PO Q6 PRN PRN Reason: Pain, Mild (1-3) Aspirin (Aspirin Chewable) 81 mg PO DAILY [facility] Last Admin: 09/28/18 09:47 Dose: Not Given Cilostazol (Pletal) 100 mg PO DAILY [facility] Last Admin: 09/28/18 14:11 Dose: 100 mg Clopidogrel Bisulfate (Plavix) 75 mg PO DAILY [facility] Last Admin: 09/23/18 10:34 Dose: Not Given Docusate Sodium (Colace) 100 mg PO BID [facility] Last Admin: 09/28/18 17:15 Dose: 100 mg Ezetimibe (Zetia) 10 mg PO DAILY [facility] Last Admin: 09/28/18 09:48 Dose: Not Given Epoetin Danny (Procrit) 10,000 unit IV MWF [facility] Heparin Sodium (Porcine) (Heparin) 5,000 units SC Q12 [facility] Last Admin: 09/28/18 09:47 Dose: Not Given Hydromorphone HCl (Dilaudid) 2 mg IVP Q4H PRN PRN Reason: Pain, severe (8-10) Last Admin: 09/28/18 15:01 Dose: 2 mg Insulin Aspart (Novolog) 0 unit SC ACHS [facility]; Protocol Last Admin: 09/28/18 17:17 Dose: 2 u Metoprolol Succinate (Toprol Xl) 25 mg PO DAILY [facility] [id number] Ethyl Esters (Lovaza) 1 gm PO BID [facility] Last Admin: 09/28/18 17:15 Dose: 1 gm Oxycodone HCl (Oxycodone Immediate Release Tab) 5 mg PO Q6 PRN PRN Reason: Pain, moderate (4-7) Pregabalin (Lyrica) 75 mg PO DAILY [facility] Ranolazine (Ranexa) 500 mg PO BID [facility] Last Admin: 09/28/18 17:13 Dose: 500 mg Rosuvastatin Calcium (Crestor) 5 mg PO HS [facility] Last Admin: 09/27/18 21:46 Dose: 5 mg Sevelamer Carbonate (Renvela) 800 mg PO TIDCC [facility] Last Admin: 09/28/18 17:15 Dose: 800 mg Vitamin B Complex/Vit C/Folic Acid (Nephro-Federica) 1 tab PO 0800 [facility] Last Admin: 09/28/18 08:22 Dose: 1 tab - Labs Labs: 09/25/18 14:40 09/25/18 14:40 PT 24.4 SECONDS (9.7-12.2) H 09/23/18 13:51 INR 2.2 09/23/18 13:51 APTT 41 SECONDS (21-34) H 09/23/18 13:51 - Constitutional Appears: Well, Non-toxic, No Acute Distress - Extremities Exam Additional comments: LE focused exam: Vasc: DP/PT pulses palpable 2/4 b/l. Skin temperature warm to warm WNL from proximal to distal. CFT to remaining digits < 3 seconds. Minimal edema noted to amputation sites Neuro: Epicritic and protective sensation grossly diminished b/l Derm: All amputation sites well coapted with no signs of dehiscence. No erythema, malodor, drainage, purulence or other clinical signs of infection appr eciated. B/l heel ulcerations fibronecrotic in nature with no erythema, malodor, drainage, purulence or other clinical signs of infection appreciated MSK: Minimal pain on palpation to amputation sites and ulceration sites. ROM WNL at all major joints. No other gross deformities noted - Neurological Exam Neurological Exam: Alert, Awake, Oriented x3 - Psychiatric Exam Psychiatric exam: Normal Affect, Normal Mood Assessment and Plan - Assessment and Plan (Free Text) Assessment: 63 y/o male seen at bedside this morning with Dr. Youngblood 4 days s/p right foot 1st-3rd digit amps and left foot 4th and 5th digit amps as well as heel debridement to B/L lower extremities Plan: Patient seen and evaluated with Dr. Youngblood Continue pain management per medical team Afebrile, absent leukocytosis Urine/Blood Cx: no growth R common fem-to-ant tibial bypass on 09/03/18 Lt femoral-popliteal bypass with gortex graft and intraoperative arteriogram on 09/17/18 Dressings changed with xeroform, DSD, KVNG No plan for further surgical intervention at this time Podiatry will continue to follow while patient in house
[2018-09-29] MEDS: (Novolog) Insulin Aspart, Recombinant 100 u/ml 10 ml vial SC SCH ×4 (07:42→21:37)
[2018-09-29] MEDS: Multivitamin Vitamin B Complex (Nephro-Vite) Tab PO SCH (08:24)
[2018-09-29 08:28] LABS: BASO % 0.7 % (0.0-2.0); EOS # 0.2 K/uL (0.0-0.7); EOS % 2.8 % (0.0-4.0); HEMOGLOBIN 8.4 g/dL (12.0-18.0); LYMPH # 1.1 K/uL (1.0-4.3); LYMPH % 15.4 % (20.0-40.0); MEAN CELL VOLUME 97.1 fL (80.0-94.0); MEAN CORPUSCULAR HEMOGLOBIN 31.5 pg (27.0-31.0); MEAN CORPUSCULAR HGB CONC 32.5 g/dL (33.0-37.0); MEAN PLATELET VOLUME 8.9 fL (7.2-11.7); MONO % 14.9 % (0.0-10.0); NEUT # 4.6 K/uL (1.8-7.0); NEUT % 66.2 % (50.0-75.0); RBC 2.67 Mil/uL (4.40-5.90); RED CELL DISTRIBUTION WIDTH 16.6 % (11.5-14.5)
[2018-09-29] MEDS: Cilostazol 100 mg Tab UD PO SCH (09:24)
[2018-09-29] MEDS: Metoprolol Succinate 25 mg XL Tab PO SCH (09:24)
[2018-09-29] MEDS: Ranolazine 500 mg Extended Release Tablets PO SCH ×2 (09:24→17:19)
[2018-09-29] MEDS: Omega-3-Acid Ethyl Esters 1 GM Cap PO SCH ×2 (09:24→17:20)
--- NOTE | 2018-09-29 12:35 | CP.PCM.PN ---
Subjective - Date & Time of Evaluation Date of Evaluation: 09/29/18 Time of Evaluation: 12:34 - Subjective Subjective: Nephrology Consultation Note: Assessment: Stable s/p Amputation of right partial first ray, second digit and second metatarsal head resection and third digit. Amputation of left partial fifth ray and fourth ray 09/24/18 PVD s/p Right common fem-to-ant tibial bypass on 09/03/18, left fem pop bypass 09/17/18 mild hyponatremia missed HD obesity hyponatremia Diabetic chronic Kidney Disease (E11.22) Hypertensive Chronic Kidney Disease (I12.0) End stage renal disease (N18.6) dependence on hemodialysis (Z99.2) (MWF) via AVF Anemia (D64.9), Hyperphosphatemia (E83.39), Secondary Hyperparathyroidism (E21.1), HTN (I12.0) Plan: Will plan for dialysis per MWF schedule. Continue with Nephrovite 1 tab/day. pt refusing to go for extra HD today to help with edema PRBC as needed for anemia. on JENA with dialysis as last Hb 8.4 Continue with phos binders, last phos level: 6.8 BP control with meds as ordered. Patient on RAAS francia as losartan--will d/c as BP low side. also lower BB dose 25 mg/d Glycemic control, Dialysis consistent diet Further work up/management as per primary team Dose meds/antibiotics (if needed) for ESRD status. Avoid fleets enema/magnesium based laxatives. podiatry and vascular following up Thanks for allowing me to participate in care of your patient. Will follow patient with you. Please call if any Qs. had d/w team Dr Sal Aguayo Office: [phone] Chief Complaint;leg pain HPI: Pt is a 63 M with hx of ESRD on hemodialysis (MWF) via AVF, last dialysis thur with Dr Quinonez (usually at [place]), chronic anemia, hyperphosphatemia, secondary hyperparathyroidism, Diabetes Mellitus, hypertension PVD s/p Right common fem-to-ant tibial bypass on 09/03/18 presented with complaints of persistent feets pain Renal consult requested for ESRD management. pt c/o feet pain. was d/c to rehab recently denies SOB ROS: no new complaints. no CP/SOB. c/o foot pain s/p surgery all other neg. has leg swelling Physical Examination: General Appearance: comfortable, in no acute respiratory distress, co-operative . obese Vitals reviewed and noted as below Head; Atraumatic, normocephalic ENT: no ulcers no thrush. Tongue is midline. Oropharynx: no rash or ulcers. EYES: Pupils are equal, round and reactive to light accommodation. Eye muscles and extraocular movement intact. Sclera is anicteric. Neck; supple no lymphadenopathy, no thyromegaly or bruit Lungs: Normal respiratory rate/effort. Breath sounds bilateral equal and clear Heart: Normal rate. s1s2 normal. No rub or gallop. Extremities: 2+ edema. No varicose veins. s/p Rt leg vasc surgery Neurological: Patient isalert awake oriented to person, place and time. No focal deficit. Strength bilateral appropriate and equal Skin: Warm and dry. Normal turgor. No rash. Palpitation: Normal elasticity for age Abdomen: Abdomen is soft. Bowel sounds +. There is no abdominal tenderness, no guarding/rigidity or organomegaly Psych: normal insight and normal affect/mood MSK: no joint tenderness or swelling. feets dressing + : kidney or bladder not palpable Access: AVF Labs/imaging reviewed. Past medical history, past surgical history, family history, social history, allergy reviewed and noted as below Family Hx: no hx of CKD. Non contributory Objective - Vital Signs/Intake and Output Vital Signs (last 24 hours): Temp Pulse Resp BP Pulse Ox 98.1 F 67 20 105/53 L 98 09/29/18 07:00 09/29/18 07:00 09/29/18 07:00 09/29/18 07:00 09/29/18 07:00 Intake and Output: 09/29/18 09/29/18 06:59 18:59 Intake Total 180 Balance 180 - Medications Medications: Current Medications Acetaminophen (Tylenol 325mg Tab) 650 mg PO Q6 PRN PRN Reason: Pain, Mild (1-3) Aspirin (Aspirin Chewable) 81 mg PO DAILY [facility] Last Admin: 09/29/18 09:24 Dose: 81 mg Cilostazol (Pletal) 100 mg PO DAILY [facility] Last Admin: 09/29/18 09:24 Dose: 100 mg Clopidogrel Bisulfate (Plavix) 75 mg PO DAILY [facility] Last Admin: 09/23/18 10:34 Dose: Not Given Docusate Sodium (Colace) 100 mg PO BID [facility] Last Admin: 09/29/18 09:24 Dose: 100 mg Ezetimibe (Zetia) 10 mg PO DAILY [facility] Last Admin: 09/29/18 09:23 Dose: 10 mg Epoetin Danny (Procrit) 10,000 unit IV MWF [facility] Heparin Sodium (Porcine) (Heparin) 5,000 units SC Q12 [facility] Last Admin: 09/29/18 09:24 Dose: 5,000 units Hydromorphone HCl (Dilaudid) 2 mg IVP Q4H PRN PRN Reason: Pain, severe (8-10) Last Admin: 09/29/18 11:21 Dose: 2 mg Insulin Aspart (Novolog) 0 unit SC ACHS [facility]; Protocol Last Admin: 09/29/18 11:20 Dose: 2 u Metoprolol Succinate (Toprol Xl) 25 mg PO DAILY [facility] Last Admin: 09/29/18 09:24 Dose: 25 mg Wbvrz-8-Laef Ethyl Esters (Lovaza) 1 gm PO BID [facility] Last Admin: 09/29/18 09:24 Dose: 1 gm Oxycodone HCl (Oxycodone Immediate Release Tab) 5 mg PO Q6 PRN PRN Reason: Pain, moderate (4-7) Pregabalin (Lyrica) 75 mg PO DAILY [facility] Last Admin: 09/29/18 09:23 Dose: 75 mg Ranolazine (Ranexa) 500 mg PO BID [facility] Last Admin: 09/29/18 09:24 Dose: 500 mg Rosuvastatin Calcium (Crestor) 5 mg PO HS [facility] Last Admin: 09/28/18 21:27 Dose: 5 mg Sevelamer Carbonate (Renvela) 800 mg PO TIDCC [facility] Last Admin: 09/29/18 11:21 Dose: 800 mg Vitamin B Complex/Vit C/Folic Acid (Nephro-Federica) 1 tab PO 0800 [facility] Last Admin: 09/29/18 08:24 Dose: 1 tab - Labs Labs: 09/29/18 08:19 09/25/18 14:40 PT 24.4 SECONDS (9.7-12.2) H 09/23/18 13:51 INR 2.2 09/23/18 13:51 APTT 41 SECONDS (21-34) H 09/23/18 13:51
--- NOTE | 2018-09-29 14:15 | CP.PCM.PN ---
Subjective - Date & Time of Evaluation Date of Evaluation: 09/29/18 Time of Evaluation: 07:30 - Subjective Subjective: clinically same Objective - Vital Signs/Intake and Output Vital Signs (last 24 hours): Temp Pulse Resp BP Pulse Ox 98.1 F 67 20 105/53 L 98 09/29/18 07:00 09/29/18 07:00 09/29/18 07:00 09/29/18 07:00 09/29/18 07:00 Intake and Output: 09/29/18 09/29/18 06:59 18:59 Intake Total 180 Balance 180 - Medications Medications: Current Medications Acetaminophen (Tylenol 325mg Tab) 650 mg PO Q6 PRN PRN Reason: Pain, Mild (1-3) Albumin Human (Albumin Human 25% (12.5 Gm/50 Ml)) 25 gm IV MWF PRN PRN Reason: Other Aspirin (Aspirin Chewable) 81 mg PO DAILY [facility] Last Admin: 09/29/18 09:24 Dose: 81 mg Cilostazol (Pletal) 100 mg PO DAILY [facility] Last Admin: 09/29/18 09:24 Dose: 100 mg Clopidogrel Bisulfate (Plavix) 75 mg PO DAILY [facility] Last Admin: 09/23/18 10:34 Dose: Not Given Docusate Sodium (Colace) 100 mg PO BID [facility] Last Admin: 09/29/18 09:24 Dose: 100 mg Ezetimibe (Zetia) 10 mg PO DAILY [facility] Last Admin: 09/29/18 09:23 Dose: 10 mg Epoetin Danny (Procrit) 10,000 unit IV MWF [facility] Heparin Sodium (Porcine) (Heparin) 5,000 units SC Q12 [facility] Last Admin: 09/29/18 09:24 Dose: 5,000 units Hydromorphone HCl (Dilaudid) 2 mg IVP Q4H PRN PRN Reason: Pain, severe (8-10) Last Admin: 09/29/18 11:21 Dose: 2 mg Insulin Aspart (Novolog) 0 unit SC [facility]; Protocol Last Admin: 09/29/18 11:20 Dose: 2 u Metoprolol Succinate (Toprol Xl) 25 mg PO DAILY [facility] Last Admin: 09/29/18 09:24 Dose: 25 mg Ixvby-7-Trxw Ethyl Esters (Lovaza) 1 gm PO BID [facility] Last Admin: 09/29/18 09:24 Dose: 1 gm Oxycodone HCl (Oxycodone Immediate Release Tab) 5 mg PO Q6 PRN PRN Reason: Pain, moderate (4-7) Pregabalin (Lyrica) 75 mg PO DAILY [facility] Last Admin: 09/29/18 09:23 Dose: 75 mg Ranolazine (Ranexa) 500 mg PO BID [facility] Last Admin: 09/29/18 09:24 Dose: 500 mg Rosuvastatin Calcium (Crestor) 5 mg PO HS [facility] Last Admin: 09/28/18 21:27 Dose: 5 mg Sevelamer Carbonate (Renvela) 800 mg PO TIDCC [facility] Last Admin: 09/29/18 11:21 Dose: 800 mg Vitamin B Complex/Vit C/Folic Acid (Nephro-Federica) 1 tab PO 0800 [facility] Last Admin: 09/29/18 08:24 Dose: 1 tab - Labs Labs: 09/29/18 08:19 09/25/18 14:40 PT 24.4 SECONDS (9.7-12.2) H 09/23/18 13:51 INR 2.2 09/23/18 13:51 APTT 41 SECONDS (21-34) H 09/23/18 13:51 - Constitutional Appears: Well - Head Exam Head Exam: ATRAUMATIC, NORMAL INSPECTION, NORMOCEPHALIC - Eye Exam Eye Exam: EOMI, Normal appearance, PERRL Pupil Exam: NORMAL ACCOMODATION, PERRL - ENT Exam ENT Exam: Mucous Membranes Moist, Normal Exam - Neck Exam Neck Exam: Full ROM, Normal Inspection. absent: Lymphadenopathy - Respiratory Exam Respiratory Exam: Decreased Breath Sounds - Cardiovascular Exam Cardiovascular Exam: REGULAR RHYTHM, +S1, +S2 - GI/Abdominal Exam GI & Abdominal Exam: Soft, Diminished Bowel Sounds - Rectal Exam Rectal Exam: Deferred
--- NOTE | 2018-09-29 16:33 | CP.PCM.PN ---
Subjective - Date & Time of Evaluation Date of Evaluation: 09/29/18 Time of Evaluation: 16:33 - Subjective Subjective: Patient seen and examined No events overnight Objective - Vital Signs/Intake and Output Vital Signs (last 24 hours): Temp Pulse Resp BP Pulse Ox 98.3 F 79 20 103/61 96 09/29/18 15:00 09/29/18 15:00 09/29/18 15:00 09/29/18 15:00 09/29/18 15:00 Intake and Output: 09/29/18 09/29/18 06:59 18:59 Intake Total 180 480 Balance 180 480 - Medications Medications: Current Medications Acetaminophen (Tylenol 325mg Tab) 650 mg PO Q6 PRN PRN Reason: Pain, Mild (1-3) Albumin Human (Albumin Human 25% (12.5 Gm/50 Ml)) 25 gm IV MWF PRN PRN Reason: Other Aspirin (Aspirin Chewable) 81 mg PO DAILY [facility] Last Admin: 09/29/18 09:24 Dose: 81 mg Cilostazol (Pletal) 100 mg PO DAILY [facility] Last Admin: 09/29/18 09:24 Dose: 100 mg Clopidogrel Bisulfate (Plavix) 75 mg PO DAILY [facility] Last Admin: 09/23/18 10:34 Dose: Not Given Docusate Sodium (Colace) 100 mg PO BID [facility] Last Admin: 09/29/18 09:24 Dose: 100 mg Ezetimibe (Zetia) 10 mg PO DAILY [facility] Last Admin: 09/29/18 09:23 Dose: 10 mg Epoetin Danny (Procrit) 10,000 unit IV F [facility] Heparin Sodium (Porcine) (Heparin) 5,000 units SC Q12 [facility] Last Admin: 09/29/18 09:24 Dose: 5,000 units Hydromorphone HCl (Dilaudid) 2 mg IVP Q4H PRN PRN Reason: Pain, severe (8-10) Last Admin: 09/29/18 15:21 Dose: 2 mg Insulin Aspart (Novolog) 0 unit SC [facility]; Protocol Last Admin: 09/29/18 11:20 Dose: 2 u Metoprolol Succinate (Toprol Xl) 25 mg PO DAILY [facility] Last Admin: 09/29/18 09:24 Dose: 25 mg Irxvk-9-Wles Ethyl Esters (Lovaza) 1 gm PO BID [facility] Last Admin: 09/29/18 09:24 Dose: 1 gm Oxycodone HCl (Oxycodone Immediate Release Tab) 5 mg PO Q6 PRN PRN Reason: Pain, moderate (4-7) Pregabalin (Lyrica) 75 mg PO DAILY [facility] Last Admin: 09/29/18 09:23 Dose: 75 mg Ranolazine (Ranexa) 500 mg PO BID [facility] Last Admin: 09/29/18 09:24 Dose: 500 mg Rosuvastatin Calcium (Crestor) 5 mg PO HS [facility] Last Admin: 09/28/18 21:27 Dose: 5 mg Sevelamer Carbonate (Renvela) 800 mg PO TIDCC [facility] Last Admin: 09/29/18 11:21 Dose: 800 mg Vitamin B Complex/Vit C/Folic Acid (Nephro-Federica) 1 tab PO 0800 [facility] Last Admin: 09/29/18 08:24 Dose: 1 tab - Labs Labs: 09/29/18 08:19 09/25/18 14:40 PT 24.4 SECONDS (9.7-12.2) H 09/23/18 13:51 INR 2.2 09/23/18 13:51 APTT 41 SECONDS (21-34) H 09/23/18 13:51 - Head Exam Head Exam: NORMAL INSPECTION - Eye Exam Eye Exam: Normal appearance - ENT Exam ENT Exam: Mucous Membranes Moist - Respiratory Exam Respiratory Exam: Clear to Ausculation Bilateral - Cardiovascular Exam Cardiovascular Exam: REGULAR RHYTHM, +S1, +S2 - GI/Abdominal Exam GI & Abdominal Exam: Soft, Normal Bowel Sounds - Extremities Exam Extremities Exam: Pedal Edema Assessment and Plan (1) CAD (coronary artery disease) Status: Acute (2) Dyspnea Status: Acute (3) ESRD (end stage renal disease) Status: Acute (4) PVD (peripheral vascular disease) Status: Acute (5) CHF (congestive heart failure) Status: Acute (6) Hypertension Status: Acute (7) Diabetes Status: Acute - Assessment and Plan (Free Text) Plan: Bronchodilators as needed Hemodialysis as per schedule Blood pressure control Accu-Chek insulin coverage DVT/GI prophylaxis
--- NOTE | 2018-09-29 18:32 | CP.PCM.PN ---
Subjective - Date & Time of Evaluation Date of Evaluation: 09/29/18 Time of Evaluation: 18:27 - Subjective Subjective: Podiatry Progress Note - Dr. Youngblood 63 y/o male seen at bedside this morning 5 days s/p right foot 1st-3rd digit amps and left foot 4th and 5th digit amps as well as heel debridement to B/L lower extremities. Patient is AAO x 3 and NAD at time of visit. States that he has no pain b/l at this time. Denies any new pedal complaints at this time. States that he would like to go home vs. going to a rehab facility. Denies any recent N/V/F/C/CP/SOB/D Objective - Vital Signs/Intake and Output Vital Signs (last 24 hours): Temp Pulse Resp BP Pulse Ox 98.3 F 79 20 103/61 96 09/29/18 15:00 09/29/18 15:00 09/29/18 15:00 09/29/18 15:00 09/29/18 15:00 Intake and Output: 09/29/18 09/29/18 06:59 18:59 Intake Total 180 480 Balance 180 480 - Medications Medications: Current Medications Acetaminophen (Tylenol 325mg Tab) 650 mg PO Q6 PRN PRN Reason: Pain, Mild (1-3) Albumin Human (Albumin Human 25% (12.5 Gm/50 Ml)) 25 gm IV MWF PRN PRN Reason: Other Aspirin (Aspirin Chewable) 81 mg PO DAILY [facility] Last Admin: 09/29/18 09:24 Dose: 81 mg Cilostazol (Pletal) 100 mg PO DAILY [facility] Last Admin: 09/29/18 09:24 Dose: 100 mg Clopidogrel Bisulfate (Plavix) 75 mg PO DAILY [facility] Last Admin: 09/23/18 10:34 Dose: Not Given Docusate Sodium (Colace) 100 mg PO BID [facility] Last Admin: 09/29/18 17:19 Dose: 100 mg Ezetimibe (Zetia) 10 mg PO DAILY [facility] Last Admin: 09/29/18 09:23 Dose: 10 mg Epoetin Danny (Procrit) 10,000 unit IV MWF [facility] Heparin Sodium (Porcine) (Heparin) 5,000 units SC Q12 [facility] Last Admin: 09/29/18 09:24 Dose: 5,000 units Hydromorphone HCl (Dilaudid) 2 mg IVP Q4H PRN PRN Reason: Pain, severe (8-10) Last Admin: 09/29/18 15:21 Dose: 2 mg Insulin Aspart (Novolog) 0 unit SC ACHS [facility]; Protocol Last Admin: 09/29/18 17:21 Dose: 2 u Metoprolol Succinate (Toprol Xl) 25 mg PO DAILY [facility] Last Admin: 09/29/18 09:24 Dose: 25 mg Gktkn-5-Kshf Ethyl Esters (Lovaza) 1 gm PO BID [facility] Last Admin: 09/29/18 17:20 Dose: 1 gm Oxycodone HCl (Oxycodone Immediate Release Tab) 5 mg PO Q6 PRN PRN Reason: Pain, moderate (4-7) Pregabalin (Lyrica) 75 mg PO DAILY [facility] Last Admin: 09/29/18 09:23 Dose: 75 mg Ranolazine (Ranexa) 500 mg PO BID [facility] Last Admin: 09/29/18 17:19 Dose: 500 mg Rosuvastatin Calcium (Crestor) 5 mg PO HS [facility] Last Admin: 09/28/18 21:27 Dose: 5 mg Sevelamer Carbonate (Renvela) 800 mg PO TIDCC [facility] Last Admin: 09/29/18 17:20 Dose: 800 mg Vitamin B Complex/Vit C/Folic Acid (Nephro-Federica) 1 tab PO 0800 [facility] Last Admin: 09/29/18 08:24 Dose: 1 tab - Labs Labs: 09/29/18 08:19 09/25/18 14:40 PT 24.4 SECONDS (9.7-12.2) H 09/23/18 13:51 INR 2.2 09/23/18 13:51 APTT 41 SECONDS (21-34) H 09/23/18 13:51 - Constitutional Appears: Well, Non-toxic, No Acute Distress - Extremities Exam Additional comments: LE focused exam: Vasc: DP/PT pulses palpable 2/4 b/l. Skin temperature warm to warm WNL from proximal to distal. CFT to remaining digits < 3 seconds. Minimal edema noted to amputation sites, improving Neuro: Epicritic and protective sensation grossly diminished b/l Derm: All amputation sites well coapted with no signs of dehiscence. No erythema, malodor, drainage, purulence or other clinical signs of infection appreciated. B/l heel ulcerations fibronecrotic in nature with no erythema, malodor, drainage, purulence or other clinical signs of infection appreciated MSK: Minimal pain on palpation to amputation sites and ulceration sites, improving. ROM WNL at all major joints. No other gross deformities noted - Neurological Exam Neurological Exam: Alert, Awake, Oriented x3 - Psychiatric Exam Psychiatric exam: Normal Affect, Normal Mood Assessment and Plan - Assessment and Plan (Free Text) Assessment: 63 y/o male seen at bedside this morning 5 days s/p right foot 1st-3rd digit amps and left foot 4th and 5th digit amps as well as heel debridement to B/L lower extremities Plan: Patient seen and evaluated Plan discussed with Dr. Youngblood Continue pain management per medical team Afebrile, absent leukocytosis Urine/Blood Cx: no growth R common fem-to-ant tibial bypass on 09/03/18 Lt femoral-popliteal bypass with gortex graft and intraoperative arteriogram on 09/17/18 Dressings changed with xeroform, DSD, KVNG No plan for further surgical intervention at this time Podiatry will continue to follow while patient in house
--- NOTE | 2018-09-29 21:15 | CP.PCM.PN ---
<Patel Matos - Last Filed: 09/29/18 21:11> Subjective - Date & Time of Evaluation Date of Evaluation: 09/29/18 Time of Evaluation: 21:11 - Subjective Subjective: Patel Matos DO PGY1 - Internal Medicine Licensed Mental Health Professional - Cardiology Note for Dr. Luciano Patient was seen and examined this afternoon at bedside this afternoon No acute events reported overnight, patient denies any chest pain palpitations shortness of breath. Patient is tolerating dialysis well. Objective - Vital Signs/Intake and Output Vital Signs (last 24 hours): Temp Pulse Resp BP Pulse Ox 98.3 F 79 20 103/61 96 09/29/18 15:00 09/29/18 15:00 09/29/18 15:00 09/29/18 15:00 09/29/18 15:00 Intake and Output: 09/29/18 09/30/18 18:59 06:59 Intake Total 480 Balance 480 - Medications Medications: Current Medications Acetaminophen (Tylenol 325mg Tab) 650 mg PO Q6 PRN PRN Reason: Pain, Mild (1-3) Albumin Human (Albumin Human 25% (12.5 Gm/50 Ml)) 25 gm IV MWF PRN PRN Reason: Other Aspirin (Aspirin Chewable) 81 mg PO DAILY [facility] Last Admin: 09/29/18 09:24 Dose: 81 mg Cilostazol (Pletal) 100 mg PO DAILY [facility] Last Admin: 09/29/18 09:24 Dose: 100 mg Clopidogrel Bisulfate (Plavix) 75 mg PO DAILY [facility] Last Admin: 09/23/18 10:34 Dose: Not Given Docusate Sodium (Colace) 100 mg PO BID [facility] Last Admin: 09/29/18 17:19 Dose: 100 mg Ezetimibe (Zetia) 10 mg PO DAILY [facility] Last Admin: 09/29/18 09:23 Dose: 10 mg Epoetin Danny (Procrit) 10,000 unit IV MWF [facility] Heparin Sodium (Porcine) (Heparin) 5,000 units SC Q12 [facility] Last Admin: 09/29/18 09:24 Dose: 5,000 units Hydromorphone HCl (Dilaudid) 2 mg IVP Q4H PRN PRN Reason: Pain, severe (8-10) Last Admin: 09/29/18 19:35 Dose: 2 mg Insulin Aspart (Novolog) [address] [facility]; Protocol Last Admin: 09/29/18 17:21 Dose: 2 u Metoprolol Succinate (Toprol Xl) 25 mg PO DAILY [facility] Last Admin: 09/29/18 09:24 Dose: 25 mg Pytfp-1-Kwbh Ethyl Esters (Lovaza) 1 gm PO BID [facility] Last Admin: 09/29/18 17:20 Dose: 1 gm Oxycodone HCl (Oxycodone Immediate Release Tab) 5 mg PO Q6 PRN PRN Reason: Pain, moderate (4-7) Pregabalin (Lyrica) 75 mg PO DAILY [facility] Last Admin: 09/29/18 09:23 Dose: 75 mg Ranolazine (Ranexa) 500 mg PO BID [facility] Last Admin: 09/29/18 17:19 Dose: 500 mg Rosuvastatin Calcium (Crestor) 5 mg PO HS [facility] Last Admin: 09/28/18 21:27 Dose: 5 mg Sevelamer Carbonate (Renvela) 800 mg PO TIDCC [facility] Last Admin: 09/29/18 17:20 Dose: 800 mg Vitamin B Complex/Vit C/Folic Acid (Nephro-Federica) 1 tab PO 0800 [facility] Last Admin: 09/29/18 08:24 Dose: 1 tab - Labs Labs: 09/29/18 08:19 09/25/18 14:40 PT 24.4 SECONDS (9.7-12.2) H 09/23/18 13:51 INR 2.2 09/23/18 13:51 APTT 41 SECONDS (21-34) H 09/23/18 13:51 - Constitutional Appears: Well - Head Exam Head Exam: ATRAUMATIC, NORMAL INSPECTION, NORMOCEPHALIC - Eye Exam Eye Exam: EOMI, Normal appearance, PERRL Pupil Exam: NORMAL ACCOMODATION, PERRL - ENT Exam ENT Exam: Mucous Membranes Moist, Normal Exam - Neck Exam Neck exam: Positive for: Normal Inspection - Respiratory Exam Respiratory Exam: Clear to Auscultation Bilateral, NORMAL BREATHING PATTERN - Cardiovascular Exam Cardiovascular Exam: REGULAR RHYTHM, +S1, +S2, Systolic Murmur - GI/Abdominal Exam GI & Abdominal Exam: Normal Bowel Sounds, Soft. absent: Tenderness - Extremities Exam Additional comments: BL LE w/ dressing in place; Diffuse 2+ pitting edema appreciated in BL LE Dressings over Feet CDI - Back Exam Back exam: NORMAL INSPECTION - Neurological Exam Neurological exam: Alert, CN II-XII Intact, Normal Gait, Oriented x3, Reflexes Normal - Psychiatric Exam Psychiatric exam: Normal Affect, Normal Mood - Skin Skin Exam: Dry, Intact, Normal Color, Warm Assessment and Plan (1) Renal failure Status: Acute (2) Hypertension Status: Acute (3) CAD (coronary artery disease) Status: Acute (4) PVD (peripheral vascular disease) Status: Acute - Assessment and Plan (Free Text) Plan: Recommend starting Cozaar Contintue: Toprol XL 25 QD Cilostazol 100 Daily Asa 81 Daily Plavix 75 Daily Ranexa 500 BID Crestor 5 Daily Zetia 10 Daily Lovaza 1gm BID Further reccs per Dr. Luciano <Juan R Luciano - Last Filed: 09/29/18 23:22> Objective - Vital Signs/Intake and Output Vital Signs (last 24 hours): Temp Pulse Resp BP Pulse Ox 98.3 F 79 20 103/61 96 09/29/18 15:00 09/29/18 15:00 09/29/18 15:00 09/29/18 15:00 09/29/18 15:00 Intake and Output: 09/29/18 09/30/18 18:59 06:59 Intake Total 480 Balance 480 - Medications Medications: Current Medications Acetaminophen (Tylenol 325mg Tab) 650 mg PO Q6 PRN PRN Reason: Pain, Mild (1-3) Albumin Human (Albumin Human 25% (12.5 Gm/50 Ml)) 25 gm IV MWF PRN PRN Reason: Other Aspirin (Aspirin Chewable) 81 mg PO DAILY [facility] Last Admin: 09/29/18 09:24 Dose: 81 mg Cilostazol (Pletal) 100 mg PO DAILY [facility] Last Admin: 09/29/18 09:24 Dose: 100 mg Clopidogrel Bisulfate (Plavix) 75 mg PO DAILY [facility] Last Admin: 09/23/18 10:34 Dose: Not Given Docusate Sodium (Colace) 100 mg PO BID [facility] Last Admin: 09/29/18 17:19 Dose: 100 mg Ezetimibe (Zetia) 10 mg PO DAILY [facility] Last Admin: 09/29/18 09:23 Dose: 10 mg Epoetin Danny (Procrit) 10,000 unit IV MWF [facility] Heparin Sodium (Porcine) (Heparin) 5,000 units SC Q12 [facility] Last Admin: 09/29/18 21:32 Dose: 5,000 units Hydromorphone HCl (Dilaudid) 2 mg IVP Q4H PRN PRN Reason: Pain, severe (8-10) Last Admin: 09/29/18 19:35 Dose: 2 mg Insulin Aspart (Novolog) 0 unit SC ACHS [facility]; Protocol Last Admin: 09/29/18 21:37 Dose: Not Given Metoprolol Succinate (Toprol Xl) 25 mg PO DAILY [facility] Last Admin: 09/29/18 09:24 Dose: 25 mg Xlqah-5-Urck Ethyl Esters (Lovaza) 1 gm PO BID [facility] Last Admin: 09/29/18 17:20 Dose: 1 gm Oxycodone HCl (Oxycodone Immediate Release Tab) 5 mg PO Q6 PRN PRN Reason: Pain, moderate (4-7) Pregabalin (Lyrica) 75 mg PO DAILY [facility] Last Admin: 09/29/18 09:23 Dose: 75 mg Ranolazine (Ranexa) 500 mg PO BID [facility] Last Admin: 09/29/18 17:19 Dose: 500 mg Rosuvastatin Calcium (Crestor) 5 mg PO HS [facility] Last Admin: 09/29/18 21:32 Dose: 5 mg Sevelamer Carbonate (Renvela) 800 mg PO TIDCC [facility] Last Admin: 09/29/18 17:20 Dose: 800 mg Vitamin B Complex/Vit C/Folic Acid (Nephro-Federica) 1 tab PO 0800 [facility] Last Admin: 09/29/18 08:24 Dose: 1 tab - Labs Labs: 09/29/18 08:19 09/25/18 14:40 PT 24.4 SECONDS (9.7-12.2) H 09/23/18 13:51 INR 2.2 09/23/18 13:51 APTT 41 SECONDS (21-34) H 09/23/18 13:51 Assessment and Plan (1) Preop cardiovascular exam Status: Acute (2) CAD (coronary artery disease) Status: Acute (3) PVD (peripheral vascular disease) Status: Acute (4) Renal failure Status: Acute (5) Hypertension Status: Acute Attending/Attestation - Attestation I have personally seen and examined this patient.: Yes I have fully participated in the care of the patient.: Yes I have reviewed all pertinent clinical information, including history, physical exam and plan: Yes Notes (Text): 09/29/18 23:22 will titrate BP meds and cardiac meds for risk improvement and secondary prevention of cardiac events add cozaar to current regimen
[2018-09-30] MEDS: (Novolog) Insulin Aspart, Recombinant 100 u/ml 10 ml vial SC SCH ×4 (07:47→21:40)
[2018-09-30] MEDS: Multivitamin Vitamin B Complex (Nephro-Vite) Tab PO SCH (08:05)
[2018-09-30] MEDS: Omega-3-Acid Ethyl Esters 1 GM Cap PO SCH ×2 (09:33→19:38)
[2018-09-30] MEDS: Metoprolol Succinate 25 mg XL Tab PO SCH ×2 (09:33→09:36)
[2018-09-30] MEDS: Cilostazol 100 mg Tab UD PO SCH (09:33)
[2018-09-30] MEDS: Ranolazine 500 mg Extended Release Tablets PO SCH ×2 (09:33→19:38)
--- NOTE | 2018-09-30 11:18 | CP.PCM.PN ---
Subjective - Date & Time of Evaluation Date of Evaluation: 09/30/18 Time of Evaluation: 11:17 - Subjective Subjective: Nephrology Consultation Note: Assessment: Stable s/p Amputation of right partial first ray, second digit and second metatarsal head resection and third digit. Amputation of left partial fifth ray and fourth ray 09/24/18 PVD s/p Right common fem-to-ant tibial bypass on 09/03/18, left fem pop bypass 09/17/18 mild hyponatremia missed HD obesity hyponatremia Diabetic chronic Kidney Disease (E11.22) Hypertensive Chronic Kidney Disease (I12.0) End stage renal disease (N18.6) dependence on hemodialysis (Z99.2) (MWF) via AVF Anemia (D64.9), Hyperphosphatemia (E83.39), Secondary Hyperparathyroidism (E21.1), HTN (I12.0) Plan: Will plan for dialysis per MWF schedule. Continue with Nephrovite 1 tab/day. PRBC as needed for anemia. on JENA with dialysis as last Hb 8.4 Continue with phos binders, last phos level: 6.8 BP control with meds as ordered. Patient was on RAAS francia as losartan--had d/c as BP low side. also lowered BB dose 25 mg/d Glycemic control, Dialysis consistent diet Further work up/management as per primary team Dose meds/antibiotics (if needed) for ESRD status. Avoid fleets enema/magnesium based laxatives. podiatry and vascular following up Thanks for allowing me to participate in care of your patient. Will follow patient with you. Please call if any Qs. had d/w team Dr Sal Aguayo Office: [phone] Chief Complaint;leg pain HPI: Pt is a 63 M with hx of ESRD on hemodialysis (MWF) via AVF, last dialysis thur with Dr Quinonez (usually at [facility]), chronic anemia, hyperphosphatemia, secondary hyperparathyroidism, Diabetes Mellitus, hypertension PVD s/p Right common fem-to-ant tibial bypass on 09/03/18 presented with complaints of persistent feets pain Renal consult requested for ESRD management. pt c/o feet pain. was d/c to rehab recently denies SOB ROS: no new complaints. no CP/SOB. c/o foot pain s/p surgery but better all other neg. has leg swelling Physical Examination: General Appearance: comfortable, in no acute respiratory distress, co-operative . obese Vitals reviewed and noted as below Head; Atraumatic, normocephalic ENT: no ulcers no thrush. Tongue is midline. Oropharynx: no rash or ulcers. EYES: Pupils are equal, round and reactive to light accommodation. Eye muscles and extraocular movement intact. Sclera is anicteric. Neck; supple no lymphadenopathy, no thyromegaly or bruit Lungs: Normal respiratory rate/effort. Breath sounds bilateral equal and clear Heart: Normal rate. s1s2 normal. No rub or gallop. Extremities: 2+ edema. No varicose veins. s/p Rt leg vasc surgery Neurological: Patient isalert awake oriented to person, place and time. No focal deficit. Strength bilateral appropriate and equal Skin: Warm and dry. Normal turgor. No rash. Palpitation: Normal elasticity for age Abdomen: Abdomen is soft. Bowel sounds +. There is no abdominal tenderness, no guarding/rigidity or organomegaly Psych: normal insight and normal affect/mood MSK: no joint tenderness or swelling. feets dressing + : kidney or bladder not palpable Access: AVF Labs/imaging reviewed. Past medical history, past surgical history, family history, social history, allergy reviewed and noted as below Family Hx: no hx of CKD. Non contributory Objective - Vital Signs/Intake and Output Vital Signs (last 24 hours): Temp Pulse Resp BP Pulse Ox 98.1 F 73 20 109/59 L 96 09/30/18 08:51 09/30/18 08:51 09/30/18 08:51 09/30/18 08:51 09/30/18 08:51 Intake and Output: 09/30/18 09/30/18 06:59 18:59 Intake Total 200 Balance 200 - Medications Medications: Current Medications Acetaminophen (Tylenol 325mg Tab) 650 mg PO Q6 PRN PRN Reason: Pain, Mild (1-3) Albumin Human (Albumin Human 25% (12.5 Gm/50 Ml)) 25 gm IV MWF PRN PRN Reason: Other Aspirin (Aspirin Chewable) 81 mg PO DAILY [facility] Last Admin: 09/30/18 09:33 Dose: 81 mg Cilostazol (Pletal) 100 mg PO DAILY [facility] Last Admin: 09/30/18 09:33 Dose: 100 mg Clopidogrel Bisulfate (Plavix) 75 mg PO DAILY [facility] Last Admin: 09/23/18 10:34 Dose: Not Given Docusate Sodium (Colace) 100 mg PO BID [facility] Last Admin: 09/30/18 09:33 Dose: 100 mg Ezetimibe (Zetia) 10 mg PO DAILY [facility] Last Admin: 09/30/18 09:33 Dose: 10 mg Epoetin Danny (Procrit) 10,000 unit IV [facility] Hydromorphone HCl (Dilaudid) 2 mg IVP Q4H PRN PRN Reason: Pain, severe (8-10) Last Admin: 09/30/18 08:00 Dose: 2 mg Insulin Aspart (Novolog) 0 unit SC [facility]; Protocol Last Admin: 09/30/18 07:47 Dose: Not Given Losartan Potassium (Cozaar) 25 mg PO DAILY [facility] Last Admin: 09/30/18 09:33 Dose: Not Given Metoprolol Succinate (Toprol Xl) 25 mg PO DAILY [facility] Last Admin: 09/30/18 09:36 Dose: Not Given Uxizc-2-Hexx Ethyl Esters (Lovaza) 1 gm PO BID [facility] Last Admin: 09/30/18 09:33 Dose: 1 gm Oxycodone HCl (Oxycodone Immediate Release Tab) 5 mg PO Q6 PRN PRN Reason: Pain, moderate (4-7) Pregabalin (Lyrica) 75 mg PO DAILY [facility] Last Admin: 09/30/18 09:33 Dose: 75 mg Ranolazine (Ranexa) 500 mg PO BID [facility] Last Admin: 09/30/18 09:33 Dose: 500 mg Rosuvastatin Calcium (Crestor) 5 mg PO HS [facility] Last Admin: 09/29/18 21:32 Dose: 5 mg Sevelamer Carbonate (Renvela) 800 mg PO TIDCC [facility] Last Admin: 09/30/18 08:05 Dose: 800 mg Vitamin B Complex/Vit C/Folic Acid (Nephro-Federica) 1 tab PO 0800 [facility] Last Admin: 09/30/18 08:05 Dose: 1 tab - Labs Labs: 09/29/18 08:19 09/25/18 14:40 PT 24.4 SECONDS (9.7-12.2) H 09/23/18 13:51 INR 2.2 09/23/18 13:51 APTT 41 SECONDS (21-34) H 09/23/18 13:51
[2018-09-30] MEDS ORDERED: Albumin Human 25% (12.5 gm/50 ml) IV PRN (12:36)
--- NOTE | 2018-09-30 12:59 | CP.PCM.PN ---
<Patel Matos - Last Filed: 09/30/18 12:56> Subjective - Date & Time of Evaluation Date of Evaluation: 09/30/18 Time of Evaluation: 12:56 - Subjective Subjective: Patel Matos DO PGY1 Internal Medicine Water Operator - Cardiology Note for Dr. Luciano Patient was seen and evaluated at bedside this morning; No acute events reported overnight. Patient denies chest pain, palpitations, sob upon evaluation. Objective - Vital Signs/Intake and Output Vital Signs (last 24 hours): Temp Pulse Resp BP Pulse Ox 98.1 F 73 20 109/59 L 96 09/30/18 08:51 09/30/18 08:51 09/30/18 08:51 09/30/18 08:51 09/30/18 08:51 Intake and Output: 09/30/18 09/30/18 06:59 18:59 Intake Total 200 Balance 200 - Medications Medications: Current Medications Acetaminophen (Tylenol 325mg Tab) 650 mg PO Q6 PRN PRN Reason: Pain, Mild (1-3) Albumin Human (Albumin Human 25% (12.5 Gm/50 Ml)) 25 gm IV MWF PRN PRN Reason: Other Aspirin (Aspirin Chewable) 81 mg PO DAILY [facility] Last Admin: 09/30/18 09:33 Dose: 81 mg Cilostazol (Pletal) 100 mg PO DAILY [facility] Last Admin: 09/30/18 09:33 Dose: 100 mg Clopidogrel Bisulfate (Plavix) 75 mg PO DAILY [facility] Last Admin: 09/23/18 10:34 Dose: Not Given Docusate Sodium (Colace) 100 mg PO BID [facility] Last Admin: 09/30/18 09:33 Dose: 100 mg Ezetimibe (Zetia) 10 mg PO DAILY [facility] Last Admin: 09/30/18 09:33 Dose: 10 mg Epoetin Danny (Procrit) 10,000 unit IV MWF [facility] Hydromorphone HCl (Dilaudid) 2 mg IVP Q4H PRN PRN Reason: Pain, severe (8-10) Last Admin: 09/30/18 12:00 Dose: 2 mg Insulin Aspart (Novolog) 0 unit SC ACHS [facility]; Protocol Last Admin: 09/30/18 11:35 Dose: Not Given Losartan Potassium (Cozaar) 25 mg PO DAILY [facility] Last Admin: 09/30/18 09:33 Dose: Not Given Metoprolol Succinate (Toprol Xl) 25 mg PO DAILY [facility] Last Admin: 09/30/18 09:36 Dose: Not Given Dlkzl-4-Xqmd Ethyl Esters (Lovaza) 1 gm PO BID [facility] Last Admin: 09/30/18 09:33 Dose: 1 gm Oxycodone HCl (Oxycodone Immediate Release Tab) 5 mg PO Q6 PRN PRN Reason: Pain, moderate (4-7) Pregabalin (Lyrica) 75 mg PO DAILY [facility] Last Admin: 09/30/18 09:33 Dose: 75 mg Ranolazine (Ranexa) 500 mg PO BID [facility] Last Admin: 09/30/18 09:33 Dose: 500 mg Rosuvastatin Calcium (Crestor) 5 mg PO HS [facility] Last Admin: 09/29/18 21:32 Dose: 5 mg Sevelamer Carbonate (Renvela) 800 mg PO TIDCC [facility] Last Admin: 09/30/18 12:00 Dose: 800 mg Vitamin B Complex/Vit C/Folic Acid (Nephro-Federica) 1 tab PO 0800 [facility] Last Admin: 09/30/18 08:05 Dose: 1 tab - Labs Labs: 09/29/18 08:19 09/25/18 14:40 PT 24.4 SECONDS (9.7-12.2) H 09/23/18 13:51 INR 2.2 09/23/18 13:51 APTT 41 SECONDS (21-34) H 09/23/18 13:51 - Constitutional Appears: Well - Head Exam Head Exam: ATRAUMATIC, NORMAL INSPECTION, NORMOCEPHALIC - Eye Exam Eye Exam: EOMI, Normal appearance, PERRL Pupil Exam: NORMAL ACCOMODATION, PERRL - ENT Exam ENT Exam: Mucous Membranes Moist, Normal Exam - Neck Exam Neck exam: Positive for: Normal Inspection - Respiratory Exam Respiratory Exam: Clear to Auscultation Bilateral, NORMAL BREATHING PATTERN - Cardiovascular Exam Cardiovascular Exam: REGULAR RHYTHM, +S1, +S2, Systolic Murmur - GI/Abdominal Exam GI & Abdominal Exam: Normal Bowel Sounds, Soft. absent: Tenderness - Extremities Exam Additional comments: BL LE w/ dressing place; dressings CDI; LE warm - Back Exam Back exam: NORMAL INSPECTION - Neurological Exam Neurological exam: Alert, CN II-XII Intact, Normal Gait, Oriented x3, Reflexes Normal - Psychiatric Exam Psychiatric exam: Normal Affect, Normal Mood - Skin Skin Exam: Dry, Intact, Normal Color, Warm Assessment and Plan (1) Renal failure Status: Acute (2) Hypertension Status: Acute (3) CAD (coronary artery disease) Status: Acute (4) PVD (peripheral vascular disease) Status: Acute - Assessment and Plan (Free Text) Plan: Contintue: Toprol XL 25 QD Cilostazol 100 Daily Cozaar 25 QD Asa 81 Daily Plavix 75 Daily Ranexa 500 BID Crestor 5 Daily Zetia 10 Daily Lovaza 1gm BID No further inpatient management from a cardiovascular standpoint; Reconsult at necessary. <Juan R Luciano - Last Filed: 09/30/18 16:26> Objective - Vital Signs/Intake and Output Vital Signs (last 24 hours): Temp Pulse Resp BP Pulse Ox 98 F 87 18 107/54 L 97 09/30/18 14:25 09/30/18 14:25 09/30/18 14:25 09/30/18 15:55 09/30/18 14:25 Intake and Output: 09/30/18 09/30/18 06:59 18:59 Intake Total 200 480 Balance 200 480 - Medications Medications: Current Medications Acetaminophen (Tylenol 325mg Tab) 650 mg PO Q6 PRN PRN Reason: Pain, Mild (1-3) Albumin Human (Albumin Human 25% (12.5 Gm/50 Ml)) 25 gm IV MWF PRN PRN Reason: Other Aspirin (Aspirin Chewable) 81 mg PO DAILY [facility] Last Admin: 09/30/18 09:33 Dose: 81 mg Cilostazol (Pletal) 100 mg PO DAILY [facility] Last Admin: 09/30/18 09:33 Dose: 100 mg Clopidogrel Bisulfate (Plavix) 75 mg PO DAILY [facility] Last Admin: 09/23/18 10:34 Dose: Not Given Docusate Sodium (Colace) 100 mg PO BID [facility] Last Admin: 09/30/18 09:33 Dose: 100 mg Ezetimibe (Zetia) 10 mg PO DAILY [facility] Last Admin: 09/30/18 09:33 Dose: 10 mg Epoetin Danny (Procrit) 10,000 unit IV MWF [facility] Last Admin: 09/30/18 16:15 Dose: 10,000 unit Hydromorphone HCl (Dilaudid) 2 mg IVP Q4H PRN PRN Reason: Pain, severe (8-10) Last Admin: 09/30/18 12:00 Dose: 2 mg Insulin Aspart (Novolog) 0 unit SC ACHS [facility]; Protocol Last Admin: 09/30/18 11:35 Dose: Not Given Losartan Potassium (Cozaar) 25 mg PO DAILY [facility] Last Admin: 09/30/18 09:33 Dose: Not Given Metoprolol Succinate (Toprol Xl) 25 mg PO DAILY [facility] Last Admin: 09/30/18 09:36 Dose: Not Given Worqu-4-Sfgc Ethyl Esters (Lovaza) 1 gm PO BID [facility] Last Admin: 09/30/18 09:33 Dose: 1 gm Oxycodone HCl (Oxycodone Immediate Release Tab) 5 mg PO Q6 PRN PRN Reason: Pain, moderate (4-7) Pregabalin (Lyrica) 75 mg PO DAILY [facility] Last Admin: 09/30/18 09:33 Dose: 75 mg Ranolazine (Ranexa) 500 mg PO BID [facility] Last Admin: 09/30/18 09:33 Dose: 500 mg Rosuvastatin Calcium (Crestor) 5 mg PO HS [facility] Last Admin: 09/29/18 21:32 Dose: 5 mg Sevelamer Carbonate (Renvela) 800 mg PO TIDCC [facility] Last Admin: 09/30/18 12:00 Dose: 800 mg Vitamin B Complex/Vit C/Folic Acid (Nephro-Federica) 1 tab PO 0800 [facility] Last Admin: 09/30/18 08:05 Dose: 1 tab - Labs Labs: 09/29/18 08:19 09/25/18 14:40 PT 24.4 SECONDS (9.7-12.2) H 09/23/18 13:51 INR 2.2 09/23/18 13:51 APTT 41 SECONDS (21-34) H 09/23/18 13:51 Assessment and Plan (1) Preop cardiovascular exam Status: Acute (2) CAD (coronary artery disease) Status: Acute (3) PVD (peripheral vascular disease) Status: Acute (4) Renal failure Status: Acute (5) Hypertension Status: Acute Attending/Attestation - Attestation I have personally seen and examined this patient.: Yes I have fully participated in the care of the patient.: Yes I have reviewed all pertinent clinical information, including history, physical exam and plan: Yes Notes (Text): 09/30/18 16:26 Cardiac stable all cardiac meds titrated outpt f/u post discharge
--- NOTE | 2018-09-30 16:09 | CP.PCM.PN ---
Subjective - Date & Time of Evaluation Date of Evaluation: 09/30/18 Time of Evaluation: 07:30 - Subjective Subjective: clinically same Objective - Vital Signs/Intake and Output Vital Signs (last 24 hours): Temp Pulse Resp BP Pulse Ox 98 F 87 18 109/50 L 97 09/30/18 14:25 09/30/18 14:25 09/30/18 14:25 09/30/18 15:25 09/30/18 14:25 Intake and Output: 09/30/18 09/30/18 06:59 18:59 Intake Total 200 480 Balance 200 480 - Medications Medications: Current Medications Acetaminophen (Tylenol 325mg Tab) 650 mg PO Q6 PRN PRN Reason: Pain, Mild (1-3) Albumin Human (Albumin Human 25% (12.5 Gm/50 Ml)) 25 gm IV MWF PRN PRN Reason: Other Aspirin (Aspirin Chewable) 81 mg PO DAILY [facility] Last Admin: 09/30/18 09:33 Dose: 81 mg Cilostazol (Pletal) 100 mg PO DAILY [facility] Last Admin: 09/30/18 09:33 Dose: 100 mg Clopidogrel Bisulfate (Plavix) 75 mg PO DAILY [facility] Last Admin: 09/23/18 10:34 Dose: Not Given Docusate Sodium (Colace) 100 mg PO BID [facility] Last Admin: 09/30/18 09:33 Dose: 100 mg Ezetimibe (Zetia) 10 mg PO DAILY [facility] Last Admin: 09/30/18 09:33 Dose: 10 mg Epoetin Danny (Procrit) 10,000 unit IV MWF [facility] Hydromorphone HCl (Dilaudid) 2 mg IVP Q4H PRN PRN Reason: Pain, severe (8-10) Last Admin: 09/30/18 12:00 Dose: 2 mg Insulin Aspart (Novolog) 0 unit SC [facility]; Protocol Last Admin: 09/30/18 11:35 Dose: Not Given Losartan Potassium (Cozaar) 25 mg PO DAILY [facility] Last Admin: 09/30/18 09:33 Dose: Not Given Metoprolol Succinate (Toprol Xl) 25 mg PO DAILY [facility] Last Admin: 09/30/18 09:36 Dose: Not Given Qkkiy-2-Izcb Ethyl Esters (Lovaza) 1 gm PO BID [facility] Last Admin: 09/30/18 09:33 Dose: 1 gm Oxycodone HCl (Oxycodone Immediate Release Tab) 5 mg PO Q6 PRN PRN Reason: Pain, moderate (4-7) Pregabalin (Lyrica) 75 mg PO DAILY [facility] Last Admin: 09/30/18 09:33 Dose: 75 mg Ranolazine (Ranexa) 500 mg PO BID [facility] Last Admin: 09/30/18 09:33 Dose: 500 mg Rosuvastatin Calcium (Crestor) 5 mg PO HS [facility] Last Admin: 09/29/18 21:32 Dose: 5 mg Sevelamer Carbonate (Renvela) 800 mg PO TIDCC [facility] Last Admin: 09/30/18 12:00 Dose: 800 mg Vitamin B Complex/Vit C/Folic Acid (Nephro-Federica) 1 tab PO 0800 [facility] Last Admin: 09/30/18 08:05 Dose: 1 tab - Labs Labs: 09/29/18 08:19 09/25/18 14:40 PT 24.4 SECONDS (9.7-12.2) H 09/23/18 13:51 INR 2.2 09/23/18 13:51 APTT 41 SECONDS (21-34) H 09/23/18 13:51 - Constitutional Appears: Well - Head Exam Head Exam: ATRAUMATIC, NORMAL INSPECTION, NORMOCEPHALIC - Eye Exam Eye Exam: EOMI, Normal appearance, PERRL Pupil Exam: NORMAL ACCOMODATION, PERRL - ENT Exam ENT Exam: Mucous Membranes Moist, Normal Exam - Neck Exam Neck Exam: Full ROM, Normal Inspection. absent: Lymphadenopathy - Respiratory Exam Respiratory Exam: Decreased Breath Sounds - Cardiovascular Exam Cardiovascular Exam: REGULAR RHYTHM, +S1, +S2 - GI/Abdominal Exam GI & Abdominal Exam: Soft, Diminished Bowel Sounds - Rectal Exam Rectal Exam: Deferred
[2018-09-30] MEDS: Epoetin Alfa 10,000 unit/ml Dialysis IV SCH (16:15)
--- NOTE | 2018-09-30 18:21 | CP.PCM.PN ---
Subjective - Date & Time of Evaluation Date of Evaluation: 09/30/18 Time of Evaluation: 13:00 - Subjective Subjective: Podiatry Progress Note - Dr. Youngblood 63 y/o male seen at bedside this morning 6 days s/p right foot 1st-3rd digit amps and left foot 4th and 5th digit amps as well as heel debridement to B/L lower extremities. Patient is AAO x 3 and NAD at time of visit. States that he has no pain b/l at this time. Denies any new pedal complaints at this time. Patient again reiterates that he does not want to go to a rehab facility. Denies any recent N/V/F/C/CP/SOB/D Objective - Vital Signs/Intake and Output Vital Signs (last 24 hours): Temp Pulse Resp BP Pulse Ox 98 F 87 18 123/53 L 97 09/30/18 14:25 09/30/18 14:25 09/30/18 14:25 09/30/18 17:25 09/30/18 14:25 Intake and Output: 09/30/18 09/30/18 06:59 18:59 Intake Total 200 480 Balance 200 480 - Medications Medications: Current Medications Acetaminophen (Tylenol 325mg Tab) 650 mg PO Q6 PRN PRN Reason: Pain, Mild (1-3) Albumin Human (Albumin Human 25% (12.5 Gm/50 Ml)) 25 gm IV MWF PRN PRN Reason: Other Aspirin (Aspirin Chewable) 81 mg PO DAILY [facility] Last Admin: 09/30/18 09:33 Dose: 81 mg Cilostazol (Pletal) 100 mg PO DAILY [facility] Last Admin: 09/30/18 09:33 Dose: 100 mg Clopidogrel Bisulfate (Plavix) 75 mg PO DAILY [facility] Last Admin: 09/23/18 10:34 Dose: Not Given Docusate Sodium (Colace) 100 mg PO BID [facility] Last Admin: 09/30/18 09:33 Dose: 100 mg Ezetimibe (Zetia) 10 mg PO DAILY [facility] Last Admin: 09/30/18 09:33 Dose: 10 mg Epoetin Danny (Procrit) 10,000 unit IV MWF [facility] Last Admin: 09/30/18 16:15 Dose: 10,000 unit Hydromorphone HCl (Dilaudid) 2 mg IVP Q4H PRN PRN Reason: Pain, severe (8-10) Last Admin: 09/30/18 12:00 Dose: 2 mg Insulin Aspart (Novolog) 0 unit SC ACHS [facility]; Protocol Last Admin: 09/30/18 11:35 Dose: Not Given Losartan Potassium (Cozaar) 25 mg PO DAILY [facility] Last Admin: 09/30/18 09:33 Dose: Not Given Metoprolol Succinate (Toprol Xl) 25 mg PO DAILY [facility] Last Admin: 09/30/18 09:36 Dose: Not Given Lvtns-8-Ckcm Ethyl Esters (Lovaza) 1 gm PO BID [facility] Last Admin: 09/30/18 09:33 Dose: 1 gm Oxycodone HCl (Oxycodone Immediate Release Tab) 5 mg PO Q6 PRN PRN Reason: Pain, moderate (4-7) Pregabalin (Lyrica) 75 mg PO DAILY [facility] Last Admin: 09/30/18 09:33 Dose: 75 mg Ranolazine (Ranexa) 500 mg PO BID [facility] Last Admin: 09/30/18 09:33 Dose: 500 mg Rosuvastatin Calcium (Crestor) 5 mg PO HS [facility] Last Admin: 09/29/18 21:32 Dose: 5 mg Sevelamer Carbonate (Renvela) 800 mg PO TIDCC [facility] Last Admin: 09/30/18 12:00 Dose: 800 mg Vitamin B Complex/Vit C/Folic Acid (Nephro-Federica) 1 tab PO 0800 [facility] Last Admin: 09/30/18 08:05 Dose: 1 tab - Labs Labs: 09/29/18 08:19 09/25/18 14:40 PT 24.4 SECONDS (9.7-12.2) H 09/23/18 13:51 INR 2.2 09/23/18 13:51 APTT 41 SECONDS (21-34) H 09/23/18 13:51 - Constitutional Appears: Well, Non-toxic, No Acute Distress - Extremities Exam Additional comments: LE focused exam: Vasc: DP/PT pulses fully palpable 2/4 b/l. Skin temperature warm to warm WNL from proximal to distal. CFT to remaining digits < 3 seconds. Minimal edema noted to amputation sites, improving Neuro: Epicritic and protective sensation grossly diminished b/l Derm: All amputation sites well coapted with no signs of dehiscence. No erythema, malodor, drainage, purulence or other clinical signs of infection appreciated to left amputation site. Minimal serous drainage noted to right surgical site without any further signs of infection. B/l heel ulcerations fibronecrotic in nature with no erythema, malodor, drainage, purulence or other clinical signs of infection appreciated MSK: Minimal pain on palpation to amputation sites and ulceration sites, improving. ROM WNL at all major joints. No other gross deformities noted - Neurological Exam Neurological Exam: Alert, Awake, Oriented x3 - Psychiatric Exam Psychiatric exam: Normal Affect, Normal Mood Assessment and Plan - Assessment and Plan (Free Text) Assessment: 63 y/o male seen at bedside this morning 6 days s/p right foot 1st-3rd digit amps and left foot 4th and 5th digit amps as well as heel debridement to B/L lower extremities Plan: Patient seen and evaluated Plan discussed with Dr. Youngblood Continue pain management per medical team Afebrile, absent leukocytosis Urine/Blood Cx: no growth R common fem-to-ant tibial bypass on 09/03/18 Lt femoral-popliteal bypass with gortex graft and intraoperative arteriogram on 09/17/18 Dressings changed with xeroform, DSD, KVNG No plan for further surgical intervention at this time Patient stable for discharge from podiatric standpoint Weight bearing to heels as tolerated in surgical shoes Podiatry will continue to follow while patient in house
--- NOTE | 2018-09-30 18:37 | CP.PCM.PN ---
Subjective - Date & Time of Evaluation Date of Evaluation: 09/30/18 Time of Evaluation: 18:37 Objective - Vital Signs/Intake and Output Vital Signs (last 24 hours): Temp Pulse Resp BP Pulse Ox 98 F 87 18 123/53 L 97 09/30/18 14:25 09/30/18 14:25 09/30/18 14:25 09/30/18 17:25 09/30/18 14:25 Intake and Output: 09/30/18 09/30/18 06:59 18:59 Intake Total 200 480 Balance 200 480 - Medications Medications: Current Medications Acetaminophen (Tylenol 325mg Tab) 650 mg PO Q6 PRN PRN Reason: Pain, Mild (1-3) Albumin Human (Albumin Human 25% (12.5 Gm/50 Ml)) 25 gm IV MWF PRN PRN Reason: Other Aspirin (Aspirin Chewable) 81 mg PO DAILY [facility] Last Admin: 09/30/18 09:33 Dose: 81 mg Cilostazol (Pletal) 100 mg PO DAILY [facility] Last Admin: 09/30/18 09:33 Dose: 100 mg Clopidogrel Bisulfate (Plavix) 75 mg PO DAILY [facility] Last Admin: 09/23/18 10:34 Dose: Not Given Docusate Sodium (Colace) 100 mg PO BID [facility] Last Admin: 09/30/18 09:33 Dose: 100 mg Ezetimibe (Zetia) 10 mg PO DAILY [facility] Last Admin: 09/30/18 09:33 Dose: 10 mg Epoetin Danny (Procrit) 10,000 unit IV MWF [facility] Last Admin: 09/30/18 16:15 Dose: 10,000 unit Hydromorphone HCl (Dilaudid) 2 mg IVP Q4H PRN PRN Reason: Pain, severe (8-10) Last Admin: 09/30/18 18:25 Dose: 2 mg Insulin Aspart (Novolog) [address] [facility]; Protocol Last Admin: 09/30/18 11:35 Dose: Not Given Losartan Potassium (Cozaar) 25 mg PO DAILY [facility] Last Admin: 09/30/18 09:33 Dose: Not Given Metoprolol Succinate (Toprol Xl) 25 mg PO DAILY [facility] Last Admin: 09/30/18 09:36 Dose: Not Given Qrnsl-1-Obku Ethyl Esters (Lovaza) 1 gm PO BID [facility] Last Admin: 09/30/18 09:33 Dose: 1 gm Oxycodone HCl (Oxycodone Immediate Release Tab) 5 mg PO Q6 PRN PRN Reason: Pain, moderate (4-7) Pregabalin (Lyrica) 75 mg PO DAILY [facility] Last Admin: 09/30/18 09:33 Dose: 75 mg Ranolazine (Ranexa) 500 mg PO BID [facility] Last Admin: 09/30/18 09:33 Dose: 500 mg Rosuvastatin Calcium (Crestor) 5 mg PO HS [facility] Last Admin: 09/29/18 21:32 Dose: 5 mg Sevelamer Carbonate (Renvela) 800 mg PO TIDCC [facility] Last Admin: 09/30/18 12:00 Dose: 800 mg Vitamin B Complex/Vit C/Folic Acid (Nephro-Federica) 1 tab PO 0800 [facility] Last Admin: 09/30/18 08:05 Dose: 1 tab - Labs Labs: 09/29/18 08:19 09/25/18 14:40 PT 24.4 SECONDS (9.7-12.2) H 09/23/18 13:51 INR 2.2 09/23/18 13:51 APTT 41 SECONDS (21-34) H 09/23/18 13:51 Assessment and Plan (1) CAD (coronary artery disease) Status: Acute (2) Dyspnea Status: Acute (3) ESRD (end stage renal disease) Status: Acute (4) PVD (peripheral vascular disease) Status: Acute (5) CHF (congestive heart failure) Status: Acute (6) Hypertension Status: Acute (7) Diabetes Status: Acute
[2018-10-01] MEDS: (Novolog) Insulin Aspart, Recombinant 100 u/ml 10 ml vial SC SCH ×4 (08:11→21:48)
[2018-10-01] MEDS: Multivitamin Vitamin B Complex (Nephro-Vite) Tab PO SCH (08:24)
[2018-10-01] MEDS: Metoprolol Succinate 25 mg XL Tab PO SCH (09:47)
[2018-10-01] MEDS: Omega-3-Acid Ethyl Esters 1 GM Cap PO SCH ×2 (09:47→17:28)
[2018-10-01] MEDS: Ranolazine 500 mg Extended Release Tablets PO SCH ×2 (09:47→17:27)
[2018-10-01] MEDS: Cilostazol 100 mg Tab UD PO SCH (09:48)
[2018-10-01] MEDS: HYDROmorphone 1 mg/ml ISec IVP PRN ×4 (10:44→22:44)
--- NOTE | 2018-10-01 12:49 | CP.PCM.PN ---
Subjective - Date & Time of Evaluation Date of Evaluation: 10/01/18 Time of Evaluation: 07:30 - Subjective Subjective: clinically same Objective - Vital Signs/Intake and Output Vital Signs (last 24 hours): Temp Pulse Resp BP Pulse Ox 98.7 F 87 20 107/67 98 10/01/18 08:08 10/01/18 08:08 10/01/18 08:08 10/01/18 08:08 10/01/18 08:08 Intake and Output: 10/01/18 10/01/18 06:59 18:59 Intake Total 150 Balance 150 - Medications Medications: Current Medications Acetaminophen (Tylenol 325mg Tab) 650 mg PO Q6 PRN PRN Reason: Pain, Mild (1-3) Albumin Human (Albumin Human 25% (12.5 Gm/50 Ml)) 25 gm IV MWF PRN PRN Reason: Other Aspirin (Aspirin Chewable) 81 mg PO DAILY [facility] Last Admin: 10/01/18 09:47 Dose: 81 mg Cilostazol (Pletal) 100 mg PO DAILY [facility] Last Admin: 10/01/18 09:48 Dose: 100 mg Clopidogrel Bisulfate (Plavix) 75 mg PO DAILY [facility] Last Admin: 09/23/18 10:34 Dose: Not Given Docusate Sodium (Colace) 100 mg PO BID [facility] Last Admin: 10/01/18 09:47 Dose: 100 mg Ezetimibe (Zetia) 10 mg PO DAILY [facility] Last Admin: 10/01/18 09:48 Dose: 10 mg Epoetin Danny (Procrit) 10,000 unit IV MWF [facility] Last Admin: 09/30/18 16:15 Dose: 10,000 unit Hydromorphone HCl (Dilaudid) 1 mg IVP Q4H PRN PRN Reason: Pain, severe (8-10) Last Admin: 10/01/18 10:44 Dose: 1 mg Insulin Aspart (Novolog) 0 unit SC [facility]; Protocol Last Admin: 10/01/18 11:44 Dose: Not Given Losartan Potassium (Cozaar) 25 mg PO DAILY [facility] Last Admin: 10/01/18 09:47 Dose: 25 mg Metoprolol Succinate (Toprol Xl) 25 mg PO DAILY [facility] Last Admin: 10/01/18 09:47 Dose: 25 mg Dwfcg-3-Rvem Ethyl Esters (Lovaza) 1 gm PO BID [facility] Last Admin: 10/01/18 09:47 Dose: 1 gm Oxycodone HCl (Oxycodone Immediate Release Tab) 5 mg PO Q6 PRN PRN Reason: Pain, moderate (4-7) Pregabalin (Lyrica) 75 mg PO DAILY [facility] Last Admin: 10/01/18 09:47 Dose: 75 mg Ranolazine (Ranexa) 500 mg PO BID [facility] Last Admin: 10/01/18 09:47 Dose: 500 mg Rosuvastatin Calcium (Crestor) 5 mg PO HS [facility] Last Admin: 09/30/18 22:24 Dose: 5 mg Sevelamer Carbonate (Renvela) 800 mg PO TIDCC [facility] Last Admin: 10/01/18 08:24 Dose: 800 mg Vitamin B Complex/Vit C/Folic Acid (Nephro-Federica) 1 tab PO 0800 [facility] Last Admin: 10/01/18 08:24 Dose: 1 tab - Labs Labs: 09/29/18 08:19 09/25/18 14:40 PT 24.4 SECONDS (9.7-12.2) H 09/23/18 13:51 INR 2.2 09/23/18 13:51 APTT 41 SECONDS (21-34) H 09/23/18 13:51
--- NOTE | 2018-10-01 14:07 | CP.PCM.PN ---
Subjective - Date & Time of Evaluation Date of Evaluation: 10/01/18 Time of Evaluation: 14:06 - Subjective Subjective: Nephrology Consultation Note: Assessment: Stable s/p Amputation of right partial first ray, second digit and second metatarsal head resection and third digit. Amputation of left partial fifth ray and fourth ray 09/24/18 PVD s/p Right common fem-to-ant tibial bypass on 09/03/18, left fem pop bypass 09/17/18 mild hyponatremia missed HD obesity hyponatremia Diabetic chronic Kidney Disease (E11.22) Hypertensive Chronic Kidney Disease (I12.0) End stage renal disease (N18.6) dependence on hemodialysis (Z99.2) (MWF) via AVF Anemia (D64.9), Hyperphosphatemia (E83.39), Secondary Hyperparathyroidism (E21.1), HTN (I12.0) Plan: Will plan for dialysis per MWF schedule. Continue with Nephrovite 1 tab/day. PRBC as needed for anemia. on JENA with dialysis as last Hb 8.4 Continue with phos binders, last phos level: 6.8 BP control with meds as ordered. Patient was on RAAS francia as losartan--had d/c as BP low side. also lowered BB dose 25 mg/d Glycemic control, Dialysis consistent diet Further work up/management as per primary team Dose meds/antibiotics (if needed) for ESRD status. Avoid fleets enema/magnesium based laxatives. podiatry and vascular following up Thanks for allowing me to participate in care of your patient. Will follow patient with you. Please call if any Qs. had d/w team Dr Sal Aguayo Office: [phone] Chief Complaint;leg pain HPI: Pt is a 63 M with hx of ESRD on hemodialysis (MWF) via AVF, last dialysis thur with Dr Quinonez (usually at [place]), chronic anemia, hyperphosphatemia, secondary hyperparathyroidism, Diabetes Mellitus, hypertension PVD s/p Right common fem-to-ant tibial bypass on 09/03/18 presented with complaints of persistent feets pain Renal consult requested for ESRD management. pt c/o feet pain. was d/c to rehab recently denies SOB ROS: no new complaints. no CP/SOB. all other neg. has leg swelling but better Physical Examination: General Appearance: comfortable, in no acute respiratory distress, co-operative . obese Vitals reviewed and noted as below Head; Atraumatic, normocephalic ENT: no ulcers no thrush. Tongue is midline. Oropharynx: no rash or ulcers. EYES: Pupils are equal, round and reactive to light accommodation. Eye muscles and extraocular movement intact. Sclera is anicteric. Neck; supple no lymphadenopathy, no thyromegaly or bruit Lungs: Normal respiratory rate/effort. Breath sounds bilateral equal and clear Heart: Normal rate. s1s2 normal. No rub or gallop. Extremities: 1-2+ edema. No varicose veins. s/p Rt leg vasc surgery Neurological: Patient isalert awake oriented to person, place and time. No focal deficit. Strength bilateral appropriate and equal Skin: Warm and dry. Normal turgor. No rash. Palpitation: Normal elasticity for age Abdomen: Abdomen is soft. Bowel sounds +. There is no abdominal tenderness, no guarding/rigidity or organomegaly Psych: normal insight and normal affect/mood MSK: no joint tenderness or swelling. feets dressing + : kidney or bladder not palpable Access: AVF Labs/imaging reviewed. Past medical history, past surgical history, family history, social history, allergy reviewed and noted as below Family Hx: no hx of CKD. Non contributory Objective - Vital Signs/Intake and Output Vital Signs (last 24 hours): Temp Pulse Resp BP Pulse Ox 98.7 F 87 20 107/67 98 10/01/18 08:08 10/01/18 08:08 10/01/18 08:08 10/01/18 08:08 10/01/18 08:08 Intake and Output: 10/01/18 10/01/18 06:59 18:59 Intake Total 150 Balance 150 - Medications Medications: Current Medications Acetaminophen (Tylenol 325mg Tab) 650 mg PO Q6 PRN PRN Reason: Pain, Mild (1-3) Albumin Human (Albumin Human 25% (12.5 Gm/50 Ml)) 25 gm IV MWF PRN PRN Reason: Other Aspirin (Aspirin Chewable) 81 mg PO DAILY [facility] Last Admin: 10/01/18 09:47 Dose: 81 mg Cilostazol (Pletal) 100 mg PO DAILY [facility] Last Admin: 10/01/18 09:48 Dose: 100 mg Clopidogrel Bisulfate (Plavix) 75 mg PO DAILY [facility] Last Admin: 09/23/18 10:34 Dose: Not Given Docusate Sodium (Colace) 100 mg PO BID [facility] Last Admin: 10/01/18 09:47 Dose: 100 mg Ezetimibe (Zetia) 10 mg PO DAILY [facility] Last Admin: 10/01/18 09:48 Dose: 10 mg Epoetin Danny (Procrit) 10,000 unit IV MWF [facility] Last Admin: 09/30/18 16:15 Dose: 10,000 unit Hydromorphone HCl (Dilaudid) 1 mg IVP Q4H PRN PRN Reason: Pain, severe (8-10) Last Admin: 10/01/18 10:44 Dose: 1 mg Insulin Aspart (Novolog) 0 unit SC [facility]; Protocol Last Admin: 10/01/18 11:44 Dose: Not Given Losartan Potassium (Cozaar) 25 mg PO DAILY [facility] Last Admin: 10/01/18 09:47 Dose: 25 mg Metoprolol Succinate (Toprol Xl) 25 mg PO DAILY [facility] Last Admin: 10/01/18 09:47 Dose: 25 mg Txcwf-1-Mzij Ethyl Esters (Lovaza) 1 gm PO BID [facility] Last Admin: 10/01/18 09:47 Dose: 1 gm Oxycodone HCl (Oxycodone Immediate Release Tab) 5 mg PO Q6 PRN PRN Reason: Pain, moderate (4-7) Pregabalin (Lyrica) 75 mg PO DAILY [facility] Last Admin: 10/01/18 09:47 Dose: 75 mg Ranolazine (Ranexa) 500 mg PO BID [facility] Last Admin: 10/01/18 09:47 Dose: 500 mg Rosuvastatin Calcium (Crestor) 5 mg PO HS [facility] Last Admin: 09/30/18 22:24 Dose: 5 mg Sevelamer Carbonate (Renvela) 800 mg PO TIDCC [facility] Last Admin: 10/01/18 13:00 Dose: 800 mg Vitamin B Complex/Vit C/Folic Acid (Nephro-Federica) 1 tab PO 0800 [facility] Last Admin: 10/01/18 08:24 Dose: 1 tab - Labs Labs: 09/29/18 08:19 09/25/18 14:40 PT 24.4 SECONDS (9.7-12.2) H 09/23/18 13:51 INR 2.2 09/23/18 13:51 APTT 41 SECONDS (21-34) H 09/23/18 13:51
--- NOTE | 2018-10-01 19:01 | CP.PCM.PN ---
Subjective - Date & Time of Evaluation Date of Evaluation: 10/01/18 Time of Evaluation: 19:00 Objective - Vital Signs/Intake and Output Vital Signs (last 24 hours): Temp Pulse Resp BP Pulse Ox 98.5 F 78 20 97/54 L 97 10/01/18 17:26 10/01/18 17:26 10/01/18 17:26 10/01/18 17:26 10/01/18 17:26 Intake and Output: 10/01/18 10/02/18 18:59 06:59 Intake Total 500 Balance 500 - Medications Medications: Current Medications Acetaminophen (Tylenol 325mg Tab) 650 mg PO Q6 PRN PRN Reason: Pain, Mild (1-3) Albumin Human (Albumin Human 25% (12.5 Gm/50 Ml)) 25 gm IV MWF PRN PRN Reason: Other Aspirin (Aspirin Chewable) 81 mg PO DAILY [facility] Last Admin: 10/01/18 09:47 Dose: 81 mg Cilostazol (Pletal) 100 mg PO DAILY [facility] Last Admin: 10/01/18 09:48 Dose: 100 mg Clopidogrel Bisulfate (Plavix) 75 mg PO DAILY [facility] Last Admin: 09/23/18 10:34 Dose: Not Given Docusate Sodium (Colace) 100 mg PO BID [facility] Last Admin: 10/01/18 17:27 Dose: 100 mg Ezetimibe (Zetia) 10 mg PO DAILY [facility] Last Admin: 10/01/18 09:48 Dose: 10 mg Epoetin Danny (Procrit) 10,000 unit IV MWF [facility] Last Admin: 09/30/18 16:15 Dose: 10,000 unit Hydromorphone HCl (Dilaudid) 1 mg IVP Q4H PRN PRN Reason: Pain, severe (8-10) Last Admin: 10/01/18 18:44 Dose: 1 mg Insulin Aspart (Novolog) 0 unit SC [facility]; Protocol Last Admin: 10/01/18 11:44 Dose: Not Given Losartan Potassium (Cozaar) 25 mg PO DAILY [facility] Last Admin: 10/01/18 09:47 Dose: 25 mg Metoprolol Succinate (Toprol Xl) 25 mg PO DAILY [facility] Last Admin: 10/01/18 09:47 Dose: 25 mg Lfsxs-1-Yrua Ethyl Esters (Lovaza) 1 gm PO BID [facility] Last Admin: 10/01/18 17:28 Dose: 1 gm Oxycodone HCl (Oxycodone Immediate Release Tab) 5 mg PO Q6 PRN PRN Reason: Pain, moderate (4-7) Pregabalin (Lyrica) 75 mg PO DAILY [facility] Last Admin: 10/01/18 09:47 Dose: 75 mg Ranolazine (Ranexa) 500 mg PO BID [facility] Last Admin: 10/01/18 17:27 Dose: 500 mg Rosuvastatin Calcium (Crestor) 5 mg PO HS [facility] Last Admin: 09/30/18 22:24 Dose: 5 mg Sevelamer Carbonate (Renvela) 800 mg PO TIDCC [facility] Last Admin: 10/01/18 17:28 Dose: 800 mg Vitamin B Complex/Vit C/Folic Acid (Nephro-Federica) 1 tab PO 0800 [facility] Last Admin: 10/01/18 08:24 Dose: 1 tab - Labs Labs: 09/29/18 08:19 09/25/18 14:40 PT 24.4 SECONDS (9.7-12.2) H 09/23/18 13:51 INR 2.2 09/23/18 13:51 APTT 41 SECONDS (21-34) H 09/23/18 13:51 Assessment and Plan (1) CAD (coronary artery disease) Status: Acute (2) Dyspnea Status: Acute (3) ESRD (end stage renal disease) Status: Acute (4) PVD (peripheral vascular disease) Status: Acute (5) CHF (congestive heart failure) Status: Acute (6) Hypertension Status: Acute (7) Diabetes Status: Acute
[2018-10-02] MEDS: HYDROmorphone 1 mg/ml ISec IVP PRN ×5 (02:41→20:47)
[2018-10-02] MEDS: (Novolog) Insulin Aspart, Recombinant 100 u/ml 10 ml vial SC SCH ×2 (07:48→11:53)
[2018-10-02] MEDS: Multivitamin Vitamin B Complex (Nephro-Vite) Tab PO SCH (08:14)
[2018-10-02] MEDS: Ranolazine 500 mg Extended Release Tablets PO SCH ×2 (10:32→17:36)
[2018-10-02] MEDS: Omega-3-Acid Ethyl Esters 1 GM Cap PO SCH ×2 (10:32→17:15)
[2018-10-02] MEDS: Metoprolol Succinate 25 mg XL Tab PO SCH ×2 (10:32→10:38)
[2018-10-02] MEDS: Cilostazol 100 mg Tab UD PO SCH (10:33)
[2018-10-02 13:29] VITALS: RESP 16
[2018-10-02] MEDS: Epoetin Alfa 10,000 unit/ml Dialysis IV SCH (15:14)
--- NOTE | 2018-10-02 15:29 | CP.PCM.PN ---
Subjective - Date & Time of Evaluation Date of Evaluation: 10/02/18 Time of Evaluation: 15:28 - Subjective Subjective: Nephrology Consultation Note: Assessment: Stable s/p Amputation of right partial first ray, second digit and second metatarsal head resection and third digit. Amputation of left partial fifth ray and fourth ray 09/24/18 PVD s/p Right common fem-to-ant tibial bypass on 09/03/18, left fem pop bypass 09/17/18 mild hyponatremia missed HD obesity hyponatremia Diabetic chronic Kidney Disease (E11.22) Hypertensive Chronic Kidney Disease (I12.0) End stage renal disease (N18.6) dependence on hemodialysis (Z99.2) (MWF) via AVF Anemia (D64.9), Hyperphosphatemia (E83.39), Secondary Hyperparathyroidism (E21.1), HTN (I12.0) Plan: Will plan for dialysis per MWF schedule. Continue with Nephrovite 1 tab/day. PRBC as needed for anemia. on JENA with dialysis as last Hb 8.4 Continue with phos binders, last phos level: 6.8 BP control with meds as ordered. Patient was on RAAS francia as losartan--had d/c as BP low side. also lowered BB dose 25 mg/d Glycemic control, Dialysis consistent diet Further work up/management as per primary team Dose meds/antibiotics (if needed) for ESRD status. Avoid fleets enema/magnesium based laxatives. podiatry and vascular following up Thanks for allowing me to participate in care of your patient. Will follow patient with you. Please call if any Qs. had d/w team Dr Sal Aguayo Office: [phone] Chief Complaint;leg pain HPI: Pt is a 63 M with hx of ESRD on hemodialysis (MWF) via AVF, last dialysis thur with Dr Quinonez (usually at [facility]), chronic anemia, hyperphosphatemia, secondary hyperparathyroidism, Diabetes Mellitus, hypertension PVD s/p Right common fem-to-ant tibial bypass on 09/03/18 presented with complaints of persistent feets pain Renal consult requested for ESRD management. pt c/o feet pain. was d/c to rehab recently denies SOB ROS: no new complaints. no CP/SOB. all other neg. has leg swelling and feet pain Physical Examination: General Appearance: comfortable, in no acute respiratory distress, co-operative . obese Vitals reviewed and noted as below Head; Atraumatic, normocephalic ENT: no ulcers no thrush. Tongue is midline. Oropharynx: no rash or ulcers. EYES: Pupils are equal, round and reactive to light accommodation. Eye muscles and extraocular movement intact. Sclera is anicteric. Neck; supple no lymphadenopathy, no thyromegaly or bruit Lungs: Normal respiratory rate/effort. Breath sounds bilateral equal and clear Heart: Normal rate. s1s2 normal. No rub or gallop. Extremities: 1-2+ edema. No varicose veins. s/p Rt leg vasc surgery Neurological: Patient isalert awake oriented to person, place and time. No focal deficit. Strength bilateral appropriate and equal Skin: Warm and dry. Normal turgor. No rash. Palpitation: Normal elasticity for age Abdomen: Abdomen is soft. Bowel sounds +. There is no abdominal tenderness, no guarding/rigidity or organomegaly Psych: normal insight and normal affect/mood MSK: no joint tenderness or swelling. feets dressing + : kidney or bladder not palpable Access: AVF Labs/imaging reviewed. Past medical history, past surgical history, family history, social history, all ergy reviewed and noted as below Family Hx: no hx of CKD. Non contributory Objective - Vital Signs/Intake and Output Vital Signs (last 24 hours): Temp Pulse Resp BP Pulse Ox 97.8 F 87 16 139/89 97 10/02/18 12:30 10/02/18 12:30 10/02/18 12:30 10/02/18 13:29 10/02/18 12:00 Intake and Output: 10/02/18 10/02/18 06:59 18:59 Intake Total 400 630 Balance 400 630 - Medications Medications: Current Medications Acetaminophen (Tylenol 325mg Tab) 650 mg PO Q6 PRN PRN Reason: Pain, Mild (1-3) Albumin Human (Albumin Human 25% (12.5 Gm/50 Ml)) 25 gm IV MWF PRN PRN Reason: Other Aspirin (Aspirin Chewable) 81 mg PO DAILY [facility] Last Admin: 10/02/18 10:33 Dose: 81 mg Cilostazol (Pletal) 100 mg PO DAILY [facility] Last Admin: 10/02/18 10:33 Dose: 100 mg Clopidogrel Bisulfate (Plavix) 75 mg PO DAILY [facility] Last Admin: 10/02/18 10:33 Dose: 75 mg Docusate Sodium (Colace) 100 mg PO BID [facility] Last Admin: 10/02/18 10:32 Dose: 100 mg Ezetimibe (Zetia) 10 mg PO DAILY [facility] Last Admin: 10/02/18 10:33 Dose: 10 mg Epoetin Danny (Procrit) 10,000 unit IV MWF [facility] Last Admin: 10/02/18 15:14 Dose: 10,000 unit Hydromorphone HCl (Dilaudid) 1 mg IVP Q4H PRN PRN Reason: Pain, severe (8-10) Last Admin: 10/02/18 10:44 Dose: 1 mg Insulin Aspart (Novolog) 0 unit SC [facility]; Protocol Last Admin: 10/02/18 11:53 Dose: Not Given Losartan Potassium (Cozaar) 25 mg PO DAILY [facility] Last Admin: 10/02/18 10:34 Dose: Not Given Metoprolol Succinate (Toprol Xl) 25 mg PO DAILY [facility] Last Admin: 10/02/18 10:38 Dose: Not Given Pvreg-9-Otxs Ethyl Esters (Lovaza) 1 gm PO BID [facility] Last Admin: 10/02/18 10:32 Dose: 1 gm Oxycodone HCl (Oxycodone Immediate Release Tab) 5 mg PO Q6 PRN PRN Reason: Pain, moderate (4-7) Pregabalin (Lyrica) 75 mg PO DAILY [facility] Last Admin: 10/02/18 10:33 Dose: 75 mg Ranolazine (Ranexa) 500 mg PO BID [facility] Last Admin: 10/02/18 10:32 Dose: 500 mg Rosuvastatin Calcium (Crestor) 5 mg PO HS [facility] Last Admin: 10/01/18 22:45 Dose: 5 mg Sevelamer Carbonate (Renvela) 800 mg PO TIDCC [facility] Last Admin: 10/02/18 12:01 Dose: 800 mg Vitamin B Complex/Vit C/Folic Acid (Nephro-Federica) 1 tab PO 0800 [facility] Last Admin: 10/02/18 08:14 Dose: 1 tab - Labs Labs: 09/29/18 08:19 09/25/18 14:40 PT 24.4 SECONDS (9.7-12.2) H 09/23/18 13:51 INR 2.2 09/23/18 13:51 APTT 41 SECONDS (21-34) H 09/23/18 13:51
--- NOTE | 2018-10-02 16:29 | CP.PCM.PN ---
Subjective - Date & Time of Evaluation Date of Evaluation: 10/02/18 Time of Evaluation: 16:29 Objective - Vital Signs/Intake and Output Vital Signs (last 24 hours): Temp Pulse Resp BP Pulse Ox 97.8 F 87 16 127/68 97 10/02/18 12:30 10/02/18 12:30 10/02/18 12:30 10/02/18 15:00 10/02/18 12:00 Intake and Output: 10/02/18 10/02/18 06:59 18:59 Intake Total 400 630 Balance 400 630 - Medications Medications: Current Medications Acetaminophen (Tylenol 325mg Tab) 650 mg PO Q6 PRN PRN Reason: Pain, Mild (1-3) Albumin Human (Albumin Human 25% (12.5 Gm/50 Ml)) 25 gm IV MWF PRN PRN Reason: Other Aspirin (Aspirin Chewable) 81 mg PO DAILY [facility] Last Admin: 10/02/18 10:33 Dose: 81 mg Cilostazol (Pletal) 100 mg PO DAILY [facility] Last Admin: 10/02/18 10:33 Dose: 100 mg Clopidogrel Bisulfate (Plavix) 75 mg PO DAILY [facility] Last Admin: 10/02/18 10:33 Dose: 75 mg Docusate Sodium (Colace) 100 mg PO BID [facility] Last Admin: 10/02/18 10:32 Dose: 100 mg Ezetimibe (Zetia) 10 mg PO DAILY [facility] Last Admin: 10/02/18 10:33 Dose: 10 mg Epoetin Danny (Procrit) 10,000 unit IV MWF [facility] Last Admin: 10/02/18 15:14 Dose: 10,000 unit Hydromorphone HCl (Dilaudid) 1 mg IVP Q4H PRN PRN Reason: Pain, severe (8-10) Last Admin: 10/02/18 10:44 Dose: 1 mg Insulin Aspart (Novolog) 0 unit SC [facility]; Protocol Last Admin: 10/02/18 11:53 Dose: Not Given Losartan Potassium (Cozaar) 25 mg PO DAILY [facility] Last Admin: 10/02/18 10:34 Dose: Not Given Metoprolol Succinate (Toprol Xl) 25 mg PO DAILY [facility] Last Admin: 10/02/18 10:38 Dose: Not Given Dsfot-5-Izcs Ethyl Esters (Lovaza) 1 gm PO BID [facility] Last Admin: 10/02/18 10:32 Dose: 1 gm Oxycodone HCl (Oxycodone Immediate Release Tab) 5 mg PO Q6 PRN PRN Reason: Pain, moderate (4-7) Pregabalin (Lyrica) 75 mg PO DAILY [facility] Last Admin: 10/02/18 10:33 Dose: 75 mg Ranolazine (Ranexa) 500 mg PO BID [facility] Last Admin: 10/02/18 10:32 Dose: 500 mg Rosuvastatin Calcium (Crestor) 5 mg PO HS [facility] Last Admin: 10/01/18 22:45 Dose: 5 mg Sevelamer Carbonate (Renvela) 800 mg PO TIDCC [facility] Last Admin: 10/02/18 12:01 Dose: 800 mg Vitamin B Complex/Vit C/Folic Acid (Nephro-Federica) 1 tab PO 0800 [facility] Last Admin: 10/02/18 08:14 Dose: 1 tab - Labs Labs: 09/29/18 08:19 09/25/18 14:40 PT 24.4 SECONDS (9.7-12.2) H 09/23/18 13:51 INR 2.2 09/23/18 13:51 APTT 41 SECONDS (21-34) H 09/23/18 13:51 Assessment and Plan (1) CAD (coronary artery disease) Status: Acute (2) Dyspnea Status: Acute (3) ESRD (end stage renal disease) Status: Acute (4) PVD (peripheral vascular disease) Status: Acute (5) CHF (congestive heart failure) Status: Acute (6) Hypertension Status: Acute (7) Diabetes Status: Acute
[2018-10-02 16:49] VITALS: BP 119/69; PULSE 98; TEMP 97.4; O2SAT 98
--- NOTE | 2018-10-02 19:17 | CP.PCM.PN ---
Subjective - Date & Time of Evaluation Date of Evaluation: 10/02/18 Time of Evaluation: 07:30 - Subjective Subjective: clinically same Objective - Vital Signs/Intake and Output Vital Signs (last 24 hours): Temp Pulse Resp BP Pulse Ox 97.4 F L 98 H 16 119/69 98 10/02/18 16:05 10/02/18 16:05 10/02/18 16:05 10/02/18 16:05 10/02/18 16:05 Intake and Output: 10/02/18 10/03/18 18:59 06:59 Intake Total 630 Balance 630 - Medications Medications: Current Medications Acetaminophen (Tylenol 325mg Tab) 650 mg PO Q6 PRN PRN Reason: Pain, Mild (1-3) Albumin Human (Albumin Human 25% (12.5 Gm/50 Ml)) 25 gm IV MWF PRN PRN Reason: Other Aspirin (Aspirin Chewable) 81 mg PO DAILY [facility] Last Admin: 10/02/18 10:33 Dose: 81 mg Cilostazol (Pletal) 100 mg PO DAILY [facility] Last Admin: 10/02/18 10:33 Dose: 100 mg Clopidogrel Bisulfate (Plavix) 75 mg PO DAILY [facility] Last Admin: 10/02/18 10:33 Dose: 75 mg Docusate Sodium (Colace) 100 mg PO BID [facility] Last Admin: 10/02/18 17:15 Dose: 100 mg Ezetimibe (Zetia) 10 mg PO DAILY [facility] Last Admin: 10/02/18 10:33 Dose: 10 mg Epoetin Danny (Procrit) 10,000 unit IV MWF [facility] Last Admin: 10/02/18 15:14 Dose: 10,000 unit Hydromorphone HCl (Dilaudid) 1 mg IVP Q4H PRN PRN Reason: Pain, severe (8-10) Last Admin: 10/02/18 16:36 Dose: 1 mg Insulin Aspart (Novolog) 0 unit SC [facility]; Protocol Last Admin: 10/02/18 11:53 Dose: Not Given Losartan Potassium (Cozaar) 25 mg PO DAILY [facility] Last Admin: 10/02/18 10:34 Dose: Not Given Metoprolol Succinate (Toprol Xl) 25 mg PO DAILY [facility] Last Admin: 10/02/18 10:38 Dose: Not Given Wqvau-6-Dqkh Ethyl Esters (Lovaza) 1 gm PO BID [facility] Last Admin: 10/02/18 17:15 Dose: 1 gm Oxycodone HCl (Oxycodone Immediate Release Tab) 5 mg PO Q6 PRN PRN Reason: Pain, moderate (4-7) Pregabalin (Lyrica) 75 mg PO DAILY [facility] Last Admin: 10/02/18 10:33 Dose: 75 mg Ranolazine (Ranexa) 500 mg PO BID [facility] Last Admin: 10/02/18 17:36 Dose: 500 mg Rosuvastatin Calcium (Crestor) 5 mg PO HS [facility] Last Admin: 10/01/18 22:45 Dose: 5 mg Sevelamer Carbonate (Renvela) 800 mg PO TIDCC [facility] Last Admin: 10/02/18 12:01 Dose: 800 mg Vitamin B Complex/Vit C/Folic Acid (Nephro-Federica) 1 tab PO 0800 [facility] Last Admin: 10/02/18 08:14 Dose: 1 tab - Labs Labs: 09/29/18 08:19 09/25/18 14:40 PT 24.4 SECONDS (9.7-12.2) H 09/23/18 13:51 INR 2.2 09/23/18 13:51 APTT 41 SECONDS (21-34) H 09/23/18 13:51 - Constitutional Appears: Well - Head Exam Head Exam: ATRAUMATIC, NORMAL INSPECTION, NORMOCEPHALIC - Eye Exam Eye Exam: EOMI, Normal appearance, PERRL Pupil Exam: NORMAL ACCOMODATION, PERRL - ENT Exam ENT Exam: Mucous Membranes Moist, Normal Exam - Neck Exam Neck Exam: Full ROM, Normal Inspection. absent: Lymphadenopathy - Respiratory Exam Respiratory Exam: Decreased Breath Sounds - Cardiovascular Exam Cardiovascular Exam: REGULAR RHYTHM, +S1, +S2 - GI/Abdominal Exam GI & Abdominal Exam: Soft, Diminished Bowel Sounds - Rectal Exam Rectal Exam: Deferred
== END 2018-10-02 20:55 | DRG 239 ==
LOC: C.ER 21:41 → C.9E 23:22 → C.3T 09-13 17:04 → C.9S 09-17 10:35 → C.9I 09-17 19:16 → C.3T 09-20 11:08
PROVIDERS: ADMIT Internal Medicine Nephrology; ATTEND Internal Medicine Nephrology
PROC: 5A1D70Z Performance of Urinary Filtration, Intermittent, Less than 6 Hours Per Day (ICD-10-PCS; 2018-09-14)
PROC: 5A1D70Z Performance of Urinary Filtration, Intermittent, Less than 6 Hours Per Day (ICD-10-PCS; 2018-09-16)
PROC: 041L0JL Bypass Left Femoral Artery to Popliteal Artery with Synthetic Substitute, Open Approach (ICD-10-PCS; 2018-09-17)
PROC: B41GYZZ Fluoroscopy of Left Lower Extremity Arteries using Other Contrast (ICD-10-PCS; 2018-09-17)
PROC: 30233N1 Transfusion of Nonautologous Red Blood Cells into Peripheral Vein, Percutaneous Approach (ICD-10-PCS; 2018-09-17)
PROC: 5A1D70Z Performance of Urinary Filtration, Intermittent, Less than 6 Hours Per Day (ICD-10-PCS; 2018-09-18)
PROC: 5A1D70Z Performance of Urinary Filtration, Intermittent, Less than 6 Hours Per Day (ICD-10-PCS; 2018-09-21)
PROC: 5A1D70Z Performance of Urinary Filtration, Intermittent, Less than 6 Hours Per Day (ICD-10-PCS; 2018-09-23)
PROC: 0Y6N0ZF Detachment at Left Foot, Partial 5th Ray, Open Approach (ICD-10-PCS; 2018-09-24)
PROC: 0Y6M0Z9 Detachment at Right Foot, Partial 1st Ray, Open Approach (ICD-10-PCS; 2018-09-24)
PROC: 0Y6M0ZB Detachment at Right Foot, Partial 2nd Ray, Open Approach (ICD-10-PCS; 2018-09-24)
PROC: 0Y6M0ZC Detachment at Right Foot, Partial 3rd Ray, Open Approach (ICD-10-PCS; 2018-09-24)
PROC: 0JBR0ZZ Excision of Left Foot Subcutaneous Tissue and Fascia, Open Approach (ICD-10-PCS; 2018-09-24)
PROC: 0JBQ0ZZ Excision of Right Foot Subcutaneous Tissue and Fascia, Open Approach (ICD-10-PCS; 2018-09-24)
PROC: 0Y6N0ZD Detachment at Left Foot, Partial 4th Ray, Open Approach (ICD-10-PCS; principal; 2018-09-24 10:45)
PROC: 5A1D70Z Performance of Urinary Filtration, Intermittent, Less than 6 Hours Per Day (ICD-10-PCS; 2018-09-25)
PROC: 5A1D70Z Performance of Urinary Filtration, Intermittent, Less than 6 Hours Per Day (ICD-10-PCS; 2018-09-28)
PROC: 5A1D70Z Performance of Urinary Filtration, Intermittent, Less than 6 Hours Per Day (ICD-10-PCS; 2018-09-30)
PROC: 5A1D70Z Performance of Urinary Filtration, Intermittent, Less than 6 Hours Per Day (ICD-10-PCS; 2018-10-02)
DX: E11.52 Type 2 diabetes mellitus with diabetic peripheral angiopathy with gangrene (principal); N18.6 End stage renal disease; E11.621 Type 2 diabetes mellitus with foot ulcer; E11.69 Type 2 diabetes mellitus with other specified complication; L97.429 Non-pressure chronic ulcer of left heel and midfoot with unspecified severity; L97.419 Non-pressure chronic ulcer of right heel and midfoot with unspecified severity; M86.172 Other acute osteomyelitis, left ankle and foot; M86.171 Other acute osteomyelitis, right ankle and foot; I13.2 Hypertensive heart and chronic kidney disease with heart failure and with stage 5 chronic kidney disease, or end stage renal disease; E87.1 Hypo-osmolality and hyponatremia; L03.115 Cellulitis of right lower limb; L03.116 Cellulitis of left lower limb; N25.81 Secondary hyperparathyroidism of renal origin; I50.9 Heart failure, unspecified; E11.22 Type 2 diabetes mellitus with diabetic chronic kidney disease; I25.10 Atherosclerotic heart disease of native coronary artery without angina pectoris; E21.1 Secondary hyperparathyroidism, not elsewhere classified; D64.9 Anemia, unspecified; E83.39 Other disorders of phosphorus metabolism; E78.5 Hyperlipidemia, unspecified; E78.00 Pure hypercholesterolemia, unspecified; E66.9 Obesity, unspecified; Z95.828 Presence of other vascular implants and grafts; Z79.84 Long term (current) use of oral hypoglycemic drugs; Z99.2 Dependence on renal dialysis; Z68.35 Body mass index [BMI] 35.0-35.9, adult; Z91.013 Allergy to seafood